=== PATIENT | male | born 1965 | race Asian ===

== ENCOUNTER 2017-04-03 23:50 | Inpatient (IN) | payer OTHER ==
[~2017-04-03] VITALS: Ht 180.3 cm; Wt 80.7 kg
[2017-04-03] MEDS ORDERED: SOD CHLORIDE 0.9% 1,000 ML IV STA (23:53)
[2017-04-03] MEDS ORDERED: LORAZEPAM 2 MG INJ IV STA (23:53)
[2017-04-03] MEDS ORDERED: SUCCINYLCHOLINE CHLORIDE 100 MG/5 ML SYG IV STA (23:57)
[2017-04-03] MEDS ORDERED: ETOMIDATE 20 MG INJ IV STA (23:57)
[2017-04-03] MEDS ORDERED: PROPOFOL 100 ML IV STA (23:57)
[2017-04-04] VITALS (72 sets, daily range): BP systolic 72–141; BP diastolic 56–91; PULSE 61–99; RESP 14–23; Ht 180.3 cm; Wt 80.7 kg
[2017-04-04] MEDS ORDERED: LEVETIRACETAM 1000 MG (PMX) 100 ML IVPB ONE
[2017-04-04 00:19] LABS: BASOPHILS % 0.1 % (0.0-2.0); EOSINOPHILS % 0.3 % (0.0-7.0); HEMATOCRIT 49.3 % (42.0-52.0); HEMOGLOBIN 15.6 g/dl (14.0-18.0); LYMPHOCYTES # 4.6 10^3/ul (0.8-2.9); LYMPHOCYTES % 33.8 % (15.0-51.0); MEAN CORPUSCULAR HEMOGLOBIN 30.1 pg (29.0-33.0); MEAN CORPUSCULAR HGB CONC 31.6 g/dl (32.0-37.0); MEAN CORPUSCULAR VOLUME 95.2 fl (82.0-101.0); MONOCYTE # 1.1 10^3/ul (0.3-0.9); MONOCYTES % 8.4 % (0.0-11.0); NEUTROPHIL # 7.7 10^3/ul (1.6-7.5); PLATELET COUNT 332 10^3/UL (140-415); RED BLOOD COUNT 5.18 10^6/ul (4.70-6.10); RED CELL DISTRIBUTION WIDTH 11.9 % (11.5-14.5); WHITE BLOOD COUNT 13.5 10^3/ul (4.8-10.8)
[2017-04-04 00:42] LABS: ALANINE AMINOTRANSFERASE 16 IU/L (13-69); ALBUMIN 4.6 g/dl (3.3-4.9); ALBUMIN/GLOBULIN RATIO 1.35; ALKALINE PHOSPHATASE 132 IU/L (42-121); ANION GAP 41 (8-16); ASPARTATE AMINO TRANSFERASE 23 IU/L (15-46); BILIRUBIN,INDIRECT 1.5 mg/dl (0-1.1); BILIRUBIN,TOTAL 1.5 mg/dl (0.2-1.3); BLOOD UREA NITROGEN 12 mg/dl (7-20); CHLORIDE 100 mmol/L (97-110); POTASSIUM 4.3 mmol/L (3.5-5.1); SODIUM 146 mmol/L (135-144)
[2017-04-04 00:49] LABS: CARBON DIOXIDE 9 mmol/L (21-31); GLUCOSE 540 mg/dl (70-220)
[2017-04-04 01:05] LABS: TROPONIN-I < 0.012 ng/ml (0.00-0.12)
[2017-04-04] MEDS ORDERED: INSULIN HUMAN REGULAR 100 UNIT in SOD CHLORIDE 0.9% 99 ML IV STA (01:13)
[2017-04-04] MEDS ORDERED: DEXMEDETOMIDINE HCL 200 MCG in SOD CHLORIDE 0.9% 48 ML IV STA (01:19)
[2017-04-04] MEDS ORDERED: LORAZEPAM 2 MG INJ IV ONE (01:30)
[2017-04-04] MEDS ORDERED: SOD CHLORIDE 0.9% 1,000 ML IV ONE (01:30)
--- NOTE | 2017-04-04 01:45 | RADRPT ---
PROCEDURE: CT BRAIN WITHOUT CONTRAST CLINICAL INDICATION: 52-year-old male with seizure. TECHNIQUE: The study was performed utilizing [email or web address] VCT 64-slice CT scanner. Direct axial sections were obtained from the foramen magnum to the vertex without the use of intravenous contrast material. The study was repeated secondary to motion artifact. Sagittal and coronal reformations we re obtained. One or more of the following dose reduction techniques were utilized: automated exposur e control, adjustment of the mA and/or kV according to patient's size or use of iterative reconstruc tion technique. The images were viewed on a PACS workstation. CTD/vol = 90.0 mGy; Total Exam DLP = 1620.5 mGy-cm. COMPARISON: None. FINDINGS: There is mild prominence of the sulci and cisternal spaces consistent with diffuse volume loss. Oth erwise, the ventricles have a normal shape and position. There is no evidence for mass effect or mid line shift. There is focal encephalomalacia within the right inferior parietal region on axial image 5-22 which may be due to prior watershed infarct. There is a focal area of decreased density within the left lateral mid cerebellum consistent with a prior infarct. There is additional focal areas of encephalomalacia within the left superior cerebellum consistent with a prior infarct. There is an o ld lacunar type infarct within the right centrum semiovale. There are scattered periventricular and deep white matter foci of decreased density suggestive of microangiopathic ischemic changes. There is no evidence for acute intra or extra-axial blood. The bony calvarium is intact. There is minimal mucosal thickening within the ethmoid air cells bilaterally. No air-fluid levels are noted. The mastoid air cells are without significant soft tissue. There is a partially visualized endotracheal tube within the oral cavity. IMPRESSION: 1. Mild diffuse volume loss. 2. Focal right inferior parietal, left lateral mid and left superior cerebellum encephalomalacia mo st consistent with prior infarcts. These may be embolic. Clinical correlation is necessary. 3. Old lacunar infarct right centrum semiovale. 4. Scattered periventricular deep white matter areas of decreased density suggestive of microangiop athic ischemic changes. 5. Minimal mucosal thickening ethmoid air cells. 6. Endotracheal tube partially visualized within the oral cavity. .Silas Abraham MD, MD Date Time Electronically viewed and signed by .Silas Abraham MD, MD on 04/04/2017 01:45 .M/
--- NOTE | 2017-04-04 01:46 | RADRPT ---
PROCEDURE: CHEST - 1 VIEW CLINICAL INDICATION: 52-year-old male with seizure and intubation. TECHNIQUE: A single frontal AP portable view of the chest was performed. The images were reviewed on a PACS workstation. COMPARISON: None. FINDINGS: There is an endotracheal tube identified with the tip approximately 4.7 cm above the kamini. The car diomediastinal silhouette is within normal limits. The inferior aspect of the left lower lateral emily st wall costophrenic angle are incompletely visualized. There is mild elevation right hemidiaphragm. There is no evidence for an infiltrate. There is no evidence for congestive heart failure. There is no evidence for pneumothorax. The osseous structures are intact. IMPRESSION: 1. Endotracheal tube with the tip in the mid trachea. 2. No evidence for active cardiopulmonary disease. .Silas Abraham MD, Date Time Electronically viewed and signed by .Silas Abraham MD, on 04/04/2017 01:46 .M/
[2017-04-04] MEDS ORDERED: ATOR10TA65 PO (01:48)
[2017-04-04] MEDS ORDERED: CARV6.2579 PO (01:48)
[2017-04-04] MEDS ORDERED: ASPI-535 PO (01:48)
[2017-04-04] MEDS ORDERED: GLIM2TAB47 PO (01:48)
[2017-04-04] MEDS ORDERED: [UNRECOGNIZED DRUG - CODE] PO (01:48)
[2017-04-04 01:51] LABS: AADO2 Arterial 131.9 mmHg (7.0-24.0); Allen Test ACCEPTAB; Arterial Base Excess -13.3 mmol/L (-3.0-3); Arterial HCO3 12.1 mmol/L (22.0-26.0); MODE VENT - AC
[2017-04-04] MEDS ORDERED: SOD CHLORIDE 0.9% 1,000 ML IV SCH (03:11)
--- NOTE | 2017-04-04 03:29 | ERA ---
ER Documentation Chief Complaint Date/Time DATE: 04/04/17 TIME: 03:11 Chief Complaint bib ra from home, witnessed seizure, no hx of seizures HPI This is a 52-year-old male comes in with complaints of alteration in mental status over the past 3 days per the family. Patient comes in actively seizing. Combative as well. Per family, patient is complained of headache and visual disturbances over the past 4 days. Patient is a diabetic and hypertensive is been noncompliant with his medications for the past 4 months. History is limited secondary to patient's current mental status. ROS All systems reviewed and are negative except as per history of present illness. Medications Home Meds Reported Medications Aspirin Ec (Aspir 81) 81 Mg Tablet.dr, 81 MG PO DAILY 04/04/17 Metformin HCl (Fortamet) 500 Mg Tab.er.24, 500 MG PO 04/04/17 Glimepiride* (Amaryl*) 2 Mg Tablet, 2 MG PO WITH BREAKFAST 04/04/17 Atorvastatin Calcium (Atorvastatin Calcium) 10 Mg Tablet, 10 MG PO QHS 04/04/17 Carvedilol* (Carvedilol*) 6.25 Mg Tablet, 6.25 MG PO BID 04/04/17 Allergies Allergies: Coded Allergies: No Known Allergy (Unverified , 04/04/17) PMhx/Soc Medical and Surgical Hx: Unable to obtain History of Surgery: Yes (stent placement) Anesthesia Reaction: No Hx 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 Disorder: No (family denies seizure history) Hx Cardiac Disorders: Yes (HTN, cardiac arrest, 2x stents) Hx Miscellaneous Medical Probl: Yes (DM 2) Hx Alcohol Use: Yes (weekly, socially) Hx Substance Use: No Smoking Status: Unknown if ever smoked Physical Exam Vitals Vital Signs Date Time Temp Pulse Resp B/P Pulse Ox O2 Delivery O2 Flow Rate FiO2 04/04/17 02:45 98.9 96 15 86/67 100 Mechanical Ventilator 2.0 04/04/17 02:30 98.9 100 17 96/70 100 Mechanical Ventilator 2.0 04/04/17 02:15 104 16 100 50 04/04/17 02:15 98.5 104 16 90/69 100 Mechanical Ventilator 04/04/17 02:00 98.9 109 17 96/71 100 Mechanical Ventilator 04/04/17 01:45 98.9 115 18 101/71 100 Mechanical Ventilator 04/04/17 01:30 98.9 120 21 94/69 100 Mechanical Ventilator 04/04/17 01:15 98.9 130 22 83/66 100 Mechanical Ventilator 04/04/17 01:00 98.9 132 21 86/63 100 Mechanical Ventilator 04/04/17 00:45 98.9 143 19 96/74 100 Mechanical Ventilator 04/04/17 00:30 98.9 87 19 100/79 100 Mechanical Ventilator 2.0 04/04/17 00:15 150 18 100 100 04/04/17 00:15 98.9 153 27 179/122 100 Mechanical Ventilator 04/04/17 00:00 98.9 143 21 140/90 100 Mechanical Ventilator 04/03/17 23:59 98.9 135 24 137/76 97 04/03/17 23:55 98.5 154 25 152/92 95 Room Air 2.0 Physical Exam Const: [] Head: Atraumatic Eyes: Normal Conjunctiva ENT: Normal External Ears, Nose and Mouth. Neck: Full range of motion..~ No meningismus. Resp: Clear to auscultation bilaterally Cardio: Regular rate and rhythm, no murmurs Abd: Soft, non tender, non distended. Normal bowel sounds Skin: No petechiae or rashes Back: No midline or flank tenderness Ext: No cyanosis, or edema Neur: Awake and alert Psych: Normal Mood and Affect Result Diagram: 04/04/17 0001 04/04/17 0001 Results 24 hrs Laboratory Tests Test 04/03/17 23:55 04/04/17 00:01 04/04/17 00:09 04/04/17 02:13 Bedside Glucose 486mg/dL 423mg/dL White Blood Count 13.510^3/ul Red Blood Count 5.1810^6/ul Hemoglobin 15.6g/dl Hematocrit 49.3% Mean Corpuscular Volume 95.2fl Mean Corpuscular Hemoglobin 30.1pg Mean Corpuscular Hemoglobin Concent 31.6g/dl Red Cell Distribution Width 11.9% Platelet Count 41890^3/UL Mean Platelet Volume 11.0fl Neutrophils % 57.0% Lymphocytes % 33.8% Monocytes % 8.4% Eosinophils % 0.3% Basophils % 0.1% Nucleated Red Blood Cells % 0.0/100WBC Neutrophils # 7.710^3/ul Lymphocytes # 4.610^3/ul Monocytes # 1.110^3/ul Eosinophils # 0.010^3/ul Basophils # 0.010^3/ul Nucleated Red Blood Cells # 0.010^3/ul Sodium Level 146mmol/L Potassium Level 4.3mmol/L Chloride Level 100mmol/L Carbon Dioxide Level 9mmol/L Anion Gap 41 Blood Urea Nitrogen 12mg/dl Creatinine 1.40mg/dl Glucose Level 540mg/dl Calcium Level 11.0mg/dl Total Bilirubin 1.5mg/dl Direct Bilirubin 0.00mg/dl Indirect Bilirubin 1.5mg/dl Aspartate Amino Transf (AST/SGOT) 23IU/L Alanine Aminotransferase (ALT/SGPT) 16IU/L Alkaline Phosphatase 132IU/L Troponin I < 0.012ng/ml Total Protein 8.0g/dl Albumin 4.6g/dl Globulin 3.40g/dl Albumin/Globulin Ratio 1.35 Blood Gas Specimen Source Blood arterial Arterial Blood Date Drawn 04/04/2017 1:30:15 AM Arterial Blood pH (Temp corrected) 7.259 Arterial Blood pCO2 (Temp correct) 27.6mmhg Arterial Blood pO2 (Temp corrected) 553.5mmHG Arterial Blood HCO3 12.1mmol/L Arterial Blood Base Excess -13.3mmol/L Matt Test ACCEPTAB Arterial Blood Gas Puncture Site Left Radial Blood Gas A-a O2 Differential 131.9mmHg Blood Gas Temperature 37.0C Blood Gas Respiration Rate 14.0 Blood Gas Actual Respiration Rate 20 Blood Gas Modality VENT - AC FiO2 100.0% Blood Gas Tidal Volume 500.0mL Blood Gas Low PEEP Setting 5.0cmH2O Blood Gas Critical Value Read Back LUIS Solorio MD Blood Gas Notified Whom SONIA Blood Gas Notified Time 04/04/2017 1:50:48 AM Current Medications Medications (Trade) Dose Ordered Sig/Mitra Route PRN Reason Start Time Stop Time Status Last Admin Dose Admin Sodium Chloride (NS) 1,000 ml @ 1,000 mls/hr Q1H STAT IV 04/03/17 23:53 04/04/17 00:52 DC 04/04/17 00:56 Lorazepam (Ativan) 2 mg ONCE STAT IV 04/03/17 23:53 04/03/17 23:54 DC 04/04/17 00:57 Succinylcholine Chloride (Anectine Syringe) 100 mg ONCE STAT IV 04/03/17 23:57 04/03/17 23:59 DC 04/04/17 00:56 Etomidate 20 mg 20 mg ONCE STAT IV 04/03/17 23:57 04/03/17 23:59 DC 04/04/17 00:56 Propofol 100 ml @ 0 mls/hr ONCE STAT IV 04/03/17 23:57 04/03/17 23:59 DC 04/04/17 00:56 Levetiracetam 100 ml @ 400 mls/hr ONCE ONCE IVPB 04/04/17 00:00 04/04/17 00:14 DC 04/04/17 00:53 Insulin Human Regular/Sodium Chloride (Novolin-R/NS) 100 ml @ 0 mls/hr TITRATE STAT IV 04/04/17 01:13 04/04/17 01:15 DC 04/04/17 01:43 Lorazepam 2 mg 2 mg ONCE ONCE IV 04/04/17 01:30 04/04/17 01:31 DC 04/04/17 01:38 Sodium Chloride 1,000 ml @ 1,000 mls/hr Q1H ONCE IV 04/04/17 01:30 04/04/17 02:29 DC 04/04/17 01:38 Dexmedetomidine HCl/Sodium Chloride (Precedex/NS) 50 ml @ 0 mls/hr TITRATE STAT IV 04/04/17 01:19 04/04/17 01:26 DC 04/04/17 01:42 Procedures/MDM EKG: Rate/Rhythm: [Normal Sinus Rhythm] QRS, ST, T-waves: [No changes consistent w/ acute ischemia] Impression: [No evidence of ischemia or arrhythmia] Chest X-ray 1V Interpreted by me: Soft Tissue: No acute abnormalities Bones: No acute abnormalities Mediastinum/Cardiac Silhouette/Lungs: ET tube in good position CT of the head was negative for any acute events, but that showed many old infarcts. Please see radiologist full dictation for full report Endotracheal Intubation by me: Pre assessment performed. See preceding note for details. Pre-oxygenation performed with 100% oxygen RSI: Performed w/o complication or hypoxic events. Medications as ordered. Blade: [Mac 4] ET Tube: 7.5 cm Depth: 23 cm at the lip Intubation confirmed by colorimetric CO2, equal breath sounds, quiet over the stomach. Chest X-ray 1V Interpreted by me: 4 cm above the kamini ET tube. Normal soft tissue, No pneumothorax. Medical decision-making: This unfortunate patient has multiple medical problems. He is in respiratory failure with intractable seizure disorder. Is been intubated and placed on sedation with Precedex and deeper bag. Patient also a diabetic ketoacidosis of his depressive mood swings have been fluid hydrated. Patient will be admitted to intensive care unit to Dr. Chow who is on-call Departure Diagnosis: Primary Impression: Seizure disorder Additional Impression: DKA (diabetic ketoacidoses) Qualified Code: E13.11 - Diabetic ketoacidosis with coma associated with type 2 diabetes mellitus Condition: Critical PAM SMITH Apr 04, 2017 03:29
[2017-04-04] MEDS ORDERED: LORAZEPAM 2 MG INJ IV PRN (03:30)
[2017-04-04] MEDS ORDERED: ONDANSETRON 4 MG INJ IV PRN (03:30)
[2017-04-04] MEDS ORDERED: NACL 0.9% 3 ML SYG IV SCH (03:30)
[2017-04-04] MEDS ORDERED: INSULIN HUMAN REGULAR 100 UNIT in SOD CHLORIDE 0.9% 99 ML IV SCH (04:44)
[2017-04-04] MEDS ORDERED: DEXTROSE 50% 50 ML SYRINGE IV PRN ×4 (05:00→09:30)
[2017-04-04] MEDS: ACCU-CHEK XX SCH ×5 (05:00→09:05)
[2017-04-04] MEDS: NORepinephrine 8MG/250 ML (PMX 250 ML IV SCH (05:30)
[2017-04-04] MEDS ORDERED: NORepinephrine 8MG/250 ML (PMX 250 ML ONE (05:39)
[2017-04-04] MEDS ORDERED: HEPARIN 5,000 UNIT/0.5 ML VIAL SC SCH (06:00)
[2017-04-04] MEDS ORDERED: PANTOPRAZOLE 40 MG INJ IV SCH (06:00)
[2017-04-04] MEDS: DEXTROSE 5%-0.9% NACL 1,000 ML IV SCH ×2 (06:07→16:27)
[2017-04-04 07:00] LABS: CALCIUM 8.7 mg/dl (8.4-10.2); CREATININE 1.01 mg/dl (0.61-1.24); POTASSIUM 3.4 mmol/L (3.5-5.1)
[2017-04-04] MEDS ORDERED: ETOMIDATE 20 MG INJ ONE (07:00)
[2017-04-04 08:03] LABS: AADO2 Arterial 25.5 mmHg (7.0-24.0); Allen Test ACCEPTAB; Arterial Base Excess -2.3 mmol/L (-3.0-3); Arterial COHb 0.3 % (0.0-3.0); Arterial Fraction of Oxyhgb 97.9 % (93.0-99.0); Arterial HCO3 22.5 mmol/L (22.0-26.0); Arterial MetHb 0.2 % (0.0-1.5); Arterial Total Hemglobin 14.4 g/dl (12.0-18.0); MODE VENT - AC
[2017-04-04] MEDS ORDERED: KCL 20 MEQ in NS 100 ML IV ONE (09:00)
[2017-04-04] MEDS ORDERED: ASPIRIN (EC) 81 MG TAB PO SCH (09:00)
[2017-04-04] MEDS: ASPIRIN 81 MG TAB NGT SCH (09:30)
[2017-04-04] MEDS: PROPOFOL 100 ML IV SCH ×3 (09:30→22:00)
[2017-04-04] MEDS ORDERED: ACCU-CHEK XX SCH (09:30)
[2017-04-04] MEDS: LEVETIRACETAM 500 MG (PMX) 100 ML IVPB SCH ×2 (09:30→20:06)
[2017-04-04 10:39] LABS: ABNORMAL IP MESSAGE 1; BASOPHILS % 0.1 % (0.0-2.0); EOSINOPHILS # 0.1 10^3/ul (0.0-0.5); EOSINOPHILS % 0.3 % (0.0-7.0); HEMATOCRIT 38.4 % (42.0-52.0); HEMOGLOBIN 13.4 g/dl (14.0-18.0); LYMPHOCYTES # 1.4 10^3/ul (0.8-2.9); LYMPHOCYTES % 9.3 % (15.0-51.0); MEAN CORPUSCULAR HEMOGLOBIN 30.2 pg (29.0-33.0); MEAN CORPUSCULAR HGB CONC 34.9 g/dl (32.0-37.0); MEAN CORPUSCULAR VOLUME 86.5 fl (82.0-101.0); MEAN PLATELET VOLUME 10.3 fl (7.4-10.4); MONOCYTES % 13.5 % (0.0-11.0); NEUTROPHIL # 11.2 10^3/ul (1.6-7.5); NEUTROPHILS % 76.3 % (39.0-77.0); PLATELET COUNT 266 10^3/UL (140-415); POSITIVE DIFF @See below; RED BLOOD COUNT 4.44 10^6/ul (4.70-6.10); RED CELL DISTRIBUTION WIDTH 12.1 % (11.5-14.5); WHITE BLOOD COUNT 14.7 10^3/ul (4.8-10.8)
--- NOTE | 2017-04-04 10:50 | HP ---
Date/Time of Note Date/Time of Note DATE: 04/04/17 TIME: 10:34 Assessment/Plan VTE Prophylaxis VTE Prophylaxis Intervention: heparin Lines/Catheters IV Catheter Type (from Nrs): Peripheral IV Urinary Cath still in place: Yes Reason Cath still needed: other (indicate) (Intubated) Assessment/Plan Assessment/Plan 52-year-old male with: 1. Diabetic ketoacidosis, known diabetes mellitus with noncompliance with diet or medications. Patient has been off medication for at least 1-2 month, status post DKA protocol, gap is closed, we are transitioning to subcu insulin. He is currently n.p.o., still on D5 normal saline. Hemoglobin A1c out of range. Diabetic education once extubated and awake. Likely to need insulin therapy. Apparently he was on metformin and glipizide based on his medication reconciliation prior. 2. Seizures, unclear etiology but could be secondary to DKA versus intracranial pathology. CAT scan is showing old ischemic CVA, MRI brain, MRA brain and MRA neck still pending. EEG to be done when more stable. Continue Keppra for now. 3. Acute respiratory failure in setting seizures and inability to protect airway. Chest x-ray is fairly clear, pulmonary following. Hopefully to extubate her soon. Currently sedated with propofol, also requiring low-dose Levophed. Lactic acid within normal, no signs of acute infection however again the patient has had seizures, in DKA and as of this morning with AMI 4. NSTEMI known coronary artery disease, status post stent. According to the sister the patient has been compliant with aspirin. His troponin upon arrival last night was within normal. However on recheck this morning is up to 38. NG tube has been placed, aspirin resumed, renal function within normal, CAT scan with no acute bleeding, therefore patient will be put on Lovenox for anticoagulation in setting of AMI. EKG pending. He has required Levophed overnight, carvedilol on hold. Cardiac enzymes being trended, echocardiogram ordered stat, cardiology consult ordered. 5. Diabetes mellitus, known noncompliance with medication, diet or follow-ups. Diabetic education after extubation, will require insulin therapy, see #1 6. Coronary artery disease, status post PCI and stent placed according to the sister, 3 years ago in [place]. Will increase Lipitor to 80 mg nightly, once more stable beta-blockers to be started, currently with NSTEMI therefore will be placed on anticoagulation, aspirin to be continued, cardiology to see. Echocardiogram pending. See #4 7. Hyperlipidemia: Increase Lipitor to 80 mg nightly. Prophylaxis: Treatment dose of Lovenox in setting of AMI, Pepcid for GI prophylaxis Disposition: Cardiology evaluation, pulmonary following regarding vent management, blood sugar control. Prognosis is fair so far. HPI/ROS Admit Date/Time Admit Date/Time Apr 04, 2017 at 03:21 Hx of Present Illness Chief complaint: Seizures History of presenting illness: This is a 52-year-old male with history of coronary artery disease, status post cardiac arrest 3 years ago, had PCI with stent placement 2, diabetes mellitus, hyperlipidemia, apparently stopped all his medication at least 3 months ago, noncompliant with diet, presented the emergency department seizures, could not protect his airway therefore had to be intubated. Patient was also found to be in DKA with bicarb of 9, pH of 7.2 and blood sugars in the 500s. He was started on an insulin drip/DKA protocol, intubated for airway protection, given a dose of Keppra and admitted to the intensive care unit. Patient is currently on propofol, Levophed had to be started for hypotension, he is also on IV fluids. His gap is closed, he will be transitioned to subcutaneous insulin. He is down to 30% FiO2 with weaning protocol started. He has been put on Keppra for seizure. CAT scan of the head showing old ischemic stroke, neurological workup has been started, MRIs are pending, EEG will also be ordered once patient of sedation and more awake. The patient himself has not been able to give any history, the sister at the bedside was able to provide most of the history, I also talked to his primary care physician who gave additional history. According to the sister patient has been complaining of severe headaches and losing his vision over the past 5 days or to admission, he went to his primary care physician to whom he apparently complains of vision loss, she is primary care physician was concerned about glaucoma, he sent him to the [facility], according to the sister they did a dilated eye exam, apparently the pressures were okay, they give him a prescription for eyeglasses. Since the dilated exam, the patient pupils level went back to normal according to the sister and the patient never regained the vision he has prior to the exam. The patient is notoriously noncompliant with medication and also diet, apparently he has been eating additional sugar due to labile blood sugars according to the sister, his blood sugars will run high but also running low at times, they do not have any measurements, the patient is measuring himself. His A1c is out of range here which supports baseline elevated blood sugar. He has been having polyuria and polydipsia according to the sister. He also lost significant weight over the past 6 months. ROS Subjective hx not possible: pt non-verbal, pt critical status, other (Intubated , on pressors, on insulin drip DKA protocol) PMH/Family/Social Past Medical History Coronary artery disease, status post cardiac arrest 3 years ago, status post PCI with the 2 stents placed in [place] 2 years ago. According to the sister he was critically ill and remaining, for 2 month. 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 However his memory has been unreliable at time along with his behavior. Diabetes mellitus Hypertension Hyperlipidemia Visual disturbances/loss Possible major depressive disorder according to sister Noncompliance with medications or diet or follow-ups Past Surgical History Status post PCI with stent placement 3 years ago in [place] in setting of cardiac arrest Family History Significant Family History: no pertinent family hx Social History Alcohol Use: none Smoking Status: Never smoker Drug Use: none Exam/Review of Systems Vital Signs Vitals Vital Signs Date Time Temp Pulse Resp B/P Pulse Ox O2 Delivery O2 Flow Rate FiO2 04/04/17 08:00 73 04/04/17 07:40 15 100 30 04/04/17 06:30 124/91 04/04/17 04:15 97.8 Room Air 04/04/17 02:45 2.0 Intake and Output 04/03/17 04/03/17 04/04/17 15:00 23:00 07:00 Intake Total 1359 ml Output Total 575 ml Balance 784 ml Exam Constitutional: non-verbal, other (Sedated and intubated) Respiratory: clear to auscultation, other (On mechanical ventilation) Cardiovascular: nl pulses, regular rate and rhythm Gastrointestinal: non-tender, soft Musculoskeletal: nl extremities to inspection, other (No edema, clubbing or cyanosis) Extremities: normal pulses 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: other (Sedated and intubated) Labs Result Diagram: 04/04/17 0001 04/04/17 0534 Medications Medications Home medications: Currently none as patient not taking any of his medication at least for the past 1-3 months except for aspirin he has been taking daily. Current Medications Atorvastatin Calcium (Lipitor) 10 mg QHS PO ; Start 04/04/17 at 21:00 Carvedilol (Coreg) 6.25 mg BID PO ; Start 04/04/17 at 09:00 Lorazepam (Ativan) 0.5 mg Q6H PRN IV ANXIETY; Start 04/04/17 at 03:30 Ondansetron HCl (Zofran Inj) 4 mg Q6H PRN IV NAUSEA AND/OR VOMITING; Start 04/04/17 at 03:30 Morphine Sulfate (morphine) 2 mg Q4H PRN IV PAIN LEVEL 7-10; Start 04/04/17 at 03:30 Pantoprazole (Protonix Iv) 40 mg DAILY@06 IV Last administered on 04/04/17 06: 04; Admin Dose 40 MG; Start 04/04/17 at 06:00 Heparin Sodium (Porcine) 5000 unit 5,000 unit Q8 SC Last administered on 06:27; Admin Dose 5,000 UNIT; Start 04/04/17 at 06:00 Norepinephrine 250 ml @ 1.875 mls/ hr TITRATE IV Last administered on 05:30; Admin Dose 9.375 MLS/HR; Start 04/04/17 at 06:00 Dextrose/Sodium Chloride 1,000 ml @ 100 mls/hr Q10H IV Last administered on 06:07; Admin Dose 100 MLS/HR; Start 04/04/17 at 06:30 Potassium Chloride/Sodium Chloride (KCl/NS) 110 ml @ 55 mls/hr ONCE ONCE IV Last administered on 04/04/17 08:49; Admin Dose 55 MLS/HR; Start 04/04/17 at 09 :00; Stop 04/04/17 at 10:59 Diagnostic Test (Pha) (Accu-Chek) 1 ea Q1H XX ; Start 04/04/17 at 09:30 Dextrose (D50w Syringe) 25 ml Q15M PRN IV Till BS 80 mg/dL or above x2; Start 04/04/17 at 09:30 Dextrose (D50w Syringe) 50 ml Q15M PRN IV Till BS 80 mg/dL or above x2; Start 04/04/17 at 09:30 Aspirin 81 mg 81 mg DAILY NGT ; Start 04/04/17 at 09:30 Propofol 100 ml @ 2.421 mls/ hr Q12H IV ; Start 04/04/17 at 09:30 Levetiracetam (Keppra 500 Mg/ 100ml (Pmx)) 100 ml @ 400 mls/hr Q12 IVPB ; Start 04/04/17 at 09:30 Diagnostic Test (Pha) (Accu-Chek) 1 ea 02 XX ; Start 04/05/17 at 02:00 Insulin Glargine (Lantus) 16 unit DAILY@08 SC ; Start 04/04/17 at 10:00 Procedures Procedures PROCEDURE: CHEST - 1 VIEW CLINICAL INDICATION: 52-year-old male with seizure and intubation. TECHNIQUE: A single frontal AP portable view of the chest was performed. The images were reviewed on a PACS workstation. COMPARISON: None. FINDINGS: There is an endotracheal tube identified with the tip approximately 4.7 cm above the kamini. The cardiomediastinal silhouette is within normal limits. The inferior aspect of the left lower lateral chest wall costophrenic angle are incompletely visualized. There is mild elevation right hemidiaphragm. There is no evidence for an infiltrate. There is no evidence for congestive heart failure. There is no evidence for pneumothorax. The osseous structures are intact. IMPRESSION: 1. Endotracheal tube with the tip in the mid trachea. 2. No evidence for active cardiopulmonary disease. .Silas Abraham MD, MD Date Time Electronically viewed and signed by .Silas Abraham MD, MD on 04/04/2017 01:46 PROCEDURE: CT BRAIN WITHOUT CONTRAST CLINICAL INDICATION: 52-year-old male with seizure. TECHNIQUE: The study was performed utilizing [employer] 64-slice CT scanner. Direct axial sections were obtained from the foramen magnum to the vertex without the use of intravenous contrast material. The study was repeated secondary to motion artifact. Sagittal and coronal reformations were obtained. One or more of the following dose reduction techniques were utilized: automated exposure control, adjustment of the mA and/or kV according to patient's size or use of iterative reconstruction technique. The images were viewed on a PACS workstation. CTD/vol = 90.0 mGy; Total Exam DLP = 1620.5 mGy-cm. COMPARISON: None. FINDINGS: There is mild prominence of the sulci and cisternal spaces consistent with diffuse volume loss. Otherwise, the ventricles have a normal shape and position. There is no evidence for mass effect or midline shift. There is focal encephalomalacia within the right inferior parietal region on axial image 5-22 which may be due to prior watershed infarct. There is a focal area of decreased density within the left lateral mid cerebellum consistent with a prior infarct. There is additional focal areas of encephalomalacia within the left superior cerebellum consistent with a prior infarct. There is an old lacunar type infarct within the right centrum semiovale. There are scattered periventricular and deep white matter foci of decreased density suggestive of microangiopathic ischemic changes. There is no evidence for acute intra or extra-axial blood. The bony calvarium is intact. There is minimal mucosal thickening within the ethmoid air cells bilaterally. No air-fluid levels are noted. The mastoid air cells are without significant soft tissue. There is a partially visualized endotracheal tube within the oral cavity. IMPRESSION: 1. Mild diffuse volume loss. 2. Focal right inferior parietal, left lateral mid and left superior cerebellum encephalomalacia most consistent with prior infarcts. These may be embolic. Clinical correlation is necessary. 3. Old lacunar infarct right centrum semiovale. 4. Scattered periventricular deep white matter areas of decreased density suggestive of microangiopathic ischemic changes. 5. Minimal mucosal thickening ethmoid air cells. 6. Endotracheal tube partially visualized within the oral cavity. .Silas Abraham MD, MD Date Time Electronically viewed and signed by .Silas Abraham MD, MD on 04/04/2017 01:45 DOUGLAS FERRER Apr 04, 2017 10:45
[2017-04-04 10:59] LABS: ALBUMIN 3.2 g/dl (3.3-4.9); ALBUMIN/GLOBULIN RATIO 1.03; BILIRUBIN,INDIRECT 0.9 mg/dl (0-1.1); BILIRUBIN,TOTAL 0.9 mg/dl (0.2-1.3); CALCIUM 8.9 mg/dl (8.4-10.2); CREATININE 1.16 mg/dl (0.61-1.24); POTASSIUM 3.9 mmol/L (3.5-5.1); TOTAL PROTEIN 6.3 g/dl (6.1-8.1)
[2017-04-04 11:20] LABS: CK-MB 65.6 ng/ml (0.0-2.4)
[2017-04-04 11:21] LABS: TROPONIN-I 38.9 ng/ml (0.00-0.12)
[2017-04-04 11:29] LABS: THYROID STIMULATING HORMONE 2.5 MIU/L (0.465-4.680)
[2017-04-04] MEDS: INSULIN ASPART [NOVOLOG] 3 ML PEN SC SCH ×5 (11:30→20:05)
[2017-04-04] MEDS: INSULIN GLARGINE [LANtus] 3 ML PEN SC SCH (11:37)
[2017-04-04] MEDS: ENOXAPARIN 80 MG/0.8 ML SYG SC SCH ×2 (11:45→20:29)
[2017-04-04] MEDS ORDERED: CLOPIDOGREL 75 MG TAB NGT ONE (14:00)
[2017-04-04 17:11] LABS: CK-MB 66.4 ng/ml (0.0-2.4); TROPONIN-I 33.5 ng/ml (0.00-0.12)
[2017-04-04] MEDS: FAMOTIDINE 20 MG INJ IV SCH (20:06)
[2017-04-04] MEDS: ATORVASTATIN 80 MG TAB NGT SCH (20:06)
[2017-04-04] MEDS ORDERED: ATORVASTATIN 10 MG TAB PO SCH (21:00)
[2017-04-04] MEDS: LORAZEPAM 2 MG INJ IV PRN ×2 (21:19→22:00)
--- NOTE | 2017-04-04 21:52 | CONS ---
Date/Time of Note Date/Time of Note DATE: 04/04/17 TIME: 21:48 Assessment/Plan Assessment/Plan Additional Assessment/Plan NSTEMI DKA SEIZURE DO VDRF -discussed with son -will proceed with [facility] possible PCI -acei once bp stable and off pressors -continue cv meds -on preossors -stop lovenox before cath risk of mi,, cva, infection, bledin dolly fiaoruestefany, limb loss, cabg discusse Consultation Date/Type/Reason Admit Date/Time Apr 04, 2017 at 03:21 Hx of Present Illness This is a 52-year-old male comes in with complaints of alteration in mental status over the past 3 days per the family. Patient comes in actively seizing. Combative as well. Per family, patient is complained of headache and visual disturbances over the past 4 days. Patient is a diabetic and hypertensive is been noncompliant with his medications for the past 4 months. History is limited secondary to patient's current mental status. His hx has been obtained from his son and apparently with no cehst pian and no overt chf in the recent past but had a NSTEMI and as [facility], will underrgo further owrk up Social History Alcohol Use: none Smoking Status: Never smoker Drug Use: none Exam/Review of Systems Vital Signs Vitals Vital Signs Date Time Temp Pulse Resp B/P Pulse Ox O2 Delivery O2 Flow Rate FiO2 04/04/17 21:00 89 14 100 04/04/17 20:00 100/76 04/04/17 18:00 Mechanical Ventilator 04/04/17 16:45 30 04/04/17 16:00 98.4 04/04/17 02:45 2.0 Intake and Output 04/03/17 04/03/17 04/04/17 14:59 22:59 06:59 Intake Total 1242 ml Output Total 575 ml Balance 667 ml Results Result Diagram: 04/04/17 1021 04/04/17 1021 Results 24 hrs Laboratory Tests Test 04/03/17 23:55 04/04/17 00:01 04/04/17 00:09 04/04/17 02:13 Bedside Glucose 486 *H 423 *H White Blood Count 13.5 H Red Blood Count 5.18 Hemoglobin 15.6 Hematocrit 49.3 Mean Corpuscular Volume 95.2 Mean Corpuscular Hemoglobin 30.1 Mean Corpuscular Hemoglobin Concent 31.6 L Red Cell Distribution Width 11.9 Platelet Count 332 Mean Platelet Volume 11.0 H Neutrophils % 57.0 Lymphocytes % 33.8 Monocytes % 8.4 Eosinophils % 0.3 Basophils % 0.1 Nucleated Red Blood Cells % 0.0 Neutrophils # 7.7 H Lymphocytes # 4.6 H Monocytes # 1.1 H Eosinophils # 0.0 Basophils # 0.0 Nucleated Red Blood Cells # 0.0 Sodium Level 146 H Potassium Level 4.3 Chloride Level 100 Carbon Dioxide Level 9 *L Anion Gap 41 H Blood Urea Nitrogen 12 Creatinine 1.40 H Glucose Level 540 *H Calcium Level 11.0 H Total Bilirubin 1.5 H Direct Bilirubin 0.00 Indirect Bilirubin 1.5 H Aspartate Amino Transf (AST/SGOT) 23 Alanine Aminotransferase (ALT/SGPT) 16 Alkaline Phosphatase 132 H Troponin I < 0.012 Total Protein 8.0 Albumin 4.6 Globulin 3.40 H Albumin/Globulin Ratio 1.35 Blood Gas Specimen Source Blood arterial Arterial Blood Date Drawn 04/04/2017 1:30:15 AM Arterial Blood pH (Temp corrected) 7.259 *L Arterial Blood pCO2 (Temp correct) 27.6 L Arterial Blood pO2 (Temp corrected) 553.5 H Arterial Blood HCO3 12.1 L Arterial Blood Base Excess -13.3 L Matt Test ACCEPTAB Arterial Blood Gas Puncture Site Left Radial Blood Gas A-a O2 Differential 131.9 H Blood Gas Temperature 37.0 Blood Gas Respiration Rate 14.0 Blood Gas Actual Respiration Rate 20 Blood Gas Modality VENT - AC FiO2 100.0 Blood Gas Tidal Volume 500.0 Blood Gas Low PEEP Setting 5.0 Blood Gas Critical Value Read Back LUIS Solorio MD Blood Gas Notified Whom AL Blood Gas Notified Time 04/04/2017 1:50:48 AM Test 04/04/17 03:16 04/04/17 04:18 04/04/17 05:08 04/04/17 05:34 Bedside Glucose 374 H 341 H 258 H Sodium Level 135 Potassium Level 3.4 L Chloride Level 107 Carbon Dioxide Level 23 # Anion Gap 8 # Blood Urea Nitrogen 15 Creatinine 1.01 Glucose Level 209 # Fasting Glucose 209 H Hemoglobin A1c Calcium Level 8.7 Phosphorus Level 3.0 Test 04/04/17 05:57 04/04/17 06:52 04/04/17 07:00 04/04/17 07:41 Bedside Glucose 201 141 128 Blood Gas Specimen Source Blood arterial Arterial Blood Date Drawn 04/04/2017 7:55:20 AM Arterial Blood pH (Temp corrected) 7.379 Arterial Blood pCO2 (Temp correct) 39.0 Arterial Blood pO2 (Temp corrected) 142.6 H Arterial Blood HCO3 22.5 Arterial Blood Base Excess -2.3 Arterial Blood Oxygen Saturation 98.4 H Matt Test ACCEPTAB Arterial Blood Gas Puncture Site Right Radial Arterial Blood Carboxyhemoglobin 0.3 Arterial Blood Methemoglobin 0.2 Blood Gas A-a O2 Differential 25.5 H Oxyhemoglobin Percent 97.9 Total Hemoglobin 14.4 Blood Gas Temperature 37.0 Blood Gas Respiration Rate 14.0 Blood Gas Actual Respiration Rate 15 Blood Gas Modality VENT - AC FiO2 30.0 Blood Gas Tidal Volume 500.0 Blood Gas Low PEEP Setting 5.0 Blood Gas Notified Whom ab Blood Gas Notified Time 04/04/2017 8:03:18 AM Test 04/04/17 09:02 04/04/17 09:47 04/04/17 10:21 04/04/17 10:47 Bedside Glucose 82 77 99 White Blood Count 14.7 H Red Blood Count 4.44 L Hemoglobin 13.4 L Hematocrit 38.4 #L Mean Corpuscular Volume 86.5 Mean Corpuscular Hemoglobin 30.2 Mean Corpuscular Hemoglobin Concent 34.9 Red Cell Distribution Width 12.1 Platelet Count 266 Mean Platelet Volume 10.3 Neutrophils % 76.3 Lymphocytes % 9.3 L Monocytes % 13.5 H Eosinophils % 0.3 Basophils % 0.1 Nucleated Red Blood Cells % 0.0 Neutrophils # 11.2 H Lymphocytes # 1.4 Monocytes # 2.0 H Eosinophils # 0.1 Basophils # 0.0 Nucleated Red Blood Cells # 0.0 Sodium Level 140 Potassium Level 3.9 Chloride Level 111 H Carbon Dioxide Level 23 Anion Gap 10 Blood Urea Nitrogen 15 Creatinine 1.16 Glucose Level 101 # Lactic Acid Level 1.5 Calcium Level 8.9 Magnesium Level 2.6 H Total Bilirubin 0.9 Direct Bilirubin 0.00 Indirect Bilirubin 0.9 Aspartate Amino Transf (AST/SGOT) 192 #H Alanine Aminotransferase (ALT/SGPT) 39 Alkaline Phosphatase 90 Creatine Kinase 967 H Creatine Kinase Index 6.8 Creatinine Kinase MB (Mass) 65.60 H Troponin I 38.900 *H Total Protein 6.3 # Albumin 3.2 #L Globulin 3.10 Albumin/Globulin Ratio 1.03 Triglycerides Level 180 H Cholesterol Level 211 H LDL Cholesterol, Calculated 145 HDL Cholesterol 30 Cholesterol/HDL Ratio 7.0 Thyroid Stimulating Hormone (TSH) 2.500 Free Thyroxine 1.06 Test 04/04/17 11:31 04/04/17 16:27 04/04/17 16:45 04/04/17 20:02 Bedside Glucose 103 189 198 Creatine Kinase 937 H Creatine Kinase Index 7.1 Creatinine Kinase MB (Mass) 66.40 H Troponin I 33.500 *H Medications Medications Current Medications Carvedilol (Coreg) 6.25 mg BID PO Last administered on 04/04/17 20:06; Admin Dose 6.25 MG; Start 04/04/17 at 09:00 Lorazepam (Ativan) 0.5 mg Q6H PRN IV ANXIETY; Start 04/04/17 at 03:30 Ondansetron HCl (Zofran Inj) 4 mg Q6H PRN IV NAUSEA AND/OR VOMITING; Start 04/04/17 at 03:30 Morphine Sulfate 2 mg 2 mg Q4H PRN IV PAIN LEVEL 7-10; Start 04/04/17 at 03:30 Norepinephrine 250 ml @ 1.875 mls/ hr TITRATE IV Last administered on 05:30; Admin Dose 9.375 MLS/HR; Start 04/04/17 at 06:00 Dextrose/Sodium Chloride (D5-NS) 1,000 ml @ 100 mls/hr Q10H IV Last administered on 04/04/17 16:27; Admin Dose 100 MLS/HR; Start 04/04/17 at 06:30 Dextrose (D50w Syringe) 25 ml Q15M PRN IV Till BS 80 mg/dL or above x2; Start 04/04/17 at 09:30 Dextrose (D50w Syringe) 50 ml Q15M PRN IV Till BS 80 mg/dL or above x2; Start 04/04/17 at 09:30 Aspirin 81 mg 81 mg DAILY NGT Last administered on 04/04/17 09:30; Admin Dose 81 MG; Start 04/04/17 at 09:30 Propofol 100 ml @ 2.421 mls/ hr Q12H IV Last administered on 04/04/17 14:24; Admin Dose 12.105 MLS/HR; Start 04/04/17 at 09:30 Levetiracetam (Keppra 500 Mg/ 100ml (Pmx)) 100 ml @ 400 mls/hr Q12 IVPB Last administered on 04/04/17 20:06; Admin Dose 400 MLS/HR; Start 04/04/17 at 09:30 Diagnostic Test (Pha) (Accu-Chek) 1 ea 02 XX ; Start 04/05/17 at 02:00 Insulin Glargine (Lantus) 16 unit DAILY@08 SC Last administered on 04/04/17 11 :37; Admin Dose 16 UNIT; Start 04/04/17 at 10:00 Enoxaparin Sodium (Lovenox) 80 mg Q12 SC Last administered on 04/04/17 20:29; Admin Dose 80 MG; Start 04/04/17 at 11:30 Famotidine (Pepcid Iv) 20 mg BID IV Last administered on 04/04/17 20:06; Admin Dose 20 MG; Start 04/04/17 at 21:00 Atorvastatin Calcium (Lipitor) 80 mg HS NGT Last administered on 04/04/17 20: 06; Admin Dose 80 MG; Start 04/04/17 at 21:00 Clopidogrel Bisulfate (plaVIX) 75 mg DAILY NGT ; Start 04/05/17 at 09:00 Lorazepam (Ativan) 1 mg OC PRN IV AGITATION Last administered on 04/04/17 21: 19; Admin Dose 1 MG; Start 04/04/17 at 17:30; Stop 04/04/17 at 23:45 GERARDO BROWNE MD Apr 04, 2017 21:52
--- NOTE | 2017-04-04 23:48 | RADRPT ---
PROCEDURE: MRA Neck noncontrast CLINICAL INDICATION: Seizure. Diabetic acidosis. TECHNIQUE: Multiplanar multisequence MRA of the neck was performed using 2-D time of flight techniq ue without contrast. The extracranial arterial circulation was evaluated using a time resolved 3-D t bibi of flight technique. Source images, MIP and subvolume MIP images were all reviewed. All stenosis measurements were made using NASCET methodology. COMPARISON: There are no similar studies submitted for comparison. FINDINGS: Evaluation is mildly limited due to motion degradation. Evaluation of the aorta and the great vessel origins is limited without contrast. Right common carotid artery: Patent without evidence of stenosis. Right internal carotid artery: Patent without evidence of stenosis. Right external carotid artery: Patent without evidence of stenosis. Left common carotid artery: Patent without evidence of stenosis. Left internal carotid artery: Patent without evidence of stenosis. Left external carotid artery: Patent without evidence of stenosis. Vertebral arteries: Patent bilaterally without evidence of stenosis. Vertebral artery dominance: Right. IMPRESSION: Evaluation is mildly limited due to motion degradation. No evidence of bilateral carotid artery stenosis by NASCET criteria. Further findings as detailed above. RPTAT: PP .Dwain Worthy MD, Date Time Electronically viewed and signed by .Dwain Worthy MD, MD on 04/04/2017 23:48 .F/
--- NOTE | 2017-04-04 23:49 | RADRPT ---
PROCEDURE: MRA Head noncontrast. CLINICAL INDICATION: Seizure. Diabetic acidosis. TECHNIQUE: MRA of the head was performed with 3-D [id number] technique without contrast. MIP r econstructions were provided. COMPARISON: There are no similar studies submitted for comparison. FINDINGS: Carotid arteries: There is mild right supraclinoid carotid artery stenosis. The left carotid artery is patent without significant. Anterior cerebral arteries: The right A1 segment is hypoplastic. Patent bilaterally without evidence of stenosis. Middle cerebral arteries: There is mild proximal left M1 middle cerebral artery stenosis. The right middle cerebral artery is patent without significant stenosis. Posterior cerebral arteries: Patent bilaterally without evidence of stenosis. Anterior communicating artery: Present. Posterior communicating arteries: Present on the right. The right P1 segment is hypoplastic. Basilar artery: Patent without evidence of stenosis. Vertebral arteries: Patent bilaterally without evidence of stenosis. Vertebral artery dominance: Right. Aneurysm: No definite aneurysm is identified. IMPRESSION: 1. Mild proximal left M1 middle cerebral artery stenosis. 2. Mild right supraclinoid carotid artery stenosis. 3. No definite aneurysm is identified. Further findings as detailed above. RPTAT: HVF .Dwain Worthy MD, Date Time Electronically viewed and signed by .Dwain Worthy MD, on 04/04/2017 23:49 .F/
--- NOTE | 2017-04-04 23:49 | RADRPT ---
PROCEDURE: MR Brain noncontrast. CLINICAL INDICATION: Seizure. Diabetic acidosis. TECHNIQUE: Multiplanar multisequence noncontrast MRI of the brain was performed. COMPARISON: There are no similar studies submitted for comparison. FINDINGS: The ventricles and sulci are within normal limits. There are mild to moderate scattered bilateral subcortical and periventricular T2 hyperintensities s uggesting chronic microvascular ischemic changes. There are small chronic right parietal occipital i nfarctions with subcortical gliosis. There is a chronic left basal ganglia lacunar infarction. There is a chronic left cerebellar infarctions within the left superior cerebellar left lateral cere bellum, and left inferior cerebellum. There is a chronic right frontal kolb radiata/basal ganglia lacunar infarction. There is a chronic right posterior kolb radiata lacunar infarction. There is a cavum septum pellucidum. There is limited evaluation the bilateral hippocampi without dedicated imaging. There is no acute infarction. There is no intracranial hemorrhage or extra-axial fluid collection. There is no mass effect. There is no midline shift. The brainstem is within normal limits. The normal intracranial, intravascular flow voids are preserved. There is minimal bilateral ethmoid sinus mucosal thickening. There is a small right maxillary sinus mucous retention cyst/polyp. There is mild fluid within the nasopharynx with a nasogastric tube. The orbits are grossly unremarkable. There is no destructive osseous lesion. IMPRESSION: 1. No acute infarction or intracranial hemorrhage. 2. Mild to moderate chronic microvascular ischemic changes. 3. Chronic right kolb radiata/basal ganglia and chronic right posterior kolb radiata lacunar inf arctions. 4. Small chronic right parietal occipital infarctions. 5. Chronic left cerebellar infarctions. 6. Chronic left basal ganglia lacunar infarction. Further findings as detailed above. RPTAT: HVF .Dwain Worthy MD, Date Time Electronically viewed and signed by .Dwain Worthy MD, on 04/04/2017 23:49 .F/
[2017-04-05] VITALS (57 sets, daily range): BP systolic 79–113; BP diastolic 55–88; PULSE 76–97; RESP 0–26
[2017-04-05] MEDS: NORepinephrine 8MG/250 ML (PMX 250 ML IV SCH (01:00)
[2017-04-05 01:11] LABS: CK-MB 35.9 ng/ml (0.0-2.4); TROPONIN-I 20.1 ng/ml (0.00-0.12)
[2017-04-05] MEDS: ACCU-CHEK XX SCH (01:49)
[2017-04-05] MEDS ORDERED: ACCU-CHEK XX SCH (02:00)
[2017-04-05] MEDS: DEXTROSE 5%-0.9% NACL 1,000 ML IV SCH ×2 (02:06→12:17)
[2017-04-05] MEDS: PROPOFOL 100 ML IV SCH ×4 (03:00→23:57)
[2017-04-05 05:21] LABS: BASOPHILS % 0.3 % (0.0-2.0); EOSINOPHILS # 0.1 10^3/ul (0.0-0.5); EOSINOPHILS % 0.7 % (0.0-7.0); HEMATOCRIT 37.7 % (42.0-52.0); HEMOGLOBIN 12.6 g/dl (14.0-18.0); LYMPHOCYTES # 1.3 10^3/ul (0.8-2.9); LYMPHOCYTES % 13.7 % (15.0-51.0); MEAN CORPUSCULAR HEMOGLOBIN 30.2 pg (29.0-33.0); MEAN CORPUSCULAR HGB CONC 33.4 g/dl (32.0-37.0); MEAN CORPUSCULAR VOLUME 90.4 fl (82.0-101.0); MEAN PLATELET VOLUME 10.6 fl (7.4-10.4); MONOCYTE # 0.9 10^3/ul (0.3-0.9); MONOCYTES % 9.5 % (0.0-11.0); NEUTROPHIL # 7.4 10^3/ul (1.6-7.5); NEUTROPHILS % 75.5 % (39.0-77.0); PLATELET COUNT 204 10^3/UL (140-415); RED BLOOD COUNT 4.17 10^6/ul (4.70-6.10); RED CELL DISTRIBUTION WIDTH 12.7 % (11.5-14.5); WHITE BLOOD COUNT 9.8 10^3/ul (4.8-10.8)
[2017-04-05 05:41] LABS: INR 1.16; PROTIME 14.9 Sec (12.2-14.2); PT RATIO 1.2
[2017-04-05 05:42] LABS: PARTIAL THROMBOPLASTIN TIME 56.4 Sec (25.0-35.0)
[2017-04-05 05:52] LABS: ALBUMIN 2.7 g/dl (3.3-4.9); BILIRUBIN,INDIRECT 0.6 mg/dl (0-1.1); BILIRUBIN,TOTAL 0.6 mg/dl (0.2-1.3); CALCIUM 8.2 mg/dl (8.4-10.2); CREATININE 1.52 mg/dl (0.61-1.24); POTASSIUM 3.4 mmol/L (3.5-5.1); TOTAL PROTEIN 5.4 g/dl (6.1-8.1)
[2017-04-05 06:03] LABS: TROPONIN-I 13.8 ng/ml (0.00-0.12)
[2017-04-05] MEDS: POTASSIUM CHLORIDE 50 ML IVPB PRN ×3 (06:20→09:02)
[2017-04-05 07:21] LABS: MAGNESIUM 2.1 mg/dl (1.7-2.5); PHOSPHORUS 3.4 mg/dl (2.5-4.9)
[2017-04-05] MEDS: INSULIN ASPART [NOVOLOG] 3 ML PEN SC SCH ×7 (07:35→21:00)
[2017-04-05] MEDS ORDERED: INSULIN GLARGINE [LANtus] 3 ML PEN SC SCH (08:00)
[2017-04-05] MEDS: INSULIN GLARGINE [LANtus] 3 ML PEN SC SCH (08:47)
[2017-04-05] MEDS: ASPIRIN 81 MG TAB NGT SCH (08:57)
[2017-04-05] MEDS: LEVETIRACETAM 500 MG (PMX) 100 ML IVPB SCH (08:59)
[2017-04-05] MEDS ORDERED: CLOPIDOGREL 75 MG TAB NGT SCH (09:00)
[2017-04-05] MEDS: FAMOTIDINE 20 MG INJ IV SCH ×2 (09:02→21:31)
--- NOTE | 2017-04-05 09:40 | PN ---
Date/Time of Note Date/Time of Note DATE: 04/05/17 TIME: 09:26 Assessment/Plan VTE Prophylaxis VTE Prophylaxis Intervention: LMWH (Treatment dose) Lines/Catheters IV Catheter Type (from [facility]): Peripheral IV Urinary Cath still in place: Yes Reason Cath still needed: other (indicate) (Intubated) Assessment/Plan Assessment/Plan 52-year-old male with: 1. NSTEMI known coronary artery disease, status post stents 3 years ago. According to the sister the patient has been compliant with aspirin. Patient's troponin started trending down this morning. On Lovenox subcutaneously which is held this morning in anticipation of angiogram planned later today. Continue current medications, cardiology following. 2D echocardiogram done yesterday. 2. Seizures, unclear etiology but could be secondary to DKA versus intracranial pathology. 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 Neurology has been consulted for further recommendations. EEG if requested by neurology. Continue Keppra for now. 3. Acute respiratory failure in setting seizures and inability to protect airway. Chest x-ray is fairly clear, pulmonary following. Hopefully to extubate her soon after angiogram done later this afternoon, Patient off pressors. Lactic acid within normal, no signs of acute infection. 4. S/p Diabetic ketoacidosis, known diabetes mellitus with noncompliance with diet or medications. Patient has been off medication for at least 1-2 month, status post DKA protocol, Patient on subcutaneous insulin, will titrate up for better blood sugar control. He is currently n.p.o., on D5 normal saline. Hemoglobin A1c out of range. Diabetic education once extubated and awake. Likely to need insulin therapy. Apparently he was on metformin and glipizide based on his medication reconciliation prior. 5. Diabetes mellitus, known noncompliance with medication, diet or follow-ups. Diabetic education after extubation, will require insulin therapy, see #1 6. Coronary artery disease, status post PCI and stent placed according to the sister, 3 years ago in [place]. Lipitor 80 mg nightly, once more stable beta-blockers to be started, currently with NSTEMI and on anticoagulation, aspirin and cardiology following. Echocardiogram done. See #4 7. Hyperlipidemia: Continue Lipitor 80 mg qhs. Prophylaxis: Treatment dose of Lovenox in setting of AMI, Pepcid for GI prophylaxis Disposition: Angiogram today, pulmonary following regarding vent management, blood sugar control. Neurology consult pending Prognosis is fair so far. Subjective 24 Hr Interval Summary Free Text/Dictation Patient still intubated, under sedation, as of this morning no weaning trial yet as patient will need to go to the [facility] later this afternoon at 4 PM for angiogram. MRI overnight showing chronic findings only, no acute CVA. Given admission with seizures, neurology has been consulted prior to angiogram to be done today. Echocardiogram done last night. Patient off pressors. Exam/Review of Systems Vital Signs Vitals Vital Signs Date Time Temp Pulse Resp B/P Pulse Ox O2 Delivery O2 Flow Rate FiO2 04/05/17 08:00 97.6 87 14 101/73 100 04/05/17 05:10 30 04/04/17 18:00 Mechanical Ventilator 04/04/17 02:45 2.0 Intake and Output 04/04/17 04/04/17 04/05/17 15:00 23:00 07:00 Intake Total 1135.5 ml 697 ml 1190.8 ml Output Total 850 ml 630 ml 195 ml Balance 285.5 ml 67 ml 995.8 ml Exam Constitutional: other (Sedated and intubated), well developed Respiratory: clear to auscultation, other (On mechanical ventilation) Cardiovascular: nl pulses, regular rate and rhythm Gastrointestinal: non-tender, soft Musculoskeletal: nl extremities to inspection Extremities: normal pulses, other (No edema, clubbing or cyanosis) 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: other (Currently under sedation with propofol, intubated) Results Result Diagram: 04/05/17 0430 04/05/17 0437 Results 24 hrs Laboratory Tests Test 04/04/17 09:47 04/04/17 10:21 04/04/17 10:47 04/04/17 11:31 Bedside Glucose 77 99 103 White Blood Count 14.7 H Red Blood Count 4.44 L Hemoglobin 13.4 L Hematocrit 38.4 #L Mean Corpuscular Volume 86.5 Mean Corpuscular Hemoglobin 30.2 Mean Corpuscular Hemoglobin Concent 34.9 Red Cell Distribution Width 12.1 Platelet Count 266 Mean Platelet Volume 10.3 Neutrophils % 76.3 Lymphocytes % 9.3 L Monocytes % 13.5 H Eosinophils % 0.3 Basophils % 0.1 Nucleated Red Blood Cells % 0.0 Neutrophils # 11.2 H Lymphocytes # 1.4 Monocytes # 2.0 H Eosinophils # 0.1 Basophils # 0.0 Nucleated Red Blood Cells # 0.0 Sodium Level 140 Potassium Level 3.9 Chloride Level 111 H Carbon Dioxide Level 23 Anion Gap 10 Blood Urea Nitrogen 15 Creatinine 1.16 Glucose Level 101 # Lactic Acid Level 1.5 Calcium Level 8.9 Magnesium Level 2.6 H Total Bilirubin 0.9 Direct Bilirubin 0.00 Indirect Bilirubin 0.9 Aspartate Amino Transf (AST/SGOT) 192 #H Alanine Aminotransferase (ALT/SGPT) 39 Alkaline Phosphatase 90 Creatine Kinase 967 H Creatine Kinase Index 6.8 Creatinine Kinase MB (Mass) 65.60 H Troponin I 38.900 *H Total Protein 6.3 # Albumin 3.2 #L Globulin 3.10 Albumin/Globulin Ratio 1.03 Triglycerides Level 180 H Cholesterol Level 211 H LDL Cholesterol, Calculated 145 HDL Cholesterol 30 Cholesterol/HDL Ratio 7.0 Thyroid Stimulating Hormone (TSH) 2.500 Free Thyroxine 1.06 Test 04/04/17 16:27 04/04/17 16:45 04/04/17 20:02 04/04/17 23:50 Creatine Kinase 937 H 724 H Creatine Kinase Index 7.1 5.0 Creatinine Kinase MB (Mass) 66.40 H 35.90 H Troponin I 33.500 *H 20.100 *H Bedside Glucose 189 198 Test 04/05/17 01:58 04/05/17 04:30 04/05/17 04:37 04/05/17 04:53 Bedside Glucose 185 White Blood Count 9.8 # Red Blood Count 4.17 L Hemoglobin 12.6 L Hematocrit 37.7 L Mean Corpuscular Volume 90.4 Mean Corpuscular Hemoglobin 30.2 Mean Corpuscular Hemoglobin Concent 33.4 Red Cell Distribution Width 12.7 Platelet Count 204 # Mean Platelet Volume 10.6 H Neutrophils % 75.5 Lymphocytes % 13.7 L Monocytes % 9.5 Eosinophils % 0.7 Basophils % 0.3 Nucleated Red Blood Cells % 0.0 Neutrophils # 7.4 Lymphocytes # 1.3 Monocytes # 0.9 Eosinophils # 0.1 Basophils # 0.0 Nucleated Red Blood Cells # 0.0 Phosphorus Level 3.4 Magnesium Level 2.1 Prothrombin Time 14.9 H Prothrombin Time Ratio 1.2 INR International Normalized Ratio 1.16 Activated Partial Thromboplast Time 56.4 H Sodium Level 143 Potassium Level 3.4 L Chloride Level 113 H Carbon Dioxide Level 24 Anion Gap 9 Blood Urea Nitrogen 14 Creatinine 1.52 H Glucose Level 215 # Calcium Level 8.2 L Total Bilirubin 0.6 Direct Bilirubin 0.00 Indirect Bilirubin 0.6 Aspartate Amino Transf (AST/SGOT) 87 #H Alanine Aminotransferase (ALT/SGPT) 41 Alkaline Phosphatase 84 Total Protein 5.4 L Albumin 2.7 L Globulin 2.70 Albumin/Globulin Ratio 1.00 Creatine Kinase 490 #H Creatine Kinase Index 4.3 Creatinine Kinase MB (Mass) 21.00 H Troponin I 13.800 *H Test 04/05/17 08:45 Bedside Glucose 215 Imaging Free Text/Dictation PROCEDURE: MRA Neck noncontrast CLINICAL INDICATION: Seizure. Diabetic acidosis. TECHNIQUE: Multiplanar multisequence MRA of the neck was performed using 2-D time of flight technique without contrast. The extracranial arterial circulation was evaluated using a time resolved 3-D time of flight technique. Source images, MIP and subvolume MIP images were all reviewed. All stenosis measurements were made using NASCET methodology. COMPARISON: There are no similar studies submitted for comparison. FINDINGS: Evaluation is mildly limited due to motion degradation. Evaluation of the aorta and the great vessel origins is limited without contrast. Right common carotid artery: Patent without evidence of stenosis. Right internal carotid artery: Patent without evidence of stenosis. Right external carotid artery: Patent without evidence of stenosis. Left common carotid artery: Patent without evidence of stenosis. Left internal carotid artery: Patent without evidence of stenosis. Left external carotid artery: Patent without evidence of stenosis. Vertebral arteries: Patent bilaterally without evidence of stenosis. Vertebral artery dominance: Right. IMPRESSION: Evaluation is mildly limited due to motion degradation. No evidence of bilateral carotid artery stenosis by NASCET criteria. Further findings as detailed above. RPTAT: PP .Dwain Worthy MD, Date Time Electronically viewed and signed by .Dwain Worthy MD, on 04/04/2017 23:48 PROCEDURE: MRA Head noncontrast. CLINICAL INDICATION: Seizure. Diabetic acidosis. TECHNIQUE: MRA of the head was performed with 3-D clud-as-vadrrf technique without contrast. MIP reconstructions were provided. COMPARISON: There are no similar studies submitted for comparison. FINDINGS: Carotid arteries: There is mild right supraclinoid carotid artery stenosis. The left carotid artery is patent without significant. Anterior cerebral arteries: The right A1 segment is hypoplastic. Patent bilaterally without evidence of stenosis. Middle cerebral arteries: There is mild proximal left M1 middle cerebral artery stenosis. The right middle cerebral artery is patent without significant stenosis. Posterior cerebral arteries: Patent bilaterally without evidence of stenosis. Anterior communicating artery: Present. Posterior communicating arteries: Present on the right. The right P1 segment is hypoplastic. Basilar artery: Patent without evidence of stenosis. Vertebral arteries: Patent bilaterally without evidence of stenosis. Vertebral artery dominance: Right. Aneurysm: No definite aneurysm is identified. IMPRESSION: 1. Mild proximal left M1 middle cerebral artery stenosis. 2. Mild right supraclinoid carotid artery stenosis. 3. No definite aneurysm is identified. Further findings as detailed above. RPTAT: HVF .Dwain Worthy MD, MD Date Time Electronically viewed and signed by .Dwain Worthy MD, MD on 04/04/2017 23:49 PROCEDURE: MR Brain noncontrast. CLINICAL INDICATION: Seizure. Diabetic acidosis. TECHNIQUE: Multiplanar multisequence noncontrast MRI of the brain was performed. COMPARISON: There are no similar studies submitted for comparison. FINDINGS: The ventricles and sulci are within normal limits. There are mild to moderate scattered bilateral subcortical and periventricular T2 hyperintensities suggesting chronic microvascular ischemic changes. There are small chronic right parietal occipital infarctions with subcortical gliosis. There is a chronic left basal ganglia lacunar infarction. There is a chronic left cerebellar infarctions within the left superior cerebellar left lateral cerebellum, and left inferior cerebellum. There is a chronic right frontal kobl radiata/basal ganglia lacunar infarction. There is a chronic right posterior kolb radiata lacunar infarction. There is a cavum septum pellucidum. There is limited evaluation the bilateral hippocampi without dedicated imaging. There is no acute infarction. There is no intracranial hemorrhage or extra-axial fluid collection. There is no mass effect. There is no midline shift. The brainstem is within normal limits. The normal intracranial, intravascular flow voids are preserved. There is minimal bilateral ethmoid sinus mucosal thickening. There is a small right maxillary sinus mucous retention cyst/polyp. There is mild fluid within the nasopharynx with a nasogastric tube. The orbits are grossly unremarkable. There is no destructive osseous lesion. IMPRESSION: 1. No acute infarction or intracranial hemorrhage. 2. Mild to moderate chronic microvascular ischemic changes. 3. Chronic right kolb radiata/basal ganglia and chronic right posterior kolb radiata lacunar infarctions. 4. Small chronic right parietal occipital infarctions. 5. Chronic left cerebellar infarctions. 6. Chronic left basal ganglia lacunar infarction. Further findings as detailed above. RPTAT: HVF .Dwain Worthy MD, MD Date Time Electronically viewed and signed by .Dwain Worthy MD, MD on 04/04/2017 23:49 .F/ Medications Medications Current Medications Carvedilol (Coreg) 6.25 mg BID PO Last administered on 04/04/17 20:06; Admin Dose 6.25 MG; Start 04/04/17 at 09:00 Lorazepam (Ativan) 0.5 mg Q6H PRN IV ANXIETY; Start 04/04/17 at 03:30 Ondansetron HCl (Zofran Inj) 4 mg Q6H PRN IV NAUSEA AND/OR VOMITING; Start 04/04/17 at 03:30 Morphine Sulfate 2 mg 2 mg Q4H PRN IV PAIN LEVEL 7-10; Start 04/04/17 at 03:30 Norepinephrine 250 ml @ 1.875 mls/ hr TITRATE IV Last administered on 01:00; Admin Dose 3.75 MLS/HR; Start 04/04/17 at 06:00 Dextrose/Sodium Chloride (D5-NS) 1,000 ml @ 100 mls/hr Q10H IV Last administered on 04/05/17 02:06; Admin Dose 100 MLS/HR; Start 04/04/17 at 06:30 Dextrose (D50w Syringe) 25 ml Q15M PRN IV Till BS 80 mg/dL or above x2; Start 04/04/17 at 09:30 Dextrose (D50w Syringe) 50 ml Q15M PRN IV Till BS 80 mg/dL or above x2; Start 04/04/17 at 09:30 Aspirin 81 mg 81 mg DAILY NGT Last administered on 04/05/17 08:57; Admin Dose 81 MG; Start 04/04/17 at 09:30 Propofol 100 ml @ 2.421 mls/ hr Q12H IV Last administered on 04/05/17 03:00 ; Admin Dose 14.526 MLS/HR; Start 04/04/17 at 09:30 Levetiracetam (Keppra 500 Mg/ 100ml (Pmx)) 100 ml @ 400 mls/hr Q12 IVPB Last administered on 04/05/17 08:59; Admin Dose 400 MLS/HR; Start 04/04/17 at 09:30 Diagnostic Test (Pha) (Accu-Chek) 1 ea 02 XX Last administered on 04/05/17 01 :49; Admin Dose 1 EA; Start 04/05/17 at 02:00 Insulin Glargine (Lantus) 16 unit DAILY@08 SC Last administered on 04/05/17 08:47; Admin Dose 16 UNIT; Start 04/04/17 at 10:00 Famotidine (Pepcid Iv) 20 mg BID IV Last administered on 04/05/17 09:02; Admin Dose 20 MG; Start 04/04/17 at 21:00 Atorvastatin Calcium (Lipitor) 80 mg HS NGT Last administered on 04/04/17 20: 06; Admin Dose 80 MG; Start 04/04/17 at 21:00 Clopidogrel Bisulfate (plaVIX) 75 mg DAILY NGT Last administered on 04/05/17 08:57; Admin Dose 75 MG; Start 04/05/17 at 09:00 DOUGLAS FERRER Apr 05, 2017 09:40
--- NOTE | 2017-04-05 10:58 | CONS ---
Date/Time of Note Date/Time of Note DATE: 04/05/17 TIME: 10:50 Assessment/Plan Assessment/Plan Chief Complaint/Hosp Course 52 year old male with hx of uncontrolled DM, HLD, CAD s/p PCI non-compliant w meds admitted with vision loss and severe headaches 4 days prior to admission with seizures, respiratory failure, and NSTEMI. MRI Brain w/o contrast no acute infarction or ICH, moderate chronic microvascular changes, chronic infarcts in right kolb radiata, basal ganglia, right posterior kolb radiata lacunar infarction, right parietal occipital infarction, chronic left cerebellar infarct, left basal ganglia MRA Head: suggestive of mild Left M1 stenosis Suspect etiology of current presentation is likely secondary to PRES Posterior Reversible Encephalopathy given triad of visual sx, headaches, and seizures. Recommend: Keppra 1 g BID, Routine EEG, seizure precautions ativan prn seizure activity proceed with angiogram for cardiac work up from neurologic standpoint dual antiplatelet therapy ASA + Plavix and high intensity statin Lipitor 80 mg qhs is appropriate for LDL >100, HBA1C is still pending goal would be less than 7.0% ECHO pending review DVT ppx continue ICU level care, maintain euglycemia, afebrile and normotensive at this time suspect likely metabolic etiology for neurologic issues will continue to follow Problems: Consultation Date/Type/Reason Admit Date/Time Apr 04, 2017 at 03:21 Date of Consultation: Apr 05, 2017 Type of Consultation: Neurology Reason for Consultation Seizures, CVA Referring Provider: DOUGLAS FERRER Hx of Present Illness 52 year old male with history of CAD, s/p cardiac arrest 3 years ago with PCI stent placement x2, uncontrolled IDDM, HLD had stopped taking all medications 3 mo. ago, non-compliant with dietary modifications, likely hx of depression. 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 CTH showed multiple old ischemic strokes. MRI Brain w/o contrast shows numerous lacunar chronic infarcts and FLAIR hyperintensity left occipital region. Subjective hx not possible: pt non-verbal, pt critical Social History Alcohol Use: none Smoking Status: Never smoker Drug Use: none Exam/Review of Systems Vital Signs Vitals Vital Signs Date Time Temp Pulse Resp B/P Pulse Ox O2 Delivery O2 Flow Rate FiO2 04/05/17 09:00 83 14 93/72 100 Mechanical Ventilator 04/05/17 09:00 30 04/05/17 08:00 97.6 04/04/17 02:45 2.0 Intake and Output 04/04/17 04/04/17 04/05/17 14:59 22:59 06:59 Intake Total 1133.5 ml 816 ml 1089.8 ml Output Total 850 ml 720 ml 230 ml Balance 283.5 ml 96 ml 859.8 ml Exam intubated off sedation briefly opens his eyes unable to follow commands CN: constricted 1mm, no blink to threat can Doll's corneals and gag intact Motor absent w/d to extremities Results Result Diagram: 04/05/1742904/05/17436 Results 24 hrs Laboratory Tests Test 04/04/17 11:31 04/04/17 16:27 04/04/17 16:45 04/04/17 20:02 Bedside Glucose 103 189 198 Creatine Kinase 937 H Creatine Kinase Index 7.1 Creatinine Kinase MB (Mass) 66.40 H Troponin I 33.500 *H Test 04/04/17 23:50 04/05/17 01:58 04/05/17 04:30 04/05/17 04:37 Creatine Kinase 724 H Creatine Kinase Index 5.0 Creatinine Kinase MB (Mass) 35.90 H Troponin I 20.100 *H Bedside Glucose 185 White Blood Count 9.8 # Red Blood Count 4.17 L Hemoglobin 12.6 L Hematocrit 37.7 L Mean Corpuscular Volume 90.4 Mean Corpuscular Hemoglobin 30.2 Mean Corpuscular Hemoglobin Concent 33.4 Red Cell Distribution Width 12.7 Platelet Count 204 # Mean Platelet Volume 10.6 H Neutrophils % 75.5 Lymphocytes % 13.7 L Monocytes % 9.5 Eosinophils % 0.7 Basophils % 0.3 Nucleated Red Blood Cells % 0.0 Neutrophils # 7.4 Lymphocytes # 1.3 Monocytes # 0.9 Eosinophils # 0.1 Basophils # 0.0 Nucleated Red Blood Cells # 0.0 Phosphorus Level 3.4 Magnesium Level 2.1 Prothrombin Time 14.9 H Prothrombin Time Ratio 1.2 INR International Normalized Ratio 1.16 Activated Partial Thromboplast Time 56.4 H Sodium Level 143 Potassium Level 3.4 L Chloride Level 113 H Carbon Dioxide Level 24 Anion Gap 9 Blood Urea Nitrogen 14 Creatinine 1.52 H Glucose Level 215 # Calcium Level 8.2 L Total Bilirubin 0.6 Direct Bilirubin 0.00 Indirect Bilirubin 0.6 Aspartate Amino Transf (AST/SGOT) 87 #H Alanine Aminotransferase (ALT/SGPT) 41 Alkaline Phosphatase 84 Total Protein 5.4 L Albumin 2.7 L Globulin 2.70 Albumin/Globulin Ratio 1.00 Test 04/05/17 04:53 04/05/17 08:45 Creatine Kinase 490 #H Creatine Kinase Index 4.3 Creatinine Kinase MB (Mass) 21.00 H Troponin I 13.800 *H Bedside Glucose 215 Medications Medications Current Medications Carvedilol (Coreg) 6.25 mg BID PO Last administered on 04/04/17 20:06; Admin Dose 6.25 MG; Start 04/04/17 at 09:00 Lorazepam (Ativan) 0.5 mg Q6H PRN IV ANXIETY; Start 04/04/17 at 03:30 Ondansetron HCl (Zofran Inj) 4 mg Q6H PRN IV NAUSEA AND/OR VOMITING; Start 04/04/17 at 03:30 Morphine Sulfate 2 mg 2 mg Q4H PRN IV PAIN LEVEL 7-10; Start 04/04/17 at 03:30 Norepinephrine 250 ml @ 1.875 mls/ hr TITRATE IV Last administered on 01:00; Admin Dose 3.75 MLS/HR; Start 04/04/17 at 06:00 Dextrose/Sodium Chloride (D5-NS) 1,000 ml @ 100 mls/hr Q10H IV Last administered on 04/05/17 02:06; Admin Dose 100 MLS/HR; Start 04/04/17 at 06:30 Dextrose (D50w Syringe) 25 ml Q15M PRN IV Till BS 80 mg/dL or above x2; Start 04/04/17 at 09:30 Dextrose (D50w Syringe) 50 ml Q15M PRN IV Till BS 80 mg/dL or above x2; Start 04/04/17 at 09:30 Aspirin 81 mg 81 mg DAILY NGT Last administered on 04/05/17 08:57; Admin Dose 81 MG; Start 04/04/17 at 09:30 Propofol (Diprivan) 100 ml @ 2.421 mls/ hr Q12H IV Last administered on 03:00; Admin Dose 14.526 MLS/HR; Start 04/04/17 at 09:30 Diagnostic Test (Pha) (Accu-Chek) 1 ea 02 XX Last administered on 04/05/17 01 :49; Admin Dose 1 EA; Start 04/05/17 at 02:00 Insulin Glargine (Lantus) 16 unit DAILY@08 SC Last administered on 04/05/17 08:47; Admin Dose 16 UNIT; Start 04/04/17 at 10:00 Famotidine (Pepcid Iv) 20 mg BID IV Last administered on 04/05/17 09:02; Admin Dose 20 MG; Start 04/04/17 at 21:00 Atorvastatin Calcium (Lipitor) 80 mg HS NGT Last administered on 04/04/17 20: 06; Admin Dose 80 MG; Start 04/04/17 at 21:00 Clopidogrel Bisulfate 75 mg 75 mg DAILY NGT Last administered on 04/05/17 08: 57; Admin Dose 75 MG; Start 04/05/17 at 09:00 Levetiracetam (Keppra 1,000mg/ 100ml (Pmx)) 100 ml @ 400 mls/hr Q12 IVPB ; Start 04/05/17 at 11:00 EDILIA ADAMS MD Apr 05, 2017 10:58
[2017-04-05] MEDS: LEVETIRACETAM 1000 MG (PMX) 100 ML IVPB SCH ×2 (11:00→21:31)
--- NOTE | 2017-04-05 11:00 | CONS ---
Date/Time of Note Date/Time of Note DATE: 04/05/17 TIME: 10:59 Consultation Date/Type/Reason Admit Date/Time Apr 04, 2017 at 03:21 Initial Consult Date 04/04/17 Type of Consultation: Pulmonary/critical care Referring Provider: DOUGLAS FERRER 24 HR Interval Summary Free Text/Dictation dictated # [id number] Exam/Review of Systems Vital Signs Vitals Vital Signs Date Time Temp Pulse Resp B/P Pulse Ox O2 Delivery O2 Flow Rate FiO2 04/05/17 09:00 83 14 93/72 100 Mechanical Ventilator 04/05/17 09:00 30 04/05/17 08:00 97.6 04/04/17 02:45 2.0 Intake and Output 04/04/17 04/04/17 04/05/17 15:00 23:00 07:00 Intake Total 1135.5 ml 697 ml 1190.8 ml Output Total 850 ml 630 ml 245 ml Balance 285.5 ml 67 ml 945.8 ml Results Result Diagram: 04/05/17 0430 04/05/17 0437 Results 24 hrs Laboratory Tests Test 04/04/17 11:31 04/04/17 16:27 04/04/17 16:45 04/04/17 20:02 Bedside Glucose 103 189 198 Creatine Kinase 937 H Creatine Kinase Index 7.1 Creatinine Kinase MB (Mass) 66.40 H Troponin I 33.500 *H Test 04/04/17 23:50 04/05/17 01:58 04/05/17 04:30 04/05/17 04:37 Creatine Kinase 724 H Creatine Kinase Index 5.0 Creatinine Kinase MB (Mass) 35.90 H Troponin I 20.100 *H Bedside Glucose 185 White Blood Count 9.8 # Red Blood Count 4.17 L Hemoglobin 12.6 L Hematocrit 37.7 L Mean Corpuscular Volume 90.4 Mean Corpuscular Hemoglobin 30.2 Mean Corpuscular Hemoglobin Concent 33.4 Red Cell Distribution Width 12.7 Platelet Count 204 # Mean Platelet Volume 10.6 H Neutrophils % 75.5 Lymphocytes % 13.7 L Monocytes % 9.5 Eosinophils % 0.7 Basophils % 0.3 Nucleated Red Blood Cells % 0.0 Neutrophils # 7.4 Lymphocytes # 1.3 Monocytes # 0.9 Eosinophils # 0.1 Basophils # 0.0 Nucleated Red Blood Cells # 0.0 Phosphorus Level 3.4 Magnesium Level 2.1 Prothrombin Time 14.9 H Prothrombin Time Ratio 1.2 INR International Normalized Ratio 1.16 Activated Partial Thromboplast Time 56.4 H Sodium Level 143 Potassium Level 3.4 L Chloride Level 113 H Carbon Dioxide Level 24 Anion Gap 9 Blood Urea Nitrogen 14 Creatinine 1.52 H Glucose Level 215 # Calcium Level 8.2 L Total Bilirubin 0.6 Direct Bilirubin 0.00 Indirect Bilirubin 0.6 Aspartate Amino Transf (AST/SGOT) 87 #H Alanine Aminotransferase (ALT/SGPT) 41 Alkaline Phosphatase 84 Total Protein 5.4 L Albumin 2.7 L Globulin 2.70 Albumin/Globulin Ratio 1.00 Test 04/05/17 04:53 04/05/17 08:45 Creatine Kinase 490 #H Creatine Kinase Index 4.3 Creatinine Kinase MB (Mass) 21.00 H Troponin I 13.800 *H Bedside Glucose 215 Medications Medications Current Medications Carvedilol (Coreg) 6.25 mg BID PO Last administered on 04/04/17 20:06; Admin Dose 6.25 MG; Start 04/04/17 at 09:00 Lorazepam (Ativan) 0.5 mg Q6H PRN IV ANXIETY; Start 04/04/17 at 03:30 Ondansetron HCl (Zofran Inj) 4 mg Q6H PRN IV NAUSEA AND/OR VOMITING; Start 04/04/17 at 03:30 Morphine Sulfate 2 mg 2 mg Q4H PRN IV PAIN LEVEL 7-10; Start 04/04/17 at 03:30 Norepinephrine 250 ml @ 1.875 mls/ hr TITRATE IV Last administered on 01:00; Admin Dose 3.75 MLS/HR; Start 04/04/17 at 06:00 Dextrose/Sodium Chloride (D5-NS) 1,000 ml @ 100 mls/hr Q10H IV Last administered on 04/05/17 02:06; Admin Dose 100 MLS/HR; Start 04/04/17 at 06:30 Dextrose (D50w Syringe) 25 ml Q15M PRN IV Till BS 80 mg/dL or above x2; Start 04/04/17 at 09:30 Dextrose (D50w Syringe) 50 ml Q15M PRN IV Till BS 80 mg/dL or above x2; Start 04/04/17 at 09:30 Aspirin 81 mg 81 mg DAILY NGT Last administered on 04/05/17 08:57; Admin Dose 81 MG; Start 04/04/17 at 09:30 Propofol (Diprivan) 100 ml @ 2.421 mls/ hr Q12H IV Last administered on 03:00; Admin Dose 14.526 MLS/HR; Start 04/04/17 at 09:30 Diagnostic Test (Pha) (Accu-Chek) 1 ea 02 XX Last administered on 04/05/17 01 :49; Admin Dose 1 EA; Start 04/05/17 at 02:00 Insulin Glargine (Lantus) 16 unit DAILY@08 SC Last administered on 04/05/17 08:47; Admin Dose 16 UNIT; Start 04/04/17 at 10:00 Famotidine (Pepcid Iv) 20 mg BID IV Last administered on 04/05/17 09:02; Admin Dose 20 MG; Start 04/04/17 at 21:00 Atorvastatin Calcium (Lipitor) 80 mg HS NGT Last administered on 04/04/17 20: 06; Admin Dose 80 MG; Start 04/04/17 at 21:00 Clopidogrel Bisulfate 75 mg 75 mg DAILY NGT Last administered on 04/05/17 08: 57; Admin Dose 75 MG; Start 04/05/17 at 09:00 Levetiracetam (Keppra 1,000mg/ 100ml (Pmx)) 100 ml @ 400 mls/hr Q12 IVPB ; Start 04/05/17 at 11:00 NUBIA NAVARRO Apr 05, 2017 11:00
--- NOTE | 2017-04-05 11:03 | CONS ---
Date/Time of Note Date/Time of Note DATE: 04/05/17 TIME: 11:00 Assessment/Plan Assessment/Plan Additional Assessment/Plan Ventilator setting; AC of 14, tidal volume 500, PEEP of 5, 30% FiO2. Patient is off insulin drip for more than 24 hours now. Patient currently on propofol at 30 mics per kilogram per minute. Assessment and recommendations; 1. Patient admitted with DKA with interval improvement, off insulin drip. 2. MRI of the brain showing multiple chronic patchy infarcts. 2. History of coronary artery disease with history of PTCA 3 years ago. 4. Stable seizure disorder. 5. History of diabetes and hypertension. 6. Positive troponins. Continue current treatment. Patient scheduled for coronary angiography today. Further recommendations to be made once angiography is performed. 35 minutes of critical care time was spent evaluating the patient. Consultation Date/Type/Reason Admit Date/Time Apr 04, 2017 at 03:21 Initial Consult Date 04/04/17 Type of Consultation: Pulmonary/critical care Referring Provider: DOUGLAS FERRER 24 HR Interval Summary Free Text/Dictation Patient condition remains critical. Patient failed a weaning trial yesterday because of severe agitation once he was taken off propofol drip. Patient however has remained hemodynamically stable. General exam; middle-aged male, orally intubated, sedated, currently in no distress. Exam/Review of Systems Vital Signs Vitals Vital Signs Date Time Temp Pulse Resp B/P Pulse Ox O2 Delivery O2 Flow Rate FiO2 04/05/17 09:00 83 14 93/72 100 Mechanical Ventilator 04/05/17 09:00 30 04/05/17 08:00 97.6 04/04/17 02:45 2.0 Intake and Output 04/04/17 04/04/17 04/05/17 15:00 23:00 07:00 Intake Total 1135.5 ml 697 ml 1190.8 ml Output Total 850 ml 630 ml 245 ml Balance 285.5 ml 67 ml 945.8 ml Exam HEENT exam; supple neck, no JVD. No lymphadenopathy. Midline trachea. No thyromegaly. Orally intubated. Patient has fair dentition. Pupils are midsize and reactive to light. Chest exam; clear to auscultation. S1-S2 audible, no murmurs. Regular rhythm. Abdomen exam; soft, nondistended. No organomegaly. Bowel sounds audible. Extremity exam; no peripheral edema. 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 Results Result Diagram: 04/05/17 0430 04/05/17 0437 Results 24 hrs Laboratory Tests Test 04/04/17 11:31 04/04/17 16:27 04/04/17 16:45 04/04/17 20:02 Bedside Glucose 103 189 198 Creatine Kinase 937 H Creatine Kinase Index 7.1 Creatinine Kinase MB (Mass) 66.40 H Troponin I 33.500 *H Test 04/04/17 23:50 04/05/17 01:58 04/05/17 04:30 04/05/17 04:37 Creatine Kinase 724 H Creatine Kinase Index 5.0 Creatinine Kinase MB (Mass) 35.90 H Troponin I 20.100 *H Bedside Glucose 185 White Blood Count 9.8 # Red Blood Count 4.17 L Hemoglobin 12.6 L Hematocrit 37.7 L Mean Corpuscular Volume 90.4 Mean Corpuscular Hemoglobin 30.2 Mean Corpuscular Hemoglobin Concent 33.4 Red Cell Distribution Width 12.7 Platelet Count 204 # Mean Platelet Volume 10.6 H Neutrophils % 75.5 Lymphocytes % 13.7 L Monocytes % 9.5 Eosinophils % 0.7 Basophils % 0.3 Nucleated Red Blood Cells % 0.0 Neutrophils # 7.4 Lymphocytes # 1.3 Monocytes # 0.9 Eosinophils # 0.1 Basophils # 0.0 Nucleated Red Blood Cells # 0.0 Phosphorus Level 3.4 Magnesium Level 2.1 Prothrombin Time 14.9 H Prothrombin Time Ratio 1.2 INR International Normalized Ratio 1.16 Activated Partial Thromboplast Time 56.4 H Sodium Level 143 Potassium Level 3.4 L Chloride Level 113 H Carbon Dioxide Level 24 Anion Gap 9 Blood Urea Nitrogen 14 Creatinine 1.52 H Glucose Level 215 # Calcium Level 8.2 L Total Bilirubin 0.6 Direct Bilirubin 0.00 Indirect Bilirubin 0.6 Aspartate Amino Transf (AST/SGOT) 87 #H Alanine Aminotransferase (ALT/SGPT) 41 Alkaline Phosphatase 84 Total Protein 5.4 L Albumin 2.7 L Globulin 2.70 Albumin/Globulin Ratio 1.00 Test 04/05/17 04:53 04/05/17 08:45 Creatine Kinase 490 #H Creatine Kinase Index 4.3 Creatinine Kinase MB (Mass) 21.00 H Troponin I 13.800 *H Bedside Glucose 215 Medications Medications Current Medications Carvedilol (Coreg) 6.25 mg BID PO Last administered on 04/04/17 20:06; Admin Dose 6.25 MG; Start 04/04/17 at 09:00 Lorazepam (Ativan) 0.5 mg Q6H PRN IV ANXIETY; Start 04/04/17 at 03:30 Ondansetron HCl (Zofran Inj) 4 mg Q6H PRN IV NAUSEA AND/OR VOMITING; Start 04/04/17 at 03:30 Morphine Sulfate 2 mg 2 mg Q4H PRN IV PAIN LEVEL 7-10; Start 04/04/17 at 03:30 Norepinephrine 250 ml @ 1.875 mls/ hr TITRATE IV Last administered on 01:00; Admin Dose 3.75 MLS/HR; Start 04/04/17 at 06:00 Dextrose/Sodium Chloride (D5-NS) 1,000 ml @ 100 mls/hr Q10H IV Last administered on 04/05/17 02:06; Admin Dose 100 MLS/HR; Start 04/04/17 at 06:30 Dextrose (D50w Syringe) 25 ml Q15M PRN IV Till BS 80 mg/dL or above x2; Start 04/04/17 at 09:30 Dextrose (D50w Syringe) 50 ml Q15M PRN IV Till BS 80 mg/dL or above x2; Start 04/04/17 at 09:30 Aspirin 81 mg 81 mg DAILY NGT Last administered on 04/05/17 08:57; Admin Dose 81 MG; Start 04/04/17 at 09:30 Propofol (Diprivan) 100 ml @ 2.421 mls/ hr Q12H IV Last administered on 03:00; Admin Dose 14.526 MLS/HR; Start 04/04/17 at 09:30 Diagnostic Test (Pha) (Accu-Chek) 1 ea 02 XX Last administered on 04/05/17 01 :49; Admin Dose 1 EA; Start 04/05/17 at 02:00 Insulin Glargine (Lantus) 16 unit DAILY@08 SC Last administered on 04/05/17 08:47; Admin Dose 16 UNIT; Start 04/04/17 at 10:00 Famotidine (Pepcid Iv) 20 mg BID IV Last administered on 04/05/17 09:02; Admin Dose 20 MG; Start 04/04/17 at 21:00 Atorvastatin Calcium (Lipitor) 80 mg HS NGT Last administered on 04/04/17 20: 06; Admin Dose 80 MG; Start 04/04/17 at 21:00 Clopidogrel Bisulfate 75 mg 75 mg DAILY NGT Last administered on 04/05/17 08: 57; Admin Dose 75 MG; Start 04/05/17 at 09:00 Levetiracetam (Keppra 1,000mg/ 100ml (Pmx)) 100 ml @ 400 mls/hr Q12 IVPB ; Start 04/05/17 at 11:00 NUBIA NAVARRO Apr 05, 2017 11:03
--- NOTE | 2017-04-05 11:56 | PN ---
DATE: 04/04/2017 TIME: 9:00 a.m. This is a repeat dictation. The patient's progress note entry yesterday was made in the wrong patie nt chart by error using [employer] system. This is a correction dictation. This patient's condition remains critical. The patient is still requiring intubation and mechanical ventilation, also requiring sedation with propofol. The patient, however, has remained hemodynamic ally stable. PHYSICAL EXAMINATION: GENERAL: Young male, orally intubated, sedated, currently in no distress. VITAL SIGNS: Temperature 98.8 degrees Fahrenheit, respiratory rate is 18 per minute, heart rate 80 per minute, blood pressure 130/70. HEENT EXAM: Supple neck, orally intubated. Midline trachea. No thyromegaly. No neck bruits. Lucila fu has fair dentition. Pupils are small bilaterally. No neck masses. CHEST: Clear to auscultation. HEART: S1, S2 audible. No murmurs. Regular rhythm. ABDOMEN: Soft, nontender, nondistended. Bowel sounds audible. EXTREMITIES: No peripheral edema. Pulses 1+ bilaterally. There is no clubbing. 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 VENTILATOR SETTINGS: Assist control of 14, tidal volume 500, PEEP of 5, 30% FIO2. Medications and labs were reviewed. The patient is currently on propofol drip at 30 mcg/kg per bjorn te. The patient is off insulin drip now. Chest x-ray was reviewed, which is essentially clear. ASSESSMENT: 1. The patient is admitted with diabetic ketoacidosis with altered mental status, had to be intubat ed yesterday for airway protection. 2. Hypoxemic and hypercapnic respiratory failure from combination of pneumonia. 3. Remote history of cardiac arrest requiring coronary stenting. 4. Acute renal injury. 5. Positive troponins. 6. The patient is a current smoker. RECOMMENDATIONS: Hold sedation to assess mental status. Obtain a cardiology consultation. Continu e mechanical ventilation for now. Obtain a 2D echocardiogram. I did have a very detailed discussio n with the patient's sister at bedside and answered all her questions. Thirty-five minutes of critical care time was spent evaluating the patient. Dictated By: NUBIA DE SANTIAGO/ELIO Conf#: [id number] DID#: [id number] CC: JO-ANN CIFUENTES MD;*EndCC*
--- NOTE | 2017-04-05 13:29 | PN ---
Date/Time of Note Date/Time of Note DATE: 04/05/17 TIME: 13:28 Assessment/Plan VTE Prophylaxis VTE Prophylaxis Intervention: SCD's Lines/Catheters [facility] Peripheral IV Urinary Cath still in place: Yes Reason Cath still needed: urinary retention Assessment/Plan Chief Complaint/Hosp Course This is a 52-year-old male comes in with complaints of alteration in mental status over the past 3 days per the family. Patient comes in actively seizing. Combative as well. Per family, patient is complained of headache and visual disturbances over the past 4 days. Patient is a diabetic and hypertensive is been noncompliant with his medications for the past 4 months. History is limited secondary to patient's current mental status. His hx has been obtained from his son and apparently with no cehst pian and no overt chf in the recent past but had a NSTEMI and as [facility], will underrgo further owrk up Problems: Assessment/Plan NSTEMI DKA SEIZURE DO VDRF -discussed with son -will proceed with [facility] possible PCI -acei once bp stable -continue cv meds -stopped lovenox before cath -risk of mi,, cva, infection, bleding, renal failure, limb loss, cabg discussed with son Subjective 24 Hr Interval Summary Free Text/Dictation the patinet with no cahnge overnight and stable Exam/Review of Systems Vital Signs Vitals Vital Signs Date Time Temp Pulse Resp B/P Pulse Ox O2 Delivery O2 Flow Rate FiO2 04/05/17 12:00 89 04/05/17 09:00 14 93/72 100 Mechanical Ventilator 04/05/17 09:00 30 04/05/17 08:00 97.6 04/04/17 02:45 2.0 Intake and Output 04/04/17 04/04/17 04/05/17 15:00 23:00 07:00 Intake Total 1135.5 ml 697 ml 1190.8 ml Output Total 850 ml 630 ml 245 ml Balance 285.5 ml 67 ml 945.8 ml Results Result Diagram: 04/05/17 0430 04/05/17 0437 Results 24 hrs Laboratory Tests Test 04/04/17 16:27 04/04/17 16:45 04/04/17 20:02 04/04/17 23:50 Creatine Kinase 937 H 724 H Creatine Kinase Index 7.1 5.0 Creatinine Kinase MB (Mass) 66.40 H 35.90 H Troponin I 33.500 *H 20.100 *H Bedside Glucose 189 198 Test 04/05/17 01:58 04/05/17 04:30 04/05/17 04:37 04/05/17 04:53 Bedside Glucose 185 White Blood Count 9.8 # Red Blood Count 4.17 L Hemoglobin 12.6 L Hematocrit 37.7 L Mean Corpuscular Volume 90.4 Mean Corpuscular Hemoglobin 30.2 Mean Corpuscular Hemoglobin Concent 33.4 Red Cell Distribution Width 12.7 Platelet Count 204 # Mean Platelet Volume 10.6 H Neutrophils % 75.5 Lymphocytes % 13.7 L Monocytes % 9.5 Eosinophils % 0.7 Basophils % 0.3 Nucleated Red Blood Cells % 0.0 Neutrophils # 7.4 Lymphocytes # 1.3 Monocytes # 0.9 Eosinophils # 0.1 Basophils # 0.0 Nucleated Red Blood Cells # 0.0 Phosphorus Level 3.4 Magnesium Level 2.1 Prothrombin Time 14.9 H Prothrombin Time Ratio 1.2 INR International Normalized Ratio 1.16 Activated Partial Thromboplast Time 56.4 H Sodium Level 143 Potassium Level 3.4 L Chloride Level 113 H Carbon Dioxide Level 24 Anion Gap 9 Blood Urea Nitrogen 14 Creatinine 1.52 H Glucose Level 215 # Calcium Level 8.2 L Total Bilirubin 0.6 Direct Bilirubin 0.00 Indirect Bilirubin 0.6 Aspartate Amino Transf (AST/SGOT) 87 #H Alanine Aminotransferase (ALT/SGPT) 41 Alkaline Phosphatase 84 Total Protein 5.4 L Albumin 2.7 L Globulin 2.70 Albumin/Globulin Ratio 1.00 Creatine Kinase 490 #H Creatine Kinase Index 4.3 Creatinine Kinase MB (Mass) 21.00 H Troponin I 13.800 *H Test 04/05/17 08:45 04/05/17 11:27 Bedside Glucose 215 195 Medications Medications Current Medications Carvedilol (Coreg) 6.25 mg BID PO Last administered on 04/04/17t 20:06; Admin Dose 6.25 MG; Start 04/04/17 at 09:00 Lorazepam (Ativan) 0.5 mg Q6H PRN IV ANXIETY; Start 04/04/17 at 03:30 Ondansetron HCl (Zofran Inj) 4 mg Q6H PRN IV NAUSEA AND/OR VOMITING; Start 04/04/17 at 03:30 Morphine Sulfate 2 mg 2 mg Q4H PRN IV PAIN LEVEL 7-10; Start 04/04/17 at 03:30 Norepinephrine 250 ml @ 1.875 mls/ hr TITRATE IV Last administered on 01:00; Admin Dose 3.75 MLS/HR; Start 04/04/17 at 06:00 Dextrose/Sodium Chloride (D5-NS) 1,000 ml @ 100 mls/hr Q10H IV Last administered on 04/05/17 12:17; Admin Dose 100 MLS/HR; Start 04/04/17 at 06:30 Dextrose (D50w Syringe) 25 ml Q15M PRN IV Till BS 80 mg/dL or above x2; Start 04/04/17 at 09:30 Dextrose (D50w Syringe) 50 ml Q15M PRN IV Till BS 80 mg/dL or above x2; Start 04/04/17 at 09:30 Aspirin 81 mg 81 mg DAILY NGT Last administered on 04/05/17 08:57; Admin Dose 81 MG; Start 04/04/17 at 09:30 Propofol (Diprivan) 100 ml @ 2.421 mls/ hr Q12H IV Last administered on 09:00; Admin Dose 14.526 MLS/HR; Start 04/04/17 at 09:30 Diagnostic Test (Pha) (Accu-Chek) 1 ea 02 XX Last administered on 04/05/17 01 :49; Admin Dose 1 EA; Start 04/05/17 at 02:00 Insulin Glargine (Lantus) 16 unit DAILY@08 SC Last administered on 04/05/17 08:47; Admin Dose 16 UNIT; Start 04/04/17 at 10:00 Famotidine (Pepcid Iv) 20 mg BID IV Last administered on 04/05/17 09:02; Admin Dose 20 MG; Start 04/04/17 at 21:00 Atorvastatin Calcium (Lipitor) 80 mg HS NGT Last administered on 04/04/17 20: 06; Admin Dose 80 MG; Start 04/04/17 at 21:00 Clopidogrel Bisulfate 75 mg 75 mg DAILY NGT Last administered on 04/05/17 08: 57; Admin Dose 75 MG; Start 04/05/17 at 09:00 Levetiracetam (Keppra 1,000mg/ 100ml (Pmx)) 100 ml @ 400 mls/hr Q12 IVPB ; Start 04/05/17 at 11:00 GERARDO BROWNE MD Apr 05, 2017 13:29
[2017-04-05 14:22] LABS: MICROALBUMIN 3.7 mg/dL
[2017-04-05] MEDS ORDERED: IODIXANOL LOCM 100 ML BTL ONE (17:07)
[2017-04-05] MEDS ORDERED: LIDOCAINE 1% (MDV) 20 ML INJ ONE (17:07)
[2017-04-05] MEDS ORDERED: HEPARIN 1000 UNITS/NS (A-LINE) 2,000 ML ONE (17:07)
--- NOTE | 2017-04-05 17:21 | OPR ---
Date/Time of Note Date/Time of Note DATE: 04/05/17 TIME: 17:13 Operative Report Preoperative Diagnosis NSTEMI, Postoperative Diagnosis SAME Surgeon see signature line [employer] NONE Anesthesia Type: general Estimated Blood Loss: minimal Transfusion none Specimen none Grafts/Implants none Complications none Procedure Description Procedure performed: 1. Left heart catheterization, selective right and left coronary angiogram 2. right femoral angiogram and closure of the right femoral artery using a perclose device 3. sedation for more than 60 minutes. Retention Representative: Reggie Pina MD Indication:: NSTEMI Findin. Left main coronary artery: Is short with 20% stenosis 2. Left anterior descending artery: Its a moderate size vessel and goes around the apex. It has 100% instent occlusion proximally. it has MARY I-II flow with good target. 3. Left circumflex artery: small and has 100% occlusion very proximally with MARY I flow. 4. RI: moderate size vessel with 90% steonsis 4. Right coronary artery: Is a large dominant vessel. It has 50% stenosis at mid level and 50% stenosis at PDA. there are R ----> L collaterals. 5. LV pressure: 96/33; Aortic pressure by pull back is 103/67 Written informed consent with obtained after risks benefits and alternatives discussed with the patient in detail. risks including but not limited to risk of infection vascular complications, bleeding complications, [place] stroke arrhythmia renal failure at even were discussed with the patient's family in detail. Patient was brought into the cardiac forestry laborer and placed in supine position. Right and left groin area was prepped and draped in regular sterile fashion and then he was in anesthetized using 1% lidocaine. Right femoral artery was cannulated and using modified seldinger technique a 6 [place] sheath was placed in the right femoral artery. Right femoral angiogram was performed. JL4 catheter was advanced and engaged into the left main coronary artery and angiographic view was obtained. The JR4 catheter was advanced and engaged right coronary artery angiographic view was obtained. Pigtail was advanced to engage the left ventricle hemodynamics as recorded by pullback aortic pressure was measured Patient tolerated procedure well with no complication. perclose was successfully placed. Patient is to be transferred to recovery room in stable condition. contrast used: 35 cc Conclusions: severe multivessel disease with good targets in this diabetic pt with severe LV dysfunction. Recommendations: CT surgery ( Dr Cali) was contacted for evaluation for CABG optimized cardiac care as per DR Phipps. REGGIE PINA MD Apr 05, 2017 17:21
[2017-04-05] MEDS: HOLD all METFORMIN and METFORMIN CONTAINING medications for 48 hours post procedure. Chec XX SCH (17:30)
[2017-04-05] MEDS: ATORVASTATIN 80 MG TAB NGT SCH (21:29)
[2017-04-06] VITALS (51 sets, daily range): BP systolic 86–141; BP diastolic 62–98; PULSE 74–155; RESP 6–54
[2017-04-06] MEDS: DEXTROSE 5%-0.9% NACL 1,000 ML IV SCH ×2 (01:27→09:40)
[2017-04-06] MEDS: ACCU-CHEK XX SCH (02:00)
--- NOTE | 2017-04-06 02:50 | SP ---
DATE OF PROCEDURE: 04/05/2017 ELECTROENCEPHALOGRAM ROOM NUMBER: [id number] HISTORY: This is a 52-year-old male who has a history of uncontrollable diabetes mellitus, hyperten sive liver disease, noncompliant to medication, was admitted with vision loss and severe headache an d progressed to respiratory failure. He had a cardiac arrest 3 years ago with stent placement. MEDICATIONS: 1. Keppra. 2. Plavix. 3. Propofol. PROCEDURE: Utilizing a 16-channel EEG machine, cap scalp electrodes were applied in accordance with International 10-20 system. [id number] and [id number] montages were displayed. Electrical i mpedances were measured and reported. DESCRIPTION: During the resting state, a posterior dominant rhythm of about 8 to 9 Hz were seen bih emispherically, interspersed with bihemispheric, mainly bifrontal slowing in the range of 4 to 5 Hz. There was no focal lateralizing or epileptiform discharge identified. Hyperventilation was not pe rformed. Photic stimulation had no response. INTERPRETATION: This is an abnormal EEG due to presence of bihemispheric, bifrontal slowing without any epileptiform activity consistent with encephalopathy. Please correlate these findings with shama fu's clinical picture. Dictated By: CHASE MUÑOZ/NTS Conf#: [id number] DID#: [id number] CC: JO-ANN CIFUENTES MD;*EndCC*
[2017-04-06] MEDS: PROPOFOL 100 ML IV SCH ×2 (05:33→12:15)
[2017-04-06 06:00] LABS: BASOPHILS % 0.2 % (0.0-2.0); EOSINOPHILS # 0.1 10^3/ul (0.0-0.5); EOSINOPHILS % 0.8 % (0.0-7.0); HEMATOCRIT 37.4 % (42.0-52.0); HEMOGLOBIN 12.4 g/dl (14.0-18.0); LYMPHOCYTES % 11.2 % (15.0-51.0); MEAN CORPUSCULAR HEMOGLOBIN 29.8 pg (29.0-33.0); MEAN CORPUSCULAR HGB CONC 33.2 g/dl (32.0-37.0); MEAN CORPUSCULAR VOLUME 89.9 fl (82.0-101.0); MEAN PLATELET VOLUME 10.9 fl (7.4-10.4); MONOCYTE # 0.9 10^3/ul (0.3-0.9); MONOCYTES % 10.3 % (0.0-11.0); NEUTROPHIL # 6.7 10^3/ul (1.6-7.5); PLATELET COUNT 191 10^3/UL (140-415); RED BLOOD COUNT 4.16 10^6/ul (4.70-6.10); RED CELL DISTRIBUTION WIDTH 13.2 % (11.5-14.5); WHITE BLOOD COUNT 8.6 10^3/ul (4.8-10.8)
[2017-04-06 06:25] LABS: PHOSPHORUS 3.7 mg/dl (2.5-4.9)
[2017-04-06 06:46] LABS: ALBUMIN 2.8 g/dl (3.3-4.9); ALBUMIN/GLOBULIN RATIO 1.03; CALCIUM 8.2 mg/dl (8.4-10.2); CREATININE 1.39 mg/dl (0.61-1.24); POTASSIUM 3.2 mmol/L (3.5-5.1); TOTAL PROTEIN 5.5 g/dl (6.1-8.1)
[2017-04-06] MEDS: ASPIRIN 81 MG TAB NGT SCH (09:40)
[2017-04-06] MEDS: LEVETIRACETAM 1000 MG (PMX) 100 ML IVPB SCH ×2 (09:41→20:37)
[2017-04-06] MEDS: INSULIN ASPART [NOVOLOG] 3 ML PEN SC SCH ×4 (09:47→20:40)
[2017-04-06] MEDS: INSULIN GLARGINE [LANtus] 3 ML PEN SC SCH (09:49)
[2017-04-06] MEDS: FAMOTIDINE 20 MG INJ IV SCH ×2 (09:49→20:36)
[2017-04-06] MEDS ORDERED: POTASSIUM CHLORIDE 20 MEQ POWDER FOR ORAL SOLN NGT ONE (10:00)
--- NOTE | 2017-04-06 10:12 | PN ---
Date/Time of Note Date/Time of Note DATE: 04/06/17 TIME: 09:37 Assessment/Plan VTE Prophylaxis VTE Prophylaxis Intervention: heparin Lines/Catheters IV C[facility]ter Type (from [facility]): Peripheral IV Urinary Cath still in place: Yes Reason Cath still needed: other (indicate) Assessment/Plan Assessment/Plan 52-year-old male with: 1. NSTEMI known coronary artery disease, status post stents 3 years ago. S/p angiogram and findings of diffuse disease, patient will require coronary artery bypass surgery, Dr. Herron has been consulted. Continue current cardiac medications. On heparin subcu for DVT prophylaxis, patient did get Plavix loaded on Tuesday and a dose yesterday, today is the first day without Plavix. Wednesday 04/11 would be the earliest date for CABG unless emergent findings over the next 5 days. Continue current medications, cardiology and CTS following. 2. Seizures, unclear etiology but could be secondary to DKA versus intracranial pathology. 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 Neurology has been consulted for further recommendations. EEG if requested by neurology. Continue Keppra for now. 3. Acute respiratory failure in setting seizures and inability to protect airway. Patient to be weaned and extubated within the next 24 hours. Chest x-ray is fairly clear, pulmonary following. Patient off pressors. Lactic acid within normal, no signs of acute infection. 4. S/p Diabetic ketoacidosis, known diabetes mellitus with noncompliance with diet or medications. Patient has been off medication for at least 1-2 month, status post DKA protocol, Patient on subcutaneous insulin, will titrate up for better blood sugar control. IV fluids to normal saline. Further insulin adjustment if blood sugar still not well controlled. Hemoglobin A1c out of range. Diabetic education once extubated and awake. Likely to need insulin therapy. Apparently he was on metformin and glipizide based on his medication reconciliation prior. 5. Diabetes mellitus, known noncompliance with medication, diet or follow-ups. Diabetic education after extubation, will require insulin therapy, see #1 6. Coronary artery disease, status post PCI and stent placed according to the sister, 3 years ago in [place]. Lipitor 80 mg nightly, once more stable beta-blockers to be started, continue aspirin, Plavix discontinued as of yesterday which was the last dose, patient will need CABG next week. CTS and cardiology following. See #4 7. Hyperlipidemia: Continue Lipitor 80 mg qhs. 8. Acute kidney injury, improving, creatinine down to 1.39 today. Continue IV fluids, will change to normal saline. Monitor renal function. Replete potassium. Prophylaxis: Heparin subcu for DVT prophylaxis, Pepcid for GI prophylaxis Disposition: Vent weaning protocol, hopefully to be extubated within 24 hours, will need CABG early next week, close monitoring in the meantime. Cardiology, cardiothoracic surgery, pulmonary and Neurology following. Prognosis is fair so far. Subjective 24 Hr Interval Summary Free Text/Dictation S/p angio yesterday with findings of diffuse disease, according to cardiology patient to be referred for CABG. Dr. Herron has been consulted by cardiology , he is to evaluate the patient. Patient currently intubated and sedated awaiting for cardiothoracic surgery evaluation prior to weaning of the vent if no immediate intervention. Otherwise patient remains stable, we will change IVF to NS and need to monitor renal function. Exam/Review of Systems Vital Signs Vitals Vital Signs Date Time Temp Pulse Resp B/P Pulse Ox O2 Delivery O2 Flow Rate FiO2 04/06/17 08:00 97.7 76 20 98/70 100 Mechanical Ventilator 04/06/17 07:23 30 04/04/17 02:45 2.0 Intake and Output 04/05/17 04/05/17 04/06/17 15:00 23:00 07:00 Intake Total 876 ml 800.630 ml 798.896 ml Output Total 400 ml 230 ml 330 ml Balance 476 ml 570.630 ml 468.896 ml Exam Constitutional: other (Sedated and intubated) Respiratory: clear to auscultation, other (On mechanical ventilation) Cardiovascular: regular rate and rhythm Gastrointestinal: non-tender, soft Musculoskeletal: nl extremities to inspection Extremities: normal pulses, other (No edema, clubbing or cyanosis) 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: ACCOUNT MANAGER EDUCATION II-XII intact, other (Debated and sedated) Results Result Diagram: 04/06/17 0448 04/06/17 0448 Results 24 hrs Laboratory Tests Test 04/05/17 11:27 04/05/17 17:39 04/05/17 21:36 04/06/17 04:48 Bedside Glucose 195 131 133 White Blood Count 8.6 Red Blood Count 4.16 L Hemoglobin 12.4 L Hematocrit 37.4 L Mean Corpuscular Volume 89.9 Mean Corpuscular Hemoglobin 29.8 Mean Corpuscular Hemoglobin Concent 33.2 Red Cell Distribution Width 13.2 Platelet Count 191 Mean Platelet Volume 10.9 H Neutrophils % 77.0 Lymphocytes % 11.2 L Monocytes % 10.3 Eosinophils % 0.8 Basophils % 0.2 Nucleated Red Blood Cells % 0.0 Neutrophils # 6.7 Lymphocytes # 1.0 Monocytes # 0.9 Eosinophils # 0.1 Basophils # 0.0 Nucleated Red Blood Cells # 0.0 Sodium Level 144 Potassium Level 3.2 L Chloride Level 118 H Carbon Dioxide Level 21 Anion Gap 8 Blood Urea Nitrogen 11 Creatinine 1.39 H Glucose Level 200 Calcium Level 8.2 L Phosphorus Level 3.7 Magnesium Level 2.0 Total Bilirubin 1.0 Direct Bilirubin 0.00 Indirect Bilirubin 1.0 Aspartate Amino Transf (AST/SGOT) 48 H Alanine Aminotransferase (ALT/SGPT) 34 Alkaline Phosphatase 86 Total Protein 5.5 L Albumin 2.8 L Globulin 2.70 Albumin/Globulin Ratio 1.03 Test 04/06/17 09:25 Bedside Glucose 209 Medications Medications Current Medications Carvedilol (Coreg) 6.25 mg BID PO Last administered on 04/04/17 20:06; Admin Dose 6.25 MG; Start 04/04/17 at 09:00 Lorazepam (Ativan) 0.5 mg Q6H PRN IV ANXIETY; Start 04/04/17 at 03:30 Ondansetron HCl (Zofran Inj) 4 mg Q6H PRN IV NAUSEA AND/OR VOMITING; Start 04/04/17 at 03:30 Morphine Sulfate 2 mg 2 mg Q4H PRN IV PAIN LEVEL 7-10; Start 04/04/17 at 03:30 Norepinephrine 250 ml @ 1.875 mls/ hr TITRATE IV Last administered on 01:00; Admin Dose 3.75 MLS/HR; Start 04/04/17 at 06:00 Dextrose/Sodium Chloride (D5-NS) 1,000 ml @ 100 mls/hr Q10H IV Last administered on 04/06/17 01:27; Admin Dose 100 MLS/HR; Start 04/04/17 at 06:30 Dextrose (D50w Syringe) 25 ml Q15M PRN IV Till BS 80 mg/dL or above x2; Start 04/04/17 at 09:30 Dextrose (D50w Syringe) 50 ml Q15M PRN IV Till BS 80 mg/dL or above x2; Start 04/04/17 at 09:30 Aspirin 81 mg 81 mg DAILY NGT Last administered on 04/05/17 08:57; Admin Dose 81 MG; Start 04/04/17 at 09:30 Propofol (Diprivan) 100 ml @ 2.421 mls/ hr Q12H IV Last administered on 05:33; Admin Dose 14.526 MLS/HR; Start 04/04/17 at 09:30 Diagnostic Test (Pha) (Accu-Chek) 1 ea 02 XX Last administered on 04/05/17 01 :49; Admin Dose 1 EA; Start 04/05/17 at 02:00 Insulin Glargine (Lantus) 16 unit DAILY@08 SC Last administered on 04/05/17 08:47; Admin Dose 16 UNIT; Start 04/04/17 at 10:00 Famotidine (Pepcid Iv) 20 mg BID IV Last administered on 04/05/17 21:31; Admin Dose 20 MG; Start 04/04/17 at 21:00 Atorvastatin Calcium 80 mg 80 mg HS NGT Last administered on 04/05/17 21:29; Admin Dose 80 MG; Start 04/04/17 at 21:00 Levetiracetam (Keppra 1,000mg/ 100ml (Pmx)) 100 ml @ 400 mls/hr Q12 IVPB Last administered on 04/05/17 21:31; Admin Dose 400 MLS/HR; Start 04/05/17 at 11: 00 Miscellaneous Information (* Miscellaneous Pharmacy Order) HOLD all METFORMIN ... ONCE XX ; Start 04/05/17 at 17:30; Stop 04/07/17 at 17:29 Procedures Procedures DATE OF PROCEDURE: 04/05/2017 ELECTROENCEPHALOGRAM ROOM NUMBER: [id number] HISTORY: This is a 52-year-old male who has a history of uncontrollable diabetes mellitus, hypertensive liver disease, noncompliant to medication, was admitted with vision loss and severe headache and progressed to respiratory failure. He had a cardiac arrest 3 years ago with stent placement. MEDICATIONS: 1. Keppra. 2. Plavix. 3. Propofol. PROCEDURE: Utilizing a 16-channel EEG machine, cap scalp electrodes were applied in accordance with International 10-20 system. [id number] and scalp -to-ear montages were displayed. Electrical impedances were measured and reported. DESCRIPTION: During the resting state, a posterior dominant rhythm of about 8 to 9 Hz were seen bihemispherically, interspersed with bihemispheric, mainly bifrontal slowing in the range of 4 to 5 Hz. There was no focal lateralizing or epileptiform discharge identified. Hyperventilation was not performed. Photic stimulation had no response. INTERPRETATION: This is an abnormal EEG due to presence of bihemispheric, bifrontal slowing without any epileptiform activity consistent with encephalopathy. Please correlate these findings with patient's clinical picture. Dictated By: DOUGLAS ARBOLEDA MD Apr 06, 2017 09:50
--- NOTE | 2017-04-06 10:21 | CONS ---
Date/Time of Note Date/Time of Note DATE: 04/06/17 TIME: 10:15 Consult Date/Type/Reason Admit Date/Time Apr 04, 2017 at 03:21 Initial Consult Date 04/05/17 Type of Consultation: Neurology Reason for Consultation encephalopathy seizure Ordering Provider: DOUGLAS FERRER Subjective improved mental status able to follow commands now in extremities remains intubated Objective Vital Signs Date Time Temp Pulse Resp B/P Pulse Ox O2 Delivery O2 Flow Rate FiO2 04/06/17 08:00 97.7 76 20 98/70 100 Mechanical Ventilator 04/06/17 07:23 30 04/04/17 02:45 2.0 Intake and Output 04/05/17 04/05/17 04/06/17 15:00 23:00 07:00 Intake Total 876 ml 800.630 ml 798.896 ml Output Total 400 ml 230 ml 330 ml Balance 476 ml 570.630 ml 468.896 ml Exam awake and alert orthophoric gaze can follow commands CN: decreased blink to threat b/l unclear visual acuity, left beating nystagmus unable to fully gaze right Motor: full strength in UE, LE able to lift antigravity Results/Medications Result Diagram: 04/06/17 0448 04/06/17 0448 Results 24 hrs Laboratory Tests Test 04/05/17 11:27 04/05/17 17:39 04/05/17 21:36 04/06/17 04:48 Bedside Glucose 195 131 133 White Blood Count 8.6 Red Blood Count 4.16 L Hemoglobin 12.4 L Hematocrit 37.4 L Mean Corpuscular Volume 89.9 Mean Corpuscular Hemoglobin 29.8 Mean Corpuscular Hemoglobin Concent 33.2 Red Cell Distribution Width 13.2 Platelet Count 191 Mean Platelet Volume 10.9 H Neutrophils % 77.0 Lymphocytes % 11.2 L Monocytes % 10.3 Eosinophils % 0.8 Basophils % 0.2 Nucleated Red Blood Cells % 0.0 Neutrophils # 6.7 Lymphocytes # 1.0 Monocytes # 0.9 Eosinophils # 0.1 Basophils # 0.0 Nucleated Red Blood Cells # 0.0 Sodium Level 144 Potassium Level 3.2 L Chloride Level 118 H Carbon Dioxide Level 21 Anion Gap 8 Blood Urea Nitrogen 11 Creatinine 1.39 H Glucose Level 200 Calcium Level 8.2 L Phosphorus Level 3.7 Magnesium Level 2.0 Total Bilirubin 1.0 Direct Bilirubin 0.00 Indirect Bilirubin 1.0 Aspartate Amino Transf (AST/SGOT) 48 H Alanine Aminotransferase (ALT/SGPT) 34 Alkaline Phosphatase 86 Total Protein 5.5 L Albumin 2.8 L Globulin 2.70 Albumin/Globulin Ratio 1.03 Test 04/06/17 09:25 Bedside Glucose 209 Medications Current Medications Carvedilol (Coreg) 6.25 mg BID PO Last administered on 04/06/17 09:41; Admin Dose 6.25 MG; Start 04/04/17 at 09:00 Lorazepam (Ativan) 0.5 mg Q6H PRN IV ANXIETY; Start 04/04/17 at 03:30 Ondansetron HCl (Zofran Inj) 4 mg Q6H PRN IV NAUSEA AND/OR VOMITING; Start 04/04/17 at 03:30 Morphine Sulfate 2 mg 2 mg Q4H PRN IV PAIN LEVEL 7-10; Start 04/04/17 at 03:30 Norepinephrine (Levophed) 250 ml @ 1.875 mls/ hr TITRATE IV Last administered on 04/05/17 01:00; Admin Dose 3.75 MLS/HR; Start 04/04/17 at 06:00 Dextrose (D50w Syringe) 25 ml Q15M PRN IV Till BS 80 mg/dL or above x2; Start 04/04/17 at 09:30 Dextrose (D50w Syringe) 50 ml Q15M PRN IV Till BS 80 mg/dL or above x2; Start 04/04/17 at 09:30 Aspirin 81 mg 81 mg DAILY NGT Last administered on 04/06/17 09:40; Admin Dose 81 MG; Start 04/04/17 at 09:30 Propofol (Diprivan) 100 ml @ 2.421 mls/ hr Q12H IV Last administered on 05:33; Admin Dose 14.526 MLS/HR; Start 04/04/17 at 09:30 Insulin Glargine (Lantus) 16 unit DAILY@08 SC Last administered on 04/06/17 09:49; Admin Dose 16 UNIT; Start 04/04/17 at 10:00 Famotidine (Pepcid Iv) 20 mg BID IV Last administered on 04/06/17 09:49; Admin Dose 20 MG; Start 04/04/17 at 21:00 Atorvastatin Calcium 80 mg 80 mg HS NGT Last administered on 04/05/17 21:29; Admin Dose 80 MG; Start 04/04/17 at 21:00 Levetiracetam (Keppra 1,000mg/ 100ml (Pmx)) 100 ml @ 400 mls/hr Q12 IVPB Last administered on 04/06/17 09:41; Admin Dose 400 MLS/HR; Start 04/05/17 at 11: 00 Miscellaneous Information (* Miscellaneous Pharmacy Order) HOLD all METFORMIN ... ONCE XX ; Start 04/05/17 at 17:30; Stop 04/07/17 at 17:29 Insulin Aspart NOVOLOG *MODERATE* ALGORI... Q4 SC Last administered on 09:47; Admin Dose 4 UNIT; Start 04/06/17 at 09:00 Sodium Chloride (NS) 1,000 ml @ 100 mls/hr Q10H IV ; Start 04/06/17 at 10:00 Heparin Sodium (Porcine) (Heparin (5000 Units/0.5 ml)) 5,000 unit Q8 SC ; Start 04/06/17 at 14:00 Assessment/Plan Chief Complaint/Hosp Course 52 year old male with hx of uncontrolled DM, HLD, CAD s/p PCI non-compliant w meds admitted with vision loss and severe headaches 4 days prior to admission with seizures, respiratory failure, and NSTEMI. MRI Brain w/o contrast no acute infarction or ICH, moderate chronic microvascular changes, chronic infarcts in right kolb radiata, basal ganglia, right posterior kolb radiata lacunar infarction, right parietal occipital infarction, chronic left cerebellar infarct, left basal ganglia MRA Head: suggestive of mild Left M1 stenosis Suspect etiology of current presentation is likely secondary to PRES Posterior Reversible Encephalopathy given triad of visual sx, headaches, and seizures. EEG slowing, no epileptiform activity Recommend: Keppra 1 g BID ativan prn seizure activity dual antiplatelet therapy ASA + Plavix and high intensity statin Lipitor 80 mg qhs is appropriate from neurologic standpoint will require CABG, recommend proceed no contraindications monitor for seizures goal HBA1C would be less than 7.0% DVT ppx continue ICU level care, maintain euglycemia, afebrile and normotensive at this time suspect likely metabolic etiology for neurologic issues likely diagnosis PRES Problems: EDILIA ADAMS MD Apr 06, 2017 10:20
[2017-04-06] MEDS: SOD CHLORIDE 0.9% 1,000 ML IV SCH ×2 (10:44→21:34)
[2017-04-06] MEDS: POTASSIUM CHLORIDE 50 ML IVPB PRN ×4 (10:45→13:33)
--- NOTE | 2017-04-06 11:16 | CONS ---
DATE OF ADMISSION: 04/04/2017 DATE OF CONSULTATION: REASON FOR CONSULTATION: Evaluation for coronary artery bypass grafting. HISTORY OF PRESENT ILLNESS: This is a 52-year-old male with a history of diabetes, admitted because of DKA. The patient also does have a history of seizures, had to be intubated. His troponins were found to be elevated up to 38. He underwent a coronary artery angiogram which showed severe diseas e in the LAD, circumflex, ramus and mild disease in the right coronary artery. The patient is curre ntly intubated with no chest pain. PAST MEDICAL HISTORY: Hypertension, hyperlipidemia, seizure disorder, diabetes, respiratory failure , visual disturbances, noncompliance, coronary artery disease, status post PCI and stents. PAST SURGICAL HISTORY: As above. SOCIAL HISTORY: No smoking, drinking or drug use. MEDICATIONS: List reviewed, which includes Plavix days ago as a loading dose and Plavix again yesterday. PHYSICAL EXAMINATION: GENERAL: The patient is intubated. VITAL SIGNS: Blood pressure is 100/74, pulse is 80, respiration is 20, saturation is 100%, FIO2 of 30%. CARDIOVASCULAR: Regular rate and rhythm. LUNGS: Clear. ABDOMEN: Soft. LABORATORY VALUES: Hemoglobin 12.4, white count 8.6, platelet count 196. Normal coagulation factor s and a creatinine of 1.39. IMPRESSION: 1. Coronary artery disease. 2. Non-ST elevation myocardial infarction. 3. Seizure disorder. 4. Diabetes with diabetic ketoacidosis. 5. Seizure disorder. 6. Respiratory failure. RECOMMENDATIONS: We will proceed with coronary artery bypass grafting after the patient has been of f of Plavix for a period of time. Discussed with and Dr. Pina. Dictated By: NORIS CASTRO/NTS Conf#: [id number] DID#: [id number]
--- NOTE | 2017-04-06 11:43 | CONS ---
Date/Time of Note Date/Time of Note DATE: 04/06/17 TIME: 11:37 Assessment/Plan Assessment/Plan Additional Assessment/Plan Ventilator setting; AC of 14, tidal volume 500, PEEP of 5, 30% FiO2. Patient currently on propofol at 30 mics per kilogram per minute. Assessment and recommendations; 1. Patient admitted with severe DKA leading to respiratory failure. 2. Underlying severe coronary artery disease not amenable to known surgical intervention. 3. Poor mental status until now, requiring continuous sedation. 4. Acute renal insufficiency with improving serum creatinine. 5. Prior history of coronary artery disease and cardiac arrest. 6. Stable seizure disorder. 7. Stable hypertension and diabetes. Hold sedation. Once the patient is off sedation he will be evaluated for possible weaning from ventilator. CABG surgery is currently being contemplated. Consultation Date/Type/Reason Admit Date/Time Apr 04, 2017 at 03:21 Initial Consult Date 04/04/17 Type of Consultation: Pulmonary/critical care Referring Provider: DOUGLAS FERRER 24 HR Interval Summary Free Text/Dictation Patient's condition remains critical. Patient was given a sedation vacation yesterday morning however he could not tolerate that and had to be re-sedated. She will also underwent coronary angiography yesterday which revealed multivessel disease which is amenable only to coronary artery bypass surgery. General exam; middle-aged male, orally intubated, sedated, currently in no distress. Exam/Review of Systems Vital Signs Vitals Vital Signs Date Time Temp Pulse Resp B/P Pulse Ox O2 Delivery O2 Flow Rate FiO2 04/06/17 10:25 89 19 100 30 04/06/17 08:00 97.7 98/70 Mechanical Ventilator 04/04/17 02:45 2.0 Intake and Output 04/05/17 04/05/17 04/06/17 15:00 23:00 07:00 Intake Total 876 ml 800.630 ml 798.896 ml Output Total 400 ml 230 ml 330 ml Balance 476 ml 570.630 ml 468.896 ml Exam HEENT exam; supple neck, no JVD. No lymphadenopathy. Midline trachea. No thyromegaly. Orally intubated. Patient has fair dentition. Pupils are midsize and reactive to light. Chest exam; clear to auscultation. S1-S2 audible, no murmurs. Regular rhythm. Abdomen exam; soft, no organomegaly. Bowel sounds audible. Extremity exam; no peripheral edema. Pulses 1+ bilaterally. TECHNOLOGY SERVICES MANAGER exam; and is sedated. Results Result Diagram: 04/06/178 04/06/178 Results 24 hrs Laboratory Tests Test 04/05/17 17:39 04/05/17 21:36 04/06/17 04:48 04/06/17 09:25 Bedside Glucose 131 133 209 White Blood Count 8.6 Red Blood Count 4.16 L Hemoglobin 12.4 L Hematocrit 37.4 L Mean Corpuscular Volume 89.9 Mean Corpuscular Hemoglobin 29.8 Mean Corpuscular Hemoglobin Concent 33.2 Red Cell Distribution Width 13.2 Platelet Count 191 Mean Platelet Volume 10.9 H Neutrophils % 77.0 Lymphocytes % 11.2 L Monocytes % 10.3 Eosinophils % 0.8 Basophils % 0.2 Nucleated Red Blood Cells % 0.0 Neutrophils # 6.7 Lymphocytes # 1.0 Monocytes # 0.9 Eosinophils # 0.1 Basophils # 0.0 Nucleated Red Blood Cells # 0.0 Sodium Level 144 Potassium Level 3.2 L Chloride Level 118 H Carbon Dioxide Level 21 Anion Gap 8 Blood Urea Nitrogen 11 Creatinine 1.39 H Glucose Level 200 Calcium Level 8.2 L Phosphorus Level 3.7 Magnesium Level 2.0 Total Bilirubin 1.0 Direct Bilirubin 0.00 Indirect Bilirubin 1.0 Aspartate Amino Transf (AST/SGOT) 48 H Alanine Aminotransferase (ALT/SGPT) 34 Alkaline Phosphatase 86 Total Protein 5.5 L Albumin 2.8 L Globulin 2.70 Albumin/Globulin Ratio 1.03 Medications Medications Current Medications Carvedilol (Coreg) 6.25 mg BID PO Last administered on 04/06/17 09:41; Admin Dose 6.25 MG; Start 04/04/17 at 09:00 Lorazepam (Ativan) 0.5 mg Q6H PRN IV ANXIETY; Start 04/04/17 at 03:30 Ondansetron HCl (Zofran Inj) 4 mg Q6H PRN IV NAUSEA AND/OR VOMITING; Start 04/04/17 at 03:30 Morphine Sulfate 2 mg 2 mg Q4H PRN IV PAIN LEVEL 7-10; Start 04/04/17 at 03:30 Norepinephrine (Levophed) 250 ml @ 1.875 mls/ hr TITRATE IV Last administered on 04/05/17 01:00; Admin Dose 3.75 MLS/HR; Start 04/04/17 at 06:00 Dextrose (D50w Syringe) 25 ml Q15M PRN IV Till BS 80 mg/dL or above x2; Start 04/04/17 at 09:30 Dextrose (D50w Syringe) 50 ml Q15M PRN IV Till BS 80 mg/dL or above x2; Start 04/04/17 at 09:30 Aspirin 81 mg 81 mg DAILY NGT Last administered on 04/06/17 09:40; Admin Dose 81 MG; Start 04/04/17 at 09:30 Propofol (Diprivan) 100 ml @ 2.421 mls/ hr Q12H IV Last administered on 05:33; Admin Dose 14.526 MLS/HR; Start 04/04/17 at 09:30 Insulin Glargine (Lantus) 16 unit DAILY@08 SC Last administered on 04/06/17 09:49; Admin Dose 16 UNIT; Start 04/04/17 at 10:00 Famotidine (Pepcid Iv) 20 mg BID IV Last administered on 04/06/17 09:49; Admin Dose 20 MG; Start 04/04/17 at 21:00 Atorvastatin Calcium 80 mg 80 mg HS NGT Last administered on 04/05/17 21:29; Admin Dose 80 MG; Start 04/04/17 at 21:00 Levetiracetam (Keppra 1,000mg/ 100ml (Pmx)) 100 ml @ 400 mls/hr Q12 IVPB Last administered on 04/06/17 09:41; Admin Dose 400 MLS/HR; Start 04/05/17 at 11: 00 Miscellaneous Information (* Miscellaneous Pharmacy Order) HOLD all METFORMIN ... ONCE XX ; Start 04/05/17 at 17:30; Stop 04/07/17 at 17:29 Insulin Aspart NOVOLOG *MODERATE* ALGORI... Q4 SC Last administered on 09:47; Admin Dose 4 UNIT; Start 04/06/17 at 09:00 Sodium Chloride (NS) 1,000 ml @ 100 mls/hr Q10H IV Last administered on 10:44; Admin Dose 100 MLS/HR; Start 04/06/17 at 10:00 Heparin Sodium (Porcine) (Heparin (5000 Units/0.5 ml)) 5,000 unit Q8 SC ; Start 04/06/17 at 14:00 NUBIA NAVARRO Apr 06, 2017 11:43
--- NOTE | 2017-04-06 13:09 | RADRPT ---
PROCEDURE: US carotid arteries. CLINICAL INDICATION: Preoperative for cardiac surgery. TECHNIQUE: Multiple sonographic images of the carotid arteries and vertebral arteries were obtaine d utilizing galloway scale, duplex, and color-flow imaging. The images were reviewed on a PACS workstati on. COMPARISON: No prior studies are available for comparison. FINDINGS: Evaluation of the right carotid bifurcation region reveals mild atherosclerotic disease. Evaluation of the left carotid bifurcation region reveals mild atherosclerotic disease. There is antegrade flow within the vertebral arteries bilaterally. RIGHT CAROTID MEASUREMENTS: Common Carotid [id number] (cm/sec) Internal Carotid Artery 41 (cm/sec) External Carotid Artery 62 (cm/sec) Vertebral Artery 36 (cm/sec) Internal Carotid/Common Carotid0.8 LEFT CAROTID MEASUREMENTS: Common Carotid [id number] (cm/sec) Internal Carotid Artery 44 (cm/sec) External Carotid Artery 44 (cm/sec) Vertebral Artery 27 (cm/sec) Internal Carotid/Common Carotid0.7 Validated velocity measurements with angiographic measurements. Velocity criteria are extrapolated f rom diameter data as defined by the Society of Radiologists in Ultrasound Consensus Conference. Radi ology 2003; 229;340-346. This study does indirectly reference the measurement of the distal ICA ehsan meter as the denominator for stenosis measurement. IMPRESSION: 1. Less than 50% stenosis bilaterally in the internal carotid arteries. 2. Normal antegrade flow in the vertebral arteries bilaterally. RPTAT: QQ SRU Consensus Conference Criteria for the Diagnosis of Carotid Artery Stenosis* Degree of Stenosis, % ICA PSV, cm/sec Plaque Estimate, % ICA/CCA PSV Ratio Normal <125 None <2.0 <50 <125 <50 <2.0 50 69 125-230 >50 2.0-4.0 >70 but less than near occlusion >230 >50 <4.0 Near occlusion High, low, or undetectable Visible Variable Total occlusion Undetectable Visible, no detectable lumen Not applicable *Cartoid artery stenosis: galloway-scale and Doppler US diagnosis. Society of Radiologists in Ultrasound Consensus Conference. Radiology 2003; 229: 340-346 .Kenneth Hernandez MD, Date Time Electronically viewed and signed by .Kenneth Hernandez MD, on 04/06/2017 13:09 .R/
--- NOTE | 2017-04-06 13:19 | PN ---
Date/Time of Note Date/Time of Note DATE: 04/06/17 TIME: 13:18 Assessment/Plan VTE Prophylaxis VTE Prophylaxis Intervention: SCD's Lines/Catheters IV Catheter Type (from Nrsg): Peripheral IV Urinary Cath still in place: Yes Reason Cath still needed: urinary retention Assessment/Plan Chief Complaint/Hosp Course NSTEMI s/p cath - 3vcad DKA SEIZURE DO VDRF -discussed with son -awaiting CABG -acei once bp stable -continue cv meds -check carotid Problems: Subjective 24 Hr Interval Summary Free Text/Dictation the patient with no cahnge Exam/Review of Systems Vital Signs Vitals Vital Signs Date Time Temp Pulse Resp B/P Pulse Ox O2 Delivery O2 Flow Rate FiO2 04/06/17 10:25 89 19 100 30 04/06/17 08:00 97.7 98/70 Mechanical Ventilator 04/04/17 02:45 2.0 Intake and Output 04/05/17 04/05/17 04/06/17 15:00 23:00 07:00 Intake Total 876 ml 800.630 ml 798.896 ml Output Total 400 ml 230 ml 330 ml Balance 476 ml 570.630 ml 468.896 ml Results Result Diagram: 04/06/17 0448 04/06/17 0448 Results 24 hrs Laboratory Tests Test 04/05/17 17:39 04/05/17 21:36 04/06/17 04:48 04/06/17 09:25 Bedside Glucose 131 133 209 White Blood Count 8.6 Red Blood Count 4.16 L Hemoglobin 12.4 L Hematocrit 37.4 L Mean Corpuscular Volume 89.9 Mean Corpuscular Hemoglobin 29.8 Mean Corpuscular Hemoglobin Concent 33.2 Red Cell Distribution Width 13.2 Platelet Count 191 Mean Platelet Volume 10.9 H Neutrophils % 77.0 Lymphocytes % 11.2 L Monocytes % 10.3 Eosinophils % 0.8 Basophils % 0.2 Nucleated Red Blood Cells % 0.0 Neutrophils # 6.7 Lymphocytes # 1.0 Monocytes # 0.9 Eosinophils # 0.1 Basophils # 0.0 Nucleated Red Blood Cells # 0.0 Sodium Level 144 Potassium Level 3.2 L Chloride Level 118 H Carbon Dioxide Level 21 Anion Gap 8 Blood Urea Nitrogen 11 Creatinine 1.39 H Glucose Level 200 Calcium Level 8.2 L Phosphorus Level 3.7 Magnesium Level 2.0 Total Bilirubin 1.0 Direct Bilirubin 0.00 Indirect Bilirubin 1.0 Aspartate Amino Transf (AST/SGOT) 48 H Alanine Aminotransferase (ALT/SGPT) 34 Alkaline Phosphatase 86 Total Protein 5.5 L Albumin 2.8 L Globulin 2.70 Albumin/Globulin Ratio 1.03 Medications Medications Current Medications Carvedilol (Coreg) 6.25 mg BID PO Last administered on 04/06/17 09:41; Admin Dose 6.25 MG; Start 04/04/17 at 09:00 Lorazepam (Ativan) 0.5 mg Q6H PRN IV ANXIETY; Start 04/04/17 at 03:30 Ondansetron HCl (Zofran Inj) 4 mg Q6H PRN IV NAUSEA AND/OR VOMITING; Start 04/04/17 at 03:30 Morphine Sulfate 2 mg 2 mg Q4H PRN IV PAIN LEVEL 7-10; Start 04/04/17 at 03:30 Norepinephrine (Levophed) 250 ml @ 1.875 mls/ hr TITRATE IV Last administered on 04/05/17 01:00; Admin Dose 3.75 MLS/HR; Start 04/04/17 at 06:00 Dextrose (D50w Syringe) 25 ml Q15M PRN IV Till BS 80 mg/dL or above x2; Start 04/04/17 at 09:30 Dextrose (D50w Syringe) 50 ml Q15M PRN IV Till BS 80 mg/dL or above x2; Start 04/04/17 at 09:30 Aspirin 81 mg 81 mg DAILY NGT Last administered on 04/06/17 09:40; Admin Dose 81 MG; Start 04/04/17 at 09:30 Propofol (Diprivan) 100 ml @ 2.421 mls/ hr Q12H IV Last administered on 05:33; Admin Dose 14.526 MLS/HR; Start 04/04/17 at 09:30 Insulin Glargine (Lantus) 16 unit DAILY@08 SC Last administered on 04/06/17 09:49; Admin Dose 16 UNIT; Start 04/04/17 at 10:00 Famotidine (Pepcid Iv) 20 mg BID IV Last administered on 04/06/17 09:49; Admin Dose 20 MG; Start 04/04/17 at 21:00 Atorvastatin Calcium 80 mg 80 mg HS NGT Last administered on 04/05/17 21:29; Admin Dose 80 MG; Start 04/04/17 at 21:00 Levetiracetam (Keppra 1,000mg/ 100ml (Pmx)) 100 ml @ 400 mls/hr Q12 IVPB Last administered on 04/06/17 09:41; Admin Dose 400 MLS/HR; Start 04/05/17 at 11: 00 Miscellaneous Information (* Miscellaneous Pharmacy Order) HOLD all METFORMIN ... ONCE XX ; Start 04/05/17 at 17:30; Stop 04/07/17 at 17:29 Insulin Aspart NOVOLOG *MODERATE* ALGORI... Q4 SC Last administered on 09:47; Admin Dose 4 UNIT; Start 04/06/17 at 09:00 Sodium Chloride (NS) 1,000 ml @ 100 mls/hr Q10H IV Last administered on 10:44; Admin Dose 100 MLS/HR; Start 04/06/17 at 10:00 Heparin Sodium (Porcine) (Heparin (5000 Units/0.5 ml)) 5,000 unit Q8 SC ; Start 04/06/17 at 14:00 GERARDO BROWNE MD Apr 06, 2017 13:19
[2017-04-06] MEDS: HEPARIN 5,000 UNIT/0.5 ML VIAL SC SCH ×2 (14:56→21:39)
[2017-04-06 15:59] LABS: AADO2 Arterial 71.2 mmHg (7.0-24.0); Allen Test ACCEPTAB; Arterial Base Excess -5.2 mmol/L (-3.0-3); Arterial COHb 0.4 % (0.0-3.0); Arterial Fraction of Oxyhgb 97.4 % (93.0-99.0); Arterial HCO3 18.9 mmol/L (22.0-26.0); Arterial MetHb 0.3 % (0.0-1.5); Arterial Total Hemglobin 15.5 g/dl (12.0-18.0); MODE VENT - CPAP
[2017-04-06] MEDS: HOLD all METFORMIN and METFORMIN CONTAINING medications for 48 hours post procedure. Chec XX SCH (17:30)
[2017-04-06] MEDS: ATORVASTATIN 80 MG TAB NGT SCH (21:00)
[2017-04-06 22:46] LABS: AADO2 Arterial 375.4 mmHg (7.0-24.0); Allen Test ACCEPTAB; Arterial Base Excess -3.7 mmol/L (-3.0-3); Arterial COHb 0.3 % (0.0-3.0); Arterial Fraction of Oxyhgb 98.7 % (93.0-99.0); Arterial HCO3 20.8 mmol/L (22.0-26.0); Arterial MetHb 0.3 % (0.0-1.5); Arterial Total Hemglobin 13.5 g/dl (12.0-18.0); MODE MASK - NRB
[2017-04-06] MEDS: morphine 2 MG INJ IV PRN (23:26)
[2017-04-07] VITALS (54 sets, daily range): BP systolic 70–137; BP diastolic 58–101; PULSE 90–151; RESP 14–58
[2017-04-07] MEDS ORDERED: FUROSEMIDE 40 MG INJ IV ONE
--- NOTE | 2017-04-07 00:46 | RADRPT ---
PROCEDURE: XR Chest. CLINICAL INDICATION: Respiratory failure. TECHNIQUE: Portable AP semi erect view of the chest was obtained. COMPARISON: 04/04/2017 FINDINGS: The cardiomediastinal silhouette is within normal limits. Previously seen endotracheal tube is been removed. Interval development of extensive bilateral infiltrate/edema asymmetrically effect in the left lower lobe, findings unable to exclude adult respiratory distress syndrome. Small pleural effu sions are difficult to exclude. There is no obvious pneumothorax. The osseous structures are intact with no evidence for acute abnormality. Multiple monitoring wires overlie the chest limiting fine e valuation. RPTAT:HJJR IMPRESSION: Interval development of diffuse bilateral infiltrates/edema asymmetrically effect in the left lower lobe as compared to the study of 04/04/2017, findings unable to exclude adult respiratory distress s yndrome. Physician Torres Date Time Electronically viewed and signed by Physician Torres on 04/07/2017 00:45 JR/
[2017-04-07] MEDS: INSULIN ASPART [NOVOLOG] 3 ML PEN SC SCH ×6 (01:00→21:00)
--- NOTE | 2017-04-07 03:23 | QN ---
Documentation Comment I was called to room ICU 117 for evaluation of the patient in respiratory distress. This patient was admitted for DKA, subsequently developed ARDS and was extubated yesterday. When I entered the room this patient was tachypnea, tachycardic, and altered. Patient was not a candidate for BiPAP. The patient was intubated. Please see intubation note. Endotracheal Intubation by me: Pre assessment performed. See preceding note for details. Pre-oxygenation performed with 100% oxygen RSI: Performed w/o complication or hypoxic events. Medications as ordered. Blade: [Mac 4] ET Tube: 7.5 cm Depth: 25 cm at the lip Intubation confirmed by colorimetric CO2, equal breath sounds, quiet over the stomach. Chest X-ray 1V Interpreted by me: 3 cm above the kamini ET tube. Normal soft tissue, No pneumothorax. KANIKA PERDOMO DO Apr 07, 2017 03:23
[2017-04-07] MEDS: PROPOFOL 100 ML IV SCH ×5 (03:30→16:25)
--- NOTE | 2017-04-07 04:20 | RADRPT ---
PROCEDURE: XR Chest. CLINICAL INDICATION: Post intubation TECHNIQUE: Single frontal view of the chest was obtained COMPARISON: CHEST 04/06/2017 FINDINGS: The tip of the endotracheal tube is approximately 4 cm above the kamini. ECG leads projected over th e chest. The heart is not enlarged. Bilateral lung densities which could represent pulmonary edema o r other infiltrates left greater than right appear to be improved compared to previous study. No def inite pneumothorax is seen. IMPRESSION: Tip of endotracheal tube approximate 4 cm above the kamini. Bilateral lung densities which could re present pulmonary edema or other infiltrates left greater than right appear to be improved compared to previous study. RPTAT: HJES .Jairo Orellana MD, MD Date Time Electronically viewed and signed by .Jairo Orellana MD, on 04/07/2017 04:20 .S/
[2017-04-07 05:20] LABS: AADO2 Arterial 302.9 mmHg (7.0-24.0); Allen Test ACCEPTAB; Arterial COHb 0.3 % (0.0-3.0); Arterial Fraction of Oxyhgb 98.8 % (93.0-99.0); Arterial HCO3 19.6 mmol/L (22.0-26.0); Arterial MetHb 0.6 % (0.0-1.5); Arterial Total Hemglobin 16.6 g/dl (12.0-18.0); MODE VENT - AC
[2017-04-07] MEDS: SOD CHLORIDE 0.9% 1,000 ML IV SCH ×2 (06:00→16:00)
[2017-04-07] MEDS: HEPARIN 5,000 UNIT/0.5 ML VIAL SC SCH ×3 (06:15→21:41)
[2017-04-07 06:51] LABS: ABNORMAL IP MESSAGE 1; BASOPHILS % 0.2 % (0.0-2.0); HEMATOCRIT 41.1 % (42.0-52.0); HEMOGLOBIN 13.4 g/dl (14.0-18.0); LYMPHOCYTES # 0.4 10^3/ul (0.8-2.9); LYMPHOCYTES % 3.7 % (15.0-51.0); MEAN CORPUSCULAR HEMOGLOBIN 29.5 pg (29.0-33.0); MEAN CORPUSCULAR HGB CONC 32.6 g/dl (32.0-37.0); MEAN CORPUSCULAR VOLUME 90.5 fl (82.0-101.0); MEAN PLATELET VOLUME 11.5 fl (7.4-10.4); MONOCYTE # 0.8 10^3/ul (0.3-0.9); NEUTROPHIL # 10.6 10^3/ul (1.6-7.5); NEUTROPHILS % 88.7 % (39.0-77.0); PLATELET COUNT 210 10^3/UL (140-415); POSITIVE DIFF @See below; RED BLOOD COUNT 4.54 10^6/ul (4.70-6.10); RED CELL DISTRIBUTION WIDTH 13.3 % (11.5-14.5); WHITE BLOOD COUNT 11.9 10^3/ul (4.8-10.8)
[2017-04-07] MEDS ORDERED: SUCCINYLCHOLINE CHLORIDE 100 MG/5 ML SYG IV ONE (07:00)
[2017-04-07] MEDS ORDERED: ETOMIDATE 20 MG INJ ONE (07:00)
[2017-04-07 07:14] LABS: ALBUMIN 3.2 g/dl (3.3-4.9); ALBUMIN/GLOBULIN RATIO 1.03; BILIRUBIN,INDIRECT 1.3 mg/dl (0-1.1); BILIRUBIN,TOTAL 1.3 mg/dl (0.2-1.3); CALCIUM 8.3 mg/dl (8.4-10.2); CREATININE 1.53 mg/dl (0.61-1.24); POTASSIUM 3.3 mmol/L (3.5-5.1); TOTAL PROTEIN 6.3 g/dl (6.1-8.1)
[2017-04-07 07:16] LABS: MAGNESIUM 1.4 mg/dl (1.7-2.5); PHOSPHORUS 4.1 mg/dl (2.5-4.9)
[2017-04-07] MEDS ORDERED: MAGNESIUM SULFATE 2 GM/50 ML 50 ML IVPB ONE (09:00)
--- NOTE | 2017-04-07 09:01 | RADRPT ---
Echocardiogram Report Patient Name: JONATHON FRY Gender: Male Date: 1965 Study Date: 05-Apr-2017 [place]iver: [facility] Location: 117-A Ref. Physician: ADRIÁN FERRER Quality: Good Procedures: Transthoracic echocardiogram with complete 2D, M-Mode, and doppler examination. Indications: Coronary Artery Disease. 2D/M Mode Doppler Measurement Value Normal Ranges Measurement Value Normal Ranges AoR Diam MM 3.0 cm TBOY Vmax 2.6 cm2 ACS MM 2.0 cm TOBY VTI 2.6 cm2 LA/Ao MM 1.4 AV Peak Shaheed 0.9 m/sec LA Dimen MM 4.1 cm AV Peak PG 3.1 mmHg LVIDd 2D 5.7 3.5 - 5.6 cm LVOT Peak Shaheed 0.7 m/sec LVIDs 2D 5.3 2.1 - 4.1 cm LVOT Peak PG 2.1 mmHg LVPWd 2D 1.1 0.6 - 1.1 cm MV E Peak Shaheed 0.9 m/sec IVSd 2D 1.0 0.6 - 1.1 cm MV A Peak Shaheed 0.3 m/sec EDV 2D 162.7 cm3 MV E/A 3.1 ESV 2D 145.9 cm3 MV Decel Time 89 msec LVOT Diam 2.0 cm MV Decel Norman 11 MV E/A 3.1 TR Peak Shaheed 3.0 m/sec TR Peak PG 36.0 mmHg Findings Left Ventricle: Normal left ventricular cavity size. Severe global left ventricular systolic dysfunction. Severe left ventricular systolic dysfunction. Ejection fraction is visually estimated at 18 %. Tissue Doppler/Mitral Doppler indices are consistent with impaired relaxation (Stage I diastolic dysfunction). Right Ventricle: Normal right ventricular size. Mild right ventricular systolic dysfunction. Left Atrium: There is mild enlargement of left atrium. Right Atrium: The right atrium is normal in size. Mitral Valve: Mild mitral valve regurgitation. Aortic Valve: Normal appearance of the aortic valve. No significant aortic stenosis or insufficiency. Tricuspid Valve: Estimated peak PA systolic pressure 55 mmHg. There is moderate tricuspid regurgitation. Pulmonic Valve: There is trace to mild pulmonic regurgitation. Pericardium: Normal pericardium with no significant pericardial effusion. Aorta: Normal aortic root. IVC: Normal size with poor respiratory collapse consistent with elevated right atrial pressure. Conclusions 1.Normal left ventricular cavity size. Severe global left ventricular systolic dysfunction. Severe left ventricular systolic dysfunction. Ejection fraction is visually estimated at 18 %. Tissue Doppler/Mitral Doppler indices are consistent with impaired relaxation (Stage I diastolic dysfunction). 2.Mild mitral valve regurgitation. 3.Normal appearance of the aortic valve. No significant aortic stenosis or insufficiency. 4.Estimated peak PA systolic pressure 55 mmHg. There is moderate tricuspid regurgitation. 5.There is trace to mild pulmonic regurgitation. 6.Normal pericardium with no significant pericardial effusion. Electronically Signed By: Deloris Phipps 07-Apr-2017 09:00:46 -0700 Patient Name: JONATHON FRY Study Date: 05-Apr-2017 [id number]
--- NOTE | 2017-04-07 09:07 | PN ---
Date/Time of Note Date/Time of Note DATE: 04/07/17 TIME: 09:06 Assessment/Plan Lines/Catheters IV Catheter Type (from Nrsg): Saline Lock [place] in Place (from Nrsg): Yes Assessment/Plan Chief Complaint/Hosp Course IMPRESSION: 1. Coronary artery disease. 2. Non-ST elevation myocardial infarction. 3. Seizure disorder. 4. Diabetes with diabetic ketoacidosis. 5. HX CVA 6. Respiratory failure. pt reintubated RECOMMENDATIONS: We will proceed with coronary artery bypass grafting after the patient has been off of Plavix for a period of time. Problems: Subjective 24 Hr Interval Summary Constitutional: improved Pain Control: mild Exam/Review of Systems Vital Signs Vitals Vital Signs Date Time Temp Pulse Resp B/P Pulse Ox O2 Delivery O2 Flow Rate FiO2 04/07/17 06:00 107 21 95/67 100 Mechanical Ventilator 04/07/17 05:26 40 04/07/17 04:30 98.8 04/07/17 03:00 4.0 Intake and Output 04/06/17 04/06/17 04/07/17 15:00 23:00 07:00 Intake Total 650 ml 900 ml 578 ml Output Total 310 ml 600 ml 3325 ml Balance 340 ml 300 ml -2747 ml Exam ENMT: mucosa pink and moist, nl external ears & nose, nl lips & teeth, nl nasal mucosa & septum Neck: non-tender, supple Respiratory: clear to auscultation, normal air movement Results Result Diagram: 04/07/17 0529 04/07/17 0529 NORIS HARRIS MD Apr 07, 2017 09:07
--- NOTE | 2017-04-07 09:20 | PN ---
Date/Time of Note Date/Time of Note DATE: 04/07/17 TIME: 09:02 Assessment/Plan VTE Prophylaxis VTE Prophylaxis Intervention: heparin Lines/Catheters IV Catheter Type (from [facility]): Saline Lock Urinary Cath still in place: Yes Reason Cath still needed: other (indicate) (Intubated and sedated) Assessment/Plan Assessment/Plan 52-year-old male with: 1. NSTEMI known coronary artery disease, status post stents 3 years ago. S/p angiogram and findings of diffuse disease, patient will require CABG, Dr. Herron following. Continue current cardiac medications. On heparin subcu for DVT prophylaxis, patient did get Plavix Tuesday and Tuesday , he has been off since then. Wednesday 04/11 would be the earliest date for CABG unless emergent findings before then. Continue current medications, cardiology and CTS following. 2. Seizures, unclear etiology but could be secondary to DKA versus intracranial pathology. 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 Neurology has been consulted for further recommendations. EEG if requested by neurology. Continue Keppra for now. 3. Acute respiratory failure, had to be re intubated last night, findings of pulmo edema, on Lasix and stable on Vent. Follow up CXR in AM, diuresis and vent management per pulmonary. Febrile to 101, cx pending and monitor, ? aspiration episode 4. S/p Diabetic ketoacidosis, known diabetes mellitus with noncompliance with diet or medications. Patient has been off medication for at least 1-2 month, status post DKA protocol, Patient on subcutaneous insulin, will titrate up for better blood sugar control. IV fluids to normal saline. Further insulin adjustment if blood sugar still not well controlled. Hemoglobin A1c out of range. Diabetic education once extubated and awake. Likely to need insulin therapy. Apparently he was on metformin and glipizide based on his medication reconciliation prior. 5. Diabetes mellitus, known noncompliance with medication, diet or follow-ups. Diabetic education after extubation, will require insulin therapy, see #1 6. Coronary artery disease, status post PCI and stent placed according to the sister, 3 years ago in [place]. Lipitor 80 mg nightly, once more stable beta-blockers to be started, continue aspirin, Plavix discontinued as of 04/05, patient will need CABG next week. CTS and cardiology following. See #4 7. Hyperlipidemia: Continue Lipitor 80 mg qhs. 8. Acute kidney injury, now needing diuresis, monitor renal function. IV fluids on hold. Monitor renal function. Replete potassium per protocol, replete magnesium Prophylaxis: Heparin subcu for DVT prophylaxis, Pepcid for GI prophylaxis Disposition: Patient re-intubated overnight, will need CABG early next week, close monitoring in the meantime. Cardiology, cardiothoracic surgery, pulmonary and Neurology following. Prognosis is fair so far. Subjective 24 Hr Interval Summary Free Text/Dictation Patient with respiratory distress yesterday evening, received Lasix, trial of BiPAP, worsening respiratory distress progressed respiratory failure requiring intubation. He was also noted to be more encephalopathic yesterday evening, unclear if it was related to hypoxemia versus already known PRES syndrome Exam/Review of Systems Vital Signs Vitals Vital Signs Date Time Temp Pulse Resp B/P Pulse Ox O2 Delivery O2 Flow Rate FiO2 04/07/17 06:00 107 21 95/67 100 Mechanical Ventilator 04/07/17 05:26 40 04/07/17 04:30 98.8 04/07/17 03:00 4.0 Intake and Output 04/06/17 04/06/17 04/07/17 15:00 23:00 07:00 Intake Total 650 ml 900 ml 578 ml Output Total 310 ml 600 ml 3325 ml Balance 340 ml 300 ml -2747 ml Exam Constitutional: other (Intubated, sedated) Respiratory: clear to auscultation, diminished breath sounds (Bases bilaterally ), other (Back on the ventilator) Cardiovascular: nl pulses, regular rate and rhythm Gastrointestinal: non-tender, soft Musculoskeletal: nl extremities to inspection, other (No edema, clubbing or cyanosis) 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: other (Currently sedated) Results Result Diagram: 04/07/1729 04/07/1729 Results 24 hrs Laboratory Tests Test 04/06/17 09:25 04/06/17 13:38 04/06/17 15:45 04/06/17 17:36 Bedside Glucose 209 133 152 Blood Gas Specimen Source Blood arterial Arterial Blood Date Drawn 04/06/2017 3:54:36 PM Arterial Blood pH (Temp corrected) 7.375 Arterial Blood pCO2 (Temp correct) 33.1 L Arterial Blood pO2 (Temp corrected) 103.8 H Arterial Blood HCO3 18.9 L Arterial Blood Base Excess -5.2 L Arterial Blood Oxygen Saturation 98.1 H Matt Test ACCEPTAB Arterial Blood Gas Puncture Site Right Radial Arterial Blood Carboxyhemoglobin 0.4 Arterial Blood Methemoglobin 0.3 Blood Gas A-a O2 Differential 71.2 H Oxyhemoglobin Percent 97.4 Total Hemoglobin 15.5 Blood Gas Temperature 37.0 Blood Gas Modality VENT - CPAP FiO2 30.0 Blood Gas Notified Whom SUSAN SALEEM Blood Gas Notified Time 04/06/2017 3:59:14 PM Test 04/06/17 20:40 04/06/17 22:30 04/07/17 01:11 04/07/17 05:00 Bedside Glucose 104 139 Blood Gas Specimen Source Blood arterial Blood arterial Arterial Blood Date Drawn 04/06/2017 10:30:08 PM 04/07/2017 5:10:52 AM Arterial Blood pH (Temp corrected) 7.381 7.402 Arterial Blood pCO2 (Temp correct) 35.8 32.2 L Arterial Blood pO2 (Temp corrected) 301.8 H 377.9 H Arterial Blood HCO3 20.8 L 19.6 L Arterial Blood Base Excess -3.7 L -4.0 L Arterial Blood Oxygen Saturation 99.3 H 99.7 H Matt Test ACCEPTAB ACCEPTAB Arterial Blood Gas Puncture Site Left Radial Right Radial Arterial Blood Carboxyhemoglobin 0.3 0.3 Arterial Blood Methemoglobin 0.3 0.6 Blood Gas A-a O2 Differential 375.4 H 302.9 H Oxyhemoglobin Percent 98.7 98.8 Total Hemoglobin 13.5 16.6 Blood Gas Temperature 37.0 37.0 Blood Gas Modality MASK - NRB VENT - AC FiO2 100.0 100.0 Blood Gas Notified Whom SONIA SCOTT Blood Gas Notified Time 04/06/2017 10:46:40 PM 04/07/2017 5:20:31 AM Blood Gas Respiration Rate 14.0 Blood Gas Actual Respiration Rate 14 Blood Gas Tidal Volume 500.0 Blood Gas Low PEEP Setting 5.0 Test 04/07/17 05:08 04/07/17 05:29 Bedside Glucose 185 White Blood Count 11.9 #H Red Blood Count 4.54 L Hemoglobin 13.4 L Hematocrit 41.1 L Mean Corpuscular Volume 90.5 Mean Corpuscular Hemoglobin 29.5 Mean Corpuscular Hemoglobin Concent 32.6 Red Cell Distribution Width 13.3 Platelet Count 210 Mean Platelet Volume 11.5 H Neutrophils % 88.7 H Lymphocytes % 3.7 L Monocytes % 7.0 Eosinophils % 0.0 Basophils % 0.2 Nucleated Red Blood Cells % 0.0 Neutrophils # 10.6 H Lymphocytes # 0.4 L Monocytes # 0.8 Eosinophils # 0.0 Basophils # 0.0 Nucleated Red Blood Cells # 0.0 Sodium Level 143 Potassium Level 3.3 L Chloride Level 110 Carbon Dioxide Level 21 Anion Gap 15 # Blood Urea Nitrogen 12 Creatinine 1.53 H Glucose Level 193 Calcium Level 8.3 L Phosphorus Level 4.1 Magnesium Level 1.4 L Total Bilirubin 1.3 Direct Bilirubin 0.00 Indirect Bilirubin 1.3 H Aspartate Amino Transf (AST/SGOT) 39 Alanine Aminotransferase (ALT/SGPT) 33 Alkaline Phosphatase 100 Troponin I 5.430 *H Total Protein 6.3 Albumin 3.2 L Globulin 3.10 Albumin/Globulin Ratio 1.03 Medications Medications Current Medications Carvedilol (Coreg) 6.25 mg BID PO Last administered on 04/06/17 09:41; Admin Dose 6.25 MG; Start 04/04/17 at 09:00 Lorazepam (Ativan) 0.5 mg Q6H PRN IV ANXIETY Last administered on 04/06/17 23 :08; Admin Dose 0.5 MG; Start 04/04/17 at 03:30 Ondansetron HCl (Zofran Inj) 4 mg Q6H PRN IV NAUSEA AND/OR VOMITING; Start 04/04/17 at 03:30 Morphine Sulfate 2 mg 2 mg Q4H PRN IV PAIN LEVEL 7-10 Last administered on 23:26; Admin Dose 2 MG; Start 04/04/17 at 03:30 Norepinephrine (Levophed) 250 ml @ 1.875 mls/ hr TITRATE IV Last administered on 04/05/17 01:00; Admin Dose 3.75 MLS/HR; Start 04/04/17 at 06:00 Dextrose (D50w Syringe) 25 ml Q15M PRN IV Till BS 80 mg/dL or above x2; Start 04/04/17 at 09:30 Dextrose (D50w Syringe) 50 ml Q15M PRN IV Till BS 80 mg/dL or above x2; Start 04/04/17 at 09:30 Aspirin 81 mg 81 mg DAILY NGT Last administered on 04/06/17 09:40; Admin Dose 81 MG; Start 04/04/17 at 09:30 Propofol (Diprivan) 100 ml @ 2.421 mls/ hr Q12H IV Last administered on 06:15; Admin Dose 21.789 MLS/HR; Start 04/04/17 at 09:30 Insulin Glargine (Lantus) 16 unit DAILY@08 SC Last administered on 04/06/17 09:49; Admin Dose 16 UNIT; Start 04/04/17 at 10:00 Famotidine (Pepcid Iv) 20 mg BID IV Last administered on 04/06/17 20:36; Admin Dose 20 MG; Start 04/04/17 at 21:00 Atorvastatin Calcium 80 mg 80 mg HS NGT Last administered on 04/05/17 21:29; Admin Dose 80 MG; Start 04/04/17 at 21:00 Levetiracetam (Keppra 1,000mg/ 100ml (Pmx)) 100 ml @ 400 mls/hr Q12 IVPB Last administered on 04/06/17 20:37; Admin Dose 400 MLS/HR; Start 04/05/17 at 11: 00 Miscellaneous Information (* Miscellaneous Pharmacy Order) HOLD all METFORMIN ... ONCE XX Last administered on 04/06/17 17:30; Admin Dose 1 EA; Start 04/12 at 17:30; Stop 04/07/17 at 17:29 Insulin Aspart NOVOLOG *MODERATE* ALGORI... Q4 SC Last administered on 05:12; Admin Dose 4 UNIT; Start 04/06/17 at 09:00 Sodium Chloride (NS) 1,000 ml @ 100 mls/hr Q10H IV Last administered on 21:34; Admin Dose 100 MLS/HR; Start 04/06/17 at 10:00 Heparin Sodium (Porcine) (Heparin (5000 Units/0.5 ml)) 5,000 unit Q8 SC Last administered on 04/07/17 06:15; Admin Dose 5,000 UNIT; Start 04/06/17 at 14: 00 DOUGLAS FERRER Apr 07, 2017 09:12 DOUGLAS FERRER Apr 07, 2017 09:12
[2017-04-07] MEDS: ASPIRIN 81 MG TAB NGT SCH (09:45)
[2017-04-07] MEDS: LEVETIRACETAM 1000 MG (PMX) 100 ML IVPB SCH ×2 (09:45→21:17)
[2017-04-07] MEDS: INSULIN GLARGINE [LANtus] 3 ML PEN SC SCH (09:55)
[2017-04-07] MEDS: POTASSIUM CHLORIDE 50 ML IVPB PRN ×3 (09:59→14:20)
[2017-04-07] MEDS: FAMOTIDINE 20 MG INJ IV SCH ×2 (10:07→21:17)
--- NOTE | 2017-04-07 11:00 | RADRPT ---
PROCEDURE: XR Abdomen 1 View. CLINICAL INDICATION: Status post nasogastric tube placement. TECHNIQUE: AP abdomen x-ray. COMPARISON: None. FINDINGS: Nasogastric tube has its distal end curled in the expected location of the stomach. Scattered air an d stool are noted in the colon. A few gas filled, nondilated loops of small bowel are seen scattered in the abdomen. No dilated loops of small bowel are observed. No organomegaly is identified. No ab normal calculi are observed. The osseous structures are intact. IMPRESSION: Nasogastric tube with its distal end in the expected location of the stomach. Nonspecific bowel gas pattern. If further characterization of the abdomen is needed CT should be considered. RPTAT: AA .Marin Wright MD, Date Time Electronically viewed and signed by .Marin Wright MD, on 04/07/2017 11:00 .P/
[2017-04-07 11:52] LABS: Blood Gas PS 7
--- NOTE | 2017-04-07 12:51 | CONS ---
Date/Time of Note Date/Time of Note DATE: 04/07/17 TIME: 12:51 Consultation Date/Type/Reason Admit Date/Time Apr 04, 2017 at 03:21 Initial Consult Date 04/04/17 Type of Consultation: Pulmonary/critical care Referring Provider: DOUGLAS FERRER 24 HR Interval Summary Free Text/Dictation dictated [id number] Exam/Review of Systems Vital Signs Vitals Vital Signs Date Time Temp Pulse Resp B/P Pulse Ox O2 Delivery O2 Flow Rate FiO2 04/07/17 08:00 102 04/07/17 06:00 21 95/67 100 Mechanical Ventilator 04/07/17 05:26 40 04/07/17 04:30 98.8 04/07/17 03:00 4.0 Intake and Output 04/06/17 04/06/17 04/07/17 15:00 23:00 07:00 Intake Total 650 ml 900 ml 578 ml Output Total 310 ml 600 ml 3325 ml Balance 340 ml 300 ml -2747 ml Results Result Diagram: 04/07/17 0529 04/07/17 0529 Results 24 hrs Laboratory Tests Test 04/06/17 13:38 04/06/17 15:45 04/06/17 17:36 04/06/17 20:40 Bedside Glucose 133 152 104 Blood Gas Specimen Source Blood arterial Arterial Blood Date Drawn 04/06/2017 3:54:00 PM Arterial Blood pH (Temp corrected) 7.375 Arterial Blood pCO2 (Temp correct) 33.1 L Arterial Blood pO2 (Temp corrected) 103.8 H Arterial Blood HCO3 18.9 L Arterial Blood Base Excess -5.2 L Arterial Blood Oxygen Saturation 98.1 H Matt Test ACCEPTAB Arterial Blood Gas Puncture Site Right Radial Arterial Blood Carboxyhemoglobin 0.4 Arterial Blood Methemoglobin 0.3 Blood Gas A-a O2 Differential 71.2 H Oxyhemoglobin Percent 97.4 Total Hemoglobin 15.5 Blood Gas Temperature 37.0 Blood Gas Actual Respiration Rate 25 Blood Gas Modality VENT - CPAP FiO2 30.0 Blood Gas Pressure Support 7 Blood Gas Critical Value Read Back Y MARCELINO RN Blood Gas Notified Whom SUSAN SALEEM Blood Gas Notified Time 04/06/2017 3:59:00 PM Test 04/06/17 22:30 04/07/17 01:11 04/07/17 05:00 04/07/17 05:08 Blood Gas Specimen Source Blood arterial Blood arterial Arterial Blood Date Drawn 04/06/2017 10:30:08 PM 04/07/2017 5:10:52 AM Arterial Blood pH (Temp corrected) 7.381 7.402 Arterial Blood pCO2 (Temp correct) 35.8 32.2 L Arterial Blood pO2 (Temp corrected) 301.8 H 377.9 H Arterial Blood HCO3 20.8 L 19.6 L Arterial Blood Base Excess -3.7 L -4.0 L Arterial Blood Oxygen Saturation 99.3 H 99.7 H Matt Test ACCEPTAB ACCEPTAB Arterial Blood Gas Puncture Site Left Radial Right Radial Arterial Blood Carboxyhemoglobin 0.3 0.3 Arterial Blood Methemoglobin 0.3 0.6 Blood Gas A-a O2 Differential 375.4 H 302.9 H Oxyhemoglobin Percent 98.7 98.8 Total Hemoglobin 13.5 16.6 Blood Gas Temperature 37.0 37.0 Blood Gas Modality MASK - NRB VENT - AC FiO2 100.0 100.0 Blood Gas Notified Whom SONIA SCOTT Blood Gas Notified Time 04/06/2017 10:46:40 PM 04/07/2017 5:20:31 AM Bedside Glucose 139 185 Blood Gas Respiration Rate 14.0 Blood Gas Actual Respiration Rate 14 Blood Gas Tidal Volume 500.0 Blood Gas Low PEEP Setting 5.0 Test 04/07/17 05:29 04/07/17 09:53 White Blood Count 11.9 #H Red Blood Count 4.54 L Hemoglobin 13.4 L Hematocrit 41.1 L Mean Corpuscular Volume 90.5 Mean Corpuscular Hemoglobin 29.5 Mean Corpuscular Hemoglobin Concent 32.6 Red Cell Distribution Width 13.3 Platelet Count 210 Mean Platelet Volume 11.5 H Neutrophils % 88.7 H Lymphocytes % 3.7 L Monocytes % 7.0 Eosinophils % 0.0 Basophils % 0.2 Nucleated Red Blood Cells % 0.0 Neutrophils # 10.6 H Lymphocytes # 0.4 L Monocytes # 0.8 Eosinophils # 0.0 Basophils # 0.0 Nucleated Red Blood Cells # 0.0 Sodium Level 143 Potassium Level 3.3 L Chloride Level 110 Carbon Dioxide Level 21 Anion Gap 15 # Blood Urea Nitrogen 12 Creatinine 1.53 H Glucose Level 193 Calcium Level 8.3 L Phosphorus Level 4.1 Magnesium Level 1.4 L Total Bilirubin 1.3 Direct Bilirubin 0.00 Indirect Bilirubin 1.3 H Aspartate Amino Transf (AST/SGOT) 39 Alanine Aminotransferase (ALT/SGPT) 33 Alkaline Phosphatase 100 Troponin I 5.430 *H Total Protein 6.3 Albumin 3.2 L Globulin 3.10 Albumin/Globulin Ratio 1.03 Bedside Glucose 175 Medications Medications Current Medications Carvedilol (Coreg) 6.25 mg BID PO Last administered on 04/06/17 09:41; Admin Dose 6.25 MG; Start 04/04/17 at 09:00 Lorazepam (Ativan) 0.5 mg Q6H PRN IV ANXIETY Last administered on 04/06/17 23 :08; Admin Dose 0.5 MG; Start 04/04/17 at 03:30 Ondansetron HCl (Zofran Inj) 4 mg Q6H PRN IV NAUSEA AND/OR VOMITING; Start 04/04/17 at 03:30 Morphine Sulfate 2 mg 2 mg Q4H PRN IV PAIN LEVEL 7-10 Last administered on 23:26; Admin Dose 2 MG; Start 04/04/17 at 03:30 Norepinephrine (Levophed) 250 ml @ 1.875 mls/ hr TITRATE IV Last administered on 04/05/17 01:00; Admin Dose 3.75 MLS/HR; Start 04/04/17 at 06:00 Dextrose (D50w Syringe) 25 ml Q15M PRN IV Till BS 80 mg/dL or above x2; Start 04/04/17 at 09:30 Dextrose (D50w Syringe) 50 ml Q15M PRN IV Till BS 80 mg/dL or above x2; Start 04/04/17 at 09:30 Aspirin 81 mg 81 mg DAILY NGT Last administered on 04/07/17 09:45; Admin Dose 81 MG; Start 04/04/17 at 09:30 Propofol (Diprivan) 100 ml @ 2.421 mls/ hr Q12H IV Last administered on 11:46; Admin Dose 19.368 MLS/HR; Start 04/04/17 at 09:30 Insulin Glargine (Lantus) 16 unit DAILY@08 SC Last administered on 04/07/17 09:55; Admin Dose 16 UNIT; Start 04/04/17 at 10:00 Famotidine (Pepcid Iv) 20 mg BID IV Last administered on 04/07/17 10:07; Admin Dose 20 MG; Start 04/04/17 at 21:00 Atorvastatin Calcium 80 mg 80 mg HS NGT Last administered on 04/05/17 21:29; Admin Dose 80 MG; Start 04/04/17 at 21:00 Levetiracetam (Keppra 1,000mg/ 100ml (Pmx)) 100 ml @ 400 mls/hr Q12 IVPB Last administered on 04/07/17 09:45; Admin Dose 400 MLS/HR; Start 04/05/17 at 11: 00 Miscellaneous Information (* Miscellaneous Pharmacy Order) HOLD all METFORMIN ... ONCE XX Last administered on 04/06/17 17:30; Admin Dose 1 EA; Start 04/12 at 17:30; Stop 04/07/17 at 17:29 Insulin Aspart NOVOLOG *MODERATE* ALGORI... Q4 SC Last administered on 09:54; Admin Dose 2 UNIT; Start 04/06/17 at 09:00 Sodium Chloride (NS) 1,000 ml @ 100 mls/hr Q10H IV Last administered on 21:34; Admin Dose 100 MLS/HR; Start 04/06/17 at 10:00 Heparin Sodium (Porcine) (Heparin (5000 Units/0.5 ml)) 5,000 unit Q8 SC Last administered on 04/07/17 06:15; Admin Dose 5,000 UNIT; Start 04/06/17 at 14: 00 Acetaminophen (Tylenol Liquid) 650 mg Q4H PRN NGT PAIN AND OR ELEVATED TEMP; Start 04/07/17 at 09:30 NUBIA NAVARRO Apr 07, 2017 12:51
--- NOTE | 2017-04-07 12:55 | PN ---
Date/Time of Note Date/Time of Note DATE: 04/07/17 TIME: 12:51 Assessment/Plan VTE Prophylaxis VTE Prophylaxis Intervention: SCD's Lines/Catheters IV Catheter Type (from Nrs): Saline Lock Urinary Cath still in place: Yes Reason Cath still needed: urinary retention Assessment/Plan Chief Complaint/Hosp Course NSTEMI s/p cath - 3vcad DKA SEIZURE DO VDRF -discussed with son -awaiting CABG -acei once bp stable -continue cv meds -check carotid Problems: Assessment/Plan NSTEMI s/p cath - 3vcad DKA SEIZURE DO VDRF -discussed with son -awaiting CABG -acei once bp stable -continue cv meds -check carotid Subjective 24 Hr Interval Summary Free Text/Dictation pateint stable overnight Exam/Review of Systems Vital Signs Vitals Vital Signs Date Time Temp Pulse Resp B/P Pulse Ox O2 Delivery O2 Flow Rate FiO2 04/07/17 08:00 102 04/07/17 06:00 21 95/67 100 Mechanical Ventilator 04/07/17 05:26 40 04/07/17 04:30 98.8 04/07/17 03:00 4.0 Intake and Output 04/06/17 04/06/17 04/07/17 15:00 23:00 07:00 Intake Total 650 ml 900 ml 578 ml Output Total 310 ml 600 ml 3325 ml Balance 340 ml 300 ml -2747 ml Results Result Diagram: 04/07/17 0529 04/07/17 0529 Results 24 hrs Laboratory Tests Test 04/06/17 13:38 04/06/17 15:45 04/06/17 17:36 04/06/17 20:40 Bedside Glucose 133 152 104 Blood Gas Specimen Source Blood arterial Arterial Blood Date Drawn 04/06/2017 3:54:00 PM Arterial Blood pH (Temp corrected) 7.375 Arterial Blood pCO2 (Temp correct) 33.1 L Arterial Blood pO2 (Temp corrected) 103.8 H Arterial Blood HCO3 18.9 L Arterial Blood Base Excess -5.2 L Arterial Blood Oxygen Saturation 98.1 H Matt Test ACCEPTAB Arterial Blood Gas Puncture Site Right Radial Arterial Blood Carboxyhemoglobin 0.4 Arterial Blood Methemoglobin 0.3 Blood Gas A-a O2 Differential 71.2 H Oxyhemoglobin Percent 97.4 Total Hemoglobin 15.5 Blood Gas Temperature 37.0 Blood Gas Actual Respiration Rate 25 Blood Gas Modality VENT - CPAP FiO2 30.0 Blood Gas Pressure Support 7 Blood Gas Critical Value Read Back Y MARCELINO DAVIS Blood Gas Notified Whom SUSAN SALEEM Blood Gas Notified Time 04/06/2017 3:59:00 PM Test 04/06/17 22:30 04/07/17 01:11 04/07/17 05:00 04/07/17 05:08 Blood Gas Specimen Source Blood arterial Blood arterial Arterial Blood Date Drawn 04/06/2017 10:30:08 PM 04/07/2017 5:10:52 AM Arterial Blood pH (Temp corrected) 7.381 7.402 Arterial Blood pCO2 (Temp correct) 35.8 32.2 L Arterial Blood pO2 (Temp corrected) 301.8 H 377.9 H Arterial Blood HCO3 20.8 L 19.6 L Arterial Blood Base Excess -3.7 L -4.0 L Arterial Blood Oxygen Saturation 99.3 H 99.7 H Matt Test ACCEPTAB ACCEPTAB Arterial Blood Gas Puncture Site Left Radial Right Radial Arterial Blood Carboxyhemoglobin 0.3 0.3 Arterial Blood Methemoglobin 0.3 0.6 Blood Gas A-a O2 Differential 375.4 H 302.9 H Oxyhemoglobin Percent 98.7 98.8 Total Hemoglobin 13.5 16.6 Blood Gas Temperature 37.0 37.0 Blood Gas Modality MASK - NRB VENT - AC FiO2 100.0 100.0 Blood Gas Notified Whom SONIA SCOTT Blood Gas Notified Time 04/06/2017 10:46:40 PM 04/07/2017 5:20:31 AM Bedside Glucose 139 185 Blood Gas Respiration Rate 14.0 Blood Gas Actual Respiration Rate 14 Blood Gas Tidal Volume 500.0 Blood Gas Low PEEP Setting 5.0 Test 04/07/17 05:29 04/07/17 09:53 White Blood Count 11.9 #H Red Blood Count 4.54 L Hemoglobin 13.4 L Hematocrit 41.1 L Mean Corpuscular Volume 90.5 Mean Corpuscular Hemoglobin 29.5 Mean Corpuscular Hemoglobin Concent 32.6 Red Cell Distribution Width 13.3 Platelet Count 210 Mean Platelet Volume 11.5 H Neutrophils % 88.7 H Lymphocytes % 3.7 L Monocytes % 7.0 Eosinophils % 0.0 Basophils % 0.2 Nucleated Red Blood Cells % 0.0 Neutrophils # 10.6 H Lymphocytes # 0.4 L Monocytes # 0.8 Eosinophils # 0.0 Basophils # 0.0 Nucleated Red Blood Cells # 0.0 Sodium Level 143 Potassium Level 3.3 L Chloride Level 110 Carbon Dioxide Level 21 Anion Gap 15 # Blood Urea Nitrogen 12 Creatinine 1.53 H Glucose Level 193 Calcium Level 8.3 L Phosphorus Level 4.1 Magnesium Level 1.4 L Total Bilirubin 1.3 Direct Bilirubin 0.00 Indirect Bilirubin 1.3 H Aspartate Amino Transf (AST/SGOT) 39 Alanine Aminotransferase (ALT/SGPT) 33 Alkaline Phosphatase 100 Troponin I 5.430 *H Total Protein 6.3 Albumin 3.2 L Globulin 3.10 Albumin/Globulin Ratio 1.03 Bedside Glucose 175 Medications Medications Current Medications Carvedilol (Coreg) 6.25 mg BID PO Last administered on 04/06/17 09:41; Admin Dose 6.25 MG; Start 04/04/17 at 09:00 Lorazepam (Ativan) 0.5 mg Q6H PRN IV ANXIETY Last administered on 04/06/17 23 :08; Admin Dose 0.5 MG; Start 04/04/17 at 03:30 Ondansetron HCl (Zofran Inj) 4 mg Q6H PRN IV NAUSEA AND/OR VOMITING; Start 04/04/17 at 03:30 Morphine Sulfate 2 mg 2 mg Q4H PRN IV PAIN LEVEL 7-10 Last administered on 23:26; Admin Dose 2 MG; Start 04/04/17 at 03:30 Norepinephrine (Levophed) 250 ml @ 1.875 mls/ hr TITRATE IV Last administered on 04/05/17 01:00; Admin Dose 3.75 MLS/HR; Start 04/04/17 at 06:00 Dextrose (D50w Syringe) 25 ml Q15M PRN IV Till BS 80 mg/dL or above x2; Start 04/04/17 at 09:30 Dextrose (D50w Syringe) 50 ml Q15M PRN IV Till BS 80 mg/dL or above x2; Start 04/04/17 at 09:30 Aspirin 81 mg 81 mg DAILY NGT Last administered on 04/07/17 09:45; Admin Dose 81 MG; Start 04/04/17 at 09:30 Propofol (Diprivan) 100 ml @ 2.421 mls/ hr Q12H IV Last administered on 11:46; Admin Dose 19.368 MLS/HR; Start 04/04/17 at 09:30 Insulin Glargine (Lantus) 16 unit DAILY@08 SC Last administered on 04/07/17 09:55; Admin Dose 16 UNIT; Start 04/04/17 at 10:00 Famotidine (Pepcid Iv) 20 mg BID IV Last administered on 04/07/17 10:07; Admin Dose 20 MG; Start 04/04/17 at 21:00 Atorvastatin Calcium 80 mg 80 mg HS NGT Last administered on 04/05/17 21:29; Admin Dose 80 MG; Start 04/04/17 at 21:00 Levetiracetam (Keppra 1,000mg/ 100ml (Pmx)) 100 ml @ 400 mls/hr Q12 IVPB Last administered on 04/07/17 09:45; Admin Dose 400 MLS/HR; Start 04/05/17 at 11: 00 Miscellaneous Information (* Miscellaneous Pharmacy Order) HOLD all METFORMIN ... ONCE XX Last administered on 04/06/17 17:30; Admin Dose 1 EA; Start 04/12 at 17:30; Stop 04/07/17 at 17:29 Insulin Aspart NOVOLOG *MODERATE* ALGORI... Q4 SC Last administered on 09:54; Admin Dose 2 UNIT; Start 04/06/17 at 09:00 Sodium Chloride (NS) 1,000 ml @ 100 mls/hr Q10H IV Last administered on 21:34; Admin Dose 100 MLS/HR; Start 04/06/17 at 10:00 Heparin Sodium (Porcine) (Heparin (5000 Units/0.5 ml)) 5,000 unit Q8 SC Last administered on 04/07/17 06:15; Admin Dose 5,000 UNIT; Start 04/06/17 at 14: 00 Acetaminophen (Tylenol Liquid) 650 mg Q4H PRN NGT PAIN AND OR ELEVATED TEMP; Start 04/07/17 at 09:30 GERARDO BROWNE MD Apr 07, 2017 12:55
[2017-04-07] MEDS ORDERED: VANCOMYCIN IV PER PHARMACY XX SCH (13:00)
[2017-04-07] MEDS: CEFEPIME 1GM/50 ML (PMX) 50 ML IVPB SCH ×2 (14:00→21:19)
[2017-04-07] MEDS ORDERED: VANCOMYCIN 1.5 GM in SOD CHLORIDE 0.9% 250 ML IVPB SCH (14:30)
--- NOTE | 2017-04-07 15:18 | CONS ---
DATE OF ADMISSION: 04/04/2017 DATE OF CONSULTATION: 04/07/2017 PULMONARY CRITICAL CARE PROGRESS NOTE HISTORY OF PRESENT ILLNESS: The patient's condition remains critical. The patient was extubated ye afternoon. The patient was doing fairly well; however, late in the evening, the patient bec subhash more confused and agitated and had to be reintubated by the ER physician. Currently, the eva bronson is sedated, orally intubated. The patient did not require any CPR. PHYSICAL EXAMINATION: GENERAL: Middle-aged male, orally intubated, sedated, currently in no distress. VITAL SIGNS: Temperature is 98 degree Fahrenheit, heart rate of 100 per minute, blood pressure 95/6 8, respiratory rate is 18 to 20 per minute, O2 sat 100%. Patient is currently on AC of 14, tidal vo lume 100, PEEP of 5 and 40% FIO2. HEENT: Supple neck, positive JVD, no lymphadenopathy, midline trachea, no thyromegaly. Orally intu bated. Patient has fair dentition. CHEST: Clear to auscultation. HEART: S1, S2 audible. No murmurs, regular rhythm. ABDOMEN: Soft, nondistended. No organomegaly. Bowel sounds audible. EXTREMITIES: No edema. Pulses 1+ bilaterally. CENTRAL NERVOUS SYSTEM: Patient is sedated. IMAGING: Chest x-ray was reviewed from today which is showing worsening pulmonary edema, endotrache al tube is at an adequate level. LABORATORY DATA: White count 11.9, hemoglobin 13.4, platelet count of 210. Sodium 140, potassium 3 .3, chloride 110, bicarbonate 21, BUN 12, creatinine 1.5. MEDICATIONS: 1. Propofol at 40 mcg/kg per minute. 2. IV insulin via protocol. 3. Keppra 1 gram q.12h. 4. Aspirin 81 mg daily. 5. Lipitor 80 mg a day. 6. Coreg 6.25 mg b.i.d. 7. Pepcid 20 mg IV b.i.d. 8. Lasix was given 40 mg IV once today. 9. Subcutaneous Heparin 5000 units q.8h. 10. Sliding scale insulin. 11. Morphine on a p.r.n. basis. ASSESSMENT: 1. The patient admitted for severe diabetic ketoacidosis, leading to respiratory failure. 2. Underlying severe coronary artery disease, not amenable to nonsurgical intervention. The eva bronson is being evaluated for possible coronary artery bypass graft surgery. 3. Chronic encephalomalacia with multiple bilateral infarcts. 4. Ventilatory education yesterday requiring reintubation. 5. Renal insufficiency. 6. Hypertension, diabetes. 7. Possibly bilateral pneumonia. RECOMMENDATIONS: Continue current treatment. Add cefepime and vancomycin intravenously to be adjus donna by the pharmacy. We will obtain follow up chest x-ray in 24 hours. Coronary artery bypass amaya ting to be done once the patient's mental status and clinical condition improved. About 35 minutes of critical care time was spent evaluating the patient. Dictated By: NUBIA NAVARRO MD AQ/NTS Conf#: [id number] DID#: [id number]
[2017-04-07 17:02] LABS: ADD UMIC YES; UR ASCORBIC ACID 20 mg/dL (NEGATIVE); UR BACTERIA FEW /HPF (NONE SEEN); UR BILIRUBIN (Dip) NEGATIVE (NEGATIVE); UR BLOOD (Dip) 2+ mg/dL (NEGATIVE); UR CLARITY CLOUDY (CLEAR); UR COLOR YELLOW (YELLOW); UR GLUCOSE (Dip) NEGATIVE (NEGATIVE); UR KETONES (Dip) TRACE mg/dL (NEGATIVE); UR LEUKOCYTE ESTERASE (Dip) NEGATIVE Leu/ul (NEGATIVE); UR MUCUS MODERATE /HPF (NONE SEEN); UR NITRITE (Dip) NEGATIVE (NEGATIVE); UR RBC 81 /HPF (0-5); UR SPECIFIC GRAVITY (Dip) 1.024 (1.003-1.030); UR TOTAL PROTEIN (Dip) 2+ mg/dl (NEGATIVE); UR UROBILINOGEN (Dip) 1+ mg/dL (NEGATIVE)
[2017-04-07] MEDS ORDERED: NORepinephrine 8MG/250 ML (PMX 250 ML IV SCH (18:00)
[2017-04-07] MEDS ORDERED: LIDOCAINE 1% (MPF) 5 ML VIAL SC ONE (18:00)
[2017-04-07] MEDS: FUROSEMIDE 20 MG INJ IV SCH ×2 (18:00→18:58)
--- NOTE | 2017-04-07 20:13 | RADRPT ---
PROCEDURE: Ultrasound guidance for placement of needle in right upper extremity vein. CLINICAL INDICATION: Venous access. TECHNIQUE: Limited sonography of the right upper extremity was performed. Ultrasound images were recorded and stored in the patient's medical record. COMPARISON: None. FINDINGS: The ultrasound images demonstrate a patent right upper extremity vein. The PICC line was inserted b y the PICC line nurse. IMPRESSION: 1. Ultrasound guidance for a needle placement in a right upper extremity vein. 2. The visualized right upper extremity vein is patent. RPTAT: QQ .Kenneth Hernandez MD, MD Date Time Electronically viewed and signed by .Kenneth Hernandez MD, MD on 04/07/2017 20:13 .R/
--- NOTE | 2017-04-07 20:25 | RADRPT ---
PROCEDURE: XR Chest. CLINICAL INDICATION: PICC line placement TECHNIQUE: Single frontal view of the chest was obtained COMPARISON: 04/07/2017 at 03:31 a.m. FINDINGS: The right PICC line tip is 5.4 cm below the atriocaval junction. Endotracheal tube tip is approximat armaan 3 cm above the kamini. Nasogastric tube is in the stomach with the tip not visualized on the rad iograph. Increased densities again seen in the left mid and lower lung could represent pneumonia or perhaps asymmetric pulmonary edema. Heart does not appear to be grossly enlarged. ECG leads project ed over the chest. IMPRESSION: The right PICC line tip is 5.4 cm below the atriocaval junction. Endotracheal tube tip is approximat armaan 3 cm above the kamini. Nasogastric tube is in the stomach with the tip not visualized on the rad iograph. Increased densities again seen in the left mid and lower lung could represent pneumonia or perhaps asymmetric pulmonary edema. RPTAT: HJES .Jairo Orellana MD, MD Date Time Electronically viewed and signed by .Jairo Orellana MD, on 04/07/2017 20:25 .S/
--- NOTE | 2017-04-07 20:56 | RADRPT ---
PROCEDURE: XR Chest. CLINICAL INDICATION: Check PICC line position. TECHNIQUE: Single frontal view. COMPARISON: Prior study done earlier the same day. FINDINGS: There is a right arm PICC line with the tip in the lower superior vena cava. The endotracheal tube and nasogastric tube remain in satisfactory position. Air space disease in the left mid and lower phillip ng zones is slightly improved. The right lung is clear. The heart size is normal. There is no pleural effusion. There is no pneumothorax. IMPRESSION: 1. Right arm PICC line tip in satisfactory position. 2. Slightly improved appearance of the left lung. 3. No other change from the prior study done earlier the same day. RPTAT: QQ .Kenneth Hernandez MD, MD Date Time Electronically viewed and signed by .Kenneth Hernandez MD, on 04/07/2017 20:56 .R/
[2017-04-07] MEDS: ATORVASTATIN 80 MG TAB NGT SCH (21:19)
[2017-04-08] VITALS (94 sets, daily range): BP systolic 72–127; BP diastolic 48–84; PULSE 73–101; RESP 14–24
[2017-04-08] MEDS: INSULIN ASPART [NOVOLOG] 3 ML PEN SC SCH ×6 (01:23→20:59)
[2017-04-08] MEDS: SOD CHLORIDE 0.9% 1,000 ML IV SCH (02:00)
[2017-04-08] MEDS: PROPOFOL 100 ML IV SCH ×4 (02:27→23:41)
[2017-04-08 04:48] LABS: BASOPHILS % 0.4 % (0.0-2.0); EOSINOPHILS # 0.1 10^3/ul (0.0-0.5); EOSINOPHILS % 1.2 % (0.0-7.0); HEMATOCRIT 34.6 % (42.0-52.0); HEMOGLOBIN 11.2 g/dl (14.0-18.0); LYMPHOCYTES # 0.9 10^3/ul (0.8-2.9); LYMPHOCYTES % 10.1 % (15.0-51.0); MEAN CORPUSCULAR HEMOGLOBIN 29.5 pg (29.0-33.0); MEAN CORPUSCULAR HGB CONC 32.4 g/dl (32.0-37.0); MEAN CORPUSCULAR VOLUME 91.1 fl (82.0-101.0); MEAN PLATELET VOLUME 10.8 fl (7.4-10.4); MONOCYTES % 11.8 % (0.0-11.0); NEUTROPHIL # 6.5 10^3/ul (1.6-7.5); NEUTROPHILS % 76.1 % (39.0-77.0); PLATELET COUNT 198 10^3/UL (140-415); RED CELL DISTRIBUTION WIDTH 13.3 % (11.5-14.5); WHITE BLOOD COUNT 8.6 10^3/ul (4.8-10.8)
[2017-04-08] MEDS: VANCOMYCIN 1 GM in NS 250 ML IVPB SCH ×2 (04:52→17:30)
[2017-04-08 05:13] LABS: MAGNESIUM 1.8 mg/dl (1.7-2.5); PHOSPHORUS 3.6 mg/dl (2.5-4.9)
[2017-04-08 05:15] LABS: CALCIUM 8.2 mg/dl (8.4-10.2); CREATININE 1.33 mg/dl (0.61-1.24); POTASSIUM 3.1 mmol/L (3.5-5.1)
[2017-04-08] MEDS: POTASSIUM CHLORIDE 50 ML IVPB PRN ×3 (05:39→09:13)
[2017-04-08] MEDS: HEPARIN 5,000 UNIT/0.5 ML VIAL SC SCH ×3 (05:44→22:01)
[2017-04-08] MEDS: FUROSEMIDE 20 MG INJ IV SCH ×2 (06:04→17:29)
[2017-04-08] MEDS: morphine 2 MG INJ IV PRN (08:06)
[2017-04-08] MEDS: CEFEPIME 1GM/50 ML (PMX) 50 ML IVPB SCH ×2 (08:21→20:56)
[2017-04-08] MEDS: ASPIRIN 81 MG TAB NGT SCH (08:21)
[2017-04-08] MEDS: FAMOTIDINE 20 MG INJ IV SCH (08:21)
[2017-04-08] MEDS: LEVETIRACETAM 1000 MG (PMX) 100 ML IVPB SCH ×2 (08:37→20:56)
[2017-04-08] MEDS: INSULIN GLARGINE [LANtus] 3 ML PEN SC SCH (08:41)
--- NOTE | 2017-04-08 09:14 | RADRPT ---
PROCEDURE: XR Chest. CLINICAL INDICATION: Pulmonary edema TECHNIQUE: AP view of the chest were obtained. COMPARISON: Prior day FINDINGS: Films obscured by overlying lines and tubes. There is cardiomegaly and still pulmonary vascular bert estion. There is no pleural effusion or pneumothorax or focal airspace disease. Stable endotracheal tube and 3 cm above the kamini. Feeding tube projecting over the stomach. Right-sided PICC line with tip in mid SVC. IMPRESSION: Stable lines and tubes. Stable cardiomegaly and pulmonary vascular congestion. RPTAT: QQ .Mikey Regan MD, Date Time Electronically viewed and signed by .Mikey Regan MD, on 04/08/2017 09:14 .G/
[2017-04-08] MEDS ORDERED: MAGNESIUM SULFATE 2 GM/50 ML 50 ML IVPB ONE (09:30)
[2017-04-08] MEDS ORDERED: POTASSIUM CHLORIDE 20 MEQ POWDER FOR ORAL SOLN NGT ONE (09:30)
--- NOTE | 2017-04-08 09:51 | PN ---
Date/Time of Note Date/Time of Note DATE: 04/08/17 TIME: 09:33 Assessment/Plan VTE Prophylaxis VTE Prophylaxis Intervention: heparin Lines/Catheters Urinary Cath still in place: Yes Reason Cath still needed: other (indicate) (Intubated and sedated ) Assessment/Plan Assessment/Plan 52-year-old male with: 1. NSTEMI known coronary artery disease, status post stents 3 years ago. S/p angiogram and findings of diffuse disease, patient will require CABG, Dr. Herron following. Continue current cardiac medications. On heparin subcu for DVT prophylaxis, patient did get Plavix Tuesday and Tuesday , he has been off since then. Wednesday 04/11 would be the earliest date for CABG unless emergent findings before then. Continue current medications, cardiology and CTS following. 2. Seizures, unclear etiology but could be secondary to DKA versus intracranial pathology. 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 Neurology has been consulted for further recommendations. EEG with encephalopathy Continue Ford, ramiro Neurology recs 3. Acute respiratory failure, had to be re intubated last night, findings of pulmo edema, on Lasix and stable on Vent. All cx sent, Blood cx positive with GPC x 2, repeat blood cx pending. On Vanco and cefepime as of 04/07 Follow up CXR in AM, continue diuresis and vent management per pulmonary. ? aspiration episode, afebrile this AM. 4. S/p Diabetic ketoacidosis, known diabetes mellitus with noncompliance with diet or medications. Patient has been off medication for at least 1-2 month, status post DKA protocol, Patient on subcutaneous insulin, will titrate Lantus up to 19 and continue SSI Hemoglobin A1c out of range. Diabetic education once extubated and awake. Likely to need insulin therapy. Apparently he was on metformin and glipizide based on his medication reconciliation prior. 5. Diabetes mellitus, known noncompliance with medication, diet or follow-ups. Diabetic education after extubation, will require insulin therapy, see #1 6. Coronary artery disease, status post PCI and stent placed according to the sister, 3 years ago in [place]. Lipitor 80 mg nightly, once more stable beta-blockers to be started, continue aspirin, Plavix discontinued as of 04/05, patient will need CABG next week. CTS and cardiology following. See #4 7. Hyperlipidemia: Continue Lipitor 80 mg qhs. 8. Acute kidney injury, now needing diuresis, monitor renal function. IV fluids on hold. Monitor renal function. Replete potassium per protocol, replete magnesium Prophylaxis: Heparin subcu for DVT prophylaxis, Pepcid for GI prophylaxis Disposition: In ICU on Vent, will need CABG Tuesday hopefully, close monitoring in the meantime. Cardiology, cardiothoracic surgery, pulmonary and Neurology following. Prognosis is fair so far. Subjective 24 Hr Interval Summary Free Text/Dictation Positive blood cx x 2 with GPC overnight, on Vanco and cefepime Repeat blood cx pending On diuresis Plan for CABG Tuesday Exam/Review of Systems Vital Signs Vitals Vital Signs Date Time Temp Pulse Resp B/P Pulse Ox O2 Delivery O2 Flow Rate FiO2 04/08/17 07:40 91 15 100 30 04/08/17 07:15 109/65 04/08/17 07:00 Mechanical Ventilator 04/08/17 04:00 98.7 04/07/17 03:00 4.0 Intake and Output 04/07/17 04/07/17 04/08/17 15:00 23:00 07:00 Intake Total 723.333 ml 647.333 ml 1203.750 ml Output Total 225 ml 1540 ml 800 ml Balance 498.333 ml -892.667 ml 403.750 ml Exam Constitutional: other (intubated and sedated ) Respiratory: diminished breath sounds (at bases ), other (on Vent ) Cardiovascular: nl pulses, regular rate and rhythm Gastrointestinal: non-tender, soft Musculoskeletal: nl extremities to inspection, other (no clubbing or cyanosis ) Extremities: normal pulses 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: other (sedated and intubated ) Results Result Diagram: 04/08/17 04304/08/17 0430 Results 24 hrs Laboratory Tests Test 04/07/17 09:53 04/07/17 13:40 04/07/17 16:00 04/07/17 17:49 Bedside Glucose 175 157 130 Urine Color YELLOW Urine Clarity CLOUDY A Urine pH 5.0 Urine Specific [place] 1.024 Urine Ketones TRACE A Urine Nitrite NEGATIVE Urine Bilirubin NEGATIVE Urine Urobilinogen 1+ H Urine Leukocyte Esterase NEGATIVE Urine Microscopic RBC 81 H Urine Microscopic WBC 8 H Urine Bacteria FEW A Urine Mucus MODERATE Urine Hemoglobin 2+ H Urine Glucose NEGATIVE Urine Total Protein 2+ H Test 04/07/17 21:23 04/08/17 01:20 04/08/17 04:30 04/08/17 04:55 Bedside Glucose 128 175 197 White Blood Count 8.6 # Red Blood Count 3.80 L Hemoglobin 11.2 L Hematocrit 34.6 L Mean Corpuscular Volume 91.1 Mean Corpuscular Hemoglobin 29.5 Mean Corpuscular Hemoglobin Concent 32.4 Red Cell Distribution Width 13.3 Platelet Count 198 Mean Platelet Volume 10.8 H Neutrophils % 76.1 Lymphocytes % 10.1 L Monocytes % 11.8 H Eosinophils % 1.2 Basophils % 0.4 Nucleated Red Blood Cells % 0.0 Neutrophils # 6.5 Lymphocytes # 0.9 Monocytes # 1.0 H Eosinophils # 0.1 Basophils # 0.0 Nucleated Red Blood Cells # 0.0 Sodium Level 144 Potassium Level 3.1 L Chloride Level 109 Carbon Dioxide Level 25 Anion Gap 13 Blood Urea Nitrogen 18 Creatinine 1.33 H Glucose Level 200 Calcium Level 8.2 L Phosphorus Level 3.6 Magnesium Level 1.8 Test 04/08/17 08:36 Bedside Glucose 206 Medications Medications Current Medications Carvedilol (Coreg) 6.25 mg BID PO Last administered on 04/08/17 08:21; Admin Dose 6.25 MG; Start 04/04/17 at 09:00 Lorazepam (Ativan) 0.5 mg Q6H PRN IV ANXIETY Last administered on 04/06/17 23 :08; Admin Dose 0.5 MG; Start 04/04/17 at 03:30 Ondansetron HCl (Zofran Inj) 4 mg Q6H PRN IV NAUSEA AND/OR VOMITING; Start 04/04/17 at 03:30 Morphine Sulfate (morphine) 2 mg Q4H PRN IV PAIN LEVEL 7-10 Last administered on 04/08/17 08:06; Admin Dose 2 MG; Start 04/04/17 at 03:30 Dextrose (D50w Syringe) 25 ml Q15M PRN IV Till BS 80 mg/dL or above x2; Start 04/04/17 at 09:30 Dextrose (D50w Syringe) 50 ml Q15M PRN IV Till BS 80 mg/dL or above x2; Start 04/04/17 at 09:30 Aspirin 81 mg 81 mg DAILY NGT Last administered on 04/08/17 08:21; Admin Dose 81 MG; Start 04/04/17 at 09:30 Propofol (Diprivan) 100 ml @ 2.421 mls/ hr Q12H IV Last administered on 08:21; Admin Dose 14.526 MLS/HR; Start 04/04/17 at 09:30 Insulin Glargine (Lantus) 16 unit DAILY@08 SC Last administered on 04/08/17 08:41; Admin Dose 16 UNIT; Start 04/04/17 at 10:00 Famotidine (Pepcid Iv) 20 mg BID IV Last administered on 04/08/17 08:21; Admin Dose 20 MG; Start 04/04/17 at 21:00 Atorvastatin Calcium 80 mg 80 mg HS NGT Last administered on 04/07/17 21:19; Admin Dose 80 MG; Start 04/04/17 at 21:00 Levetiracetam (Keppra 1,000mg/ 100ml (Pmx)) 100 ml @ 400 mls/hr Q12 IVPB Last administered on 04/08/17 08:37; Admin Dose 400 MLS/HR; Start 04/05/17 at 11: 00 Insulin Aspart (Novolog Insulin Pen) NOVOLOG *MODERATE* ALGORI... Q4 SC Last administered on 04/08/17 08:42; Admin Dose 4 UNIT; Start 04/06/17 at 09:00 Heparin Sodium (Porcine) (Heparin (5000 Units/0.5 ml)) 5,000 unit Q8 SC Last administered on 04/08/17 05:44; Admin Dose 5,000 UNIT; Start 04/06/17 at 14: 00 Acetaminophen 650 mg 650 mg Q4H PRN NGT PAIN AND OR ELEVATED TEMP; Start 04/07 at 09:30 Cefepime HCl 50 ml @ 100 mls/hr Q12 IVPB Last administered on 04/08/17 08:21 ; Admin Dose 100 MLS/HR; Start 04/07/17 at 13:00 Vancomycin HCl 250 ml @ 125 mls/hr Q12H IVPB Last administered on 04/08/17 04:52; Admin Dose 125 MLS/HR; Start 04/08/17 at 05:00 Norepinephrine (Levophed) 250 ml @ 1.875 mls/ hr TITRATE IV Last administered on 04/08/17t 01:24; Admin Dose 7.5 MLS/HR; Start 04/07/17 at 18:00 DOUGLAS FERRER Apr 08, 2017 09:44
--- NOTE | 2017-04-08 11:38 | CONS ---
Date/Time of Note Date/Time of Note DATE: 04/08/17 TIME: 11:35 Assessment/Plan Assessment/Plan Additional Assessment/Plan Ventilator setting; AC of 14, tidal volume 500, PEEP of 5, 30% FiO2. Patient is currently on Levophed at 3 mics per minute, propofol 30 mics per kilogram per minute. Assessment and recommendations; 1. Patient admitted with diabetic ketoacidosis leading to respiratory failure. 2. Underlying severe multivessel coronary artery disease, patient awaiting CABG surgery early next week. 3. Chronic multiple infarcts as seen on MRI of the brain. 4. Mild renal insufficiency. 5. Possibly mild pneumonia. Improvement in leukocytosis after being started on cefepime yesterday. 6. Patient failed an extubation trial requiring reintubation. 7. History of seizure disorder. Continue current supportive care. Patient scheduled for CABG surgery early next week. Consultation Date/Type/Reason Admit Date/Time Apr 04, 2017 at 03:21 Initial Consult Date 04/04/17 Type of Consultation: Pulmonary/critical care Referring Provider: DOUGLAS FERRER 24 HR Interval Summary Free Text/Dictation Patient's condition remains critical. Still requiring full ventilator support. Patient also remains mildly hypotensive and is currently on a small dose of Levophed. General exam; middle-aged male, orally intubated, sedated, currently in no distress. Exam/Review of Systems Vital Signs Vitals Vital Signs Date Time Temp Pulse Resp B/P Pulse Ox O2 Delivery O2 Flow Rate FiO2 04/08/17 09:30 86 15 97 04/08/17 09:15 95/61 Mechanical Ventilator 04/08/17 08:00 30 04/08/17 08:00 98.9 04/07/17 03:00 4.0 Intake and Output 04/07/17 04/07/17 04/08/17 15:00 23:00 07:00 Intake Total 723.333 ml 647.333 ml 1203.750 ml Output Total 225 ml 1540 ml 800 ml Balance 498.333 ml -892.667 ml 403.750 ml Exam HEENT exam; supple neck, positive JVD. No lymphadenopathy. Midline trachea. No thyromegaly. Orally intubated. Patient has fair dentition. Pupils are midsize and reactive to light. Chest exam; diminished but clear breath sounds S1-S2 audible, no murmurs. Regular rhythm. Abdomen exam; soft, no organomegaly. Bowel sounds audible Extremity exam; no peripheral edema. Pulses 1+ bilaterally. [employer] exam; patient is sedated. Results Result Diagram: 04/08/17 0430 04/08/17 0430 Results 24 hrs Laboratory Tests Test 04/07/17 13:40 04/07/17 16:00 04/07/17 17:49 04/07/17 21:23 Bedside Glucose 157 130 128 Urine Color YELLOW Urine Clarity CLOUDY A Urine pH 5.0 Urine Specific [place] 1.024 Urine Ketones TRACE A Urine Nitrite NEGATIVE Urine Bilirubin NEGATIVE Urine Urobilinogen 1+ H Urine Leukocyte Esterase NEGATIVE Urine Microscopic RBC 81 H Urine Microscopic WBC 8 H Urine Bacteria FEW A Urine Mucus MODERATE Urine Hemoglobin 2+ H Urine Glucose NEGATIVE Urine Total Protein 2+ H Test 04/08/17 01:20 04/08/17 04:30 04/08/17 04:55 04/08/17 08:36 Bedside Glucose 175 197 206 White Blood Count 8.6 # Red Blood Count 3.80 L Hemoglobin 11.2 L Hematocrit 34.6 L Mean Corpuscular Volume 91.1 Mean Corpuscular Hemoglobin 29.5 Mean Corpuscular Hemoglobin Concent 32.4 Red Cell Distribution Width 13.3 Platelet Count 198 Mean Platelet Volume 10.8 H Neutrophils % 76.1 Lymphocytes % 10.1 L Monocytes % 11.8 H Eosinophils % 1.2 Basophils % 0.4 Nucleated Red Blood Cells % 0.0 Neutrophils # 6.5 Lymphocytes # 0.9 Monocytes # 1.0 H Eosinophils # 0.1 Basophils # 0.0 Nucleated Red Blood Cells # 0.0 Sodium Level 144 Potassium Level 3.1 L Chloride Level 109 Carbon Dioxide Level 25 Anion Gap 13 Blood Urea Nitrogen 18 Creatinine 1.33 H Glucose Level 200 Calcium Level 8.2 L Phosphorus Level 3.6 Magnesium Level 1.8 Medications Medications Current Medications Carvedilol (Coreg) 6.25 mg BID PO Last administered on 04/08/17 08:21; Admin Dose 6.25 MG; Start 04/04/17 at 09:00 Lorazepam (Ativan) 0.5 mg Q6H PRN IV ANXIETY Last administered on 04/06/17 23 :08; Admin Dose 0.5 MG; Start 04/04/17 at 03:30 Ondansetron HCl (Zofran Inj) 4 mg Q6H PRN IV NAUSEA AND/OR VOMITING; Start 04/04/17 at 03:30 Morphine Sulfate (morphine) 2 mg Q4H PRN IV PAIN LEVEL 7-10 Last administered on 04/08/17 08:06; Admin Dose 2 MG; Start 04/04/17 at 03:30 Dextrose (D50w Syringe) 25 ml Q15M PRN IV Till BS 80 mg/dL or above x2; Start 04/04/17 at 09:30 Dextrose (D50w Syringe) 50 ml Q15M PRN IV Till BS 80 mg/dL or above x2; Start 04/04/17 at 09:30 Aspirin 81 mg 81 mg DAILY NGT Last administered on 04/08/17 08:21; Admin Dose 81 MG; Start 04/04/17 at 09:30 Propofol (Diprivan) 100 ml @ 2.421 mls/ hr Q12H IV Last administered on 08:21; Admin Dose 14.526 MLS/HR; Start 04/04/17 at 09:30 Famotidine (Pepcid Iv) 20 mg BID IV Last administered on 04/08/17 08:21; Admin Dose 20 MG; Start 04/04/17 at 21:00 Atorvastatin Calcium 80 mg 80 mg HS NGT Last administered on 04/07/17 21:19; Admin Dose 80 MG; Start 04/04/17 at 21:00 Levetiracetam (Keppra 1,000mg/ 100ml (Pmx)) 100 ml @ 400 mls/hr Q12 IVPB Last administered on 04/08/17 08:37; Admin Dose 400 MLS/HR; Start 04/05/17 at 11: 00 Insulin Aspart (Novolog Insulin Pen) NOVOLOG *MODERATE* ALGORI... Q4 SC Last administered on 04/08/17 08:42; Admin Dose 4 UNIT; Start 04/06/17 at 09:00 Heparin Sodium (Porcine) (Heparin (5000 Units/0.5 ml)) 5,000 unit Q8 SC Last administered on 04/08/17 05:44; Admin Dose 5,000 UNIT; Start 04/06/17 at 14: 00 Acetaminophen 650 mg 650 mg Q4H PRN NGT PAIN AND OR ELEVATED TEMP; Start 04/07 at 09:30 Cefepime HCl 50 ml @ 100 mls/hr Q12 IVPB Last administered on 04/08/17 08:21 ; Admin Dose 100 MLS/HR; Start 04/07/17 at 13:00 Vancomycin HCl 250 ml @ 125 mls/hr Q12H IVPB Last administered on 04/08/17 04:52; Admin Dose 125 MLS/HR; Start 04/08/17 at 05:00 Norepinephrine (Levophed) 250 ml @ 1.875 mls/ hr TITRATE IV Last administered on 04/08/17 01:24; Admin Dose 7.5 MLS/HR; Start 04/07/17 at 18:00 Insulin Glargine (Lantus) 19 unit DAILY@08 SC ; Start 04/09/17 at 08:00 NUBIA NAVARRO Apr 08, 2017 11:38
--- NOTE | 2017-04-08 15:23 | PN ---
Date/Time of Note Date/Time of Note DATE: 04/08/17 TIME: 15:22 Assessment/Plan Lines/Catheters IV Catheter Type (from Nrsg): PICC Line [place] in Place (from Nrsg): Yes Assessment/Plan Chief Complaint/Hosp Course IMPRESSION: 1. Coronary artery disease. 2. Non-ST elevation myocardial infarction. 3. Seizure disorder. 4. Diabetes with diabetic ketoacidosis. 5. HX CVA 6. Respiratory failure. pt reintubated RECOMMENDATIONS: We will proceed with coronary artery bypass grafting after the patient has been off of Plavix for a period of time. She is at very high risk for surgery secondary to above morbidities and prior CVAs and respiratory failure Plan for surgery on Tuesday Problems: Subjective 24 Hr Interval Summary Constitutional: improved Pain Control: mild Exam/Review of Systems Vital Signs Vitals Vital Signs Date Time Temp Pulse Resp B/P Pulse Ox O2 Delivery O2 Flow Rate FiO2 04/08/17 12:00 83 04/08/17 11:20 14 100 30 04/08/17 09:15 95/61 Mechanical Ventilator 04/08/17 08:00 98.9 04/07/17 03:00 4.0 Intake and Output 04/07/17 04/07/17 04/08/17 15:00 23:00 07:00 Intake Total 723.333 ml 647.333 ml 1203.750 ml Output Total 225 ml 1540 ml 800 ml Balance 498.333 ml -892.667 ml 403.750 ml Exam ENMT: mucosa pink and moist, nl external ears & nose, nl lips & teeth, nl nasal mucosa & septum Neck: non-tender, supple Respiratory: clear to auscultation, normal air movement Cardiovascular: nl pulses, regular rate and rhythm Results Result Diagram: 04/08/1742904/08/17429 NORIS HARRIS MD Apr 08, 2017 15:23
--- NOTE | 2017-04-08 15:54 | RADRPT ---
Vent Rate: 78 bpm RR Interval: 0 msec DC Interval: 146 msec QRS Duration: 90 msec QT Interval: 370 msec QTC Interval: 421 msec P-R-T [place]: 64 - 63 - 112 degrees Normal sinus rhythm Possible Anterior infarct , age undetermined Abnormal ECG Electronically Signed By: Henri Pina [id number]
--- NOTE | 2017-04-08 16:04 | RADRPT ---
Vent Rate: 99 bpm RR Interval: 0 msec AR Interval: 136 msec QRS Duration: 84 msec QT Interval: 344 msec QTC Interval: 441 msec P-R-T [place]: 70 - 72 - 117 degrees Normal sinus rhythm Anterior infarct , age undetermined Abnormal ECG Electronically Signed By: Henri Pina [id number]
--- NOTE | 2017-04-08 17:59 | PN ---
Date/Time of Note Date/Time of Note DATE: 04/08/17 TIME: 17:56 Assessment/Plan VTE Prophylaxis VTE Prophylaxis Intervention: SCD's Lines/Catheters IV Catheter Type (from Nrs): PICC Line Central line still needed: No Urinary Cath still in place: Yes Reason Cath still needed: urinary retention Assessment/Plan Chief Complaint/Hosp Course Problems: Assessment/Plan NSTEMI s/p cath - 3vcad DKA SEIZURE DO VDRF -discussed with son -awaiting CABG -acei once bp stable -on pressors -continue cv meds Subjective 24 Hr Interval Summary Free Text/Dictation the patientremains intubated on pressors Exam/Review of Systems Vital Signs Vitals Vital Signs Date Time Temp Pulse Resp B/P Pulse Ox O2 Delivery O2 Flow Rate FiO2 04/08/17 17:19 78 14 100 30 04/08/17 17:00 110/73 Mechanical Ventilator 04/08/17 15:30 98.9 04/07/17 03:00 4.0 Intake and Output 04/07/17 04/07/17 04/08/17 15:00 23:00 07:00 Intake Total 723.333 ml 647.333 ml 1203.750 ml Output Total 225 ml 1540 ml 800 ml Balance 498.333 ml -892.667 ml 403.750 ml Results Result Diagram: 04/08/17 0430 04/08/17 0430 Results 24 hrs Laboratory Tests Test 04/07/17 21:23 04/08/17 01:20 04/08/17 04:30 04/08/17 04:55 Bedside Glucose 128 175 197 White Blood Count 8.6 # Red Blood Count 3.80 L Hemoglobin 11.2 L Hematocrit 34.6 L Mean Corpuscular Volume 91.1 Mean Corpuscular Hemoglobin 29.5 Mean Corpuscular Hemoglobin Concent 32.4 Red Cell Distribution Width 13.3 Platelet Count 198 Mean Platelet Volume 10.8 H Neutrophils % 76.1 Lymphocytes % 10.1 L Monocytes % 11.8 H Eosinophils % 1.2 Basophils % 0.4 Nucleated Red Blood Cells % 0.0 Neutrophils # 6.5 Lymphocytes # 0.9 Monocytes # 1.0 H Eosinophils # 0.1 Basophils # 0.0 Nucleated Red Blood Cells # 0.0 Sodium Level 144 Potassium Level 3.1 L Chloride Level 109 Carbon Dioxide Level 25 Anion Gap 13 Blood Urea Nitrogen 18 Creatinine 1.33 H Glucose Level 200 Calcium Level 8.2 L Phosphorus Level 3.6 Magnesium Level 1.8 Test 04/08/17 08:36 04/08/17 13:41 04/08/17 17:27 Bedside Glucose 206 251 H 208 Medications Medications Current Medications Carvedilol (Coreg) 6.25 mg BID PO Last administered on 04/08/17 08:21; Admin Dose 6.25 MG; Start 04/04/17 at 09:00 Lorazepam (Ativan) 0.5 mg Q6H PRN IV ANXIETY Last administered on 04/06/17 23 :08; Admin Dose 0.5 MG; Start 04/04/17 at 03:30 Ondansetron HCl (Zofran Inj) 4 mg Q6H PRN IV NAUSEA AND/OR VOMITING; Start 04/04/17 at 03:30 Morphine Sulfate (morphine) 2 mg Q4H PRN IV PAIN LEVEL 7-10 Last administered on 04/08/17 08:06; Admin Dose 2 MG; Start 04/04/17 at 03:30 Dextrose (D50w Syringe) 25 ml Q15M PRN IV Till BS 80 mg/dL or above x2; Start 04/04/17 at 09:30 Dextrose (D50w Syringe) 50 ml Q15M PRN IV Till BS 80 mg/dL or above x2; Start 04/04/17 at 09:30 Aspirin 81 mg 81 mg DAILY NGT Last administered on 04/08/17 08:21; Admin Dose 81 MG; Start 04/04/17 at 09:30 Propofol (Diprivan) 100 ml @ 2.421 mls/ hr Q12H IV Last administered on 16:26; Admin Dose 9.684 MLS/HR; Start 04/04/17 at 09:30 Atorvastatin Calcium 80 mg 80 mg HS NGT Last administered on 04/07/17 21:19; Admin Dose 80 MG; Start 04/04/17 at 21:00 Levetiracetam (Keppra 1,000mg/ 100ml (Pmx)) 100 ml @ 400 mls/hr Q12 IVPB Last administered on 04/08/17 08:37; Admin Dose 400 MLS/HR; Start 04/05/17 at 11: 00 Insulin Aspart (Novolog Insulin Pen) NOVOLOG *MODERATE* ALGORI... Q4 SC Last administered on 04/08/17 17:29; Admin Dose 4 UNIT; Start 04/06/17 at 09:00 Heparin Sodium (Porcine) (Heparin (5000 Units/0.5 ml)) 5,000 unit Q8 SC Last administered on 04/08/17 13:44; Admin Dose 5,000 UNIT; Start 04/06/17 at 14: 00 Acetaminophen 650 mg 650 mg Q4H PRN NGT PAIN AND OR ELEVATED TEMP; Start 04/07 at 09:30 Cefepime HCl 50 ml @ 100 mls/hr Q12 IVPB Last administered on 04/08/17 08:21 ; Admin Dose 100 MLS/HR; Start 04/07/17 at 13:00 Vancomycin HCl 250 ml @ 125 mls/hr Q12H IVPB Last administered on 04/08/17 17:30; Admin Dose 125 MLS/HR; Start 04/08/17 at 05:00 Norepinephrine (Levophed) 250 ml @ 1.875 mls/ hr TITRATE IV Last administered on 04/08/17 01:24; Admin Dose 7.5 MLS/HR; Start 04/07/17 at 18:00 Insulin Glargine (Lantus) 19 unit DAILY@08 SC ; Start 04/09/17 at 08:00 Miscellaneous Information (*Rx Drug Level Order Reminder*) VANCO TROUGH @ 0, 400 ON ... ONCE ONCE XX ; Start 04/09/17 at 04:00; Stop 04/09/17 at 04:01 Famotidine (Pepcid) 20 mg BID NGT ; Start 04/08/17 at 21:00 GERARDO BROWNE MD Apr 08, 2017 17:59
[2017-04-08] MEDS: FAMOTIDINE 20 MG TAB NGT SCH (20:56)
[2017-04-08] MEDS: ATORVASTATIN 80 MG TAB NGT SCH (20:57)
[2017-04-09] VITALS (105 sets, daily range): BP systolic 71–128; BP diastolic 49–84; PULSE 67–91; RESP 13–23
[2017-04-09] MEDS: INSULIN ASPART [NOVOLOG] 3 ML PEN SC SCH ×6 (01:14→20:41)
[2017-04-09 04:30] LABS: BASOPHILS % 0.2 % (0.0-2.0); EOSINOPHILS # 0.4 10^3/ul (0.0-0.5); HEMATOCRIT 34.8 % (42.0-52.0); HEMOGLOBIN 11.7 g/dl (14.0-18.0); LYMPHOCYTES % 10.9 % (15.0-51.0); MEAN CORPUSCULAR HEMOGLOBIN 30.2 pg (29.0-33.0); MEAN CORPUSCULAR HGB CONC 33.6 g/dl (32.0-37.0); MEAN CORPUSCULAR VOLUME 89.7 fl (82.0-101.0); MEAN PLATELET VOLUME 11.4 fl (7.4-10.4); MONOCYTE # 0.8 10^3/ul (0.3-0.9); MONOCYTES % 9.4 % (0.0-11.0); NEUTROPHIL # 6.7 10^3/ul (1.6-7.5); NEUTROPHILS % 75.2 % (39.0-77.0); PLATELET COUNT 219 10^3/UL (140-415); RED BLOOD COUNT 3.88 10^6/ul (4.70-6.10); RED CELL DISTRIBUTION WIDTH 12.8 % (11.5-14.5)
[2017-04-09 04:42] LABS: ALBUMIN/GLOBULIN RATIO 0.96; BILIRUBIN,INDIRECT 0.6 mg/dl (0-1.1); BILIRUBIN,TOTAL 0.6 mg/dl (0.2-1.3); CREATININE 1.13 mg/dl (0.61-1.24); TOTAL PROTEIN 6.1 g/dl (6.1-8.1)
[2017-04-09 05:19] LABS: POTASSIUM 2.9 mmol/L (3.5-5.1)
[2017-04-09] MEDS: POTASSIUM CHLORIDE 50 ML IVPB PRN ×3 (05:23→07:16)
[2017-04-09] MEDS: VANCOMYCIN 1 GM in NS 250 ML IVPB SCH (05:41)
[2017-04-09] MEDS: FUROSEMIDE 20 MG INJ IV SCH ×2 (05:41→17:10)
[2017-04-09] MEDS: HEPARIN 5,000 UNIT/0.5 ML VIAL SC SCH ×3 (05:42→20:42)
[2017-04-09 06:35] LABS: MAGNESIUM 1.9 mg/dl (1.7-2.5); PHOSPHORUS 2.7 mg/dl (2.5-4.9)
[2017-04-09] MEDS ORDERED: POTASSIUM CHLORIDE 50 ML IVPB ONE (06:45)
[2017-04-09] MEDS ORDERED: POTASSIUM CHLORIDE 20 MEQ POWDER FOR ORAL SOLN NGT ONE (06:45)
[2017-04-09] MEDS: INSULIN GLARGINE [LANtus] 3 ML PEN SC SCH (08:52)
[2017-04-09] MEDS: FAMOTIDINE 20 MG TAB NGT SCH ×2 (08:53→20:30)
[2017-04-09] MEDS: ASPIRIN 81 MG TAB NGT SCH (08:54)
[2017-04-09] MEDS: CEFEPIME 1GM/50 ML (PMX) 50 ML IVPB SCH ×2 (08:54→20:29)
[2017-04-09] MEDS: LEVETIRACETAM 1000 MG (PMX) 100 ML IVPB SCH ×2 (09:00→20:29)
--- NOTE | 2017-04-09 09:04 | CONS ---
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 3) hypotension 4) HLP Problems: Additional Assessment/Plan 1) will dc carvedilol given concommitant hypotension on pressors 2) will start metoprolol 12.5 with holding parameters given h/o narrow complex tachy 3) wean pressors 4) CABG Consultation Date/Type/Reason Admit Date/Time Apr 04, 2017 at 03:21 Initial Consult Date 04/05/17 Type of Consultation: cv Referring Provider: DOUGLAS FERRER 24 HR Interval Summary Subjective hx not possible: pt non-verbal, pt critical status Exam/Review of Systems Vital Signs Vitals Vital Signs Date Time Temp Pulse Resp B/P Pulse Ox O2 Delivery O2 Flow Rate FiO2 04/09/17 07:00 82 16 97/69 100 Mechanical Ventilator 04/09/17 06:00 98.7 04/09/17 05:46 30 04/07/17 03:00 4.0 Intake and Output 04/08/17 04/08/17 04/09/17 15:00 23:00 07:00 Intake Total 845.590 ml 993.694 ml 714.726 ml Output Total 1930 ml 1950 ml 810 ml Balance -1084.410 ml -956.306 ml -95.274 ml Exam Head: atraumatic, normocephalic ENMT: intubated Neck: jvd Respiratory: diminished breath sounds Cardiovascular: regular rate and rhythm Gastrointestinal: soft Musculoskeletal: nl extremities to inspection Extremities: normal pulses Results Result Diagram: 04/09/17 0400 04/09/17 0400 Results 24 hrs Laboratory Tests Test 04/08/17 13:41 04/08/17 17:27 04/08/17 20:58 04/09/17 01:11 Bedside Glucose 251 H 208 186 190 Test 04/09/17 04:00 04/09/17 05:05 04/09/17 08:31 White Blood Count 9.0 Red Blood Count 3.88 L Hemoglobin 11.7 L Hematocrit 34.8 L Mean Corpuscular Volume 89.7 Mean Corpuscular Hemoglobin 30.2 Mean Corpuscular Hemoglobin Concent 33.6 Red Cell Distribution Width 12.8 Platelet Count 219 Mean Platelet Volume 11.4 H Neutrophils % 75.2 Lymphocytes % 10.9 L Monocytes % 9.4 Eosinophils % 4.0 Basophils % 0.2 Nucleated Red Blood Cells % 0.0 Neutrophils # 6.7 Lymphocytes # 1.0 Monocytes # 0.8 Eosinophils # 0.4 Basophils # 0.0 Nucleated Red Blood Cells # 0.0 Sodium Level 141 Potassium Level 2.9 *L Chloride Level 104 Carbon Dioxide Level 31 Anion Gap 9 Blood Urea Nitrogen 21 H Creatinine 1.13 Glucose Level 257 H Calcium Level 8.0 L Phosphorus Level 2.7 Magnesium Level 1.9 Total Bilirubin 0.6 Direct Bilirubin 0.00 Indirect Bilirubin 0.6 Aspartate Amino Transf (AST/SGOT) 23 Alanine Aminotransferase (ALT/SGPT) 29 Alkaline Phosphatase 100 Total Protein 6.1 Albumin 3.0 L Globulin 3.10 Albumin/Globulin Ratio 0.96 Vancomycin Level Trough 10.9 Bedside Glucose 224 H 243 H Medications Medications Current Medications Carvedilol (Coreg) 6.25 mg BID PO Last administered on 04/09/17 08:54; Admin Dose 6.25 MG; Start 04/04/17 at 09:00 Lorazepam (Ativan) 0.5 mg Q6H PRN IV ANXIETY Last administered on 04/06/17 23 :08; Admin Dose 0.5 MG; Start 04/04/17 at 03:30 Ondansetron HCl (Zofran Inj) 4 mg Q6H PRN IV NAUSEA AND/OR VOMITING; Start 04/04/17 at 03:30 Morphine Sulfate (morphine) 2 mg Q4H PRN IV PAIN LEVEL 7-10 Last administered on 04/08/17 08:06; Admin Dose 2 MG; Start 04/04/17 at 03:30 Dextrose (D50w Syringe) 25 ml Q15M PRN IV Till BS 80 mg/dL or above x2; Start 04/04/17 at 09:30 Dextrose (D50w Syringe) 50 ml Q15M PRN IV Till BS 80 mg/dL or above x2; Start 04/04/17 at 09:30 Aspirin 81 mg 81 mg DAILY NGT Last administered on 04/09/17 08:54; Admin Dose 81 MG; Start 04/04/17 at 09:30 Propofol (Diprivan) 100 ml @ 2.421 mls/ hr Q12H IV Last administered on 23:41; Admin Dose 10.652 MLS/HR; Start 04/04/17 at 09:30 Atorvastatin Calcium 80 mg 80 mg HS NGT Last administered on 04/08/17 20:57; Admin Dose 80 MG; Start 04/04/17 at 21:00 Levetiracetam (Keppra 1,000mg/ 100ml (Pmx)) 100 ml @ 400 mls/hr Q12 IVPB Last administered on 04/08/17 20:56; Admin Dose 400 MLS/HR; Start 04/05/17 at 11: 00 Insulin Aspart (Novolog Insulin Pen) NOVOLOG *MODERATE* ALGORI... Q4 SC Last administered on 04/09/17 08:53; Admin Dose 6 UNIT; Start 04/06/17 at 09:00 Heparin Sodium (Porcine) (Heparin (5000 Units/0.5 ml)) 5,000 unit Q8 SC Last administered on 04/09/17 05:42; Admin Dose 5,000 UNIT; Start 04/06/17 at 14: 00 Acetaminophen 650 mg 650 mg Q4H PRN NGT PAIN AND OR ELEVATED TEMP; Start 04/07 at 09:30 Cefepime HCl 50 ml @ 100 mls/hr Q12 IVPB Last administered on 04/09/17 08:54 ; Admin Dose 100 MLS/HR; Start 04/07/17 at 13:00 Vancomycin HCl (Vancocin) 250 ml @ 125 mls/hr Q12H IVPB Last administered on 04/09/17 05:41; Admin Dose 125 MLS/HR; Start 04/08/17 at 05:00 Insulin Glargine (Lantus) 19 unit DAILY@08 SC Last administered on 04/09/17 08:52; Admin Dose 19 UNIT; Start 04/09/17 at 08:00 Famotidine 20 mg 20 mg BID NGT Last administered on 04/09/17 08:53; Admin Dose 20 MG; Start 04/08/17 at 21:00 Norepinephrine/ Dextrose (Levophed/D5W) 500 ml @ 1.87 mls/hr TITRATE IV Last administered on 04/08/17 23:50; Admin Dose 11.25 MLS/HR; Start 04/08/17 at 22 :30 MIRNA HUDDLESTON MD Apr 09, 2017 09:04
--- NOTE | 2017-04-09 10:23 | CONS ---
Date/Time of Note Date/Time of Note DATE: 04/09/17 TIME: 10:23 Consultation Date/Type/Reason Admit Date/Time Apr 04, 2017 at 03:21 Initial Consult Date 04/04/17 Type of Consultation: pulm/cc Referring Provider: DOUGLAS FERRER 24 HR Interval Summary Free Text/Dictation dictated [id number] Exam/Review of Systems Vital Signs Vitals Vital Signs Date Time Temp Pulse Resp B/P Pulse Ox O2 Delivery O2 Flow Rate FiO2 04/09/17 09:00 85 14 96/70 100 Mechanical Ventilator 04/09/17 08:00 97.8 04/09/17 05:46 30 04/07/17 03:00 4.0 Intake and Output 04/08/17 04/08/17 04/09/17 15:00 23:00 07:00 Intake Total 845.590 ml 993.694 ml 714.726 ml Output Total 1930 ml 1950 ml 810 ml Balance -1084.410 ml -956.306 ml -95.274 ml Results Result Diagram: 04/09/17 0400 04/09/17 0400 Results 24 hrs Laboratory Tests Test 04/08/17 13:41 04/08/17 17:27 04/08/17 20:58 04/09/17 01:11 Bedside Glucose 251 H 208 186 190 Test 04/09/17 04:00 04/09/17 05:05 04/09/17 08:31 White Blood Count 9.0 Red Blood Count 3.88 L Hemoglobin 11.7 L Hematocrit 34.8 L Mean Corpuscular Volume 89.7 Mean Corpuscular Hemoglobin 30.2 Mean Corpuscular Hemoglobin Concent 33.6 Red Cell Distribution Width 12.8 Platelet Count 219 Mean Platelet Volume 11.4 H Neutrophils % 75.2 Lymphocytes % 10.9 L Monocytes % 9.4 Eosinophils % 4.0 Basophils % 0.2 Nucleated Red Blood Cells % 0.0 Neutrophils # 6.7 Lymphocytes # 1.0 Monocytes # 0.8 Eosinophils # 0.4 Basophils # 0.0 Nucleated Red Blood Cells # 0.0 Sodium Level 141 Potassium Level 2.9 *L Chloride Level 104 Carbon Dioxide Level 31 Anion Gap 9 Blood Urea Nitrogen 21 H Creatinine 1.13 Glucose Level 257 H Calcium Level 8.0 L Phosphorus Level 2.7 Magnesium Level 1.9 Total Bilirubin 0.6 Direct Bilirubin 0.00 Indirect Bilirubin 0.6 Aspartate Amino Transf (AST/SGOT) 23 Alanine Aminotransferase (ALT/SGPT) 29 Alkaline Phosphatase 100 Total Protein 6.1 Albumin 3.0 L Globulin 3.10 Albumin/Globulin Ratio 0.96 Vancomycin Level Trough 10.9 Bedside Glucose 224 H 243 H Medications Medications Current Medications Lorazepam (Ativan) 0.5 mg Q6H PRN IV ANXIETY Last administered on 04/06/17 23 :08; Admin Dose 0.5 MG; Start 04/04/17 at 03:30 Ondansetron HCl (Zofran Inj) 4 mg Q6H PRN IV NAUSEA AND/OR VOMITING; Start 04/04/17 at 03:30 Morphine Sulfate (morphine) 2 mg Q4H PRN IV PAIN LEVEL 7-10 Last administered on 04/08/17 08:06; Admin Dose 2 MG; Start 04/04/17 at 03:30 Dextrose (D50w Syringe) 25 ml Q15M PRN IV Till BS 80 mg/dL or above x2; Start 04/04/17 at 09:30 Dextrose (D50w Syringe) 50 ml Q15M PRN IV Till BS 80 mg/dL or above x2; Start 04/04/17 at 09:30 Aspirin 81 mg 81 mg DAILY NGT Last administered on 04/09/17 08:54; Admin Dose 81 MG; Start 04/04/17 at 09:30 Propofol (Diprivan) 100 ml @ 2.421 mls/ hr Q12H IV Last administered on 23:41; Admin Dose 10.652 MLS/HR; Start 04/04/17 at 09:30 Atorvastatin Calcium 80 mg 80 mg HS NGT Last administered on 04/08/17 20:57; Admin Dose 80 MG; Start 04/04/17 at 21:00 Levetiracetam (Keppra 1,000mg/ 100ml (Pmx)) 100 ml @ 400 mls/hr Q12 IVPB Last administered on 04/09/17 09:00; Admin Dose 400 MLS/HR; Start 04/05/17 at 11: 00 Insulin Aspart (Novolog Insulin Pen) NOVOLOG *MODERATE* ALGORI... Q4 SC Last administered on 04/09/17 08:53; Admin Dose 6 UNIT; Start 04/06/17 at 09:00 Heparin Sodium (Porcine) (Heparin (5000 Units/0.5 ml)) 5,000 unit Q8 SC Last administered on 04/09/17 05:42; Admin Dose 5,000 UNIT; Start 04/06/17 at 14: 00 Acetaminophen 650 mg 650 mg Q4H PRN NGT PAIN AND OR ELEVATED TEMP; Start 04/07 at 09:30 Cefepime HCl (Maxipime 1gm/50 ml (Pmx)) 50 ml @ 100 mls/hr Q12 IVPB Last administered on 04/09/17 08:54; Admin Dose 100 MLS/HR; Start 04/07/17 at 13: 00 Insulin Glargine (Lantus) 19 unit DAILY@08 SC Last administered on 04/09/17 08:52; Admin Dose 19 UNIT; Start 04/09/17 at 08:00 Famotidine 20 mg 20 mg BID NGT Last administered on 04/09/17 08:53; Admin Dose 20 MG; Start 04/08/17 at 21:00 Norepinephrine/ Dextrose (Levophed/D5W) 500 ml @ 1.87 mls/hr TITRATE IV Last administered on 04/08/17 23:50; Admin Dose 11.25 MLS/HR; Start 04/08/17 at 22 :30 Metoprolol Tartrate 12.5 mg 12.5 mg BID GTB ; Start 04/09/17 at 21:00 Vancomycin HCl/ Sodium Chloride (Vancocin/NS) 250 ml @ 83.333 mls/ hr Q12H IVPB ; Start 04/09/17 at 17:00 NUBIA NAVARRO Apr 09, 2017 10:23
--- NOTE | 2017-04-09 12:11 | PN ---
Date/Time of Note Date/Time of Note DATE: 04/09/17 TIME: 12:01 Assessment/Plan VTE Prophylaxis VTE Prophylaxis Intervention: SCD's Lines/Catheters IV Catheter Type (from Nrs): PICC Line Central line still needed: Yes (for IV access ) Urinary Cath still in place: Yes Reason Cath still needed: other (indicate) (intubated and sedated ) Assessment/Plan Assessment/Plan 52-year-old male with: 1. NSTEMI known coronary artery disease, status post stents 3 years ago. S/p angiogram and findings of diffuse disease, patient will require CABG, Dr. Herron following. Continue current cardiac medications. On heparin subcu for DVT prophylaxis, patient did get Plavix Tuesday and Tuesday , he has been off since then. Wednesday 04/11 would be the earliest date for CABG unless emergent findings before then. Continue current medications, cardiology and CTS following. 2. Seizures, unclear etiology but could be secondary to DKA versus intracranial pathology. 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 Neurology has been consulted for further recommendations. EEG with encephalopathy Continue Ford, appreciate Neurology recs 3. Acute respiratory failure, had to be re intubated last night, findings of pulmo edema, on Lasix and stable on Vent. All cx sent, Blood cx positive with GPC x 2, repeat blood cx pending. On Vanco and cefepime as of 04/07 Follow up CXR QAM while intubated. Continue diuresis and vent management per pulmonary. ? aspiration episode, afebrile this AM. 4. S/p Diabetic ketoacidosis, known diabetes mellitus with noncompliance with diet or medications. Patient has been off medication for at least 1-2 month, status post DKA protocol, Patient on subcutaneous insulin, will titrate Lantus up to 19 and continue SSI Hemoglobin A1c out of range. Diabetic education once extubated and awake. Likely to need insulin therapy. Apparently he was on metformin and glipizide based on his medication reconciliation prior. 5. Diabetes mellitus, known noncompliance with medication, diet or follow-ups. Diabetic education after extubation, will require insulin therapy, see #1 6. Coronary artery disease, status post PCI and stent placed according to the sister, 3 years ago in [place]. Lipitor 80 mg nightly, once more stable beta-blockers to be started, continue aspirin, Plavix discontinued as of 04/05, patient will need CABG next week. CTS and cardiology following. See #4 7. Hyperlipidemia: Continue Lipitor 80 mg qhs. 8. Acute kidney injury, now needing diuresis, renal function much improved even with ongoing diuresis Replete potassium and magnesium this AM and repeating BMP now Prophylaxis: Heparin subcu for DVT prophylaxis, Pepcid for GI prophylaxis Disposition: In ICU on Vent, will need CABG Tuesday hopefully, close monitoring in the meantime. Cardiology, cardiothoracic surgery, pulmonary and Neurology following. Prognosis is fair so far. Subjective 24 Hr Interval Summary Free Text/Dictation Patient doing OK, remains on Levo @3 and also intubated and on Propofol Afebrile and Labs better CABG Tuesday? Exam/Review of Systems Vital Signs Vitals Vital Signs Date Time Temp Pulse Resp B/P Pulse Ox O2 Delivery O2 Flow Rate FiO2 04/09/17 11:20 80 14 99 30 04/09/17 11:15 82/62 Mechanical Ventilator 04/09/17 08:00 97.8 04/07/17 03:00 4.0 Intake and Output 04/08/17 04/08/17 04/09/17 15:00 23:00 07:00 Intake Total 845.590 ml 993.694 ml 714.726 ml Output Total 1930 ml 1950 ml 810 ml Balance -1084.410 ml -956.306 ml -95.274 ml Exam Constitutional: alert (with sedation decreased down ), other (intubated ) Respiratory: diminished breath sounds (bases bilaterally ), other (on Vent ) Cardiovascular: nl pulses, regular rate and rhythm Gastrointestinal: non-tender, soft Musculoskeletal: nl extremities to inspection Extremities: normal pulses, other (no edema, clubbing or cyanosis ) 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: RN BURN II-XII intact, nl mental status, nl speech, nl strength Results Result Diagram: 04/09/1739904/09/17 0400 Results 24 hrs Laboratory Tests Test 04/08/17 13:41 04/08/17 17:27 04/08/17 20:58 04/09/17 01:11 Bedside Glucose 251 H 208 186 190 Test 04/09/17 04:00 04/09/17 05:05 04/09/17 08:31 White Blood Count 9.0 Red Blood Count 3.88 L Hemoglobin 11.7 L Hematocrit 34.8 L Mean Corpuscular Volume 89.7 Mean Corpuscular Hemoglobin 30.2 Mean Corpuscular Hemoglobin Concent 33.6 Red Cell Distribution Width 12.8 Platelet Count 219 Mean Platelet Volume 11.4 H Neutrophils % 75.2 Lymphocytes % 10.9 L Monocytes % 9.4 Eosinophils % 4.0 Basophils % 0.2 Nucleated Red Blood Cells % 0.0 Neutrophils # 6.7 Lymphocytes # 1.0 Monocytes # 0.8 Eosinophils # 0.4 Basophils # 0.0 Nucleated Red Blood Cells # 0.0 Sodium Level 141 Potassium Level 2.9 *L Chloride Level 104 Carbon Dioxide Level 31 Anion Gap 9 Blood Urea Nitrogen 21 H Creatinine 1.13 Glucose Level 257 H Calcium Level 8.0 L Phosphorus Level 2.7 Magnesium Level 1.9 Total Bilirubin 0.6 Direct Bilirubin 0.00 Indirect Bilirubin 0.6 Aspartate Amino Transf (AST/SGOT) 23 Alanine Aminotransferase (ALT/SGPT) 29 Alkaline Phosphatase 100 Total Protein 6.1 Albumin 3.0 L Globulin 3.10 Albumin/Globulin Ratio 0.96 Vancomycin Level Trough 10.9 Bedside Glucose 224 H 243 H Medications Medications Current Medications Lorazepam (Ativan) 0.5 mg Q6H PRN IV ANXIETY Last administered on 04/06/17 23 :08; Admin Dose 0.5 MG; Start 04/04/17 at 03:30 Ondansetron HCl (Zofran Inj) 4 mg Q6H PRN IV NAUSEA AND/OR VOMITING; Start 04/04/17 at 03:30 Morphine Sulfate (morphine) 2 mg Q4H PRN IV PAIN LEVEL 7-10 Last administered on 04/08/17 08:06; Admin Dose 2 MG; Start 04/04/17 at 03:30 Dextrose (D50w Syringe) 25 ml Q15M PRN IV Till BS 80 mg/dL or above x2; Start 04/04/17 at 09:30 Dextrose (D50w Syringe) 50 ml Q15M PRN IV Till BS 80 mg/dL or above x2; Start 04/04/17 at 09:30 Aspirin 81 mg 81 mg DAILY NGT Last administered on 04/09/17 08:54; Admin Dose 81 MG; Start 04/04/17 at 09:30 Propofol (Diprivan) 100 ml @ 2.421 mls/ hr Q12H IV Last administered on 23:41; Admin Dose 10.652 MLS/HR; Start 04/04/17 at 09:30 Atorvastatin Calcium 80 mg 80 mg HS NGT Last administered on 04/08/17 20:57; Admin Dose 80 MG; Start 04/04/17 at 21:00 Levetiracetam (Keppra 1,000mg/ 100ml (Pmx)) 100 ml @ 400 mls/hr Q12 IVPB Last administered on 04/09/17 09:00; Admin Dose 400 MLS/HR; Start 04/05/17 at 11: 00 Insulin Aspart (Novolog Insulin Pen) NOVOLOG *MODERATE* ALGORI... Q4 SC Last administered on 04/09/17 08:53; Admin Dose 6 UNIT; Start 04/06/17 at 09:00 Heparin Sodium (Porcine) (Heparin (5000 Units/0.5 ml)) 5,000 unit Q8 SC Last administered on 04/09/17 05:42; Admin Dose 5,000 UNIT; Start 04/06/17 at 14: 00 Acetaminophen 650 mg 650 mg Q4H PRN NGT PAIN AND OR ELEVATED TEMP; Start 04/07 at 09:30 Cefepime HCl (Maxipime 1gm/50 ml (Pmx)) 50 ml @ 100 mls/hr Q12 IVPB Last administered on 04/09/17 08:54; Admin Dose 100 MLS/HR; Start 04/07/17 at 13: 00 Insulin Glargine (Lantus) 19 unit DAILY@08 SC Last administered on 04/09/17 08:52; Admin Dose 19 UNIT; Start 04/09/17 at 08:00 Famotidine 20 mg 20 mg BID NGT Last administered on 04/09/17 08:53; Admin Dose 20 MG; Start 04/08/17 at 21:00 Norepinephrine/ Dextrose (Levophed/D5W) 500 ml @ 1.87 mls/hr TITRATE IV Last administered on 04/08/17 23:50; Admin Dose 11.25 MLS/HR; Start 04/08/17 at 22 :30 Metoprolol Tartrate 12.5 mg 12.5 mg BID GTB ; Start 04/09/17 at 21:00 Vancomycin HCl/ Sodium Chloride (Vancocin/NS) 250 ml @ 83.333 mls/ hr Q12H IVPB ; Start 04/09/17 at 17:00 DOUGLAS FERRER Apr 09, 2017 12:11
[2017-04-09 12:47] LABS: CALCIUM 8.4 mg/dl (8.4-10.2); CREATININE 1.2 mg/dl (0.61-1.24); PHOSPHORUS 2.6 mg/dl (2.5-4.9); POTASSIUM 3.8 mmol/L (3.5-5.1)
--- NOTE | 2017-04-09 14:22 | CONS ---
DATE OF ADMISSION: 04/04/2017 DATE OF CONSULTATION: 04/09/2017 PULMONARY CRITICAL CARE PROGRESS NOTE Mr. Woodson's condition remains critical. The patient is still requiring invasive mechanical ventilati on as well as continuous sedation. The patient, however, the patient is hemodynamically improving r equiring very small amount of Levophed now. PHYSICAL EXAMINATION: GENERAL: Middle-aged male, orally intubated, sedated, currently in no distress. VITAL SIGNS: Temperature is 98.8 degrees Fahrenheit, respiratory rate is 18 to 20 per minute, heart rate 80 per minute, blood pressure is 95/60, O2 sat 98%. Urine output is fair. The patient is cur rently on AC of 14, tidal volume 500, PEEP of 5 and 30% FIO2. HEENT: Supple neck, positive JVD, no lymphadenopathy, midline trachea, no thyromegaly, orally intub ated. Patient has fair dentition. Pupils are small bilaterally. CHEST: Clear to auscultation. HEART: S1, S2 audible. No murmurs, regular rhythm. ABDOMEN: Soft, nondistended. No organomegaly. Bowel sounds audible. EXTREMITIES: No edema. NEUROLOGIC: Patient is sedated yesterday. LABORATORY DATA: White count is 9, hemoglobin 11.7, platelet count of 219. Sodium 141, potassium 2 .9, chloride 104, bicarbonate 31, BUN 21, creatinine 1.1. MEDICATIONS: 1. Levophed 0.9 mcg per minute. 2. Propofol 25 mcg per minute. 3. Cefepime 1 gram IV q.12h. 4. Sliding scale insulin. 5. Keppra 1 gram IV q.12h. 6. Potassium on a p.r.n. basis. 7. Vancomycin 1.25 grams IV q. 12h. 8. Aspirin 81 mg a day. 9. Lipitor 40 mg a day. 10. Coreg 6.25 mg b.i.d. 11. Pepcid 20 mg b.i.d. 12. Subcutaneous Heparin 5000 units q.8h. 13. Lasix 20 mg IV q.12. 12. Metoprolol 12.5 mg b.i.d. Urine culture is growing E. coli. Blood cultures are positive for hemolytic strep species 2 out of 2. ASSESSMENT: 1. Patient admitted with diabetic ketoacidosis and then developed acute myocardial infarction with coronary angiography revealing multivessel disease, not amenable to nonsurgical intervention. Patie nt scheduled for coronary artery bypass graft surgery. 2. Positive gram-positive blood cultures that may delay bypass surgery. 3. History of multiple infarcts. 5. History of possibly underlying mild dementia. 6. Multiple scattered patchy infarct seen on MRI of the brain, likely chronic. 7. Mild renal insufficiency. 8. Stable seizure disorder. 9. Pulmonary edema with interval improvement. RECOMMENDATIONS: Continue current treatment. Coronary artery bypass graft surgery to be done once blood cultures are negative. I did have been detailed discussion with patient's sister and answered all her questions. Thirty-five minutes of critical care time was spent evaluating the patient. Dictated By: NUBIA NAVARRO MD AQ/ELIO Conf#: [id number] DID#: [id number]
--- NOTE | 2017-04-09 15:53 | PN ---
Date/Time of Note Date/Time of Note DATE: 04/09/17 TIME: 15:53 Assessment/Plan Lines/Catheters IV Catheter Type (from Nrsg): PICC Line Macias in Place (from Nrsg): Yes Assessment/Plan Chief Complaint/Hosp Course IMPRESSION: 1. Coronary artery disease. 2. Non-ST elevation myocardial infarction. 3. Seizure disorder. 4. Diabetes with diabetic ketoacidosis. 5. HX CVA 6. Respiratory failure. pt reintubated RECOMMENDATIONS: We will proceed with coronary artery bypass grafting after the patient has been off of Plavix for a period of time. She is at very high risk for surgery secondary to above morbidities and prior CVAs and respiratory failure Plan for surgery on Tuesday Problems: Subjective 24 Hr Interval Summary Constitutional: improved Pain Control: mild Exam/Review of Systems Vital Signs Vitals Vital Signs Date Time Temp Pulse Resp B/P Pulse Ox O2 Delivery O2 Flow Rate FiO2 04/09/17 14:45 67 16 112/83 100 Mechanical Ventilator 04/09/17 12:00 98.9 04/09/17 11:20 30 04/07/17 03:00 4.0 Intake and Output 04/08/17 04/08/17 04/09/17 15:00 23:00 07:00 Intake Total 845.590 ml 993.694 ml 714.726 ml Output Total 1930 ml 1950 ml 810 ml Balance -1084.410 ml -956.306 ml -95.274 ml Exam Neck: non-tender, supple Respiratory: clear to auscultation, normal air movement Cardiovascular: nl pulses, regular rate and rhythm Gastrointestinal: nl liver, spleen, non-tender, soft Results Result Diagram: 04/09/17 0400 04/09/17 1203 NORIS HARRIS MD Apr 09, 2017 15:53
[2017-04-09] MEDS: VANCOMYCIN 1.25 GM in SOD CHLORIDE 0.9% 250 ML IVPB SCH (17:11)
[2017-04-09] MEDS: PROPOFOL 100 ML IV SCH (18:10)
[2017-04-09] MEDS: METOPROLOL 25 MG TAB GTB SCH (20:28)
[2017-04-09] MEDS: ATORVASTATIN 80 MG TAB NGT SCH (20:29)
[2017-04-10] VITALS (100 sets, daily range): BP systolic 71–152; BP diastolic 49–116; PULSE 76–100; RESP 14–25
[2017-04-10] MEDS: INSULIN ASPART [NOVOLOG] 3 ML PEN SC SCH ×6 (00:57→21:01)
[2017-04-10] MEDS: PROPOFOL 100 ML IV SCH ×4 (02:36→21:15)
[2017-04-10] MEDS: VANCOMYCIN 1.25 GM in SOD CHLORIDE 0.9% 250 ML IVPB SCH ×2 (04:28→16:58)
[2017-04-10 04:44] LABS: BASOPHILS % 0.2 % (0.0-2.0); EOSINOPHILS # 0.4 10^3/ul (0.0-0.5); EOSINOPHILS % 4.1 % (0.0-7.0); HEMATOCRIT 34.7 % (42.0-52.0); HEMOGLOBIN 11.4 g/dl (14.0-18.0); LYMPHOCYTES # 0.8 10^3/ul (0.8-2.9); LYMPHOCYTES % 8.6 % (15.0-51.0); MEAN CORPUSCULAR HEMOGLOBIN 29.9 pg (29.0-33.0); MEAN CORPUSCULAR HGB CONC 32.9 g/dl (32.0-37.0); MEAN CORPUSCULAR VOLUME 91.1 fl (82.0-101.0); MEAN PLATELET VOLUME 10.5 fl (7.4-10.4); MONOCYTE # 0.9 10^3/ul (0.3-0.9); MONOCYTES % 9.7 % (0.0-11.0); NEUTROPHILS % 77.1 % (39.0-77.0); PLATELET COUNT 246 10^3/UL (140-415); RED BLOOD COUNT 3.81 10^6/ul (4.70-6.10); RED CELL DISTRIBUTION WIDTH 12.6 % (11.5-14.5); WHITE BLOOD COUNT 9.1 10^3/ul (4.8-10.8)
[2017-04-10 05:13] LABS: CALCIUM 8.3 mg/dl (8.4-10.2); CREATININE 1.07 mg/dl (0.61-1.24); POTASSIUM 3.2 mmol/L (3.5-5.1)
[2017-04-10 05:15] LABS: MAGNESIUM 1.7 mg/dl (1.7-2.5); PHOSPHORUS 2.9 mg/dl (2.5-4.9)
[2017-04-10] MEDS: HEPARIN 5,000 UNIT/0.5 ML VIAL SC SCH ×2 (05:37→13:32)
[2017-04-10] MEDS: FUROSEMIDE 20 MG INJ IV SCH ×2 (05:38→17:30)
[2017-04-10] MEDS: CEFEPIME 1GM/50 ML (PMX) 50 ML IVPB SCH ×2 (08:10→20:57)
[2017-04-10] MEDS: METOPROLOL 25 MG TAB GTB SCH ×2 (08:10→20:59)
[2017-04-10] MEDS: FAMOTIDINE 20 MG TAB NGT SCH ×2 (08:10→20:57)
[2017-04-10] MEDS: ASPIRIN 81 MG TAB NGT SCH (08:10)
[2017-04-10] MEDS: LEVETIRACETAM 1000 MG (PMX) 100 ML IVPB SCH ×2 (08:12→20:58)
[2017-04-10] MEDS: INSULIN GLARGINE [LANtus] 3 ML PEN SC SCH (08:23)
[2017-04-10] MEDS: POTASSIUM CHLORIDE 50 ML IVPB PRN ×5 (09:11→18:32)
--- NOTE | 2017-04-10 09:38 | PN ---
Date/Time of Note Date/Time of Note DATE: 04/10/17 TIME: 09:37 Assessment/Plan Lines/Catheters IV Catheter Type (from Nrsg): PICC Line Macias in Place (from Nrsg): Yes Assessment/Plan Chief Complaint/Hosp Course IMPRESSION: 1. Coronary artery disease. 2. Non-ST elevation myocardial infarction. 3. Seizure disorder. 4. Diabetes with diabetic ketoacidosis. 5. HX CVA 6. Respiratory failure. pt reintubated RECOMMENDATIONS: We will proceed with coronary artery bypass grafting after the patient has been off of Plavix for a period of time. She is at very high risk for surgery secondary to above morbidities and prior CVAs and respiratory failure Plan for surgery on Tomorrow Pt very high risk for surgery Discussed with Dr Roa Problems: Subjective 24 Hr Interval Summary Constitutional: improved Pain Control: mild Exam/Review of Systems Vital Signs Vitals Vital Signs Date Time Temp Pulse Resp B/P Pulse Ox O2 Delivery O2 Flow Rate FiO2 04/10/17 09:15 78 20 99/67 100 04/10/17 07:30 98.2 04/10/17 06:00 Mechanical Ventilator 04/10/17 05:42 30 04/07/17 03:00 4.0 Intake and Output 04/09/17 04/09/17 04/10/17 15:00 23:00 07:00 Intake Total 776.04 ml 985.030 ml 806.028 ml Output Total 2055 ml 1145 ml 1150 ml Balance -1278.96 ml -159.970 ml -343.972 ml Exam Neck: non-tender, supple Respiratory: clear to auscultation, normal air movement Cardiovascular: nl pulses, regular rate and rhythm Gastrointestinal: nl liver, spleen, non-tender, soft Results Result Diagram: 04/10/17 0430 04/10/17 043 NORIS HARRIS MD Apr 10, 2017 09:38
--- NOTE | 2017-04-10 10:19 | PN ---
Date/Time of Note Date/Time of Note DATE: 04/10/17 TIME: 10:05 Assessment/Plan VTE Prophylaxis VTE Prophylaxis Intervention: heparin Lines/Catheters IV Catheter Type (from Nrs): PICC Line Central line still needed: Yes (For IV access) Urinary Cath still in place: Yes Reason Cath still needed: other (indicate) (Intubated) Assessment/Plan Assessment/Plan 52-year-old male with: 1. NSTEMI known coronary artery disease, status post stents 3 years ago. S/p angiogram and findings of diffuse disease, patient will require CABG, Dr. Herron following. Continue current cardiac medications. On heparin subcu for DVT prophylaxis, patient did get Plavix Tuesday and Tuesday , he has been off since then. Wednesday 04/11 at 12 PM for CABG. Continue current medications, cardiology and CTS following. 2. Seizures, unclear etiology but could be secondary to DKA versus intracranial pathology. 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 Neurology has been consulted for further recommendations. EEG with encephalopathy Continue Ford, appreciate Neurology recs, okay to proceed with CABG tomorrow per neurology. 3. Acute respiratory failure, had to be re intubated last week, findings of pulmo edema, on Lasix and stable on Vent. All cx sent, Blood cx positive with GPC x 2, repeat blood cx pending. On Vanco and cefepime as of 04/07 Follow up CXR QAM while intubated. Continue diuresis and vent management per pulmonary. 4. S/p Diabetic ketoacidosis, known diabetes mellitus with noncompliance with diet or medications. Patient has been off medication for at least 1-2 month, status post DKA protocol, Patient on subcutaneous insulin, will titrate Lantus up to 19 and continue SSI Hemoglobin A1c out of range. Diabetic education once extubated and awake. Likely to need insulin therapy. Apparently he was on metformin and glipizide based on his medication reconciliation prior. 5. Diabetes mellitus, known noncompliance with medication, diet or follow-ups. Diabetic education after extubation, will require insulin therapy, see #1 6. Coronary artery disease, status post PCI and stent placed according to the sister, 3 years ago in [place]. Lipitor 80 mg nightly, once more stable beta-blockers to be started, continue aspirin, Plavix discontinued as of 04/05, patient will need CABG next week. CTS and cardiology following. See #4 7. Hyperlipidemia: Continue Lipitor 80 mg qhs. 8. Acute kidney injury, now needing diuresis, renal function much improved even with ongoing diuresis Replete potassium and magnesium this AM and repeating BMP now Prophylaxis: Heparin subcu for DVT prophylaxis, Pepcid for GI prophylaxis Disposition: In ICU on Vent, will need CABG Tuesday hopefully, close monitoring in the meantime. Cardiology, cardiothoracic surgery, pulmonary and Neurology following. Prognosis is fair so far. Subjective 24 Hr Interval Summary Free Text/Dictation Patient remained stable, on small amount of Levophed, repeat blood cultures are negative, white blood cell count within normal. Discussed with cardiothoracic surgery, as long as patient does not have pneumonia they will proceed with surgery. Chest x-ray showing pulmonary congestion, patient on Lasix with good urine output. Plan for CABG tomorrow 12 PM Exam/Review of Systems Vital Signs Vitals Vital Signs Date Time Temp Pulse Resp B/P Pulse Ox O2 Delivery O2 Flow Rate FiO2 04/10/17 09:15 78 20 99/67 100 04/10/17 07:30 98.2 04/10/17 06:00 Mechanical Ventilator 04/10/17 05:42 30 04/07/17 03:00 4.0 Intake and Output 04/09/17 04/09/17 04/10/17 15:00 23:00 07:00 Intake Total 776.04 ml 985.030 ml 806.028 ml Output Total 2055 ml 1145 ml 1150 ml Balance -1278.96 ml -159.970 ml -343.972 ml Exam Constitutional: frail, other (Sedated and intubated) Respiratory: diminished breath sounds (Bilaterally), other (On mechanical ventilation) Cardiovascular: nl pulses, regular rate and rhythm Gastrointestinal: non-tender, soft Musculoskeletal: nl extremities to inspection Extremities: normal pulses, other (No edema, clubbing or cyanosis) 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: other (Sedated and intubated) Results Result Diagram: 04/10/17 0430 04/10/17 0430 Results 24 hrs Laboratory Tests Test 04/09/17 12:03 04/09/17 13:26 04/09/17 17:06 04/09/17 20:39 Sodium Level 144 Potassium Level 3.8 Chloride Level 104 Carbon Dioxide Level 34 H Anion Gap 10 Blood Urea Nitrogen 20 Creatinine 1.20 Glucose Level 207 Calcium Level 8.4 Phosphorus Level 2.6 Magnesium Level 1.9 Bedside Glucose 229 H 150 161 Test 04/10/17 00:54 04/10/17 04:30 04/10/17 05:34 04/10/17 08:27 Bedside Glucose 266 H 234 H 252 H White Blood Count 9.1 Red Blood Count 3.81 L Hemoglobin 11.4 L Hematocrit 34.7 L Mean Corpuscular Volume 91.1 Mean Corpuscular Hemoglobin 29.9 Mean Corpuscular Hemoglobin Concent 32.9 Red Cell Distribution Width 12.6 Platelet Count 246 Mean Platelet Volume 10.5 H Neutrophils % 77.1 H Lymphocytes % 8.6 L Monocytes % 9.7 Eosinophils % 4.1 Basophils % 0.2 Nucleated Red Blood Cells % 0.0 Neutrophils # 7.0 Lymphocytes # 0.8 Monocytes # 0.9 Eosinophils # 0.4 Basophils # 0.0 Nucleated Red Blood Cells # 0.0 Sodium Level 143 Potassium Level 3.2 L Chloride Level 102 Carbon Dioxide Level 33 H Anion Gap 11 Blood Urea Nitrogen 22 H Creatinine 1.07 Glucose Level 216 Calcium Level 8.3 L Phosphorus Level 2.9 Magnesium Level 1.7 Medications Medications Current Medications Lorazepam (Ativan) 0.5 mg Q6H PRN IV ANXIETY Last administered on 04/06/17 23 :08; Admin Dose 0.5 MG; Start 04/04/17 at 03:30 Ondansetron HCl (Zofran Inj) 4 mg Q6H PRN IV NAUSEA AND/OR VOMITING; Start 04/04/17 at 03:30 Morphine Sulfate (morphine) 2 mg Q4H PRN IV PAIN LEVEL 7-10 Last administered on 04/08/17 08:06; Admin Dose 2 MG; Start 04/04/17 at 03:30 Dextrose (D50w Syringe) 25 ml Q15M PRN IV Till BS 80 mg/dL or above x2; Start 04/04/17 at 09:30 Dextrose (D50w Syringe) 50 ml Q15M PRN IV Till BS 80 mg/dL or above x2; Start 04/04/17 at 09:30 Aspirin 81 mg 81 mg DAILY NGT Last administered on 04/10/17 08:10; Admin Dose 81 MG; Start 04/04/17 at 09:30 Propofol (Diprivan) 100 ml @ 2.421 mls/ hr Q12H IV Last administered on 08:08; Admin Dose 12.105 MLS/HR; Start 04/04/17 at 09:30 Atorvastatin Calcium 80 mg 80 mg HS NGT Last administered on 04/09/17 20:29; Admin Dose 80 MG; Start 04/04/17 at 21:00 Levetiracetam (Keppra 1,000mg/ 100ml (Pmx)) 100 ml @ 400 mls/hr Q12 IVPB Last administered on 04/10/17 08:12; Admin Dose 400 MLS/HR; Start 04/05/17 at 11: 00 Insulin Aspart (Novolog Insulin Pen) NOVOLOG *MODERATE* ALGORI... Q4 SC Last administered on 04/10/17 08:30; Admin Dose 8 UNIT; Start 04/06/17 at 09:00 Heparin Sodium (Porcine) (Heparin (5000 Units/0.5 ml)) 5,000 unit Q8 SC Last administered on 04/10/17 05:37; Admin Dose 5,000 UNIT; Start 04/06/17 at 14: 00 Acetaminophen 650 mg 650 mg Q4H PRN NGT PAIN AND OR ELEVATED TEMP; Start 04/07 at 09:30 Cefepime HCl (Maxipime 1gm/50 ml (Pmx)) 50 ml @ 100 mls/hr Q12 IVPB Last administered on 04/10/17 08:10; Admin Dose 100 MLS/HR; Start 04/07/17 at 13: 00 Insulin Glargine (Lantus) 19 unit DAILY@08 SC Last administered on 04/10/17 08:23; Admin Dose 19 UNIT; Start 04/09/17 at 08:00 Famotidine 20 mg 20 mg BID NGT Last administered on 04/10/17 08:10; Admin Dose 20 MG; Start 04/08/17 at 21:00 Norepinephrine/ Dextrose (Levophed/D5W) 500 ml @ 1.87 mls/hr TITRATE IV Last administered on 04/10/17 04:41; Admin Dose 3.75 MLS/HR; Start 04/08/17 at 22: 30 Metoprolol Tartrate 12.5 mg 12.5 mg BID GTB Last administered on 04/10/17 08: 10; Admin Dose 12.5 MG; Start 04/09/17 at 21:00 Vancomycin HCl/ Sodium Chloride (Vancocin/NS) 250 ml @ 83.333 mls/ hr Q12H IVPB Last administered on 04/10/17 04:28; Admin Dose 83.333 MLS/HR; Start at 17:00 Procedures Procedures PROCEDURE: XR Chest. CLINICAL INDICATION: Pulmonary edema TECHNIQUE: AP view of the chest were obtained. COMPARISON: Prior day FINDINGS: Films obscured by overlying lines and tubes. There is cardiomegaly and still pulmonary vascular congestion. There is no pleural effusion or pneumothorax or focal airspace disease. Stable endotracheal tube and 3 cm above the kamini. Feeding tube projecting over the stomach. Right-sided PICC line with tip in mid SVC. IMPRESSION: Stable lines and tubes. Stable cardiomegaly and pulmonary vascular congestion. RPTAT: QQ .Mikey Regan MD, Date Time Electronically viewed and signed by .Mikey Regan MD, MD on 04/08/2017 09:14 .G/ CC: DOUGLAS FERRER N'DEYE F Apr 10, 2017 10:16
[2017-04-10] MEDS ORDERED: POTASSIUM CHLORIDE 20 MEQ POWDER FOR ORAL SOLN NGT ONE (10:30)
--- NOTE | 2017-04-10 10:54 | CONS ---
Date/Time of Note Date/Time of Note DATE: 04/10/17 TIME: 10:51 Assessment/Plan Assessment/Plan Additional Assessment/Plan Ventilator setting; AC of 14, tidal volume 500, PEEP of 5, 30% FiO2. Patient is currently on propofol at 30 mics per kilogram per minute, Levophed 2 mics per minute. Assessment and recommendations; 1. Patient admitted with DKA then developed acute MT status post coronary angiography revealing multivessel disease not amenable to nonsurgical intervention. Patient scheduled for CABG surgery however the clinical course is complicated by gram-positive bacteremia. 2. Most recent blood cultures are negative 2. 3. History of diabetes and seizure disorder. 4. Hypertension. 5. Possibly some element of aspiration pneumonia. 6. Improving renal function. 7. Chronic encephalopathy. MRI of the brain showing multiple patchy bilateral infarcts which appear chronic. Continue current supportive care. Continue current antibiotics. Obtain follow- up chest x-ray. Patient to undergo CABG surgery once cleared from infectious disease perspective. 35 minutes of critical care time was spent evaluating the patient. Consultation Date/Type/Reason Admit Date/Time Apr 04, 2017 at 03:21 Initial Consult Date 04/04/17 Type of Consultation: pulm/cc Referring Provider: DOUGLAS FERRER 24 HR Interval Summary Free Text/Dictation Patient's condition remains critical. Still requiring full ventilator support and continuous sedation. Patient however has remained hemodynamically mildly unstable requiring low-dose Levophed. General exam; middle-aged male, orally intubated, sedated, currently in no distress. Exam/Review of Systems Vital Signs Vitals Vital Signs Date Time Temp Pulse Resp B/P Pulse Ox O2 Delivery O2 Flow Rate FiO2 04/10/17 09:15 78 20 99/67 100 04/10/17 08:00 30 04/10/17 07:30 98.2 04/10/17 06:00 Mechanical Ventilator 04/07/17 03:00 4.0 Intake and Output 04/09/17 04/09/17 04/10/17 15:00 23:00 07:00 Intake Total 776.04 ml 985.030 ml 806.028 ml Output Total 2055 ml 1145 ml 1150 ml Balance -1278.96 ml -159.970 ml -343.972 ml Exam HEENT exam; supple neck, no JVD. No lymphadenopathy. Midline trachea. No thyromegaly. Orally intubated. Patient has fair dentition. Pupils are small bilaterally. Chest exam; clear to auscultation. S1-S2 audible, no murmurs. Regular rhythm. Abdomen exam; soft, no organomegaly. Bowel sounds audible. Nondistended. Extremity exam; no peripheral edema. Pulses 1+ bilaterally. DIGITAL COURT REPORTER exam; patient is sedated. Results Result Diagram: 04/10/17 0430 04/10/17 0430 Results 24 hrs Laboratory Tests Test 04/09/17 12:03 04/09/17 13:26 04/09/17 17:06 04/09/17 20:39 Sodium Level 144 Potassium Level 3.8 Chloride Level 104 Carbon Dioxide Level 34 H Anion Gap 10 Blood Urea Nitrogen 20 Creatinine 1.20 Glucose Level 207 Calcium Level 8.4 Phosphorus Level 2.6 Magnesium Level 1.9 Bedside Glucose 229 H 150 161 Test 04/10/17 00:54 04/10/17 04:30 04/10/17 05:34 04/10/17 08:27 Bedside Glucose 266 H 234 H 252 H White Blood Count 9.1 Red Blood Count 3.81 L Hemoglobin 11.4 L Hematocrit 34.7 L Mean Corpuscular Volume 91.1 Mean Corpuscular Hemoglobin 29.9 Mean Corpuscular Hemoglobin Concent 32.9 Red Cell Distribution Width 12.6 Platelet Count 246 Mean Platelet Volume 10.5 H Neutrophils % 77.1 H Lymphocytes % 8.6 L Monocytes % 9.7 Eosinophils % 4.1 Basophils % 0.2 Nucleated Red Blood Cells % 0.0 Neutrophils # 7.0 Lymphocytes # 0.8 Monocytes # 0.9 Eosinophils # 0.4 Basophils # 0.0 Nucleated Red Blood Cells # 0.0 Sodium Level 143 Potassium Level 3.2 L Chloride Level 102 Carbon Dioxide Level 33 H Anion Gap 11 Blood Urea Nitrogen 22 H Creatinine 1.07 Glucose Level 216 Calcium Level 8.3 L Phosphorus Level 2.9 Magnesium Level 1.7 Medications Medications Current Medications Lorazepam (Ativan) 0.5 mg Q6H PRN IV ANXIETY Last administered on 04/06/17t 23 :08; Admin Dose 0.5 MG; Start 04/04/17 at 03:30 Ondansetron HCl (Zofran Inj) 4 mg Q6H PRN IV NAUSEA AND/OR VOMITING; Start 04/04/17 at 03:30 Morphine Sulfate (morphine) 2 mg Q4H PRN IV PAIN LEVEL 7-10 Last administered on 04/08/17 08:06; Admin Dose 2 MG; Start 04/04/17 at 03:30 Dextrose (D50w Syringe) 25 ml Q15M PRN IV Till BS 80 mg/dL or above x2; Start 04/04/17 at 09:30 Dextrose (D50w Syringe) 50 ml Q15M PRN IV Till BS 80 mg/dL or above x2; Start 04/04/17 at 09:30 Aspirin 81 mg 81 mg DAILY NGT Last administered on 04/10/17 08:10; Admin Dose 81 MG; Start 04/04/17 at 09:30 Propofol (Diprivan) 100 ml @ 2.421 mls/ hr Q12H IV Last administered on 08:08; Admin Dose 12.105 MLS/HR; Start 04/04/17 at 09:30 Atorvastatin Calcium 80 mg 80 mg HS NGT Last administered on 04/09/17 20:29; Admin Dose 80 MG; Start 04/04/17 at 21:00 Levetiracetam (Keppra 1,000mg/ 100ml (Pmx)) 100 ml @ 400 mls/hr Q12 IVPB Last administered on 04/10/17 08:12; Admin Dose 400 MLS/HR; Start 04/05/17 at 11: 00 Insulin Aspart (Novolog Insulin Pen) NOVOLOG *MODERATE* ALGORI... Q4 SC Last administered on 04/10/17 08:30; Admin Dose 8 UNIT; Start 04/06/17 at 09:00 Heparin Sodium (Porcine) (Heparin (5000 Units/0.5 ml)) 5,000 unit Q8 SC Last administered on 04/10/17 05:37; Admin Dose 5,000 UNIT; Start 04/06/17 at 14: 00 Acetaminophen 650 mg 650 mg Q4H PRN NGT PAIN AND OR ELEVATED TEMP; Start 04/07 at 09:30 Cefepime HCl (Maxipime 1gm/50 ml (Pmx)) 50 ml @ 100 mls/hr Q12 IVPB Last administered on 04/10/17 08:10; Admin Dose 100 MLS/HR; Start 04/07/17 at 13: 00 Insulin Glargine (Lantus) 19 unit DAILY@08 SC Last administered on 04/10/17 08:23; Admin Dose 19 UNIT; Start 04/09/17 at 08:00 Famotidine 20 mg 20 mg BID NGT Last administered on 04/10/17 08:10; Admin Dose 20 MG; Start 04/08/17 at 21:00 Norepinephrine/ Dextrose (Levophed/D5W) 500 ml @ 1.87 mls/hr TITRATE IV Last administered on 04/10/17 04:41; Admin Dose 3.75 MLS/HR; Start 04/08/17 at 22: 30 Metoprolol Tartrate 12.5 mg 12.5 mg BID GTB Last administered on 04/10/17 08: 10; Admin Dose 12.5 MG; Start 04/09/17 at 21:00 Vancomycin HCl 1.25 gm/Sodium Chloride 250 ml @ 83.333 mls/ hr Q12H IVPB Last administered on 04/10/17 04:28; Admin Dose 83.333 MLS/HR; Start 04/09/17 at 17:00 Magnesium Sulfate/ Sodium Chloride (Magnesium Sulfate/NS) 106 ml @ 35.333 mls/ hr ONCE IVPB ; Start 04/10/17 at 12:00; Stop 04/10/17 at 14:59 NUBIA NAVARRO Apr 10, 2017 10:54
[2017-04-10] MEDS ORDERED: MAGNESIUM SULFATE 3 GM in SOD CHLORIDE 0.9% 100 ML IVPB SCH (12:00)
--- NOTE | 2017-04-10 12:13 | RADRPT ---
PROCEDURE: XR Chest. CLINICAL INDICATION: Respiratory failure TECHNIQUE: Single frontal view of the chest was obtained COMPARISON: 04/08/2017 FINDINGS: Stable endotracheal tube and right PICC. Nasogastric tube has been retracted with side port now proj ecting over the distal esophagus and tip projecting over the gastric fundus. No pleural effusion or pneumothorax. Improved perihilar opacities compatible with improving pulmonary edema. Stable cardiomediastinal silhouette. No acute osseous abnormality. IMPRESSION: Improving/resolving interstitial pulmonary edema. Nasogastric tube has been retracted with side port now projecting over the distal esophagus and tip projecting over the gastric fundus. Otherwise, no convincing interval change compared to chest radiograph from 2 days prior. RPTAT: EE Physician Shannan Date Time Electronically viewed and signed by Maximo Valerio Physician on 04/10/2017 12:13 /
--- NOTE | 2017-04-10 13:35 | CONS ---
Date/Time of Note Date/Time of Note DATE: 04/10/17 TIME: 13:25 Assessment/Plan Assessment/Plan Additional Assessment/Plan Non-ST elevation ID Severe coronary artery disease Ischemic cardio myopathy Vent dependent respiratory failure -Patient with NSVT noted this morning, supplement potassium to maintain above 4.0 and magnesium above 2.0. Patient on minimal IV pressor, titrate to maintain SBP greater than 90 and/or map above 60. Continue aspirin therapy, statin therapy. No beta-kayy at the current time given hypotension, no ERICH inhibitor secondary to hypotension. Awaiting surgical revascularization. Greater than 31 minutes of critical care time in the care of this patient. Consultation Date/Type/Reason Admit Date/Time Apr 04, 2017 at 03:21 Initial Consult Date 04/05/17 Type of Consultation: cv Referring Provider: DOUGLAS FERRER 24 HR Interval Summary Free Text/Dictation Patient seen and examined, IV pressor requirements decreasing, nsvt this morning Exam/Review of Systems Vital Signs Vitals Vital Signs Date Time Temp Pulse Resp B/P Pulse Ox O2 Delivery O2 Flow Rate FiO2 04/10/17 09:15 78 20 99/67 100 04/10/17 08:00 30 04/10/17 07:30 98.2 04/10/17 06:00 Mechanical Ventilator 04/07/17 03:00 4.0 Intake and Output 04/09/17 04/09/17 04/10/17 15:00 23:00 07:00 Intake Total 776.04 ml 985.030 ml 806.028 ml Output Total 2055 ml 1145 ml 1150 ml Balance -1278.96 ml -159.970 ml -343.972 ml Exam Sedated and intubated, no apparent distress Head: normocephalic ENMT: intubated Respiratory: other (Coarse breath sounds bilaterally, no wheezing) Cardiovascular: other (S1-S2 heard), regular rate and rhythm Gastrointestinal: bowel sounds, other (No grimacing with palpation), soft Extremities: edema (Trace) Results Result Diagram: 04/10/17 0430 04/10/17 0430 Results 24 hrs Laboratory Tests Test 04/09/17 13:26 04/09/17 17:06 04/09/17 20:39 04/10/17 00:54 Bedside Glucose 229 H 150 161 266 H Test 04/10/17 04:30 04/10/17 05:34 04/10/17 08:27 White Blood Count 9.1 Red Blood Count 3.81 L Hemoglobin 11.4 L Hematocrit 34.7 L Mean Corpuscular Volume 91.1 Mean Corpuscular Hemoglobin 29.9 Mean Corpuscular Hemoglobin Concent 32.9 Red Cell Distribution Width 12.6 Platelet Count 246 Mean Platelet Volume 10.5 H Neutrophils % 77.1 H Lymphocytes % 8.6 L Monocytes % 9.7 Eosinophils % 4.1 Basophils % 0.2 Nucleated Red Blood Cells % 0.0 Neutrophils # 7.0 Lymphocytes # 0.8 Monocytes # 0.9 Eosinophils # 0.4 Basophils # 0.0 Nucleated Red Blood Cells # 0.0 Sodium Level 143 Potassium Level 3.2 L Chloride Level 102 Carbon Dioxide Level 33 H Anion Gap 11 Blood Urea Nitrogen 22 H Creatinine 1.07 Glucose Level 216 Calcium Level 8.3 L Phosphorus Level 2.9 Magnesium Level 1.7 Bedside Glucose 234 H 252 H Medications Medications Current Medications Lorazepam (Ativan) 0.5 mg Q6H PRN IV ANXIETY Last administered on 04/06/17 23 :08; Admin Dose 0.5 MG; Start 04/04/17 at 03:30 Ondansetron HCl (Zofran Inj) 4 mg Q6H PRN IV NAUSEA AND/OR VOMITING; Start 04/04/17 at 03:30 Morphine Sulfate (morphine) 2 mg Q4H PRN IV PAIN LEVEL 7-10 Last administered on 04/08/17 08:06; Admin Dose 2 MG; Start 04/04/17 at 03:30 Dextrose (D50w Syringe) 25 ml Q15M PRN IV Till BS 80 mg/dL or above x2; Start 04/04/17 at 09:30 Dextrose (D50w Syringe) 50 ml Q15M PRN IV Till BS 80 mg/dL or above x2; Start 04/04/17 at 09:30 Aspirin 81 mg 81 mg DAILY NGT Last administered on 04/10/17 08:10; Admin Dose 81 MG; Start 04/04/17 at 09:30 Propofol (Diprivan) 100 ml @ 2.421 mls/ hr Q12H IV Last administered on 08:08; Admin Dose 12.105 MLS/HR; Start 04/04/17 at 09:30 Atorvastatin Calcium 80 mg 80 mg HS NGT Last administered on 04/09/17 20:29; Admin Dose 80 MG; Start 04/04/17 at 21:00 Levetiracetam (Keppra 1,000mg/ 100ml (Pmx)) 100 ml @ 400 mls/hr Q12 IVPB Last administered on 04/10/17 08:12; Admin Dose 400 MLS/HR; Start 04/05/17 at 11: 00 Insulin Aspart (Novolog Insulin Pen) NOVOLOG *MODERATE* ALGORI... Q4 SC Last administered on 04/10/17 13:19; Admin Dose 4 UNIT; Start 04/06/17 at 09:00 Heparin Sodium (Porcine) (Heparin (5000 Units/0.5 ml)) 5,000 unit Q8 SC Last administered on 04/10/17 05:37; Admin Dose 5,000 UNIT; Start 04/06/17 at 14: 00 Acetaminophen 650 mg 650 mg Q4H PRN NGT PAIN AND OR ELEVATED TEMP; Start 04/07 at 09:30 Cefepime HCl (Maxipime 1gm/50 ml (Pmx)) 50 ml @ 100 mls/hr Q12 IVPB Last administered on 04/10/17 08:10; Admin Dose 100 MLS/HR; Start 04/07/17 at 13: 00 Insulin Glargine (Lantus) 19 unit DAILY@08 SC Last administered on 04/10/17 08:23; Admin Dose 19 UNIT; Start 04/09/17 at 08:00 Famotidine 20 mg 20 mg BID NGT Last administered on 04/10/17 08:10; Admin Dose 20 MG; Start 04/08/17 at 21:00 Norepinephrine/ Dextrose (Levophed/D5W) 500 ml @ 1.87 mls/hr TITRATE IV Last administered on 04/10/17 04:41; Admin Dose 3.75 MLS/HR; Start 04/08/17 at 22: 30 Metoprolol Tartrate 12.5 mg 12.5 mg BID GTB Last administered on 04/10/17 08: 10; Admin Dose 12.5 MG; Start 04/09/17 at 21:00 Vancomycin HCl 1.25 gm/Sodium Chloride 250 ml @ 83.333 mls/ hr Q12H IVPB Last administered on 04/10/17 04:28; Admin Dose 83.333 MLS/HR; Start 04/09/17 at 17:00 Magnesium Sulfate/ Sodium Chloride (Magnesium Sulfate/NS) 106 ml @ 35.333 mls/ hr ONCE IVPB Last administered on 04/10/17t 13:13; Admin Dose 35.333 MLS/HR; Start 04/10/17 at 12:00; Stop 04/10/17 at 14:59 Miscellaneous Information (*Rx Drug Level Order Reminder*) VANCOMYCIN TROUGH AT 0400 ONCE ONCE XX ; Start 04/11/17 at 04:00; Stop 04/11/17 at 04:01 Ghanshyam Lin DO Apr 10, 2017 13:35
[2017-04-10] MEDS: ATORVASTATIN 80 MG TAB NGT SCH (20:57)
[2017-04-11] VITALS (78 sets, daily range): BP systolic 87–153; BP diastolic 36–89; PULSE 65–118; RESP 9–31; TEMP 98.7–100.6
[2017-04-11] MEDS: POTASSIUM CHLORIDE 50 ML IVPB PRN ×7 (00:29→21:01)
[2017-04-11] MEDS: INSULIN ASPART [NOVOLOG] 3 ML PEN SC SCH ×6 (00:48→21:00)
[2017-04-11] MEDS: PROPOFOL 100 ML IV SCH ×2 (02:32→06:59)
[2017-04-11] MEDS: VANCOMYCIN 1.25 GM in SOD CHLORIDE 0.9% 250 ML IVPB SCH ×2 (05:08→20:52)
[2017-04-11 05:42] LABS: BASOPHILS % 0.3 % (0.0-2.0); EOSINOPHILS # 0.4 10^3/ul (0.0-0.5); EOSINOPHILS % 3.7 % (0.0-7.0); HEMATOCRIT 36.3 % (42.0-52.0); HEMOGLOBIN 11.6 g/dl (14.0-18.0); LYMPHOCYTES # 1.4 10^3/ul (0.8-2.9); LYMPHOCYTES % 13.8 % (15.0-51.0); MEAN CORPUSCULAR HEMOGLOBIN 29.5 pg (29.0-33.0); MEAN CORPUSCULAR VOLUME 92.4 fl (82.0-101.0); MONOCYTE # 1.4 10^3/ul (0.3-0.9); MONOCYTES % 13.7 % (0.0-11.0); NEUTROPHIL # 6.9 10^3/ul (1.6-7.5); NEUTROPHILS % 68.1 % (39.0-77.0); PLATELET COUNT 288 10^3/UL (140-415); RED BLOOD COUNT 3.93 10^6/ul (4.70-6.10); RED CELL DISTRIBUTION WIDTH 12.4 % (11.5-14.5); WHITE BLOOD COUNT 10.1 10^3/ul (4.8-10.8)
[2017-04-11] MEDS: FUROSEMIDE 20 MG INJ IV SCH ×2 (06:00→18:00)
[2017-04-11 06:09] LABS: CALCIUM 8.8 mg/dl (8.4-10.2); CREATININE 1.15 mg/dl (0.61-1.24); POTASSIUM 3.4 mmol/L (3.5-5.1)
[2017-04-11 06:10] LABS: MAGNESIUM 2.2 mg/dl (1.7-2.5); PHOSPHORUS 3.9 mg/dl (2.5-4.9)
[2017-04-11] MEDS: LEVETIRACETAM 1000 MG (PMX) 100 ML IVPB SCH ×2 (07:52→21:05)
[2017-04-11] MEDS: FAMOTIDINE 20 MG TAB NGT SCH ×2 (07:58→21:00)
[2017-04-11] MEDS: ASPIRIN 81 MG TAB NGT SCH (07:58)
[2017-04-11] MEDS: INSULIN GLARGINE [LANtus] 3 ML PEN SC SCH (08:05)
[2017-04-11] MEDS: CEFEPIME 1GM/50 ML (PMX) 50 ML IVPB SCH ×2 (08:13→21:39)
[2017-04-11] MEDS: METOPROLOL 25 MG TAB GTB SCH ×2 (08:51→21:00)
--- NOTE | 2017-04-11 09:33 | PN ---
Date/Time of Note Date/Time of Note DATE: 04/11/17 TIME: 09:27 Assessment/Plan VTE Prophylaxis VTE Prophylaxis Intervention: heparin Lines/Catheters IV Catheter Type (from Nrs): PICC Line Central line still needed: Yes (IV access) Urinary Cath still in place: Yes Reason Cath still needed: other (indicate) (Intubated and sedated) Assessment/Plan Assessment/Plan 52-year-old male with: 1. NSTEMI known coronary artery disease, status post stents 3 years ago. S/p angiogram and findings of diffuse disease, patient to CABG today with Dr. Herron. Continue current cardiac medications. On heparin subcu for DVT prophylaxis on hold, Continue current medications, cardiology and CTS following. 2. Seizures, unclear etiology but could be secondary to DKA versus intracranial pathology. 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 Neurology has been consulted for further recommendations. EEG with encephalopathy Continue Ford, appreciate Neurology recs, okay to proceed with CABG today per neurology. 3. Acute respiratory failure, had to be re intubated, findings of pulmo edema, on Lasix and stable on Vent. Chest x-ray much improved today with less pulmonary edema, resolving All cx sent, Blood cx positive with coag negative staph+alpha hemolytic strep, repeat blood cx negative. On Vanco and cefepime as of 04/07 Continue diuresis and vent management per pulmonary. 4. S/p Diabetic ketoacidosis, known diabetes mellitus with noncompliance with diet or medications. Patient has been off medication for at least 1-2 month, status post DKA protocol, Patient on subcutaneous insulin, Lantus up to 19 and continue SS. Postoperatively he will be on insulin drip. Hemoglobin A1c out of range. Diabetic education once extubated and awake. Likely to need insulin therapy. Apparently he was on metformin and glipizide based on his medication reconciliation prior. 5. Diabetes mellitus, known noncompliance with medication, diet or follow-ups. Diabetic education after extubation, will require insulin therapy, see #1 6. Coronary artery disease, status post PCI and stent placed according to the sister, 3 years ago in [place]. Lipitor 80 mg nightly, once more stable beta-blockers to be started, continue aspirin, Plavix discontinued as of 04/05, patient will need CABG next week. CTS and cardiology following. See #4 7. Hyperlipidemia: Continue Lipitor 80 mg qhs. 8. Acute kidney injury, now needing diuresis, renal function much improved even with ongoing diuresis Replete potassium this a.m. Prophylaxis: Heparin subcu for DVT prophylaxis, Pepcid for GI prophylaxis Disposition: In ICU on Vent, CABG today. Cardiology, cardiothoracic surgery, pulmonary and Neurology following. Prognosis is fair so far. Subjective 24 Hr Interval Summary Free Text/Dictation Patient remained stable on ventilator, chest x-ray much improved, less pulmonary edema, on minimal amount of Levophed on and off. Afebrile, repeat blood cultures negative. On antibiotics. Going to CABG today. Exam/Review of Systems Vital Signs Vitals Vital Signs Date Time Temp Pulse Resp B/P Pulse Ox O2 Delivery O2 Flow Rate FiO2 04/11/17 09:15 86 14 103/70 100 04/11/17 07:15 98.7 04/11/17 06:45 Mechanical Ventilator 04/11/17 05:25 30 Intake and Output 04/10/17 04/10/17 04/11/17 15:00 23:00 07:00 Intake Total 1321.050 ml 882.619 ml 623.738 ml Output Total 590 ml 770 ml 325 ml Balance 731.050 ml 112.619 ml 298.738 ml Exam Constitutional: other (Intubated and sedated) Respiratory: diminished breath sounds (Bilaterally much improved), other (On mechanical ventilation) Cardiovascular: nl pulses, regular rate and rhythm Gastrointestinal: non-tender, soft Musculoskeletal: nl extremities to inspection, other (No edema, clubbing or cyanosis) Extremities: normal pulses 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: GRAIN TRIMMER II-XII intact, nl mental status, nl speech, nl strength Results Result Diagram: 04/11/17 0400 04/11/17 0400 Results 24 hrs Laboratory Tests Test 04/10/17 13:17 04/10/17 16:09 04/10/17 16:55 04/10/17 20:53 Bedside Glucose 196 168 165 Potassium Level 3.4 L Test 04/10/17 22:59 04/11/17 00:44 04/11/17 04:00 04/11/17 05:12 Potassium Level 3.3 L 3.4 L Bedside Glucose 238 H 213 White Blood Count 10.1 Red Blood Count 3.93 L Hemoglobin 11.6 L Hematocrit 36.3 L Mean Corpuscular Volume 92.4 Mean Corpuscular Hemoglobin 29.5 Mean Corpuscular Hemoglobin Concent 32.0 Red Cell Distribution Width 12.4 Platelet Count 288 Mean Platelet Volume 11.0 H Neutrophils % 68.1 Lymphocytes % 13.8 L Monocytes % 13.7 H Eosinophils % 3.7 Basophils % 0.3 Nucleated Red Blood Cells % 0.0 Neutrophils # 6.9 Lymphocytes # 1.4 Monocytes # 1.4 H Eosinophils # 0.4 Basophils # 0.0 Nucleated Red Blood Cells # 0.0 Sodium Level 143 Chloride Level 101 Carbon Dioxide Level 34 H Anion Gap 11 Blood Urea Nitrogen 24 H Creatinine 1.15 Glucose Level 207 Calcium Level 8.8 Phosphorus Level 3.9 Magnesium Level 2.2 Vancomycin Level Trough 14.0 Test 04/11/17 07:24 04/11/17 08:09 Lab Scanned Report REFERENCE LAB Bedside Glucose 153 Medications Medications Current Medications Lorazepam (Ativan) 0.5 mg Q6H PRN IV ANXIETY Last administered on 04/06/17 23 :08; Admin Dose 0.5 MG; Start 04/04/17 at 03:30 Ondansetron HCl (Zofran Inj) 4 mg Q6H PRN IV NAUSEA AND/OR VOMITING; Start 04/04/17 at 03:30 Morphine Sulfate (morphine) 2 mg Q4H PRN IV PAIN LEVEL 7-10 Last administered on 04/08/17 08:06; Admin Dose 2 MG; Start 04/04/17 at 03:30 Dextrose (D50w Syringe) 25 ml Q15M PRN IV Till BS 80 mg/dL or above x2; Start 04/04/17 at 09:30 Dextrose (D50w Syringe) 50 ml Q15M PRN IV Till BS 80 mg/dL or above x2; Start 04/04/17 at 09:30 Aspirin 81 mg 81 mg DAILY NGT Last administered on 04/11/17 07:58; Admin Dose 81 MG; Start 04/04/17 at 09:30 Propofol (Diprivan) 100 ml @ 2.421 mls/ hr Q12H IV Last administered on 06:59; Admin Dose 19.368 MLS/HR; Start 04/04/17 at 09:30 Atorvastatin Calcium 80 mg 80 mg HS NGT Last administered on 04/10/17 20:57; Admin Dose 80 MG; Start 04/04/17 at 21:00 Levetiracetam (Keppra 1,000mg/ 100ml (Pmx)) 100 ml @ 400 mls/hr Q12 IVPB Last administered on 04/11/17 07:52; Admin Dose 400 MLS/HR; Start 04/05/17 at 11: 00 Insulin Aspart (Novolog Insulin Pen) NOVOLOG *MODERATE* ALGORI... Q4 SC Last administered on 04/11/17 08:51; Admin Dose 2 UNIT; Start 04/06/17 at 09:00 Heparin Sodium (Porcine) (Heparin (5000 Units/0.5 ml)) 5,000 unit Q8 SC Last administered on 04/10/17 13:32; Admin Dose 5,000 UNIT; Start 04/06/17 at 14: 00; Status Future Hold Acetaminophen 650 mg 650 mg Q4H PRN NGT PAIN AND OR ELEVATED TEMP; Start 04/07 at 09:30 Cefepime HCl (Maxipime 1gm/50 ml (Pmx)) 50 ml @ 100 mls/hr Q12 IVPB Last administered on 04/11/17 08:13; Admin Dose 100 MLS/HR; Start 04/07/17 at 13: 00 Famotidine 20 mg 20 mg BID NGT Last administered on 04/11/17 07:58; Admin Dose 20 MG; Start 04/08/17 at 21:00 Norepinephrine/ Dextrose (Levophed/D5W) 500 ml @ 1.87 mls/hr TITRATE IV Last administered on 04/10/17 04:41; Admin Dose 3.75 MLS/HR; Start 04/08/17 at 22: 30 Metoprolol Tartrate 12.5 mg 12.5 mg BID GTB Last administered on 04/10/17 08: 10; Admin Dose 12.5 MG; Start 04/09/17 at 21:00 Vancomycin HCl/ Sodium Chloride (Vancocin/NS) 250 ml @ 83.333 mls/ hr Q12H IVPB Last administered on 04/11/17 05:08; Admin Dose 83.333 MLS/HR; Start at 17:00 Insulin Glargine 10 unit 10 unit DAILY@08 SC Last administered on 04/11/17t 08 :05; Admin Dose 10 UNIT; Start 04/11/17 at 08:00 Epinephrine 4 mg/ Dextrose 250 ml @ 0 mls/hr INTRA-OP IV ; Start 04/11/17 at 13 :30; Stop 04/11/17 at 19:00 Phenylephrine HCl 250 ml @ 0 mls/hr INTRA-OP IV ; Start 04/11/17 at 13:30; Stop 04/11/17 at 19:00 Insulin Human Regular 100 unit/ Sodium Chloride 100 ml @ 0 mls/hr INTRA-OP IV ; Start 04/11/17 at 13:30; Stop 04/11/17 at 19:00 Potassium Chloride/Sodium Chloride (KCl/NS) 110 ml @ 55 mls/hr ONCE IVPB ; Start 04/11/17 at 10:30; Stop 04/11/17 at 12:29 DOUGLAS FERRER Apr 11, 2017 09:33
--- NOTE | 2017-04-11 09:53 | CONS ---
Date/Time of Note Date/Time of Note DATE: 04/11/17 TIME: 09:47 Consult Date/Type/Reason Admit Date/Time Apr 04, 2017 at 03:21 Initial Consult Date 04/05/17 Type of Consultation: Pulm Ordering Provider: DOUGLAS FERRER Subjective Patient remains intubated sedated on mechanical ventilation. Low-dose vasopressors. Objective Vital Signs Date Time Temp Pulse Resp B/P Pulse Ox O2 Delivery O2 Flow Rate FiO2 04/11/17 09:15 86 14 103/70 100 04/11/17 07:15 98.7 04/11/17 06:45 Mechanical Ventilator 04/11/17 05:25 30 Intake and Output 04/10/17 04/10/17 04/11/17 15:00 23:00 07:00 Intake Total 1321.050 ml 882.619 ml 623.738 ml Output Total 590 ml 770 ml 325 ml Balance 731.050 ml 112.619 ml 298.738 ml Exam PHYSICAL EXAMINATION GENERAL: Elderly gentleman, intubated on mechanical ventilation, opens eyes and appears somewhat agitated. Orally intubated. VITAL SIGNS: see below. HEENT: Pupils equal, round, and reactive to light. CARDIAC: S1, S2, 1/6 systolic ejection murmur CHEST: Diminished air entry bilaterally. ABDOMEN: Mildly distended. Bowel sounds present no guarding or rebound EXTREMITIES: No cyanosis, clubbing edema +1 NEUROLOGIC: Generalized weakness Results/Medications Result Diagram: 04/11/17 0400 04/11/17 0400 Results 24 hrs Laboratory Tests Test 04/10/17 13:17 04/10/17 16:09 04/10/17 16:55 04/10/17 20:53 Bedside Glucose 196 168 165 Potassium Level 3.4 L Test 04/10/17 22:59 04/11/17 00:44 04/11/17 04:00 04/11/17 05:12 Potassium Level 3.3 L 3.4 L Bedside Glucose 238 H 213 White Blood Count 10.1 Red Blood Count 3.93 L Hemoglobin 11.6 L Hematocrit 36.3 L Mean Corpuscular Volume 92.4 Mean Corpuscular Hemoglobin 29.5 Mean Corpuscular Hemoglobin Concent 32.0 Red Cell Distribution Width 12.4 Platelet Count 288 Mean Platelet Volume 11.0 H Neutrophils % 68.1 Lymphocytes % 13.8 L Monocytes % 13.7 H Eosinophils % 3.7 Basophils % 0.3 Nucleated Red Blood Cells % 0.0 Neutrophils # 6.9 Lymphocytes # 1.4 Monocytes # 1.4 H Eosinophils # 0.4 Basophils # 0.0 Nucleated Red Blood Cells # 0.0 Sodium Level 143 Chloride Level 101 Carbon Dioxide Level 34 H Anion Gap 11 Blood Urea Nitrogen 24 H Creatinine 1.15 Glucose Level 207 Calcium Level 8.8 Phosphorus Level 3.9 Magnesium Level 2.2 Vancomycin Level Trough 14.0 Test 04/11/17 07:24 04/11/17 08:09 Lab Scanned Report REFERENCE LAB Bedside Glucose 153 Medications Current Medications Lorazepam (Ativan) 0.5 mg Q6H PRN IV ANXIETY Last administered on 04/06/17 23 :08; Admin Dose 0.5 MG; Start 04/04/17 at 03:30 Ondansetron HCl (Zofran Inj) 4 mg Q6H PRN IV NAUSEA AND/OR VOMITING; Start 04/04/17 at 03:30 Morphine Sulfate (morphine) 2 mg Q4H PRN IV PAIN LEVEL 7-10 Last administered on 04/08/17 08:06; Admin Dose 2 MG; Start 04/04/17 at 03:30 Dextrose (D50w Syringe) 25 ml Q15M PRN IV Till BS 80 mg/dL or above x2; Start 04/04/17 at 09:30 Dextrose (D50w Syringe) 50 ml Q15M PRN IV Till BS 80 mg/dL or above x2; Start 04/04/17 at 09:30 Aspirin 81 mg 81 mg DAILY NGT Last administered on 04/11/17 07:58; Admin Dose 81 MG; Start 04/04/17 at 09:30 Propofol (Diprivan) 100 ml @ 2.421 mls/ hr Q12H IV Last administered on 06:59; Admin Dose 19.368 MLS/HR; Start 04/04/17 at 09:30 Atorvastatin Calcium 80 mg 80 mg HS NGT Last administered on 04/10/17 20:57; Admin Dose 80 MG; Start 04/04/17 at 21:00 Levetiracetam (Keppra 1,000mg/ 100ml (Pmx)) 100 ml @ 400 mls/hr Q12 IVPB Last administered on 04/11/17 07:52; Admin Dose 400 MLS/HR; Start 04/05/17 at 11: 00 Insulin Aspart (Novolog Insulin Pen) NOVOLOG *MODERATE* ALGORI... Q4 SC Last administered on 04/11/17 08:51; Admin Dose 2 UNIT; Start 04/06/17 at 09:00 Heparin Sodium (Porcine) (Heparin (5000 Units/0.5 ml)) 5,000 unit Q8 SC Last administered on 04/10/17 13:32; Admin Dose 5,000 UNIT; Start 04/06/17 at 14: 00; Status Future Hold Acetaminophen 650 mg 650 mg Q4H PRN NGT PAIN AND OR ELEVATED TEMP; Start 04/07 at 09:30 Cefepime HCl (Maxipime 1gm/50 ml (Pmx)) 50 ml @ 100 mls/hr Q12 IVPB Last administered on 04/11/17 08:13; Admin Dose 100 MLS/HR; Start 04/07/17 at 13: 00 Famotidine 20 mg 20 mg BID NGT Last administered on 04/11/17 07:58; Admin Dose 20 MG; Start 04/08/17 at 21:00 Norepinephrine/ Dextrose (Levophed/D5W) 500 ml @ 1.87 mls/hr TITRATE IV Last administered on 04/10/17 04:41; Admin Dose 3.75 MLS/HR; Start 04/08/17 at 22: 30 Metoprolol Tartrate 12.5 mg 12.5 mg BID GTB Last administered on 04/10/17 08: 10; Admin Dose 12.5 MG; Start 04/09/17 at 21:00 Vancomycin HCl/ Sodium Chloride (Vancocin/NS) 250 ml @ 83.333 mls/ hr Q12H IVPB Last administered on 04/11/17 05:08; Admin Dose 83.333 MLS/HR; Start at 17:00 Insulin Glargine 10 unit 10 unit DAILY@08 SC Last administered on 04/11/17 08 :05; Admin Dose 10 UNIT; Start 04/11/17 at 08:00 Epinephrine 4 mg/ Dextrose 250 ml @ 0 mls/hr INTRA-OP IV ; Start 04/11/17 at 13 :30; Stop 04/11/17 at 19:00 Phenylephrine HCl 250 ml @ 0 mls/hr INTRA-OP IV ; Start 04/11/17 at 13:30; Stop 04/11/17 at 19:00 Insulin Human Regular 100 unit/ Sodium Chloride 100 ml @ 0 mls/hr INTRA-OP IV ; Start 04/11/17 at 13:30; Stop 04/11/17 at 19:00 Potassium Chloride/Sodium Chloride (KCl/NS) 110 ml @ 55 mls/hr ONCE IVPB ; Start 04/11/17 at 10:30; Stop 04/11/17 at 12:29 Assessment/Plan Chief Complaint/Hosp Course Assessment 1. Hypoxemic respiratory failure, recurrent CHF 2. Coronary artery disease with severe ischemia pending coronary artery bypass graft surgery 3. Sepsis currently requiring vasopressor support Plan 1. Continue mechanical ventilation 2. Cardiothoracic recommendations with bypass scheduled for today 3. DVT GI prophylaxis Critical care time 40 minutes. Problems: LYRIC ALEX MD, [facility] Apr 11, 2017 09:53
[2017-04-11] MEDS ORDERED: POTASSIUM CHLORIDE 20 MEQ in SOD CHLORIDE 0.9% 100 ML IVPB SCH (10:30)
[2017-04-11] MEDS ORDERED: MIDAZOLAM 5 ML ONE ×2 (12:23)
[2017-04-11] MEDS ORDERED: PAPAVERINE 60 MG INJ ONE (12:47)
[2017-04-11] MEDS ORDERED: THROMBIN 5000 UNIT VIAL ONE (12:47)
[2017-04-11] MEDS ORDERED: GELATIN SIZE 100 SPONGE ONE (12:47)
[2017-04-11] MEDS ORDERED: VANCOMYCIN 1 GM INJ ONE (12:47)
[2017-04-11] MEDS ORDERED: HEPARIN 1000 UNITS/ML 10 ML INJ ONE ×6 (12:47→16:12)
[2017-04-11 13:07] LABS: INR 1.04; PROTIME 13.6 Sec (12.2-14.2); PT RATIO 1.1
[2017-04-11 13:08] LABS: PARTIAL THROMBOPLASTIN TIME 33.7 Sec (25.0-35.0)
[2017-04-11] MEDS ORDERED: PHENYLephrine (100 MCG/ML) 5ML SYG ONE ×2 (13:17→15:00)
[2017-04-11] MEDS ORDERED: PHENYLephrine 20MG IN 250 ML 250 ML IV SCH (13:30)
[2017-04-11] MEDS ORDERED: INSULIN HUMAN REGULAR 100 UNIT in SOD CHLORIDE 0.9% 99 ML IV SCH (13:30)
[2017-04-11] MEDS ORDERED: EPINEPHrine 4 MG in DEXTROSE 5% 246 ML IV SCH ×2 (13:30→19:00)
[2017-04-11] MEDS ORDERED: ALBUMIN HUMAN 25% 200 ML ONE (13:33)
[2017-04-11] MEDS ORDERED: AMINOCAPROIC ACID 5 GM INJ ONE ×4 (13:33→16:47)
[2017-04-11] MEDS ORDERED: MANNITOL 25% 150 ML ONE (13:33)
[2017-04-11] MEDS ORDERED: LIDOCAINE 100 MG SYRINGE ONE (13:33)
[2017-04-11] MEDS ORDERED: NA BICARBONATE 8.4% 50 ML SYG ONE (13:33)
[2017-04-11] MEDS ORDERED: MAGNESIUM SULFATE (MG) 50% 10 ML INJ ONE (13:33)
[2017-04-11] MEDS ORDERED: POTASSIUM CHLORIDE 40 MEQ INJ ONE (13:33)
[2017-04-11] MEDS ORDERED: CA CHLORIDE 10% 10 ML SYRINGE ONE (13:33)
[2017-04-11] MEDS ORDERED: PHENYLephrine 10 MG INJ ONE (13:33)
[2017-04-11] MEDS ORDERED: CEFAZOLIN 1 GM INJ ONE ×2 (13:55→16:56)
[2017-04-11] MEDS ORDERED: PROTAMINE 250 MG INJ ONE (17:04)
[2017-04-11] MEDS ORDERED: ROCURONIUM 50 MG INJ ONE (17:49)
[2017-04-11] MEDS ORDERED: ETOMIDATE 20 MG INJ ONE (17:49)
[2017-04-11] MEDS ORDERED: LIDOCAINE 2% (SDV) 5 ML INJ ONE (17:49)
[2017-04-11] MEDS ORDERED: NITROGLYCERIN 50 MG/D5W (PMX) 250 ML IV SCH (19:00)
[2017-04-11] MEDS ORDERED: DOPamine-D5W 1.6 MG/ML 250 ML IV SCH (19:00)
--- NOTE | 2017-04-11 19:03 | OPR ---
Date/Time of Note Date/Time of Note DATE: 04/11/17 TIME: 18:56 Operative Report Procedure Date: Apr 11, 2017 Preoperative Diagnosis CAD Postoperative Diagnosis Same Operation/Procedure Performed Coronary artery bypass grafting 1 VILLA to LAD proximal 2 VILLA to LAD distal 3 saphenous vein graft to the ramus 4 saphenous vein graft to the obtuse marginal branch of the circumflex 5 saphenous vein graft to the PDA 6 LAD endarterectomy 7 ramus endarterectomy 8 thymectomy 9 endoscopic saphenous vein harvest from the left lower extremity 10 lyses of adhesions Surgeon see signature line Credit Intern Dr. Mazin Burk Anesthesia Type: general Estimated Blood Loss: other Transfusion Packed RBC Specimen None Grafts/Implants As described Tubes/Drains Chest tubes 2 Complications none Indications Coronary artery disease Procedure Description Patient was taken to the operating room after induction of general anesthesia prepped and draped in usual sterile fashion Timeout was called antibiotics was given Simultaneously sterile incision was made from the sternal notch down to the xiphoid process Saphenous vein was harvested from the left lower extremity using endoscopic technique Sternum was opened in the mid aspect Left internal mammary artery was harvested using electrocautery and titanium clips Thymectomy was done to get access to the aorta Pericardium open patient fully heparinized Cannulation sutures of 3-0 Prolene with pledgets were applied to the distal ascending aorta with a sending aorta body of the right atrium right atrial appendage After adequate documentation of a CT aorta was cannulated followed by two-stage venous cannula anterior and retrograde cardioplegia cannula Heart test was placed on cardiopulmonary bypass After stabilization of on bypass cross, apply to soft part of the aorta Heart was arrested using antegrade and retrograde cardioplegia given in the blood space potassium based cardioplegia also given through the saphenous vein graft as a ring reconstructed Ice was also applied to the surface of the heart We proceeded with the above distal bypasses which included VILLA to LAD in a complex fashion providing proximal and distal flow after endarterectomy Saphenous vein graft to the ramus intermedius after endarterectomy Saphenous vein graft to the PDA Saphenous vein graft to the obtuse marginal branch of the circumflex All distal anastomoses were done to a 10 mm longitudinal arteriotomy in an end- to-side fashion 7-0 Prolene continuous suture technique The proximal venous anastomosis were done on the same cross-clamp 4.5 mm punches to the site of the aorta 6-0 Prolene continuous suture to Cross-clamp removed the heart and the graft de-aired Patient was weaned off cardiopulmonary bypass protamine given cannulas removed sutures to 2 ventricular pacing wires 2 mediastinal chest tubes one left Son tube placed product lower to a lower stab wound secured to skin No evidence of any bleeding was noted All the grafts were pulsatile My cardial function has improved The sternum was closed using cable system [id number] Linea alba and the deep tissues were irrigated and closed in 2 layers of #1 Vicryl suture for the deep and the linea alba 2-0 Vicryl suture for running subcuticular skin closure and 4-0 Monocryl for skin this the leg was closed in a similar fashion patient was transported to intensive care unit in stable condition end of dictation NORIS HARRIS MD Apr 11, 2017 19:03
[2017-04-11 19:06] LABS: BASOPHILS % 0.2 % (0.0-2.0); EOSINOPHILS # 0.2 10^3/ul (0.0-0.5); EOSINOPHILS % 1.6 % (0.0-7.0); HEMATOCRIT 26.1 % (42.0-52.0); HEMOGLOBIN 8.5 g/dl (14.0-18.0); LYMPHOCYTES # 0.8 10^3/ul (0.8-2.9); MEAN CORPUSCULAR HEMOGLOBIN 30.2 pg (29.0-33.0); MEAN CORPUSCULAR HGB CONC 32.6 g/dl (32.0-37.0); MEAN CORPUSCULAR VOLUME 92.9 fl (82.0-101.0); MEAN PLATELET VOLUME 9.7 fl (7.4-10.4); MONOCYTE # 1.1 10^3/ul (0.3-0.9); NEUTROPHIL # 8.9 10^3/ul (1.6-7.5); NEUTROPHILS % 80.7 % (39.0-77.0); PLATELET COUNT 148 10^3/UL (140-415); RED BLOOD COUNT 2.81 10^6/ul (4.70-6.10); RED CELL DISTRIBUTION WIDTH 12.3 % (11.5-14.5); WHITE BLOOD COUNT 11.1 10^3/ul (4.8-10.8)
[2017-04-11 19:29] LABS: CREATININE 0.98 mg/dl (0.61-1.24); MAGNESIUM 2.7 mg/dl (1.7-2.5); POTASSIUM 3.6 mmol/L (3.5-5.1)
[2017-04-11] MEDS: ALBUMIN HUMAN 5% 250 ML IV SCH ×5 (19:30→23:47)
[2017-04-11 19:48] LABS: AADO2 Arterial 320.5 mmHg (7.0-24.0); Arterial Base Excess 2.2 mmol/L (-3.0-3); Arterial COHb 0.3 % (0.0-3.0); Arterial HCO3 27.7 mmol/L (22.0-26.0); Arterial MetHb 0.5 % (0.0-1.5); Arterial Total Hemglobin 8.9 g/dl (12.0-18.0); MODE VENT - AC
[2017-04-11] MEDS ORDERED: MAGNESIUM SULFATE 2 GM/50 ML 50 ML IVPB PRN (20:00)
[2017-04-11] MEDS ORDERED: HYDROmorphONE 0.5 MG/0.5 ML SYG IM PRN (20:00)
[2017-04-11] MEDS ORDERED: ONDANSETRON 4 MG INJ IV PRN (20:00)
[2017-04-11] MEDS ORDERED: POTASSIUM CHLORIDE 40 MEQ, CALCIUM CHLORIDE 10% 1 GM in DEXTROSE 5%-0.225% NACL 1,000 ML IV SCH (20:01)
[2017-04-11] MEDS: morphine 2 MG INJ IV PRN (20:27)
[2017-04-11] MEDS ORDERED: OXYCODONE/ACETAMINOPHEN (5/325) TAB PO PRN ×2 (20:30)
[2017-04-11] MEDS: ATORVASTATIN 80 MG TAB NGT SCH (21:00)
[2017-04-11 21:44] LABS: Allen Test ACCEPTAB; MODE VENT - AC; MetHgb Mixed Venous 0.4 %; Mixed Venous COHb 0.3 %; Mixed Venous Fraction OxyHgb 64.3 %; Mixed Venous Oxygen Sat 64.8 mmHG (65.0-75.0); Mixed Venous Total Hemglobin 9.8 g/dl; Sample Type BLMV
[2017-04-11] MEDS: ACETAMINOPHEN 650MG/20.3ML CUP NGT PRN (22:06)
--- NOTE | 2017-04-11 23:32 | RADRPT ---
PROCEDURE: XR Chest. CLINICAL INDICATION: Status post CABG TECHNIQUE: Single AP portable chest. COMPARISON: 04/10/2017 Chest x-ray FINDINGS: The cardiac silhouette is mildly enlarged. Endotracheal tube tip at the thoracic inlet. Right PICC l ine catheter tip at the level of the proximal superior vena cava. Right [place] catheter in satisf actory position. Redundant NG tube in place. The distal tip is not visualized there is a left thorac ic drain in place. The lungs are clear without pleural effusion or focal consolidation. No pneumot horax. The osseous structures and soft tissues are unremarkable. IMPRESSION: 1. Mild cardiomegaly. No pleural effusion or focal consolidation. 2. No pneumothorax. 3. Support devices as described above . RPTAT:AAJJ Physician Verena Date Time Electronically viewed and signed by Physician Verena on 04/11/2017 23:32 LOUISE/
[2017-04-12] VITALS (73 sets, daily range): BP systolic 91–127; BP diastolic 52–80; PULSE 94–115; RESP 10–36; TEMP 99.3–100.5
[2017-04-12 00:04] LABS: BASOPHILS % 0.1 % (0.0-2.0); EOSINOPHILS # 0.1 10^3/ul (0.0-0.5); EOSINOPHILS % 0.6 % (0.0-7.0); HEMATOCRIT 26.4 % (42.0-52.0); HEMOGLOBIN 8.4 g/dl (14.0-18.0); LYMPHOCYTES # 0.6 10^3/ul (0.8-2.9); LYMPHOCYTES % 5.8 % (15.0-51.0); MEAN CORPUSCULAR HEMOGLOBIN 29.7 pg (29.0-33.0); MEAN CORPUSCULAR HGB CONC 31.8 g/dl (32.0-37.0); MEAN CORPUSCULAR VOLUME 93.3 fl (82.0-101.0); MEAN PLATELET VOLUME 10.3 fl (7.4-10.4); MONOCYTE # 1.1 10^3/ul (0.3-0.9); MONOCYTES % 9.8 % (0.0-11.0); NEUTROPHILS % 83.1 % (39.0-77.0); PLATELET COUNT 219 10^3/UL (140-415); RED BLOOD COUNT 2.83 10^6/ul (4.70-6.10); RED CELL DISTRIBUTION WIDTH 12.6 % (11.5-14.5); WHITE BLOOD COUNT 10.8 10^3/ul (4.8-10.8)
[2017-04-12 00:24] LABS: INR 1.18; PROTIME 15.1 Sec (12.2-14.2); PT RATIO 1.2
[2017-04-12 00:25] LABS: PARTIAL THROMBOPLASTIN TIME 33.1 Sec (25.0-35.0)
[2017-04-12 00:28] LABS: CALCIUM 8.8 mg/dl (8.4-10.2); CREATININE 1.06 mg/dl (0.61-1.24); POTASSIUM 4.4 mmol/L (3.5-5.1)
[2017-04-12] MEDS: INSULIN ASPART [NOVOLOG] 3 ML PEN SC SCH ×3 (01:00→09:00)
[2017-04-12] MEDS: morphine 2 MG INJ IV PRN ×5 (02:28→20:22)
[2017-04-12] MEDS: ALBUMIN HUMAN 5% 250 ML IV SCH ×2 (02:33→04:51)
[2017-04-12] MEDS: VANCOMYCIN 1.25 GM in SOD CHLORIDE 0.9% 250 ML IVPB SCH ×2 (04:14→17:05)
[2017-04-12] MEDS ORDERED: ALBUMIN HUMAN 5% 250 ML ONE (04:25)
[2017-04-12 05:07] LABS: ABNORMAL IP MESSAGE 1; BASOPHILS % 0.1 % (0.0-2.0); EOSINOPHILS % 0.2 % (0.0-7.0); HEMATOCRIT 24.9 % (42.0-52.0); LYMPHOCYTES # 0.4 10^3/ul (0.8-2.9); LYMPHOCYTES % 4.9 % (15.0-51.0); MEAN CORPUSCULAR HGB CONC 32.1 g/dl (32.0-37.0); MEAN CORPUSCULAR VOLUME 93.3 fl (82.0-101.0); MEAN PLATELET VOLUME 10.7 fl (7.4-10.4); MONOCYTE # 0.7 10^3/ul (0.3-0.9); MONOCYTES % 8.4 % (0.0-11.0); NEUTROPHIL # 7.5 10^3/ul (1.6-7.5); NEUTROPHILS % 85.9 % (39.0-77.0); PLATELET COUNT 217 10^3/UL (140-415); POSITIVE DIFF @See below; RED BLOOD COUNT 2.67 10^6/ul (4.70-6.10); RED CELL DISTRIBUTION WIDTH 12.6 % (11.5-14.5); WHITE BLOOD COUNT 8.7 10^3/ul (4.8-10.8)
[2017-04-12] MEDS: INSULIN HUMAN REGULAR 100 UNIT in SOD CHLORIDE 0.9% 99 ML IV SCH ×2 (05:09→18:50)
[2017-04-12 05:27] LABS: CREATININE 1.03 mg/dl (0.61-1.24); POTASSIUM 4.7 mmol/L (3.5-5.1)
[2017-04-12 05:31] LABS: MAGNESIUM 2.3 mg/dl (1.7-2.5); PHOSPHORUS 3.9 mg/dl (2.5-4.9)
[2017-04-12] MEDS: HYDROmorphONE 0.5 MG/0.5 ML SYG IV PRN ×2 (05:54→08:52)
[2017-04-12] MEDS: FUROSEMIDE 20 MG INJ IV SCH ×2 (06:00→18:40)
[2017-04-12] MEDS ORDERED: PANTOPRAZOLE 40 MG INJ IV SCH (06:00)
[2017-04-12] MEDS ORDERED: MILRINONE LACTATE 100 ML IV SCH (06:00)
[2017-04-12] MEDS: INSULIN GLARGINE [LANtus] 3 ML PEN SC SCH (08:00)
[2017-04-12 08:02] LABS: AADO2 Arterial 173.1 mmHg (7.0-24.0); Allen Test ACCEPTAB; Arterial Base Excess 1.4 mmol/L (-3.0-3); Arterial COHb 0.3 % (0.0-3.0); Arterial Fraction of Oxyhgb 97.6 % (93.0-99.0); Arterial HCO3 26.1 mmol/L (22.0-26.0); Arterial MetHb 0.4 % (0.0-1.5); Arterial Total Hemglobin 8.1 g/dl (12.0-18.0); MODE VENT - AC
[2017-04-12 08:17] LABS: Allen Test ACCEPTAB; MODE VENT - AC; MetHgb Mixed Venous 0.4 %; Mixed Venous COHb 0.3 %; Mixed Venous Fraction OxyHgb 64.3 %; Mixed Venous Oxygen Sat 64.8 mmHG (65.0-75.0); Mixed Venous Total Hemglobin 9.8 g/dl; Sample Type BLMV
--- NOTE | 2017-04-12 08:53 | RADRPT ---
PROCEDURE: XR Chest. CLINICAL INDICATION: Status post open heart surgery. TECHNIQUE: A single AP view of the chest was obtained. COMPARISON: Chest x-ray dated 04/11/2017 FINDINGS: There are postoperative changes with sternotomy wires and mediastinal clips. The endotracheal tube tip is approximately 5.1 cm above the kamini. There is a [place] catheter from a right internal ju gular approach with tip in the region of the right ventricular outflow tract. The enteric tube is co iled with tip in the hypopharynx. A left chest tube and mediastinal drain are in place. There is rig ht upper extremity PICC line with tip near the cavoatrial junction. Lung volumes are low. There is diffuse prominence of the interstitial markings. No pneumothorax is seen. The cardiomediastinal silhouette is mildly enlarged. Calcifications are seen within the aorti c arch. The osseous structures are unremarkable. IMPRESSION: 1. Low lung volumes with mild interstitial edema. Overall, no significant interval change. 2. Expected post cardiac surgery changes. 3. Mild cardiomegaly and aortic atherosclerosis. 4. Tubes and lines, as described above. The enteric tube is coiled with tip in the hypopharynx. Rem oval is recommended. Findings were discussed with the patient's nurse Stewart on 04/12/2017 8:52:41 AM. RPTAT: HH .Nena Mcghee MD, Date Time Electronically viewed and signed by .Nena Mcghee MD, on 04/12/2017 08:53 .G/
[2017-04-12] MEDS: METOPROLOL 25 MG TAB GTB SCH ×2 (09:00→20:21)
[2017-04-12] MEDS: FAMOTIDINE 20 MG TAB NGT SCH (09:00)
[2017-04-12] MEDS: LEVETIRACETAM 1000 MG (PMX) 100 ML IVPB SCH ×2 (09:28→20:21)
[2017-04-12] MEDS: PROPOFOL 100 ML IV SCH ×2 (09:30→20:21)
[2017-04-12] MEDS: CEFEPIME 1GM/50 ML (PMX) 50 ML IVPB SCH ×2 (09:54→20:21)
--- NOTE | 2017-04-12 09:59 | PN ---
Date/Time of Note Date/Time of Note DATE: 04/12/17 TIME: 09:50 Assessment/Plan VTE Prophylaxis VTE Prophylaxis Intervention: SCD's Lines/Catheters IV C[facility]ter Type (from [facility]): [place] Urinary Cath still in place: Yes Reason Cath still needed: other (indicate) (While intubated) Assessment/Plan Assessment/Plan 52-year-old male with: 1. Status post CABG by Dr. Herron postoperative day #1. NSTEMI on admission with known coronary artery disease, status post stents 3 years ago Continue current cardiac medications. Continue current medications, cardiology and CTS following. Patient on minimal amount of dopamine, off sedation, respiratory status stable, likely to be extubated today. 2. Seizures, unclear etiology but could be secondary to DKA versus intracranial pathology. 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 Neurology has been consulted for further recommendations. EEG with encephalopathy Continue Ford, appreciate Neurology recs. 3. Acute respiratory failure, Chest x-ray with less pulmonary edema, and expected post CABG changes Patient doing well today on postoperative day #1, status post CABG, likely to be extubated. All cx sent, Blood cx positive with coag negative staph+alpha hemolytic strep, repeat blood cx negative. On Vanco and cefepime as of 04/07 Continue diuresis and vent management per pulmonary hopefully to be extubated today. 4. S/p Diabetic ketoacidosis, known diabetes mellitus with noncompliance with diet or medications. Patient has been off medication for at least 1-2 month, status post DKA protocol on admission Patient on insulin drip currently post CABG Hemoglobin A1c out of range. Diabetic education once extubated and awake. Likely to need insulin therapy. Apparently he was on metformin and glipizide based on his medication reconciliation prior. 5. Diabetes mellitus, known noncompliance with medication, diet or follow-ups. Diabetic education after extubation, will require insulin therapy, see #4 6. Coronary artery disease, status post PCI and stent placed according to the sister, 3 years ago in [place]. Now status post CABG CTS and cardiology following. See #1 7. Hyperlipidemia: Continue Lipitor 80 mg qhs. 8. Acute kidney injury, renal function much improved Replete electrolytes as needed. Prophylaxis: Heparin subcu for DVT prophylaxis, Pepcid for GI prophylaxis Disposition: In ICU on Vent, s/p CABG , POD#1. Cardiology, cardiothoracic surgery, pulmonary and Neurology following. Prognosis is fair. Hopefully to be extubated today Subjective 24 Hr Interval Summary Free Text/Dictation Patient doing fairly well post CABG, he is awake, alert, following commands, good muscle strength. Likely to be extubated today. Signs are stable, on low- dose dopamine and insulin drip. Chest tubes in place. Exam/Review of Systems Vital Signs Vitals Vital Signs Date Time Temp Pulse Resp B/P Pulse Ox O2 Delivery O2 Flow Rate FiO2 04/12/17 09:40 97 19 100 50 04/12/17 09:30 101/57 04/12/17 09:00 99.3 04/11/17 06:45 Mechanical Ventilator Intake and Output 04/11/17 04/11/17 04/12/17 15:00 23:00 07:00 Intake Total 544.636 ml 3097.021 ml 1252.747 ml Output Total 170 ml 1594 ml 677 ml Balance 374.636 ml 1503.021 ml 575.747 ml Exam Constitutional: alert, oriented (x3), other (Intubated, off sedation.) Respiratory: diminished breath sounds (Bases bilaterally, otherwise clear), other (On ventilator, likely to be extubated today.) Cardiovascular: nl pulses, regular rate and rhythm Gastrointestinal: non-tender, soft Musculoskeletal: other (Left lower extremity with dressing on site, site of harvest vein for CABG.) Extremities: normal pulses, other (No edema, clubbing or cyanosis) 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, nl mental status, nl speech Results Result Diagram: 04/12/1742904/12/17429 Results 24 hrs Laboratory Tests Test 04/11/17 12:36 04/11/17 12:40 04/11/17 18:33 04/11/17 18:59 Bedside Glucose 147 174 Prothrombin Time 13.6 Prothrombin Time Ratio 1.1 INR International Normalized Ratio 1.04 Activated Partial Thromboplast Time 33.7 32.0 White Blood Count 11.1 H Red Blood Count 2.81 #L Hemoglobin 8.5 #L Hematocrit 26.1 #L Mean Corpuscular Volume 92.9 Mean Corpuscular Hemoglobin 30.2 Mean Corpuscular Hemoglobin Concent 32.6 Red Cell Distribution Width 12.3 Platelet Count 148 # Mean Platelet Volume 9.7 Neutrophils % 80.7 H Lymphocytes % 7.0 L Monocytes % 10.0 Eosinophils % 1.6 Basophils % 0.2 Nucleated Red Blood Cells % 0.0 Neutrophils # 8.9 H Lymphocytes # 0.8 Monocytes # 1.1 H Eosinophils # 0.2 Basophils # 0.0 Nucleated Red Blood Cells # 0.0 Sodium Level 145 H Potassium Level 3.6 Chloride Level 107 Carbon Dioxide Level 30 Anion Gap 12 Blood Urea Nitrogen 20 Creatinine 0.98 Glucose Level 173 Calcium Level 9.0 Magnesium Level 2.7 H Test 04/11/17 19:37 04/11/17 19:42 04/11/17 20:00 04/11/17 21:00 Blood Gas Specimen Source Blood arterial BLMV Arterial Blood Date Drawn 04/11/2017 7:20:22 PM 04/11/2017 9:28:00 PM Arterial Blood pH (Temp corrected) 7.381 Arterial Blood pCO2 (Temp correct) 47.8 H Arterial Blood pO2 (Temp corrected) 127.2 H Arterial Blood HCO3 27.7 H Arterial Blood Base Excess 2.2 Arterial Blood Oxygen Saturation 97.8 Matt Test N/A ACCEPTAB Arterial Blood Gas Puncture Site A-Line A-Line Arterial Blood Carboxyhemoglobin 0.3 Arterial Blood Methemoglobin 0.5 Blood Gas A-a O2 Differential 320.5 H Oxyhemoglobin Percent 97.0 Total Hemoglobin 8.9 L Blood Gas Temperature 37.0 37.0 Blood Gas Respiration Rate 14.0 14.0 Blood Gas Actual Respiration Rate 14 19 Blood Gas Modality VENT - AC VENT - AC FiO2 70.0 60.0 Blood Gas Tidal Volume 500.0 500.0 Blood Gas Low PEEP Setting 5.0 5.0 Blood Gas Inspiratory Pressure 24.0 20.0 Blood Gas Notified Whom MG KM Blood Gas Notified Time 04/11/2017 7:48:39 PM 04/11/2017 9:43:00 PM Mixed Venous Blood PO2 36.1 Mixed Venous Blood O2 Saturation 64.8 L Mixed Venous Blood Total Hemoglobin 9.8 Mixed Venous Blood Oxyhemoglobin 64.3 Mixed Venous Bld Carboxyhemoglobin 0.3 Mixed Venous Blood Methemoglobin 0.4 Bedside Glucose 177 174 Test 04/11/17 21:26 04/11/17 21:58 04/11/17 22:57 04/11/17 23:57 Blood Gas Specimen Source BLMV Arterial Blood Date Drawn 04/11/2017 9:28:20 PM Arterial Blood Gas Puncture Site A-Line Matt Test ACCEPTAB Mixed Venous Blood PO2 36.1 Mixed Venous Blood O2 Saturation 64.8 L Mixed Venous Blood Total Hemoglobin 9.8 Mixed Venous Blood Oxyhemoglobin 64.3 Mixed Venous Bld Carboxyhemoglobin 0.3 Mixed Venous Blood Methemoglobin 0.4 Blood Gas Temperature 37.0 Blood Gas Respiration Rate 14.0 Blood Gas Actual Respiration Rate 19 Blood Gas Modality VENT - AC FiO2 60.0 Blood Gas Tidal Volume 500.0 Blood Gas Low PEEP Setting 5.0 Blood Gas Inspiratory Pressure 20.0 Blood Gas Notified Whom KM Blood Gas Notified Time 04/11/2017 9:43:45 PM Bedside Glucose 170 179 215 White Blood Count 10.8 Red Blood Count 2.83 L Hemoglobin 8.4 L Hematocrit 26.4 L Mean Corpuscular Volume 93.3 Mean Corpuscular Hemoglobin 29.7 Mean Corpuscular Hemoglobin Concent 31.8 L Red Cell Distribution Width 12.6 Platelet Count 219 # Mean Platelet Volume 10.3 Neutrophils % 83.1 H Lymphocytes % 5.8 L Monocytes % 9.8 Eosinophils % 0.6 Basophils % 0.1 Nucleated Red Blood Cells % 0.0 Neutrophils # 9.0 H Lymphocytes # 0.6 L Monocytes # 1.1 H Eosinophils # 0.1 Basophils # 0.0 Nucleated Red Blood Cells # 0.0 Prothrombin Time 15.1 H Prothrombin Time Ratio 1.2 INR International Normalized Ratio 1.18 Activated Partial Thromboplast Time 33.1 Sodium Level 144 Potassium Level 4.4 Chloride Level 108 Carbon Dioxide Level 31 Anion Gap 9 Blood Urea Nitrogen 21 H Creatinine 1.06 Glucose Level 208 Calcium Level 8.8 Magnesium Level 2.3 Test 04/12/17 00:58 04/12/17 01:58 04/12/17 03:02 04/12/17 04:00 Bedside Glucose 212 186 197 176 Test 04/12/17 04:30 04/12/17 05:01 04/12/17 06:02 04/12/17 07:00 White Blood Count 8.7 Red Blood Count 2.67 L Hemoglobin 8.0 L Hematocrit 24.9 L Mean Corpuscular Volume 93.3 Mean Corpuscular Hemoglobin 30.0 Mean Corpuscular Hemoglobin Concent 32.1 Red Cell Distribution Width 12.6 Platelet Count 217 Mean Platelet Volume 10.7 H Neutrophils % 85.9 H Lymphocytes % 4.9 L Monocytes % 8.4 Eosinophils % 0.2 Basophils % 0.1 Nucleated Red Blood Cells % 0.0 Neutrophils # 7.5 Lymphocytes # 0.4 L Monocytes # 0.7 Eosinophils # 0.0 Basophils # 0.0 Nucleated Red Blood Cells # 0.0 Sodium Level 146 H Potassium Level 4.7 Chloride Level 110 Carbon Dioxide Level 28 Anion Gap 13 Blood Urea Nitrogen 21 H Creatinine 1.03 Glucose Level 187 Calcium Level 9.0 Phosphorus Level 3.9 Magnesium Level 2.3 Bedside Glucose 173 153 Blood Gas Specimen Source Blood arterial Arterial Blood Date Drawn 04/12/2017 7:30:14 AM Arterial Blood pH (Temp corrected) 7.413 Arterial Blood pCO2 (Temp correct) 41.8 Arterial Blood pO2 (Temp corrected) 136.4 H Arterial Blood HCO3 26.1 H Arterial Blood Base Excess 1.4 Arterial Blood Oxygen Saturation 98.3 H Matt Test ACCEPTAB Arterial Blood Gas Puncture Site Right Radial Arterial Blood Carboxyhemoglobin 0.3 Arterial Blood Methemoglobin 0.4 Blood Gas A-a O2 Differential 173.1 H Oxyhemoglobin Percent 97.6 Total Hemoglobin 8.1 L Blood Gas Temperature 37.0 Blood Gas Respiration Rate 14.0 Blood Gas Actual Respiration Rate 18 Blood Gas Modality VENT - AC FiO2 50.0 Blood Gas Tidal Volume 500.0 Blood Gas Low PEEP Setting 5.0 Blood Gas Notified Whom JLD Blood Gas Notified Time 04/12/2017 8:01:54 AM Test 04/12/17 07:07 04/12/17 08:17 04/12/17 09:44 Bedside Glucose 144 137 123 Medications Medications Current Medications Lorazepam (Ativan) 0.5 mg Q6H PRN IV ANXIETY Last administered on 04/06/17t 23 :08; Admin Dose 0.5 MG; Start 04/04/17 at 03:30 Dextrose (D50w Syringe) 25 ml Q15M PRN IV Till BS 80 mg/dL or above x2; Start 04/04/17 at 09:30 Dextrose (D50w Syringe) 50 ml Q15M PRN IV Till BS 80 mg/dL or above x2; Start 04/04/17 at 09:30 Aspirin 81 mg 81 mg DAILY NGT Last administered on 04/11/17 07:58; Admin Dose 81 MG; Start 04/04/17 at 09:30 Propofol (Diprivan) 100 ml @ 2.421 mls/ hr Q12H IV Last administered on 06:59; Admin Dose 19.368 MLS/HR; Start 04/04/17 at 09:30 Atorvastatin Calcium 80 mg 80 mg HS NGT Last administered on 04/10/17 20:57; Admin Dose 80 MG; Start 04/04/17 at 21:00 Levetiracetam (Keppra 1,000mg/ 100ml (Pmx)) 100 ml @ 400 mls/hr Q12 IVPB Last administered on 04/12/17 09:28; Admin Dose 400 MLS/HR; Start 04/05/17 at 11: 00 Insulin Aspart (Novolog Insulin Pen) NOVOLOG *MODERATE* ALGORI... Q4 SC Last administered on 04/11/17 12:38; Admin Dose 2 UNIT; Start 04/06/17 at 09:00 Heparin Sodium (Porcine) (Heparin (5000 Units/0.5 ml)) 5,000 unit Q8 SC Last administered on 04/10/17 13:32; Admin Dose 5,000 UNIT; Start 04/06/17 at 14: 00; Status Future Hold Acetaminophen 650 mg 650 mg Q4H PRN NGT PAIN AND OR ELEVATED TEMP Last administered on 04/11/17 22:06; Admin Dose 650 MG; Start 04/07/17 at 09:30 Cefepime HCl (Maxipime 1gm/50 ml (Pmx)) 50 ml @ 100 mls/hr Q12 IVPB Last administered on 04/11/17 21:39; Admin Dose 100 MLS/HR; Start 04/07/17 at 13: 00 Famotidine 20 mg 20 mg BID NGT Last administered on 04/11/17 07:58; Admin Dose 20 MG; Start 04/08/17 at 21:00 Norepinephrine/ Dextrose (Levophed/D5W) 500 ml @ 1.87 mls/hr TITRATE IV Last administered on 04/10/17 04:41; Admin Dose 3.75 MLS/HR; Start 04/08/17 at 22: 30 Metoprolol Tartrate 12.5 mg 12.5 mg BID GTB Last administered on 04/10/17 08: 10; Admin Dose 12.5 MG; Start 04/09/17 at 21:00 Vancomycin HCl/ Sodium Chloride (Vancocin/NS) 250 ml @ 83.333 mls/ hr Q12H IVPB Last administered on 04/12/17 04:14; Admin Dose 83.333 MLS/HR; Start at 17:00 Insulin Glargine (Lantus) 10 unit DAILY@08 SC Last administered on 04/11/17 08:05; Admin Dose 10 UNIT; Start 04/11/17 at 08:00 Morphine Sulfate (morphine) 2 mg Q2H PRN IV PAIN LEVEL 4-7 Last administered on 04/12/17 05:40; Admin Dose 2 MG; Start 04/11/17 at 20:00 Hydromorphone HCl (Dilaudid) 0.2 mg Q10MIN PRN IM PAIN LEVEL 4-6; Start at 20:00 Hydromorphone HCl 0.4 mg 0.4 mg Q10MIN PRN IV PAIN LEVEL 7-10 Last administered on 04/12/17 08:52; Admin Dose 0.4 MG; Start 04/11/17 at 20:00 Magnesium Sulfate (Magnesium Sulfate 2 Gm/50 ml) 50 ml @ 25 mls/hr IV PRN IVPB NOTE; Start 04/11/17 at 20:00 Pantoprazole (Protonix Iv) 40 mg DAILY@06 IV Last administered on 04/12/17 05 :49; Admin Dose 40 MG; Start 04/12/17 at 06:00 Ondansetron HCl 4 mg 4 mg Q6H PRN IV NAUSEA AND/OR VOMITING; Start 04/11/17 at 20:00 Potassium Chloride/Calcium Chloride/Dextrose/ Sodium Chloride (KCl/Ca Chloride/ D5-1/4ns) 1,030 ml @ 60 mls/hr [id number] IV Last administered on 04/11/17 21: 36; Admin Dose 60 MLS/HR; Start 04/11/17 at 20:01 Oxycodone/ Acetaminophen (Percocet (5/ 325)) 1 tab Q3H PRN PO PAIN LEVEL 1-5; Start 04/11/17 at 20:30 Oxycodone/ Acetaminophen 2 tab 2 tab Q3H PRN PO PAIN LEVEL 6-10; Start at 20:30 Milrinone Lactate (Primacor) 100 ml @ 9.079 mls/ hr TITRATE IV Last administered on 04/11/17t 20:00; Admin Dose 4.842 MLS/HR; Start 04/12/17 at 06 :00 Procedures Procedures PROCEDURE: XR Chest. CLINICAL INDICATION: Status post open heart surgery. TECHNIQUE: A single AP view of the chest was obtained. COMPARISON: Chest x-ray dated 04/11/2017 FINDINGS: There are postoperative changes with sternotomy wires and mediastinal clips. The endotracheal tube tip is approximately 5.1 cm above the kamini. There is a [place] catheter from a right internal jugular approach with tip in the region of the right ventricular outflow tract. The enteric tube is coiled with tip in the hypopharynx. A left chest tube and mediastinal drain are in place. There is right upper extremity PICC line with tip near the cavoatrial junction. Lung volumes are low. There is diffuse prominence of the interstitial markings. No pneumothorax is seen. The cardiomediastinal silhouette is mildly enlarged. Calcifications are seen within the aortic arch. The osseous structures are unremarkable. IMPRESSION: 1. Low lung volumes with mild interstitial edema. Overall, no significant interval change. 2. Expected post cardiac surgery changes. 3. Mild cardiomegaly and aortic atherosclerosis. 4. Tubes and lines, as described above. The enteric tube is coiled with tip in the hypopharynx. Removal is recommended. Findings were discussed with the patient's nurse Stewart on 04/12/2017 8:52:41 AM. RPTAT: HH .Nena Mcghee MD, MD Date Time Electronically viewed and signed by .Nena Mcghee MD, on 04/12/2017 08 :53 DOUGLAS FERRER Apr 12, 2017 09:59
--- NOTE | 2017-04-12 11:42 | CONS ---
Date/Time of Note Date/Time of Note DATE: 04/12/17 TIME: 11:38 Assessment/Plan Assessment/Plan Additional Assessment/Plan Ventilator setting; AC of 14, tidal volume 500, PEEP of 5, 40% FiO2. Patient is currently on dopamine at 1.6 mics per kilogram per minute. Assessment and recommendations; 1. Patient admitted with severe DKA was in respiratory failure then developed acute DE requiring CABG yesterday. 2. History of severe diabetes. 3. Some element of aspiration pneumonia with significant radiological improvement. Patient currently on appropriate antibiotic regimen. 4. Enterococcus UTI and alpha hemolyticus gram-positive bacteremia. Most recent blood cultures have been negative. 5. Acute renal insufficiency with normalization of renal function. 6. Chronic ischemic changes on MRI of the brain. Patient however not exhibiting excellent mental status. Start weaning the patient from ventilator. Patient has been switched over to CPAP mode but is currently exhibiting low spontaneous tidal volume. If the patient does not do well on CPAP mode I would recommend switching him to SIMV with a rate of 10 and pressure support of 10. Meanwhile continue current supportive care. 35 minutes of critical care time was spent evaluating the patient. Consultation Date/Type/Reason Admit Date/Time Apr 04, 2017 at 03:21 Initial Consult Date 04/04/17 Type of Consultation: Pulmonary/critical care Referring Provider: DOUGLAS FERRER 24 HR Interval Summary Free Text/Dictation Patient's condition remains critical but stable. Patient has been off sedation and is completely awake and alert and following simple commands. He denies any chest pain, shortness of breath. General exam; middle-aged male, orally intubated, awake and alert. Currently in no distress. Exam/Review of Systems Vital Signs Vitals Vital Signs Date Time Temp Pulse Resp B/P Pulse Ox O2 Delivery O2 Flow Rate FiO2 04/12/17 10:45 102 10 110/58 100 04/12/17 10:41 40 04/12/17 09:00 99.3 04/11/17 06:45 Mechanical Ventilator Intake and Output 04/11/17 04/11/17 04/12/17 15:00 23:00 07:00 Intake Total 544.636 ml 3097.021 ml 1312.747 ml Output Total 170 ml 1594 ml 677 ml Balance 374.636 ml 1503.021 ml 635.747 ml Exam HEENT exam; supple neck, no JVD. No lymphadenopathy. Midline trachea. No thyromegaly. Orally intubated. Patient has fair dentition. Pupils are midsize and reactive to light. Chest exam; clear to auscultation. S1-S2 audible, no murmurs. Regular rhythm. Dressing applied over sternum. Chest tubes are in place. Abdomen exam; soft, nontender. No organomegaly. Bowel sounds audible. Extremity exam; no peripheral edema. Pulses 1+ bilaterally. MIXER SLAGMAN exam; no focal deficit. Results Result Diagram: 04/12/17 0430 04/12/17 0430 Results 24 hrs Laboratory Tests Test 04/11/17 12:36 04/11/17 12:40 04/11/17 18:33 04/11/17 18:59 Bedside Glucose 147 174 Prothrombin Time 13.6 Prothrombin Time Ratio 1.1 INR International Normalized Ratio 1.04 Activated Partial Thromboplast Time 33.7 32.0 White Blood Count 11.1 H Red Blood Count 2.81 #L Hemoglobin 8.5 #L Hematocrit 26.1 #L Mean Corpuscular Volume 92.9 Mean Corpuscular Hemoglobin 30.2 Mean Corpuscular Hemoglobin Concent 32.6 Red Cell Distribution Width 12.3 Platelet Count 148 # Mean Platelet Volume 9.7 Neutrophils % 80.7 H Lymphocytes % 7.0 L Monocytes % 10.0 Eosinophils % 1.6 Basophils % 0.2 Nucleated Red Blood Cells % 0.0 Neutrophils # 8.9 H Lymphocytes # 0.8 Monocytes # 1.1 H Eosinophils # 0.2 Basophils # 0.0 Nucleated Red Blood Cells # 0.0 Sodium Level 145 H Potassium Level 3.6 Chloride Level 107 Carbon Dioxide Level 30 Anion Gap 12 Blood Urea Nitrogen 20 Creatinine 0.98 Glucose Level 173 Calcium Level 9.0 Magnesium Level 2.7 H Test 04/11/17 19:37 04/11/17 19:42 04/11/17 20:00 04/11/17 21:00 Blood Gas Specimen Source Blood arterial BLMV Arterial Blood Date Drawn 04/11/2017 7:20:22 PM 04/11/2017 9:28:00 PM Arterial Blood pH (Temp corrected) 7.381 Arterial Blood pCO2 (Temp correct) 47.8 H Arterial Blood pO2 (Temp corrected) 127.2 H Arterial Blood HCO3 27.7 H Arterial Blood Base Excess 2.2 Arterial Blood Oxygen Saturation 97.8 Matt Test N/A ACCEPTAB Arterial Blood Gas Puncture Site A-Line A-Line Arterial Blood Carboxyhemoglobin 0.3 Arterial Blood Methemoglobin 0.5 Blood Gas A-a O2 Differential 320.5 H Oxyhemoglobin Percent 97.0 Total Hemoglobin 8.9 L Blood Gas Temperature 37.0 37.0 Blood Gas Respiration Rate 14.0 14.0 Blood Gas Actual Respiration Rate 14 19 Blood Gas Modality VENT - AC VENT - AC FiO2 70.0 60.0 Blood Gas Tidal Volume 500.0 500.0 Blood Gas Low PEEP Setting 5.0 5.0 Blood Gas Inspiratory Pressure 24.0 20.0 Blood Gas Notified Whom MG KM Blood Gas Notified Time 04/11/2017 7:48:39 PM 04/11/2017 9:43:00 PM Mixed Venous Blood PO2 36.1 Mixed Venous Blood O2 Saturation 64.8 L Mixed Venous Blood Total Hemoglobin 9.8 Mixed Venous Blood Oxyhemoglobin 64.3 Mixed Venous Bld Carboxyhemoglobin 0.3 Mixed Venous Blood Methemoglobin 0.4 Bedside Glucose 177 174 Test 04/11/17 21:26 04/11/17 21:58 04/11/17 22:57 04/11/17 23:57 Blood Gas Specimen Source BLMV Arterial Blood Date Drawn 04/11/2017 9:28:20 PM Arterial Blood Gas Puncture Site A-Line Matt Test ACCEPTAB Mixed Venous Blood PO2 36.1 Mixed Venous Blood O2 Saturation 64.8 L Mixed Venous Blood Total Hemoglobin 9.8 Mixed Venous Blood Oxyhemoglobin 64.3 Mixed Venous Bld Carboxyhemoglobin 0.3 Mixed Venous Blood Methemoglobin 0.4 Blood Gas Temperature 37.0 Blood Gas Respiration Rate 14.0 Blood Gas Actual Respiration Rate 19 Blood Gas Modality VENT - AC FiO2 60.0 Blood Gas Tidal Volume 500.0 Blood Gas Low PEEP Setting 5.0 Blood Gas Inspiratory Pressure 20.0 Blood Gas Notified Whom KM Blood Gas Notified Time 04/11/2017 9:43:45 PM Bedside Glucose 170 179 215 White Blood Count 10.8 Red Blood Count 2.83 L Hemoglobin 8.4 L Hematocrit 26.4 L Mean Corpuscular Volume 93.3 Mean Corpuscular Hemoglobin 29.7 Mean Corpuscular Hemoglobin Concent 31.8 L Red Cell Distribution Width 12.6 Platelet Count 219 # Mean Platelet Volume 10.3 Neutrophils % 83.1 H Lymphocytes % 5.8 L Monocytes % 9.8 Eosinophils % 0.6 Basophils % 0.1 Nucleated Red Blood Cells % 0.0 Neutrophils # 9.0 H Lymphocytes # 0.6 L Monocytes # 1.1 H Eosinophils # 0.1 Basophils # 0.0 Nucleated Red Blood Cells # 0.0 Prothrombin Time 15.1 H Prothrombin Time Ratio 1.2 INR International Normalized Ratio 1.18 Activated Partial Thromboplast Time 33.1 Sodium Level 144 Potassium Level 4.4 Chloride Level 108 Carbon Dioxide Level 31 Anion Gap 9 Blood Urea Nitrogen 21 H Creatinine 1.06 Glucose Level 208 Calcium Level 8.8 Magnesium Level 2.3 Test 04/12/17 00:58 04/12/17 01:58 04/12/17 03:02 04/12/17 04:00 Bedside Glucose 212 186 197 176 Test 04/12/17 04:30 04/12/17 05:01 04/12/17 06:02 04/12/17 07:00 White Blood Count 8.7 Red Blood Count 2.67 L Hemoglobin 8.0 L Hematocrit 24.9 L Mean Corpuscular Volume 93.3 Mean Corpuscular Hemoglobin 30.0 Mean Corpuscular Hemoglobin Concent 32.1 Red Cell Distribution Width 12.6 Platelet Count 217 Mean Platelet Volume 10.7 H Neutrophils % 85.9 H Lymphocytes % 4.9 L Monocytes % 8.4 Eosinophils % 0.2 Basophils % 0.1 Nucleated Red Blood Cells % 0.0 Neutrophils # 7.5 Lymphocytes # 0.4 L Monocytes # 0.7 Eosinophils # 0.0 Basophils # 0.0 Nucleated Red Blood Cells # 0.0 Sodium Level 146 H Potassium Level 4.7 Chloride Level 110 Carbon Dioxide Level 28 Anion Gap 13 Blood Urea Nitrogen 21 H Creatinine 1.03 Glucose Level 187 Calcium Level 9.0 Phosphorus Level 3.9 Magnesium Level 2.3 Bedside Glucose 173 153 Blood Gas Specimen Source Blood arterial Arterial Blood Date Drawn 04/12/2017 7:30:14 AM Arterial Blood pH (Temp corrected) 7.413 Arterial Blood pCO2 (Temp correct) 41.8 Arterial Blood pO2 (Temp corrected) 136.4 H Arterial Blood HCO3 26.1 H Arterial Blood Base Excess 1.4 Arterial Blood Oxygen Saturation 98.3 H Matt Test ACCEPTAB Arterial Blood Gas Puncture Site Right Radial Arterial Blood Carboxyhemoglobin 0.3 Arterial Blood Methemoglobin 0.4 Blood Gas A-a O2 Differential 173.1 H Oxyhemoglobin Percent 97.6 Total Hemoglobin 8.1 L Blood Gas Temperature 37.0 Blood Gas Respiration Rate 14.0 Blood Gas Actual Respiration Rate 18 Blood Gas Modality VENT - AC FiO2 50.0 Blood Gas Tidal Volume 500.0 Blood Gas Low PEEP Setting 5.0 Blood Gas Notified Whom JLD Blood Gas Notified Time 04/12/2017 8:01:54 AM Test 04/12/17 07:07 04/12/17 08:17 04/12/17 09:44 Bedside Glucose 144 137 123 Medications Medications Current Medications Lorazepam (Ativan) 0.5 mg Q6H PRN IV ANXIETY Last administered on 04/06/17 23 :08; Admin Dose 0.5 MG; Start 04/04/17 at 03:30 Dextrose (D50w Syringe) 25 ml Q15M PRN IV Till BS 80 mg/dL or above x2; Start 04/04/17 at 09:30 Dextrose (D50w Syringe) 50 ml Q15M PRN IV Till BS 80 mg/dL or above x2; Start 04/04/17 at 09:30 Aspirin 81 mg 81 mg DAILY NGT Last administered on 04/11/17 07:58; Admin Dose 81 MG; Start 04/04/17 at 09:30 Propofol (Diprivan) 100 ml @ 2.421 mls/ hr Q12H IV Last administered on 06:59; Admin Dose 19.368 MLS/HR; Start 04/04/17 at 09:30 Atorvastatin Calcium 80 mg 80 mg HS NGT Last administered on 04/10/17 20:57; Admin Dose 80 MG; Start 04/04/17 at 21:00 Levetiracetam (Keppra 1,000mg/ 100ml (Pmx)) 100 ml @ 400 mls/hr Q12 IVPB Last administered on 04/12/17 09:28; Admin Dose 400 MLS/HR; Start 04/05/17 at 11: 00 Heparin Sodium (Porcine) (Heparin (5000 Units/0.5 ml)) 5,000 unit Q8 SC Last administered on 04/10/17 13:32; Admin Dose 5,000 UNIT; Start 04/06/17 at 14: 00; Status Future Hold Acetaminophen 650 mg 650 mg Q4H PRN NGT PAIN AND OR ELEVATED TEMP Last administered on 04/11/17 22:06; Admin Dose 650 MG; Start 04/07/17 at 09:30 Cefepime HCl (Maxipime 1gm/50 ml (Pmx)) 50 ml @ 100 mls/hr Q12 IVPB Last administered on 04/12/17 09:54; Admin Dose 100 MLS/HR; Start 04/07/17 at 13: 00 Famotidine 20 mg 20 mg BID NGT Last administered on 04/11/17 07:58; Admin Dose 20 MG; Start 04/08/17 at 21:00 Norepinephrine/ Dextrose (Levophed/D5W) 500 ml @ 1.87 mls/hr TITRATE IV Last administered on 04/10/17 04:41; Admin Dose 3.75 MLS/HR; Start 04/08/17 at 22: 30 Metoprolol Tartrate 12.5 mg 12.5 mg BID GTB Last administered on 04/10/17 08: 10; Admin Dose 12.5 MG; Start 04/09/17 at 21:00 Vancomycin HCl/ Sodium Chloride (Vancocin/NS) 250 ml @ 83.333 mls/ hr Q12H IVPB Last administered on 04/12/17 04:14; Admin Dose 83.333 MLS/HR; Start at 17:00 Morphine Sulfate (morphine) 2 mg Q2H PRN IV PAIN LEVEL 4-7 Last administered on 04/12/17 05:40; Admin Dose 2 MG; Start 04/11/17 at 20:00 Hydromorphone HCl (Dilaudid) 0.2 mg Q10MIN PRN IM PAIN LEVEL 4-6; Start at 20:00 Hydromorphone HCl 0.4 mg 0.4 mg Q10MIN PRN IV PAIN LEVEL 7-10 Last administered on 04/12/17 08:52; Admin Dose 0.4 MG; Start 04/11/17 at 20:00 Magnesium Sulfate (Magnesium Sulfate 2 Gm/50 ml) 50 ml @ 25 mls/hr IV PRN IVPB NOTE; Start 04/11/17 at 20:00 Pantoprazole (Protonix Iv) 40 mg DAILY@06 IV Last administered on 04/12/17 05 :49; Admin Dose 40 MG; Start 04/12/17 at 06:00 Ondansetron HCl 4 mg 4 mg Q6H PRN IV NAUSEA AND/OR VOMITING; Start 04/11/17 at 20:00 Potassium Chloride/Calcium Chloride/Dextrose/ Sodium Chloride (KCl/Ca Chloride/ D5-1/4ns) 1,030 ml @ 60 mls/hr [id number] IV Last administered on 04/11/17 21: 36; Admin Dose 60 MLS/HR; Start 04/11/17 at 20:01 Oxycodone/ Acetaminophen (Percocet (5/ 325)) 1 tab Q3H PRN PO PAIN LEVEL 1-5; Start 04/11/17 at 20:30 Oxycodone/ Acetaminophen 2 tab 2 tab Q3H PRN PO PAIN LEVEL 6-10; Start at 20:30 Milrinone Lactate (Primacor) 100 ml @ 9.079 mls/ hr TITRATE IV Last administered on 04/11/17 20:00; Admin Dose 4.842 MLS/HR; Start 04/12/17 at 06 :00 NUBIA NAVARRO Apr 12, 2017 11:42
[2017-04-12] MEDS: ASPIRIN 81 MG TAB NGT SCH (14:52)
[2017-04-12] MEDS: ACETAMINOPHEN 650MG/20.3ML CUP NGT PRN (16:06)
--- NOTE | 2017-04-12 16:29 | CONS ---
Date/Time of Note Date/Time of Note DATE: 04/12/17 TIME: 16:27 Assessment/Plan Assessment/Plan Additional Assessment/Plan Non-ST elevation [place] Coronary artery disease status post CABG 04/11/2017 Acute decompensated systolic congestive heart failure Ischemic cardiomyopathy Respiratory failure, status post extubation 04/12/2017 -Patient doing well post CABG and is off IV pressors. Continue aspirin and statin therapy, beta-blockers heart rate and blood pressure permits, IV diuretics as renal function and blood pressure permits. Encourage incentive spirometry. Consultation Date/Type/Reason Admit Date/Time Apr 04, 2017 at 03:21 Initial Consult Date 04/05/17 Type of Consultation: cv Referring Provider: DOUGLAS FERRER 24 HR Interval Summary Free Text/Dictation Patient status post CABG yesterday. Extubated today. Denies shortness of breath, does have chest wall pain but improving Exam/Review of Systems Vital Signs Vitals Vital Signs Date Time Temp Pulse Resp B/P Pulse Ox O2 Delivery O2 Flow Rate FiO2 04/12/17 16:00 111 23 121/80 100 3.0 04/12/17 15:00 100.5 04/12/17 15:00 Nasal Cannula 04/12/17 10:41 40 Intake and Output 04/11/17 04/11/17 04/12/17 15:00 23:00 07:00 Intake Total 544.636 ml 3097.021 ml 1315.747 ml Output Total 170 ml 1594 ml 677 ml Balance 374.636 ml 1503.021 ml 638.747 ml Exam Following commands, no apparent distress Constitutional: alert Head: normocephalic Respiratory: other (Coarse breath sounds bilaterally, no wheezing) Cardiovascular: other (S1-S2 heard), regular rate and rhythm Gastrointestinal: bowel sounds, non-tender, soft Extremities: edema Results Result Diagram: 04/12/17 0430 04/12/17 0430 Results 24 hrs Laboratory Tests Test 04/11/17 18:33 04/11/17 18:59 04/11/17 19:37 04/11/17 19:42 Bedside Glucose 174 White Blood Count 11.1 H Red Blood Count 2.81 #L Hemoglobin 8.5 #L Hematocrit 26.1 #L Mean Corpuscular Volume 92.9 Mean Corpuscular Hemoglobin 30.2 Mean Corpuscular Hemoglobin Concent 32.6 Red Cell Distribution Width 12.3 Platelet Count 148 # Mean Platelet Volume 9.7 Neutrophils % 80.7 H Lymphocytes % 7.0 L Monocytes % 10.0 Eosinophils % 1.6 Basophils % 0.2 Nucleated Red Blood Cells % 0.0 Neutrophils # 8.9 H Lymphocytes # 0.8 Monocytes # 1.1 H Eosinophils # 0.2 Basophils # 0.0 Nucleated Red Blood Cells # 0.0 Activated Partial Thromboplast Time 32.0 Sodium Level 145 H Potassium Level 3.6 Chloride Level 107 Carbon Dioxide Level 30 Anion Gap 12 Blood Urea Nitrogen 20 Creatinine 0.98 Glucose Level 173 Calcium Level 9.0 Magnesium Level 2.7 H Blood Gas Specimen Source Blood arterial [facility] Arterial Blood Date Drawn 04/11/2017 7:20:22 PM 04/11/2017 9:28:00 PM Arterial Blood pH (Temp corrected) 7.381 Arterial Blood pCO2 (Temp correct) 47.8 H Arterial Blood pO2 (Temp corrected) 127.2 H Arterial Blood HCO3 27.7 H Arterial Blood Base Excess 2.2 Arterial Blood Oxygen Saturation 97.8 Matt Test N/A ACCEPTAB Arterial Blood Gas Puncture Site A-Line A-Line Arterial Blood Carboxyhemoglobin 0.3 Arterial Blood Methemoglobin 0.5 Blood Gas A-a O2 Differential 320.5 H Oxyhemoglobin Percent 97.0 Total Hemoglobin 8.9 L Blood Gas Temperature 37.0 37.0 Blood Gas Respiration Rate 14.0 14.0 Blood Gas Actual Respiration Rate 14 19 Blood Gas Modality VENT - AC VENT - AC FiO2 70.0 60.0 Blood Gas Tidal Volume 500.0 500.0 Blood Gas Low PEEP Setting 5.0 5.0 Blood Gas Inspiratory Pressure 24.0 20.0 Blood Gas Notified Whom MG KM Blood Gas Notified Time 04/11/2017 7:48:39 PM 04/11/2017 9:43:00 PM Mixed Venous Blood PO2 36.1 Mixed Venous Blood O2 Saturation 64.8 L Mixed Venous Blood Total Hemoglobin 9.8 Mixed Venous Blood Oxyhemoglobin 64.3 Mixed Venous Bld Carboxyhemoglobin 0.3 Mixed Venous Blood Methemoglobin 0.4 Test 04/11/17 20:00 04/11/17 21:00 04/11/17 21:26 04/11/17 21:58 Bedside Glucose 177 174 170 Blood Gas Specimen Source [facility] Arterial Blood Date Drawn 04/11/2017 9:28:20 PM Arterial Blood Gas Puncture Site A-Line Matt Test ACCEPTAB Mixed Venous Blood PO2 36.1 Mixed Venous Blood O2 Saturation 64.8 L Mixed Venous Blood Total Hemoglobin 9.8 Mixed Venous Blood Oxyhemoglobin 64.3 Mixed Venous Bld Carboxyhemoglobin 0.3 Mixed Venous Blood Methemoglobin 0.4 Blood Gas Temperature 37.0 Blood Gas Respiration Rate 14.0 Blood Gas Actual Respiration Rate 19 Blood Gas Modality VENT - AC FiO2 60.0 Blood Gas Tidal Volume 500.0 Blood Gas Low PEEP Setting 5.0 Blood Gas Inspiratory Pressure 20.0 Blood Gas Notified Whom KM Blood Gas Notified Time 04/11/2017 9:43:45 PM Test 04/11/17 22:57 04/11/17 23:57 04/12/17 00:58 04/12/17 01:58 Bedside Glucose 179 215 212 186 White Blood Count 10.8 Red Blood Count 2.83 L Hemoglobin 8.4 L Hematocrit 26.4 L Mean Corpuscular Volume 93.3 Mean Corpuscular Hemoglobin 29.7 Mean Corpuscular Hemoglobin Concent 31.8 L Red Cell Distribution Width 12.6 Platelet Count 219 # Mean Platelet Volume 10.3 Neutrophils % 83.1 H Lymphocytes % 5.8 L Monocytes % 9.8 Eosinophils % 0.6 Basophils % 0.1 Nucleated Red Blood Cells % 0.0 Neutrophils # 9.0 H Lymphocytes # 0.6 L Monocytes # 1.1 H Eosinophils # 0.1 Basophils # 0.0 Nucleated Red Blood Cells # 0.0 Prothrombin Time 15.1 H Prothrombin Time Ratio 1.2 INR International Normalized Ratio 1.18 Activated Partial Thromboplast Time 33.1 Sodium Level 144 Potassium Level 4.4 Chloride Level 108 Carbon Dioxide Level 31 Anion Gap 9 Blood Urea Nitrogen 21 H Creatinine 1.06 Glucose Level 208 Calcium Level 8.8 Magnesium Level 2.3 Test 04/12/17 03:02 04/12/17 04:00 04/12/17 04:30 04/12/17 05:01 Bedside Glucose 197 176 173 White Blood Count 8.7 Red Blood Count 2.67 L Hemoglobin 8.0 L Hematocrit 24.9 L Mean Corpuscular Volume 93.3 Mean Corpuscular Hemoglobin 30.0 Mean Corpuscular Hemoglobin Concent 32.1 Red Cell Distribution Width 12.6 Platelet Count 217 Mean Platelet Volume 10.7 H Neutrophils % 85.9 H Lymphocytes % 4.9 L Monocytes % 8.4 Eosinophils % 0.2 Basophils % 0.1 Nucleated Red Blood Cells % 0.0 Neutrophils # 7.5 Lymphocytes # 0.4 L Monocytes # 0.7 Eosinophils # 0.0 Basophils # 0.0 Nucleated Red Blood Cells # 0.0 Sodium Level 146 H Potassium Level 4.7 Chloride Level 110 Carbon Dioxide Level 28 Anion Gap 13 Blood Urea Nitrogen 21 H Creatinine 1.03 Glucose Level 187 Calcium Level 9.0 Phosphorus Level 3.9 Magnesium Level 2.3 Test 04/12/17 06:02 04/12/17 07:00 04/12/17 07:07 04/12/17 08:17 Bedside Glucose 153 144 137 Blood Gas Specimen Source Blood arterial Arterial Blood Date Drawn 04/12/2017 7:30:14 AM Arterial Blood pH (Temp corrected) 7.413 Arterial Blood pCO2 (Temp correct) 41.8 Arterial Blood pO2 (Temp corrected) 136.4 H Arterial Blood HCO3 26.1 H Arterial Blood Base Excess 1.4 Arterial Blood Oxygen Saturation 98.3 H Matt Test ACCEPTAB Arterial Blood Gas Puncture Site Right Radial Arterial Blood Carboxyhemoglobin 0.3 Arterial Blood Methemoglobin 0.4 Blood Gas A-a O2 Differential 173.1 H Oxyhemoglobin Percent 97.6 Total Hemoglobin 8.1 L Blood Gas Temperature 37.0 Blood Gas Respiration Rate 14.0 Blood Gas Actual Respiration Rate 18 Blood Gas Modality VENT - AC FiO2 50.0 Blood Gas Tidal Volume 500.0 Blood Gas Low PEEP Setting 5.0 Blood Gas Notified Whom JLD Blood Gas Notified Time 04/12/2017 8:01:54 AM Test 04/12/17 09:44 04/12/17 11:47 04/12/17 13:18 04/12/17 14:47 Bedside Glucose 123 100 116 126 Test 04/12/17 15:47 Bedside Glucose 102 Medications Medications Current Medications Lorazepam (Ativan) 0.5 mg Q6H PRN IV ANXIETY Last administered on 04/06/17t 23 :08; Admin Dose 0.5 MG; Start 04/04/17 at 03:30 Dextrose (D50w Syringe) 25 ml Q15M PRN IV Till BS 80 mg/dL or above x2; Start 04/04/17 at 09:30 Dextrose (D50w Syringe) 50 ml Q15M PRN IV Till BS 80 mg/dL or above x2; Start 04/04/17 at 09:30 Aspirin 81 mg 81 mg DAILY NGT Last administered on 04/12/17 14:52; Admin Dose 81 MG; Start 04/04/17 at 09:30 Propofol (Diprivan) 100 ml @ 2.421 mls/ hr Q12H IV Last administered on 06:59; Admin Dose 19.368 MLS/HR; Start 04/04/17 at 09:30 Atorvastatin Calcium 80 mg 80 mg HS NGT Last administered on 04/10/17 20:57; Admin Dose 80 MG; Start 04/04/17 at 21:00 Levetiracetam (Keppra 1,000mg/ 100ml (Pmx)) 100 ml @ 400 mls/hr Q12 IVPB Last administered on 04/12/17 09:28; Admin Dose 400 MLS/HR; Start 04/05/17 at 11: 00 Heparin Sodium (Porcine) (Heparin (5000 Units/0.5 ml)) 5,000 unit Q8 SC Last administered on 04/10/17 13:32; Admin Dose 5,000 UNIT; Start 04/06/17 at 14: 00; Status Future Hold Acetaminophen 650 mg 650 mg Q4H PRN NGT PAIN AND OR ELEVATED TEMP Last administered on 04/12/17 16:06; Admin Dose 650 MG; Start 04/07/17 at 09:30 Cefepime HCl 50 ml @ 100 mls/hr Q12 IVPB Last administered on 04/12/17 09:54 ; Admin Dose 100 MLS/HR; Start 04/07/17 at 13:00 Norepinephrine/ Dextrose (Levophed/D5W) 500 ml @ 1.87 mls/hr TITRATE IV Last administered on 04/10/17 04:41; Admin Dose 3.75 MLS/HR; Start 04/08/17 at 22: 30 Metoprolol Tartrate 12.5 mg 12.5 mg BID GTB Last administered on 04/10/17 08: 10; Admin Dose 12.5 MG; Start 04/09/17 at 21:00 Vancomycin HCl/ Sodium Chloride (Vancocin/NS) 250 ml @ 83.333 mls/ hr Q12H IVPB Last administered on 04/12/17 04:14; Admin Dose 83.333 MLS/HR; Start at 17:00 Morphine Sulfate (morphine) 2 mg Q2H PRN IV PAIN LEVEL 4-7 Last administered on 04/12/17 16:17; Admin Dose 2 MG; Start 04/11/17 at 20:00 Hydromorphone HCl (Dilaudid) 0.2 mg Q10MIN PRN IM PAIN LEVEL 4-6; Start at 20:00 Hydromorphone HCl 0.4 mg 0.4 mg Q10MIN PRN IV PAIN LEVEL 7-10 Last administered on 04/12/17 08:52; Admin Dose 0.4 MG; Start 04/11/17 at 20:00 Magnesium Sulfate (Magnesium Sulfate 2 Gm/50 ml) 50 ml @ 25 mls/hr IV PRN IVPB NOTE; Start 04/11/17 at 20:00 Ondansetron HCl (Zofran Inj) 4 mg Q6H PRN IV NAUSEA AND/OR VOMITING; Start at 20:00 Oxycodone/ Acetaminophen (Percocet (5/ 325)) 1 tab Q3H PRN PO PAIN LEVEL 1-5; Start 04/11/17 at 20:30 Oxycodone/ Acetaminophen 2 tab 2 tab Q3H PRN PO PAIN LEVEL 6-10; Start at 20:30 Milrinone Lactate (Primacor) 100 ml @ 9.079 mls/ hr TITRATE IV Last administered on 04/11/17 20:00; Admin Dose 4.842 MLS/HR; Start 04/12/17 at 06 :00 Famotidine (Pepcid Iv) 20 mg BID IV ; Start 04/13/17 at 09:00 Miscellaneous Information (*Rx Drug Level Order Reminder*) VANCO TROUGH @ 1, 600 ON ... ONCE ONCE XX ; Start 04/13/17 at 16:00; Stop 04/13/17 at 16:01 Ghanshyam Lin DO Apr 12, 2017 16:28
--- NOTE | 2017-04-12 16:47 | PN ---
Date/Time of Note Date/Time of Note DATE: 04/12/17 TIME: 16:45 Assessment/Plan Lines/Catheters IV Catheter Type (from Nrsg): [place] in Place (from Nrsg): Yes Assessment/Plan Chief Complaint/Hosp Course IMPRESSION: 1. Coronary artery disease. 2. Non-ST elevation myocardial infarction. 3. Seizure disorder. 4. Diabetes with diabetic ketoacidosis. 5. HX CVA 6. Respiratory failure. pt reintubated SP We will proceed with coronary artery bypass grafting Will DC PA Line OOB Ambulation Discussed with Dr Roa Problems: Subjective 24 Hr Interval Summary Constitutional: improved Pain Control: mild Exam/Review of Systems Vital Signs Vitals Vital Signs Date Time Temp Pulse Resp B/P Pulse Ox O2 Delivery O2 Flow Rate FiO2 04/12/17 16:00 111 23 121/80 100 3.0 04/12/17 15:00 100.5 04/12/17 15:00 Nasal Cannula 04/12/17 10:41 40 Intake and Output 04/11/17 04/11/17 04/12/17 15:00 23:00 07:00 Intake Total 544.636 ml 3097.021 ml 1315.747 ml Output Total 170 ml 1594 ml 677 ml Balance 374.636 ml 1503.021 ml 638.747 ml Exam ENMT: mucosa pink and moist, nl external ears & nose, nl lips & teeth, nl nasal mucosa & septum Neck: non-tender, supple Respiratory: clear to auscultation, normal air movement Cardiovascular: nl pulses, regular rate and rhythm Results Result Diagram: 04/12/17 0430 04/12/17429 NORIS HARRIS MD Apr 12, 2017 16:47
[2017-04-12] MEDS: ATORVASTATIN 80 MG TAB NGT SCH (20:21)
[2017-04-13] VITALS (24 sets, daily range): BP systolic 105–134; BP diastolic 75–93; PULSE 96–115; RESP 17–32
[2017-04-13] MEDS: HYDROmorphONE 0.5 MG/0.5 ML SYG IV PRN (01:46)
[2017-04-13] MEDS: VANCOMYCIN 1.25 GM in SOD CHLORIDE 0.9% 250 ML IVPB SCH ×2 (04:31→16:59)
[2017-04-13] MEDS: morphine 2 MG INJ IV PRN ×2 (04:32→23:52)
[2017-04-13] MEDS: FUROSEMIDE 20 MG INJ IV SCH ×2 (04:53→16:59)
[2017-04-13 05:19] LABS: BASOPHILS % 0.2 % (0.0-2.0); EOSINOPHILS % 0.3 % (0.0-7.0); HEMATOCRIT 25.5 % (42.0-52.0); LYMPHOCYTES # 0.9 10^3/ul (0.8-2.9); LYMPHOCYTES % 7.6 % (15.0-51.0); MEAN CORPUSCULAR HEMOGLOBIN 30.1 pg (29.0-33.0); MEAN CORPUSCULAR HGB CONC 31.4 g/dl (32.0-37.0); MEAN CORPUSCULAR VOLUME 95.9 fl (82.0-101.0); MEAN PLATELET VOLUME 11.3 fl (7.4-10.4); MONOCYTE # 1.2 10^3/ul (0.3-0.9); NEUTROPHIL # 9.9 10^3/ul (1.6-7.5); NEUTROPHILS % 81.3 % (39.0-77.0); PLATELET COUNT 251 10^3/UL (140-415); RED BLOOD COUNT 2.66 10^6/ul (4.70-6.10); RED CELL DISTRIBUTION WIDTH 12.8 % (11.5-14.5); WHITE BLOOD COUNT 12.2 10^3/ul (4.8-10.8)
[2017-04-13 05:44] LABS: CALCIUM 9.1 mg/dl (8.4-10.2); CREATININE 1.04 mg/dl (0.61-1.24); POTASSIUM 4.3 mmol/L (3.5-5.1)
[2017-04-13 05:58] LABS: MAGNESIUM 2.2 mg/dl (1.7-2.5); PHOSPHORUS 4.2 mg/dl (2.5-4.9)
[2017-04-13] MEDS: METOPROLOL 25 MG TAB GTB SCH ×2 (07:58→20:03)
[2017-04-13] MEDS: ASPIRIN 81 MG TAB NGT SCH (07:59)
[2017-04-13] MEDS: FAMOTIDINE 20 MG INJ IV SCH ×2 (08:47→20:03)
[2017-04-13] MEDS: LEVETIRACETAM 1000 MG (PMX) 100 ML IVPB SCH ×2 (08:47→20:03)
[2017-04-13] MEDS: CEFEPIME 1GM/50 ML (PMX) 50 ML IVPB SCH ×2 (08:48→20:03)
[2017-04-13] MEDS ORDERED: ACETAMINOPHEN 650 MG SUPP PR PRN (09:30)
--- NOTE | 2017-04-13 09:58 | PN ---
Date/Time of Note Date/Time of Note DATE: 04/13/17 TIME: 09:37 Assessment/Plan VTE Prophylaxis VTE Prophylaxis Intervention: SCD's Lines/Catheters IV [facility] Type [facility] PICC Line Central line still needed: Yes (IV access) Urinary Cath still in place: Yes Reason Cath still needed: other (indicate) (Bedridden for now) Assessment/Plan Assessment/Plan 52-year-old male with: 1. Status post CABG by Dr. Herron postoperative day #2. NSTEMI on admission with known coronary artery disease, status post stents 3 years ago Continue current cardiac medications. Continue current medications, cardiology and CTS following. Patient extubated, failed swallow study, NG tube to be replaced so that he can get most important disc his cardiac medication. 2. Seizures, unclear etiology but could be secondary to DKA versus intracranial pathology. 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 Neurology following patient. EEG with encephalopathy Continue Ford, ramiro Neurology recs. PT/OT/ST 3. Acute respiratory failure. Status post extubation yesterday, on 4 L nasal cannula and stable today. POD#2 s/p CABG. All cx sent, Blood cx positive with coag negative staph+alpha hemolytic strep, repeat blood cx negative. On Vanco and cefepime as of 04/07 Continue diuresis and vent management per pulmonary hopefully to be extubated today. 4. S/p Diabetic ketoacidosis, known diabetes mellitus with noncompliance with diet or medications. Patient has been off medication for at least 1-2 month, status post DKA protocol on admission. Patient on insulin drip currently post CABG. Will resume subacute insulin regimen once back on tube feedings Hemoglobin A1c out of range. Diabetic education once extubated and awake. Likely to need insulin therapy. Apparently he was on metformin and glipizide based on his medication reconciliation prior. 5. Diabetes mellitus, known noncompliance with medication, diet or follow-ups. Diabetic education after extubation, will require insulin therapy, see #4 6. Coronary artery disease, status post PCI and stent placed according to the sister, 3 years ago in [place]. Now status post CABG POD#2 CTS and cardiology following. See #1 7. Hyperlipidemia: Continue Lipitor 80 mg qhs. 8. Acute kidney injury, renal function much improved Replete electrolytes as needed. Prophylaxis: SCDs for DVT prophylaxis, Pepcid for GI prophylaxis Disposition: In ICU on Vent, s/p CABG , POD#2. Cardiology, cardiothoracic surgery, pulmonary and Neurology following. PT/OT/ST will be ordered. Prognosis is fair. Subjective 24 Hr Interval Summary Free Text/Dictation Patient on 4 L nasal cannula, fairly stable, low-grade temperatures with a T- max of 100.5. Sounds rhonchorous, failed swallow evaluation, NG tube will be placed since patient does need some p.o. medications. Speech evaluation to continue, PT eval will be ordered. Exam/Review of Systems Vital Signs Vitals Vital Signs Date Time Temp Pulse Resp B/P Pulse Ox O2 Delivery O2 Flow Rate FiO2 04/13/17 08:00 Nasal Cannula 04/13/17 08:00 115 04/13/17 08:00 100.2 30 133/87 95 4.0 04/12/17 10:41 40 Intake and Output 04/12/17 04/12/17 04/13/17 15:00 23:00 07:00 Intake Total 260.2 ml 158 ml 257 ml Output Total 462 ml 1129 ml 1269 ml Balance -201.8 ml -971 ml -1012 ml Exam Constitutional: alert, oriented (x3), other (With dysphagia and dysarthria.) Respiratory: diminished breath sounds (Bases bilaterally), normal air movement , other (Slightly rhonchorous especially at the base) Cardiovascular: nl pulses, regular rate and rhythm Gastrointestinal: non-tender, soft Musculoskeletal: nl extremities to inspection Extremities: normal pulses, other (No edema, clubbing or cyanosis) 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: 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5 L Mean Corpuscular Volume 95.9 Mean Corpuscular Hemoglobin 30.1 Mean Corpuscular Hemoglobin Concent 31.4 L Red Cell Distribution Width 12.8 Platelet Count 251 Mean Platelet Volume 11.3 H Neutrophils % 81.3 H Lymphocytes % 7.6 L Monocytes % 10.0 Eosinophils % 0.3 Basophils % 0.2 Nucleated Red Blood Cells % 0.0 Neutrophils # 9.9 H Lymphocytes # 0.9 Monocytes # 1.2 H Eosinophils # 0.0 Basophils # 0.0 Nucleated Red Blood Cells # 0.0 Sodium Level 147 H Potassium Level 4.3 Chloride Level 108 Carbon Dioxide Level 27 Anion Gap 16 Blood Urea Nitrogen 29 H Creatinine 1.04 Glucose Level 107 # Calcium Level 9.1 Phosphorus Level 4.2 Magnesium Level 2.2 Bedside Glucose 120 113 Medications Medications Current Medications Lorazepam (Ativan) 0.5 mg Q6H PRN IV ANXIETY Last administered on 04/06/17 23 :08; Admin Dose 0.5 MG; Start 04/04/17 at 03:30 Dextrose (D50w Syringe) 25 ml Q15M PRN IV Till BS 80 mg/dL or above x2; Start 04/04/17 at 09:30 Dextrose (D50w Syringe) 50 ml Q15M PRN IV Till BS 80 mg/dL or above x2; Start 04/04/17 at 09:30 Aspirin (Aspirin) 81 mg DAILY NGT Last administered on 04/12/17 14:52; Admin Dose 81 MG; Start 04/04/17 at 09:30 Atorvastatin Calcium 80 mg 80 mg HS NGT Last administered on 04/10/17 20:57; Admin Dose 80 MG; Start 04/04/17 at 21:00 Levetiracetam (Keppra 1,000mg/ 100ml (Pmx)) 100 ml @ 400 mls/hr Q12 IVPB Last administered on 04/13/17 08:47; Admin Dose 400 MLS/HR; Start 04/05/17 at 11: 00 Heparin Sodium (Porcine) (Heparin (5000 Units/0.5 ml)) 5,000 unit Q8 SC Last administered on 04/10/17 13:32; Admin Dose 5,000 UNIT; Start 04/06/17 at 14: 00; Status Future Hold Acetaminophen 650 mg 650 mg Q4H PRN NGT PAIN AND OR ELEVATED TEMP Last administered on 04/12/17 16:06; Admin Dose 650 MG; Start 04/07/17 at 09:30 Cefepime HCl 50 ml @ 100 mls/hr Q12 IVPB Last administered on 04/13/17 08:48 ; Admin Dose 100 MLS/HR; Start 04/07/17 at 13:00 Norepinephrine/ Dextrose (Levophed/D5W) 500 ml @ 1.87 mls/hr TITRATE IV Last administered on 04/10/17 04:41; Admin Dose 3.75 MLS/HR; Start 04/08/17 at 22: 30 Metoprolol Tartrate 12.5 mg 12.5 mg BID GTB Last administered on 04/10/17 08: 10; Admin Dose 12.5 MG; Start 04/09/17 at 21:00 Vancomycin HCl/ Sodium Chloride (Vancocin/NS) 250 ml @ 83.333 mls/ hr Q12H IVPB Last administered on 04/13/17 04:31; Admin Dose 83.333 MLS/HR; Start at 17:00 Morphine Sulfate (morphine) 2 mg Q2H PRN IV PAIN LEVEL 4-7 Last administered on 04/13/17 04:32; Admin Dose 2 MG; Start 04/11/17 at 20:00 Hydromorphone HCl (Dilaudid) 0.2 mg Q10MIN PRN IM PAIN LEVEL 4-6; Start at 20:00 Hydromorphone HCl 0.4 mg 0.4 mg Q10MIN PRN IV PAIN LEVEL 7-10 Last administered on 04/13/17 01:46; Admin Dose 0.4 MG; Start 04/11/17 at 20:00 Magnesium Sulfate (Magnesium Sulfate 2 Gm/50 ml) 50 ml @ 25 mls/hr IV PRN IVPB NOTE; Start 04/11/17 at 20:00 Ondansetron HCl (Zofran Inj) 4 mg Q6H PRN IV NAUSEA AND/OR VOMITING; Start at 20:00 Oxycodone/ Acetaminophen (Percocet (5/ 325)) 1 tab Q3H PRN PO PAIN LEVEL 1-5; Start 04/11/17 at 20:30 Oxycodone/ Acetaminophen 2 tab 2 tab Q3H PRN PO PAIN LEVEL 6-10; Start at 20:30 Milrinone Lactate (Primacor) 100 ml @ 9.079 mls/ hr TITRATE IV Last administered on 04/11/17 20:00; Admin Dose 4.842 MLS/HR; Start 04/12/17 at 06 :00 Famotidine (Pepcid Iv) 20 mg BID IV Last administered on 04/13/17 08:47; Admin Dose 20 MG; Start 04/13/17 at 09:00 Miscellaneous Information (*Rx Drug Level Order Reminder*) VANCO TROUGH @ 1, 600 ON ... ONCE ONCE XX ; Start 04/13/17 at 16:00; Stop 04/13/17 at 16:01 Acetaminophen (Tylenol Supp) 650 mg Q6H PRN [place] FEVER; Start 04/13/17 at 09:30 DOUGLAS FERRER Apr 13, 2017 09:47
--- NOTE | 2017-04-13 11:43 | CONS ---
Date/Time of Note Date/Time of Note DATE: 04/13/17 TIME: 11:41 Assessment/Plan Assessment/Plan Additional Assessment/Plan Assessment and recommendations; 1. Patient admitted with DKA with severe metabolic acidosis with respiratory failure. 2. Development of acute VT during current admission requiring CABG surgery. Patient extubated yesterday with excellent overall clinical status. 3. Chronic stable seizure disorder. 4. Bilateral pneumonia with interval improvement. Possibly aspiration. 5. Chronic ischemic changes seen on MRI of the brain. Patient however not exhibiting any neurological deficit. 6. Acute renal injury with normalization of renal function. Continue current treatment. Patient responding very well to current treatment regimen. Consultation Date/Type/Reason Admit Date/Time Apr 04, 2017 at 03:21 Initial Consult Date 04/04/17 Type of Consultation: Pulmonary/critical care Referring Provider: DOUGLAS FERRER 24 HR Interval Summary Free Text/Dictation Patient condition is stable. Remains completely awake alert. However still having difficulty talking and swallowing. Denies any shortness of breath. Complains of mild chest pain at sternal incision. General exam; middle-aged male, awake alert, currently in no distress. Exam/Review of Systems Vital Signs Vitals Vital Signs Date Time Temp Pulse Resp B/P Pulse Ox O2 Delivery O2 Flow Rate FiO2 04/13/17 10:00 111 32 131/84 93 Nasal Cannula 4.0 04/13/17 08:00 100.2 04/12/17 10:41 40 Intake and Output 04/12/17 04/12/17 04/13/17 15:00 23:00 07:00 Intake Total 260.2 ml 158 ml 257 ml Output Total 462 ml 1129 ml 1269 ml Balance -201.8 ml -971 ml -1012 ml Exam HEENT exam; supple neck, no JVD. No lymphadenopathy. Midline trachea. No thyromegaly. Patient has fair dentition. Pupils are small bilaterally. No neck masses. Chest exam; clear to auscultation. S1-S2 audible, no murmurs. Regular rhythm. There is a well-healing sternal scar. Abdomen exam; soft, no organomegaly. Bowel sounds audible. Nontender. Extremity exam; no peripheral edema. Pulses 1+ bilaterally. 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 Results Result Diagram: 04/13/1739904/13/17399 Results 24 hrs Laboratory Tests Test 04/12/17 11:47 04/12/17 13:18 04/12/17 14:47 04/12/17 15:47 Bedside Glucose 100 116 126 102 Test 04/12/17 16:59 04/12/17 18:45 04/12/17 20:00 04/12/17 21:07 Bedside Glucose 107 135 101 Hematocrit 25.6 L Test 04/12/17 23:43 04/13/17 02:16 04/13/17 03:51 04/13/17 04:00 Bedside Glucose 104 118 116 White Blood Count 12.2 #H Red Blood Count 2.66 L Hemoglobin 8.0 L Hematocrit 25.5 L Mean Corpuscular Volume 95.9 Mean Corpuscular Hemoglobin 30.1 Mean Corpuscular Hemoglobin Concent 31.4 L Red Cell Distribution Width 12.8 Platelet Count 251 Mean Platelet Volume 11.3 H Neutrophils % 81.3 H Lymphocytes % 7.6 L Monocytes % 10.0 Eosinophils % 0.3 Basophils % 0.2 Nucleated Red Blood Cells % 0.0 Neutrophils # 9.9 H Lymphocytes # 0.9 Monocytes # 1.2 H Eosinophils # 0.0 Basophils # 0.0 Nucleated Red Blood Cells # 0.0 Sodium Level 147 H Potassium Level 4.3 Chloride Level 108 Carbon Dioxide Level 27 Anion Gap 16 Blood Urea Nitrogen 29 H Creatinine 1.04 Glucose Level 107 # Calcium Level 9.1 Phosphorus Level 4.2 Magnesium Level 2.2 Test 04/13/17 07:04 04/13/17 08:52 Bedside Glucose 120 113 Medications Medications Current Medications Lorazepam (Ativan) 0.5 mg Q6H PRN IV ANXIETY Last administered on 04/06/17 23 :08; Admin Dose 0.5 MG; Start 04/04/17 at 03:30 Dextrose (D50w Syringe) 25 ml Q15M PRN IV Till BS 80 mg/dL or above x2; Start 04/04/17 at 09:30 Dextrose (D50w Syringe) 50 ml Q15M PRN IV Till BS 80 mg/dL or above x2; Start 04/04/17 at 09:30 Aspirin (Aspirin) 81 mg DAILY NGT Last administered on 04/12/17 14:52; Admin Dose 81 MG; Start 04/04/17 at 09:30 Atorvastatin Calcium 80 mg 80 mg HS NGT Last administered on 04/10/17 20:57; Admin Dose 80 MG; Start 04/04/17 at 21:00 Levetiracetam (Keppra 1,000mg/ 100ml (Pmx)) 100 ml @ 400 mls/hr Q12 IVPB Last administered on 04/13/17 08:47; Admin Dose 400 MLS/HR; Start 04/05/17 at 11: 00 Heparin Sodium (Porcine) (Heparin (5000 Units/0.5 ml)) 5,000 unit Q8 SC Last administered on 04/10/17 13:32; Admin Dose 5,000 UNIT; Start 04/06/17 at 14: 00; Status Future Hold Acetaminophen 650 mg 650 mg Q4H PRN NGT PAIN AND OR ELEVATED TEMP Last administered on 04/12/17 16:06; Admin Dose 650 MG; Start 04/07/17 at 09:30 Cefepime HCl 50 ml @ 100 mls/hr Q12 IVPB Last administered on 04/13/17 08:48 ; Admin Dose 100 MLS/HR; Start 04/07/17 at 13:00 Norepinephrine/ Dextrose (Levophed/D5W) 500 ml @ 1.87 mls/hr TITRATE IV Last administered on 04/10/17 04:41; Admin Dose 3.75 MLS/HR; Start 04/08/17 at 22: 30 Metoprolol Tartrate 12.5 mg 12.5 mg BID GTB Last administered on 04/10/17 08: 10; Admin Dose 12.5 MG; Start 04/09/17 at 21:00 Vancomycin HCl/ Sodium Chloride (Vancocin/NS) 250 ml @ 83.333 mls/ hr Q12H IVPB Last administered on 04/13/17 04:31; Admin Dose 83.333 MLS/HR; Start at 17:00 Morphine Sulfate (morphine) 2 mg Q2H PRN IV PAIN LEVEL 4-7 Last administered on 04/13/17 04:32; Admin Dose 2 MG; Start 04/11/17 at 20:00 Hydromorphone HCl (Dilaudid) 0.2 mg Q10MIN PRN IM PAIN LEVEL 4-6; Start at 20:00 Hydromorphone HCl 0.4 mg 0.4 mg Q10MIN PRN IV PAIN LEVEL 7-10 Last administered on 04/13/17 01:46; Admin Dose 0.4 MG; Start 04/11/17 at 20:00 Magnesium Sulfate (Magnesium Sulfate 2 Gm/50 ml) 50 ml @ 25 mls/hr IV PRN IVPB NOTE; Start 04/11/17 at 20:00 Ondansetron HCl (Zofran Inj) 4 mg Q6H PRN IV NAUSEA AND/OR VOMITING; Start at 20:00 Oxycodone/ Acetaminophen (Percocet (5/ 325)) 1 tab Q3H PRN PO PAIN LEVEL 1-5; Start 04/11/17 at 20:30 Oxycodone/ Acetaminophen 2 tab 2 tab Q3H PRN PO PAIN LEVEL 6-10; Start at 20:30 Milrinone Lactate (Primacor) 100 ml @ 9.079 mls/ hr TITRATE IV Last administered on 04/11/17 20:00; Admin Dose 4.842 MLS/HR; Start 04/12/17 at 06 :00 Famotidine (Pepcid Iv) 20 mg BID IV Last administered on 04/13/17 08:47; Admin Dose 20 MG; Start 04/13/17 at 09:00 Miscellaneous Information (*Rx Drug Level Order Reminder*) VANCO TROUGH @ 1, 600 ON ... ONCE ONCE XX ; Start 04/13/17 at 16:00; Stop 04/13/17 at 16:01 Acetaminophen (Tylenol Supp) 650 mg Q6H PRN [place] FEVER; Start 04/13/17 at 09:30 NUBIA NAVARRO Apr 13, 2017 11:43
--- NOTE | 2017-04-13 12:39 | RADRPT ---
PROCEDURE: XR Abdomen. CLINICAL INDICATION: NG tube placement TECHNIQUE: AP abdomen x-ray. COMPARISON: None. FINDINGS: The bowel gas pattern is normal. There is no evidence of free air or obstruction. There are no abnor mal calcifications overlying the urinary tracts. The osseus structures are unremarkable. NG tube tip overlying the antrum of the stomach. To some dru es overlying the anterior abdomen. IMPRESSION: 1. No free air or obstruction. NG tube in satisfactory position RPTAT:AAJJ Physician Verena Date Time Electronically viewed and signed by Physician Verena on 04/13/2017 12:38 LOUISE/
--- NOTE | 2017-04-13 13:12 | PN ---
Date/Time of Note Date/Time of Note DATE: 04/13/17 TIME: 13:10 Assessment/Plan Lines/Catheters IV Catheter Type (from Nrsg): PICC Line [place] in Place (from Nrsg): Yes Assessment/Plan Chief Complaint/Hosp Course IMPRESSION: 1. Coronary artery disease. 2. Non-ST elevation myocardial infarction. 3. Seizure disorder. 4. Diabetes with diabetic ketoacidosis. 5. HX CVA 6. Respiratory failure. pt reintubated SP CABG OOB Ambulation Discussed with Dr Roa continue CT sxn Problems: Subjective 24 Hr Interval Summary Constitutional: improved Pain Control: mild Exam/Review of Systems Vital Signs Vitals Vital Signs Date Time Temp Pulse Resp B/P Pulse Ox O2 Delivery O2 Flow Rate FiO2 04/13/17 13:00 108 24 133/91 100 Nasal Cannula 4.0 04/13/17 12:00 102.0 04/12/17 10:41 40 Intake and Output 04/12/17 04/12/17 04/13/17 15:00 23:00 07:00 Intake Total 260.2 ml 158 ml 257 ml Output Total 462 ml 1129 ml 1269 ml Balance -201.8 ml -971 ml -1012 ml Exam Neck: non-tender, supple Respiratory: clear to auscultation, normal air movement Cardiovascular: nl pulses, regular rate and rhythm Gastrointestinal: nl liver, spleen, non-tender, soft Results Result Diagram: 04/13/17 0400 04/13/17399 NORIS HARRIS MD Apr 13, 2017 13:12
--- NOTE | 2017-04-13 14:28 | CONS ---
Date/Time of Note Date/Time of Note DATE: 04/13/17 TIME: 14:07 Assessment/Plan Assessment/Plan Additional Assessment/Plan Non-ST elevation [place] Coronary artery disease status post CABG 04/11/2017 Acute decompensated systolic congestive heart failure Ischemic cardiomyopathy Respiratory failure, status post extubation 04/12/2017 -Blood pressure trend remains stable, patient did not pass speech and swallow evaluation and not getting p.o. medications. Would switch aspirin to per rectum until able to take p.o., start statin therapy and beta-kayy when able to take p.o. Continue IV diuretics as renal function and blood pressure tolerates. Maintain potassium above 4.0 and magnesium above 2.0. Encourage incentive spirometry. Consultation Date/Type/Reason Admit Date/Time Apr 04, 2017 at 03:21 Initial Consult Date 04/05/17 Type of Consultation: cv Referring Provider: DOUGLAS FERRER 24 HR Interval Summary Free Text/Dictation Denies shortness of breath, chest wall pain improving, as per nursing staff, did not pass speech and swallow and pulled out NG tube Exam/Review of Systems Vital Signs Vitals Vital Signs Date Time Temp Pulse Resp B/P Pulse Ox O2 Delivery O2 Flow Rate FiO2 04/13/17 13:00 108 24 133/91 100 Nasal Cannula 4.0 04/13/17 12:00 102.0 04/12/17 10:41 40 Intake and Output 04/12/17 04/12/17 04/13/17 15:00 23:00 07:00 Intake Total 260.2 ml 158 ml 257 ml Output Total 462 ml 1129 ml 1269 ml Balance -201.8 ml -971 ml -1012 ml Exam No apparent distress, following commands Constitutional: alert Head: normocephalic Respiratory: other (Coarse breath sounds bilaterally, no wheezing) Cardiovascular: other (S1-S2 heard), regular rate and rhythm Gastrointestinal: bowel sounds, non-tender, soft Extremities: edema Results Result Diagram: 04/13/17 0400 04/13/17 0400 Results 24 hrs Laboratory Tests Test 04/12/17 14:47 04/12/17 15:47 04/12/17 16:59 04/12/17 18:45 Bedside Glucose 126 102 107 135 Test 04/12/17 20:00 04/12/17 21:07 04/12/17 23:43 04/13/17 02:16 Hematocrit 25.6 L Bedside Glucose 101 104 118 Test 04/13/17 03:51 04/13/17 04:00 04/13/17 07:04 04/13/17 08:52 Bedside Glucose 116 120 113 White Blood Count 12.2 #H Red Blood Count 2.66 L Hemoglobin 8.0 L Hematocrit 25.5 L Mean Corpuscular Volume 95.9 Mean Corpuscular Hemoglobin 30.1 Mean Corpuscular Hemoglobin Concent 31.4 L Red Cell Distribution Width 12.8 Platelet Count 251 Mean Platelet Volume 11.3 H Neutrophils % 81.3 H Lymphocytes % 7.6 L Monocytes % 10.0 Eosinophils % 0.3 Basophils % 0.2 Nucleated Red Blood Cells % 0.0 Neutrophils # 9.9 H Lymphocytes # 0.9 Monocytes # 1.2 H Eosinophils # 0.0 Basophils # 0.0 Nucleated Red Blood Cells # 0.0 Sodium Level 147 H Potassium Level 4.3 Chloride Level 108 Carbon Dioxide Level 27 Anion Gap 16 Blood Urea Nitrogen 29 H Creatinine 1.04 Glucose Level 107 # Calcium Level 9.1 Phosphorus Level 4.2 Magnesium Level 2.2 Test 04/13/17 11:44 04/13/17 13:28 Bedside Glucose 110 103 Medications Medications Current Medications Lorazepam (Ativan) 0.5 mg Q6H PRN IV ANXIETY Last administered on 04/06/17 23 :08; Admin Dose 0.5 MG; Start 04/04/17 at 03:30 Dextrose (D50w Syringe) 25 ml Q15M PRN IV Till BS 80 mg/dL or above x2; Start 04/04/17 at 09:30 Dextrose (D50w Syringe) 50 ml Q15M PRN IV Till BS 80 mg/dL or above x2; Start 04/04/17 at 09:30 Aspirin (Aspirin) 81 mg DAILY NGT Last administered on 04/12/17 14:52; Admin Dose 81 MG; Start 04/04/17 at 09:30 Atorvastatin Calcium 80 mg 80 mg HS NGT Last administered on 04/10/17 20:57; Admin Dose 80 MG; Start 04/04/17 at 21:00 Levetiracetam (Keppra 1,000mg/ 100ml (Pmx)) 100 ml @ 400 mls/hr Q12 IVPB Last administered on 04/13/17 08:47; Admin Dose 400 MLS/HR; Start 04/05/17 at 11: 00 Heparin Sodium (Porcine) (Heparin (5000 Units/0.5 ml)) 5,000 unit Q8 SC Last administered on 04/10/17 13:32; Admin Dose 5,000 UNIT; Start 04/06/17 at 14: 00; Status Future Hold Acetaminophen 650 mg 650 mg Q4H PRN NGT PAIN AND OR ELEVATED TEMP Last administered on 04/12/17 16:06; Admin Dose 650 MG; Start 04/07/17 at 09:30 Cefepime HCl 50 ml @ 100 mls/hr Q12 IVPB Last administered on 04/13/17 08:48 ; Admin Dose 100 MLS/HR; Start 04/07/17 at 13:00 Norepinephrine/ Dextrose (Levophed/D5W) 500 ml @ 1.87 mls/hr TITRATE IV Last administered on 04/10/17 04:41; Admin Dose 3.75 MLS/HR; Start 04/08/17 at 22: 30 Metoprolol Tartrate 12.5 mg 12.5 mg BID GTB Last administered on 04/10/17 08: 10; Admin Dose 12.5 MG; Start 04/09/17 at 21:00 Vancomycin HCl/ Sodium Chloride (Vancocin/NS) 250 ml @ 83.333 mls/ hr Q12H IVPB Last administered on 04/13/17 04:31; Admin Dose 83.333 MLS/HR; Start at 17:00 Morphine Sulfate (morphine) 2 mg Q2H PRN IV PAIN LEVEL 4-7 Last administered on 04/13/17 04:32; Admin Dose 2 MG; Start 04/11/17 at 20:00 Hydromorphone HCl (Dilaudid) 0.2 mg Q10MIN PRN IM PAIN LEVEL 4-6; Start at 20:00 Hydromorphone HCl 0.4 mg 0.4 mg Q10MIN PRN IV PAIN LEVEL 7-10 Last administered on 04/13/17 01:46; Admin Dose 0.4 MG; Start 04/11/17 at 20:00 Magnesium Sulfate (Magnesium Sulfate 2 Gm/50 ml) 50 ml @ 25 mls/hr IV PRN IVPB NOTE; Start 04/11/17 at 20:00 Ondansetron HCl (Zofran Inj) 4 mg Q6H PRN IV NAUSEA AND/OR VOMITING; Start at 20:00 Oxycodone/ Acetaminophen (Percocet (5/ 325)) 1 tab Q3H PRN PO PAIN LEVEL 1-5; Start 04/11/17 at 20:30 Oxycodone/ Acetaminophen 2 tab 2 tab Q3H PRN PO PAIN LEVEL 6-10; Start at 20:30 Milrinone Lactate (Primacor) 100 ml @ 9.079 mls/ hr TITRATE IV Last administered on 04/11/17 20:00; Admin Dose 4.842 MLS/HR; Start 04/12/17 at 06 :00 Famotidine (Pepcid Iv) 20 mg BID IV Last administered on 04/13/17 08:47; Admin Dose 20 MG; Start 04/13/17 at 09:00 Miscellaneous Information (*Rx Drug Level Order Reminder*) VANCO TROUGH @ 1, 600 ON ... ONCE ONCE XX ; Start 04/13/17 at 16:00; Stop 04/13/17 at 16:01 Acetaminophen (Tylenol Supp) 650 mg Q6H PRN [place] FEVER Last administered on 04/13 12:44; Admin Dose 650 MG; Start 04/13/17 at 09:30 Ghanshyam Lin DO Apr 13, 2017 14:09
[2017-04-13] MEDS: ASPIRIN 300 MG SUPP PR SCH (14:30)
[2017-04-13] MEDS: ATORVASTATIN 80 MG TAB NGT SCH (20:03)
[2017-04-14] VITALS (24 sets, daily range): BP systolic 105–131; BP diastolic 75–103; PULSE 94–112; RESP 16–30
[2017-04-14] MEDS: VANCOMYCIN 1.25 GM in SOD CHLORIDE 0.9% 250 ML IVPB SCH ×2 (05:23→17:44)
[2017-04-14] MEDS: FUROSEMIDE 20 MG INJ IV SCH ×2 (06:12→17:44)
[2017-04-14 06:13] LABS: BASOPHILS % 0.2 % (0.0-2.0); RED CELL DISTRIBUTION WIDTH 12.4 % (11.5-14.5)
[2017-04-14 06:20] LABS: EOSINOPHILS # 0.2 10^3/ul (0.0-0.5); EOSINOPHILS % 1.6 % (0.0-7.0); HEMATOCRIT 26.2 % (42.0-52.0); HEMOGLOBIN 8.2 g/dl (14.0-18.0); LYMPHOCYTES # 1.4 10^3/ul (0.8-2.9); LYMPHOCYTES % 10.9 % (15.0-51.0); MEAN CORPUSCULAR HEMOGLOBIN 29.7 pg (29.0-33.0); MEAN CORPUSCULAR HGB CONC 31.3 g/dl (32.0-37.0); MEAN CORPUSCULAR VOLUME 94.9 fl (82.0-101.0); MEAN PLATELET VOLUME 10.8 fl (7.4-10.4); MONOCYTE # 1.3 10^3/ul (0.3-0.9); MONOCYTES % 10.2 % (0.0-11.0); NEUTROPHIL # 9.8 10^3/ul (1.6-7.5); NEUTROPHILS % 76.1 % (39.0-77.0); NUCLEATED RED BLOOD CELLS% 0.2 /100WBC (0.0-0.0); PLATELET COUNT 323 10^3/UL (140-415); RED BLOOD COUNT 2.76 10^6/ul (4.70-6.10); WHITE BLOOD COUNT 12.9 10^3/ul (4.8-10.8)
[2017-04-14 06:59] LABS: ALBUMIN 3.3 g/dl (3.3-4.9); ALBUMIN/GLOBULIN RATIO 0.94; BILIRUBIN,INDIRECT 0.8 mg/dl (0-1.1); BILIRUBIN,TOTAL 0.8 mg/dl (0.2-1.3); CALCIUM 8.9 mg/dl (8.4-10.2); CREATININE 1.08 mg/dl (0.61-1.24); POTASSIUM 3.4 mmol/L (3.5-5.1); TOTAL PROTEIN 6.8 g/dl (6.1-8.1)
[2017-04-14 07:06] LABS: MAGNESIUM 2.2 mg/dl (1.7-2.5); PHOSPHORUS 4.1 mg/dl (2.5-4.9)
[2017-04-14] MEDS: CEFEPIME 1GM/50 ML (PMX) 50 ML IVPB SCH ×2 (08:30→21:00)
[2017-04-14] MEDS: FAMOTIDINE 20 MG INJ IV SCH ×2 (08:30→21:00)
[2017-04-14] MEDS: LEVETIRACETAM 1000 MG (PMX) 100 ML IVPB SCH ×2 (08:30→21:00)
[2017-04-14] MEDS: ASPIRIN 300 MG SUPP PR SCH (10:50)
[2017-04-14] MEDS: METOPROLOL 25 MG TAB GTB SCH ×2 (10:53→21:00)
[2017-04-14] MEDS: ASPIRIN 81 MG TAB NGT SCH (10:53)
--- NOTE | 2017-04-14 10:54 | PN ---
Date/Time of Note Date/Time of Note DATE: 04/14/17 TIME: 10:37 Assessment/Plan VTE Prophylaxis VTE Prophylaxis Intervention: SCD's Lines/Catheters IV Catheter Type (from [facility]): PICC Line Central line still needed: Yes (For IV access) Urinary Cath still in place: Yes Reason Cath still needed: other (indicate) (Postoperatively, will plan to discontinue.) Assessment/Plan Assessment/Plan 52-year-old male with: 1. Status post CABG by Dr. Herron postoperative day#3. NSTEMI on admission with known coronary artery disease, status post stents 3 years ago Continue current cardiac medications, patient likely to be able to take some p.o. today. However per speech therapy will need video swallow. Continue current medications, cardiology and CTS following. 2. Seizures, unclear etiology but could be secondary to DKA versus intracranial pathology. 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 Neurology following patient. EEG with encephalopathy Continue Ford, ramiro Neurology recs. No recurrent seizures since admission. PT/OT/ST 3. Acute respiratory failure. Status post extubation 2 days ago, on 4 L nasal cannula and planning to titrate down. Stable and afebrile today. POD#3 s/p CABG. All cx sent, Blood cx positive with coag negative staph+alpha hemolytic strep, repeat blood cx negative. Blood culture repeated again yesterday 04/13 On Vanco and cefepime as of 04/07 Continue diuresis and pulmonary following. 4. S/p Diabetic ketoacidosis, known diabetes mellitus with noncompliance with diet or medications. Patient has been off medication for at least 1-2 month, status post DKA protocol on admission. Patient on insulin drip currently post CABG. Will resume subacute insulin regimen today. Patient seems to be tolerating some p.o. Hemoglobin A1c out of range. Diabetic education once extubated and awake. Likely to need insulin therapy. Apparently he was on metformin and glipizide based on his medication reconciliation prior. 5. Diabetes mellitus, known noncompliance with medication, diet or follow-ups. Diabetic education will be ordered. Will require insulin therapy, see #4 6. Coronary artery disease, status post PCI and stent placed according to the sister, 3 years ago in [place]. Now status post CABG POD#3 CTS and cardiology following. See #1 7. Hyperlipidemia: Continue Lipitor 80 mg qhs. 8. Acute kidney injury, renal function much improved Replete electrolytes as needed. Prophylaxis: SCDs for DVT prophylaxis, Pepcid for GI prophylaxis Disposition: In ICU, extubated x 2 days ago now, s/p CABG , POD#3. Cardiology, cardiothoracic surgery, pulmonary and Neurology following. PT/OT/ST following. Prognosis is fair but better. Subjective 24 Hr Interval Summary Free Text/Dictation Patient awake, alert, on supplemental oxygen but respiratory status stable. Improving swallow and speech very slowly. Still on insulin drip but to be transitioned to subcu insulin today. Chest tube still in place. Cardiothoracic surgery and cardiology following. Afebrile this morning. He did have a T-max of 102, and fever noted yesterday. Blood cultures were obtained. He still on IV antibiotics. Exam/Review of Systems Vital Signs Vitals Vital Signs Date Time Temp Pulse Resp B/P Pulse Ox O2 Delivery O2 Flow Rate FiO2 04/14/17 10:19 99 3.0 04/14/17 10:00 99.6 102 23 124/83 04/13/17 20:00 Nasal Cannula 04/12/17 10:41 40 Intake and Output 04/13/17 04/13/17 04/14/17 15:00 23:00 07:00 Intake Total 247 ml 409.5 ml 15.5 ml Output Total 796 ml 1737 ml 1205 ml Balance -549 ml -1327.5 ml -1189.5 ml Exam Constitutional: alert, oriented, well developed Head: normocephalic Eyes: EOMI, nl conjunctiva ENMT: nl external ears & nose, nl lips & teeth, nl nasal mucosa & septum, other (Patient was soft voice and some difficulty swallowing, likely related to vocal cord weakness post prolonged intubation.) Respiratory: diminished breath sounds (Bases bilaterally improving), normal air movement Cardiovascular: nl pulses, regular rate and rhythm Gastrointestinal: non-tender, soft Musculoskeletal: nl extremities to inspection Extremities: normal pulses, other (No edema, clubbing or cyanosis) 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, nl mental status, nl speech, other ( Generalized weakness improving.) Results Result Diagram: 04/14/1754404/14/17544 Results 24 hrs Laboratory Tests Test 04/13/17 11:44 04/13/17 13:28 04/13/17 15:51 04/13/17 17:00 Bedside Glucose 110 103 134 Vancomycin Level Trough 15.6 Test 04/13/17 19:04 04/13/17 20:25 04/13/17 23:06 04/14/17 01:53 Bedside Glucose 98 99 114 126 Test 04/14/17 04:49 04/14/17 05:08 04/14/17 05:45 04/14/17 05:49 Bedside Glucose 102 91 White Blood Count 12.9 H Red Blood Count 2.76 L Hemoglobin 8.2 L Hematocrit 26.2 L Mean Corpuscular Volume 94.9 Mean Corpuscular Hemoglobin 29.7 Mean Corpuscular Hemoglobin Concent 31.3 L Red Cell Distribution Width 12.4 Platelet Count 323 # Mean Platelet Volume 10.8 H Neutrophils % 76.1 Lymphocytes % 10.9 L Monocytes % 10.2 Eosinophils % 1.6 Basophils % 0.2 Nucleated Red Blood Cells % 0.2 H Neutrophils # 9.8 H Lymphocytes # 1.4 Monocytes # 1.3 H Eosinophils # 0.2 Basophils # 0.0 Nucleated Red Blood Cells # 0.0 Sodium Level 145 H Potassium Level 3.4 L Chloride Level 104 Carbon Dioxide Level 30 Anion Gap 14 Blood Urea Nitrogen 35 H Creatinine 1.08 Glucose Level 94 Calcium Level 8.9 Phosphorus Level 4.1 Magnesium Level 2.2 Total Bilirubin 0.8 Direct Bilirubin 0.00 Indirect Bilirubin 0.8 Aspartate Amino Transf (AST/SGOT) 48 H Alanine Aminotransferase (ALT/SGPT) 40 Alkaline Phosphatase 103 Total Protein 6.8 Albumin 3.3 Globulin 3.50 H Albumin/Globulin Ratio 0.94 Lab Scanned Report BLOOD TRANSFUSION Test 04/14/17 07:57 04/14/17 09:53 Bedside Glucose 111 123 Medications Medications Current Medications Lorazepam (Ativan) 0.5 mg Q6H PRN IV ANXIETY Last administered on 04/06/17t 23 :08; Admin Dose 0.5 MG; Start 04/04/17 at 03:30 Dextrose (D50w Syringe) 25 ml Q15M PRN IV Till BS 80 mg/dL or above x2; Start 04/04/17 at 09:30 Dextrose (D50w Syringe) 50 ml Q15M PRN IV Till BS 80 mg/dL or above x2; Start 04/04/17 at 09:30 Aspirin (Aspirin) 81 mg DAILY NGT Last administered on 04/12/17 14:52; Admin Dose 81 MG; Start 04/04/17 at 09:30 Atorvastatin Calcium 80 mg 80 mg HS NGT Last administered on 04/10/17 20:57; Admin Dose 80 MG; Start 04/04/17 at 21:00 Levetiracetam (Keppra 1,000mg/ 100ml (Pmx)) 100 ml @ 400 mls/hr Q12 IVPB Last administered on 04/14/17 08:30; Admin Dose 400 MLS/HR; Start 04/05/17 at 11: 00 Heparin Sodium (Porcine) (Heparin (5000 Units/0.5 ml)) 5,000 unit Q8 SC Last administered on 04/10/17 13:32; Admin Dose 5,000 UNIT; Start 04/06/17 at 14: 00; Status Future Hold Acetaminophen 650 mg 650 mg Q4H PRN NGT PAIN AND OR ELEVATED TEMP Last administered on 04/12/17 16:06; Admin Dose 650 MG; Start 04/07/17 at 09:30 Cefepime HCl 50 ml @ 100 mls/hr Q12 IVPB Last administered on 04/14/17 08:30 ; Admin Dose 100 MLS/HR; Start 04/07/17 at 13:00 Norepinephrine 16 mg/Dextrose 500 ml @ 1.87 mls/hr TITRATE IV Last administered on 04/10/17 04:41; Admin Dose 3.75 MLS/HR; Start 04/08/17 at 22: 30 Vancomycin HCl/ Sodium Chloride (Vancocin/NS) 250 ml @ 83.333 mls/ hr Q12H IVPB Last administered on 04/14/17 05:23; Admin Dose 83.333 MLS/HR; Start at 17:00 Morphine Sulfate (morphine) 2 mg Q2H PRN IV PAIN LEVEL 4-7 Last administered on 04/13/17 23:52; Admin Dose 2 MG; Start 04/11/17 at 20:00 Hydromorphone HCl (Dilaudid) 0.2 mg Q10MIN PRN IM PAIN LEVEL 4-6; Start at 20:00 Hydromorphone HCl 0.4 mg 0.4 mg Q10MIN PRN IV PAIN LEVEL 7-10 Last administered on 04/13/17 01:46; Admin Dose 0.4 MG; Start 04/11/17 at 20:00 Magnesium Sulfate (Magnesium Sulfate 2 Gm/50 ml) 50 ml @ 25 mls/hr IV PRN IVPB NOTE; Start 04/11/17 at 20:00 Ondansetron HCl (Zofran Inj) 4 mg Q6H PRN IV NAUSEA AND/OR VOMITING; Start at 20:00 Oxycodone/ Acetaminophen (Percocet (5/ 325)) 1 tab Q3H PRN PO PAIN LEVEL 1-5; Start 04/11/17 at 20:30 Oxycodone/ Acetaminophen 2 tab 2 tab Q3H PRN PO PAIN LEVEL 6-10; Start at 20:30 Milrinone Lactate (Primacor) 100 ml @ 9.079 mls/ hr TITRATE IV Last administered on 04/11/17 20:00; Admin Dose 4.842 MLS/HR; Start 04/12/17 at 06 :00 Famotidine (Pepcid Iv) 20 mg BID IV Last administered on 04/14/17 08:30; Admin Dose 20 MG; Start 04/13/17 at 09:00 Acetaminophen (Tylenol Supp) 650 mg Q6H PRN [place] FEVER Last administered on 04/13 12:44; Admin Dose 650 MG; Start 04/13/17 at 09:30 Metoprolol Tartrate (Lopressor) 25 mg BID GTB ; Start 04/13/17 at 21:00 Aspirin (Aspirin) 300 mg DAILY [place] Last administered on 04/13/17 14:30; Admin Dose 300 MG; Start 04/13/17 at 14:30 DOUGLAS FERRER Apr 14, 2017 10:47
--- NOTE | 2017-04-14 11:15 | CONS ---
Date/Time of Note Date/Time of Note DATE: 04/14/17 TIME: 11:13 Consult Date/Type/Reason Admit Date/Time Apr 04, 2017 at 03:21 Initial Consult Date 04/05/17 Type of Consultation: Pulmonary Ordering Provider: DOUGLAS FERRER Subjective Patient comfortable this morning. No new events. Objective Vital Signs Date Time Temp Pulse Resp B/P Pulse Ox O2 Delivery O2 Flow Rate FiO2 04/14/17 10:19 99 3.0 04/14/17 10:00 99.6 102 23 124/83 04/13/17 20:00 Nasal Cannula 04/12/17 10:41 40 Intake and Output 04/13/17 04/13/17 04/14/17 15:00 23:00 07:00 Intake Total 247 ml 409.5 ml 15.5 ml Output Total 796 ml 1737 ml 1205 ml Balance -549 ml -1327.5 ml -1189.5 ml Exam GENERAL: Elderly appearing gentleman comfortable at rest. VITAL SIGNS: per chart NECK: Supple. No JVD or lymphadenopathy. CARDIAC EXAM: S1, S2. No added sounds or murmurs. CHEST: clear bilaterally, No added sounds, rales or wheezes ABDOMEN: Soft, nontender. No guarding or rebound. EXTREMITIES: No cyanosis, clubbing or edema. NEUROLOGIC: Generalized weakness. No focal deficits. Results/Medications Result Diagram: 04/14/17 0545 04/14/17 0545 Results 24 hrs Laboratory Tests Test 04/13/17 11:44 04/13/17 13:28 04/13/17 15:51 04/13/17 17:00 Bedside Glucose 110 103 134 Vancomycin Level Trough 15.6 Test 04/13/17 19:04 04/13/17 20:25 04/13/17 23:06 04/14/17 01:53 Bedside Glucose 98 99 114 126 Test 04/14/17 04:49 04/14/17 05:08 04/14/17 05:45 04/14/17 05:49 Bedside Glucose 102 91 White Blood Count 12.9 H Red Blood Count 2.76 L Hemoglobin 8.2 L Hematocrit 26.2 L Mean Corpuscular Volume 94.9 Mean Corpuscular Hemoglobin 29.7 Mean Corpuscular Hemoglobin Concent 31.3 L Red Cell Distribution Width 12.4 Platelet Count 323 # Mean Platelet Volume 10.8 H Neutrophils % 76.1 Lymphocytes % 10.9 L Monocytes % 10.2 Eosinophils % 1.6 Basophils % 0.2 Nucleated Red Blood Cells % 0.2 H Neutrophils # 9.8 H Lymphocytes # 1.4 Monocytes # 1.3 H Eosinophils # 0.2 Basophils # 0.0 Nucleated Red Blood Cells # 0.0 Sodium Level 145 H Potassium Level 3.4 L Chloride Level 104 Carbon Dioxide Level 30 Anion Gap 14 Blood Urea Nitrogen 35 H Creatinine 1.08 Glucose Level 94 Calcium Level 8.9 Phosphorus Level 4.1 Magnesium Level 2.2 Total Bilirubin 0.8 Direct Bilirubin 0.00 Indirect Bilirubin 0.8 Aspartate Amino Transf (AST/SGOT) 48 H Alanine Aminotransferase (ALT/SGPT) 40 Alkaline Phosphatase 103 Total Protein 6.8 Albumin 3.3 Globulin 3.50 H Albumin/Globulin Ratio 0.94 Lab Scanned Report BLOOD TRANSFUSION Test 04/14/17 07:57 04/14/17 09:53 Bedside Glucose 111 123 Medications Current Medications Lorazepam (Ativan) 0.5 mg Q6H PRN IV ANXIETY Last administered on 04/06/17 23 :08; Admin Dose 0.5 MG; Start 04/04/17 at 03:30 Dextrose (D50w Syringe) 25 ml Q15M PRN IV Till BS 80 mg/dL or above x2; Start 04/04/17 at 09:30 Dextrose (D50w Syringe) 50 ml Q15M PRN IV Till BS 80 mg/dL or above x2; Start 04/04/17 at 09:30 Aspirin (Aspirin) 81 mg DAILY NGT Last administered on 04/14/17 10:53; Admin Dose 81 MG; Start 04/04/17 at 09:30 Atorvastatin Calcium 80 mg 80 mg HS NGT Last administered on 04/10/17 20:57; Admin Dose 80 MG; Start 04/04/17 at 21:00 Levetiracetam (Keppra 1,000mg/ 100ml (Pmx)) 100 ml @ 400 mls/hr Q12 IVPB Last administered on 04/14/17 08:30; Admin Dose 400 MLS/HR; Start 04/05/17 at 11: 00 Heparin Sodium (Porcine) (Heparin (5000 Units/0.5 ml)) 5,000 unit Q8 SC Last administered on 04/10/17 13:32; Admin Dose 5,000 UNIT; Start 04/06/17 at 14: 00; Status Future Hold Acetaminophen 650 mg 650 mg Q4H PRN NGT PAIN AND OR ELEVATED TEMP Last administered on 04/12/17 16:06; Admin Dose 650 MG; Start 04/07/17 at 09:30 Cefepime HCl 50 ml @ 100 mls/hr Q12 IVPB Last administered on 04/14/17 08:30 ; Admin Dose 100 MLS/HR; Start 04/07/17 at 13:00 Norepinephrine 16 mg/Dextrose 500 ml @ 1.87 mls/hr TITRATE IV Last administered on 04/10/17 04:41; Admin Dose 3.75 MLS/HR; Start 04/08/17 at 22: 30 Vancomycin HCl/ Sodium Chloride (Vancocin/NS) 250 ml @ 83.333 mls/ hr Q12H IVPB Last administered on 04/14/17 05:23; Admin Dose 83.333 MLS/HR; Start at 17:00 Morphine Sulfate (morphine) 2 mg Q2H PRN IV PAIN LEVEL 4-7 Last administered on 04/13/17 23:52; Admin Dose 2 MG; Start 04/11/17 at 20:00 Hydromorphone HCl (Dilaudid) 0.2 mg Q10MIN PRN IM PAIN LEVEL 4-6; Start at 20:00 Hydromorphone HCl 0.4 mg 0.4 mg Q10MIN PRN IV PAIN LEVEL 7-10 Last administered on 04/13/17 01:46; Admin Dose 0.4 MG; Start 04/11/17 at 20:00 Magnesium Sulfate (Magnesium Sulfate 2 Gm/50 ml) 50 ml @ 25 mls/hr IV PRN IVPB NOTE; Start 04/11/17 at 20:00 Ondansetron HCl (Zofran Inj) 4 mg Q6H PRN IV NAUSEA AND/OR VOMITING; Start at 20:00 Oxycodone/ Acetaminophen (Percocet (5/ 325)) 1 tab Q3H PRN PO PAIN LEVEL 1-5; Start 04/11/17 at 20:30 Oxycodone/ Acetaminophen 2 tab 2 tab Q3H PRN PO PAIN LEVEL 6-10; Start at 20:30 Milrinone Lactate (Primacor) 100 ml @ 9.079 mls/ hr TITRATE IV Last administered on 04/11/17 20:00; Admin Dose 4.842 MLS/HR; Start 04/12/17 at 06 :00 Famotidine (Pepcid Iv) 20 mg BID IV Last administered on 04/14/17 08:30; Admin Dose 20 MG; Start 04/13/17 at 09:00 Acetaminophen (Tylenol Supp) 650 mg Q6H PRN [place] FEVER Last administered on 04/13 12:44; Admin Dose 650 MG; Start 04/13/17 at 09:30 Metoprolol Tartrate (Lopressor) 25 mg BID GTB Last administered on 04/14/17 10:53; Admin Dose 25 MG; Start 04/13/17 at 21:00 Aspirin (Aspirin) 300 mg DAILY [place] Last administered on 04/14/17 10:50; Admin Dose 300 MG; Start 04/13/17 at 14:30 Miscellaneous Information (* Miscellaneous Pharmacy Order) Discontinue current oral sulfonylur... ONCE ONCE XX ; Start 04/14/17 at 11:00; Stop 04/14/17 at 11:01; Status UNV Diagnostic Test (Pha) (Accu-Chek) 1 ea 02 XX ; Start 04/15/17 at 02:00; Status UNV Insulin Glargine (Lantus) 20 unit DAILY@08 SC ; Start 04/14/17 at 11:00; Status UNV Miscellaneous Information (* Miscellaneous Pharmacy Order) HYPOGLYCEMIA PROTOCOL w... ONCE ONCE XX ; Start 04/14/17 at 11:00; Stop 04/14/17 at 11:01 ; Status UNV Miscellaneous Information (* Miscellaneous Pharmacy Order) Discontinue all previ... ONCE ONCE XX ; Start 04/14/17 at 11:00; Stop 04/14/17 at 11:01; Status UNV Diagnostic Test (Pha) (Accu-Chek) 1 ea 02 XX ; Start 04/15/17 at 02:00; Status UNV Assessment/Plan Chief Complaint/Hosp Course Assessment 1. Patient admitted with DKA with severe metabolic acidosis with respiratory failure. 2. Development of acute AL during current admission requiring CABG surgery. Patient extubated yesterday with excellent overall clinical status. Improving hypoxemia 3. Chronic stable seizure disorder. 4. Bilateral pneumonia with interval improvement. Possibly aspiration. 5. Chronic ischemic changes seen on MRI of the brain. Patient however not exhibiting any neurological deficit. 6. Acute renal injury with normalization of renal function. Plan. Switch to subcutaneous insulin 2. Incentive spirometry 3. Chest tubes per thoracic surgery 4. Encourage out of bed if tolerated Problems: LYRIC ALEX MD, [facility] Apr 14, 2017 11:15
--- NOTE | 2017-04-14 11:35 | CONS ---
Date/Time of Note Date/Time of Note DATE: 04/14/17 TIME: 11:34 Assessment/Plan Assessment/Plan Additional Assessment/Plan Non-ST elevation [place] Coronary artery disease status post CABG 04/11/2017 Acute decompensated systolic congestive heart failure Ischemic cardiomyopathy Respiratory failure, status post extubation 04/12/2017 -Blood pressure trend remains stable, patient undergoing speech and swallow evaluation. Start statin therapy, aspirin and beta-kayy when able to take p.o. Continue IV diuretics as renal function and blood pressure tolerates. Maintain potassium above 4.0 and magnesium above 2.0. Encourage incentive spirometry. Consultation Date/Type/Reason Admit Date/Time Apr 04, 2017 at 03:21 Initial Consult Date 04/05/17 Type of Consultation: cv Referring Provider: DOUGLAS FERRER 24 HR Interval Summary Free Text/Dictation Patient feeling better today, denies chest pain, shortness of breath. Undergoing speech and swallow evaluation Exam/Review of Systems Vital Signs Vitals Vital Signs Date Time Temp Pulse Resp B/P Pulse Ox O2 Delivery O2 Flow Rate FiO2 04/14/17 10:19 99 3.0 04/14/17 10:00 99.6 102 23 124/83 04/13/17 20:00 Nasal Cannula 04/12/17 10:41 40 Intake and Output 04/13/17 04/13/17 04/14/17 15:00 23:00 07:00 Intake Total 247 ml 409.5 ml 15.5 ml Output Total 796 ml 1737 ml 1205 ml Balance -549 ml -1327.5 ml -1189.5 ml Exam No apparent distress, undergoing speech and swallow evaluation Constitutional: alert, oriented Head: normocephalic Respiratory: other (Coarse breath sounds bilaterally, no wheezing) Cardiovascular: other (S1-S2 heard), regular rate and rhythm Gastrointestinal: bowel sounds, non-tender, soft Extremities: edema (Trace) Results Result Diagram: 04/14/17 0545 04/14/17 0545 Results 24 hrs Laboratory Tests Test 04/13/17 11:44 04/13/17 13:28 04/13/17 15:51 04/13/17 17:00 Bedside Glucose 110 103 134 Vancomycin Level Trough 15.6 Test 04/13/17 19:04 04/13/17 20:25 04/13/17 23:06 04/14/17 01:53 Bedside Glucose 98 99 114 126 Test 04/14/17 04:49 04/14/17 05:08 04/14/17 05:45 04/14/17 05:49 Bedside Glucose 102 91 White Blood Count 12.9 H Red Blood Count 2.76 L Hemoglobin 8.2 L Hematocrit 26.2 L Mean Corpuscular Volume 94.9 Mean Corpuscular Hemoglobin 29.7 Mean Corpuscular Hemoglobin Concent 31.3 L Red Cell Distribution Width 12.4 Platelet Count 323 # Mean Platelet Volume 10.8 H Neutrophils % 76.1 Lymphocytes % 10.9 L Monocytes % 10.2 Eosinophils % 1.6 Basophils % 0.2 Nucleated Red Blood Cells % 0.2 H Neutrophils # 9.8 H Lymphocytes # 1.4 Monocytes # 1.3 H Eosinophils # 0.2 Basophils # 0.0 Nucleated Red Blood Cells # 0.0 Sodium Level 145 H Potassium Level 3.4 L Chloride Level 104 Carbon Dioxide Level 30 Anion Gap 14 Blood Urea Nitrogen 35 H Creatinine 1.08 Glucose Level 94 Calcium Level 8.9 Phosphorus Level 4.1 Magnesium Level 2.2 Total Bilirubin 0.8 Direct Bilirubin 0.00 Indirect Bilirubin 0.8 Aspartate Amino Transf (AST/SGOT) 48 H Alanine Aminotransferase (ALT/SGPT) 40 Alkaline Phosphatase 103 Total Protein 6.8 Albumin 3.3 Globulin 3.50 H Albumin/Globulin Ratio 0.94 Lab Scanned Report BLOOD TRANSFUSION Test 04/14/17 07:57 04/14/17 09:53 Bedside Glucose 111 123 Medications Medications Current Medications Lorazepam (Ativan) 0.5 mg Q6H PRN IV ANXIETY Last administered on 04/06/17 23 :08; Admin Dose 0.5 MG; Start 04/04/17 at 03:30 Dextrose (D50w Syringe) 25 ml Q15M PRN IV Till BS 80 mg/dL or above x2; Start 04/04/17 at 09:30 Dextrose (D50w Syringe) 50 ml Q15M PRN IV Till BS 80 mg/dL or above x2; Start 04/04/17 at 09:30 Aspirin (Aspirin) 81 mg DAILY NGT Last administered on 04/14/17 10:53; Admin Dose 81 MG; Start 04/04/17 at 09:30 Atorvastatin Calcium 80 mg 80 mg HS NGT Last administered on 04/10/17 20:57; Admin Dose 80 MG; Start 04/04/17 at 21:00 Levetiracetam (Keppra 1,000mg/ 100ml (Pmx)) 100 ml @ 400 mls/hr Q12 IVPB Last administered on 04/14/17 08:30; Admin Dose 400 MLS/HR; Start 04/05/17 at 11: 00 Heparin Sodium (Porcine) (Heparin (5000 Units/0.5 ml)) 5,000 unit Q8 SC Last administered on 04/10/17 13:32; Admin Dose 5,000 UNIT; Start 04/06/17 at 14: 00; Status Future Hold Acetaminophen 650 mg 650 mg Q4H PRN NGT PAIN AND OR ELEVATED TEMP Last administered on 04/12/17 16:06; Admin Dose 650 MG; Start 04/07/17 at 09:30 Cefepime HCl 50 ml @ 100 mls/hr Q12 IVPB Last administered on 04/14/17 08:30 ; Admin Dose 100 MLS/HR; Start 04/07/17 at 13:00 Norepinephrine 16 mg/Dextrose 500 ml @ 1.87 mls/hr TITRATE IV Last administered on 04/10/17 04:41; Admin Dose 3.75 MLS/HR; Start 04/08/17 at 22: 30 Vancomycin HCl/ Sodium Chloride (Vancocin/NS) 250 ml @ 83.333 mls/ hr Q12H IVPB Last administered on 04/14/17 05:23; Admin Dose 83.333 MLS/HR; Start at 17:00 Morphine Sulfate (morphine) 2 mg Q2H PRN IV PAIN LEVEL 4-7 Last administered on 04/13/17 23:52; Admin Dose 2 MG; Start 04/11/17 at 20:00 Hydromorphone HCl (Dilaudid) 0.2 mg Q10MIN PRN IM PAIN LEVEL 4-6; Start at 20:00 Hydromorphone HCl 0.4 mg 0.4 mg Q10MIN PRN IV PAIN LEVEL 7-10 Last administered on 04/13/17 01:46; Admin Dose 0.4 MG; Start 04/11/17 at 20:00 Magnesium Sulfate (Magnesium Sulfate 2 Gm/50 ml) 50 ml @ 25 mls/hr IV PRN IVPB NOTE; Start 04/11/17 at 20:00 Ondansetron HCl (Zofran Inj) 4 mg Q6H PRN IV NAUSEA AND/OR VOMITING; Start at 20:00 Oxycodone/ Acetaminophen (Percocet (5/ 325)) 1 tab Q3H PRN PO PAIN LEVEL 1-5; Start 04/11/17 at 20:30 Oxycodone/ Acetaminophen 2 tab 2 tab Q3H PRN PO PAIN LEVEL 6-10; Start at 20:30 Milrinone Lactate (Primacor) 100 ml @ 9.079 mls/ hr TITRATE IV Last administered on 04/11/17 20:00; Admin Dose 4.842 MLS/HR; Start 04/12/17 at 06 :00 Famotidine (Pepcid Iv) 20 mg BID IV Last administered on 04/14/17 08:30; Admin Dose 20 MG; Start 04/13/17 at 09:00 Acetaminophen (Tylenol Supp) 650 mg Q6H PRN [place] FEVER Last administered on 04/13 12:44; Admin Dose 650 MG; Start 04/13/17 at 09:30 Metoprolol Tartrate (Lopressor) 25 mg BID GTB Last administered on 04/14/17 10:53; Admin Dose 25 MG; Start 04/13/17 at 21:00 Aspirin (Aspirin) 300 mg DAILY [place] Last administered on 04/14/17 10:50; Admin Dose 300 MG; Start 04/13/17 at 14:30 Miscellaneous Information (* Miscellaneous Pharmacy Order) Discontinue current oral sulfonylur... ONCE ONCE XX ; Start 04/14/17 at 11:00; Stop 04/14/17 at 11:01; Status UNV Diagnostic Test (Pha) (Accu-Chek) 1 XX ; Start 04/15/17 at 02:00; Status UNV Insulin Glargine (Lantus) 20 unit DAILY@08 SC ; Start 04/14/17 at 11:00; Status UNV Miscellaneous Information (* Miscellaneous Pharmacy Order) HYPOGLYCEMIA PROTOCOL w... ONCE ONCE XX ; Start 04/14/17 at 11:00; Stop 04/14/17 at 11:01 ; Status UNV Miscellaneous Information (* Miscellaneous Pharmacy Order) Discontinue all previ... ONCE ONCE XX ; Start 04/14/17 at 11:00; Stop 04/14/17 at 11:01; Status ERICKAV Diagnostic Test (Pha) (Accu-Chek) XX ; Start 04/15/17 at 02:00; Status Ghanshyam Schultz DO Apr 14, 2017 11:35
[2017-04-14] MEDS: POTASSIUM CHLORIDE 50 ML IVPB PRN (12:38)
[2017-04-14] MEDS: INSULIN GLARGINE [LANtus] 3 ML PEN SC SCH (12:54)
[2017-04-14] MEDS: INSULIN ASPART [NOVOLOG] 3 ML PEN SC SCH ×5 (12:55→21:00)
[2017-04-14] MEDS: morphine 2 MG INJ IV PRN (18:38)
--- NOTE | 2017-04-14 19:23 | PN ---
Date/Time of Note Date/Time of Note DATE: 04/14/17 TIME: 19:23 Assessment/Plan Lines/Catheters IV Catheter Type (from Nrsg): PICC Line [place] in Place (from Nrsg): Yes Assessment/Plan Chief Complaint/Hosp Course IMPRESSION: 1. Coronary artery disease. 2. Non-ST elevation myocardial infarction. 3. Seizure disorder. 4. Diabetes with diabetic ketoacidosis. 5. HX CVA 6. Respiratory failure. pt reintubated SP CABG OOB Ambulation Discussed with Dr Roa to Tele in am continue CT sxn Problems: Subjective 24 Hr Interval Summary Constitutional: improved Pain Control: mild Exam/Review of Systems Vital Signs Vitals Vital Signs Date Time Temp Pulse Resp B/P Pulse Ox O2 Delivery O2 Flow Rate FiO2 04/14/17 19:00 101 28 106/80 100 04/14/17 17:00 100.6 04/14/17 10:19 3.0 04/14/17 08:00 Nasal Cannula 04/12/17 10:41 40 Intake and Output 04/13/17 04/13/17 04/14/17 15:00 23:00 07:00 Intake Total 247 ml 409.5 ml 15.5 ml Output Total 796 ml 1737 ml 1205 ml Balance -549 ml -1327.5 ml -1189.5 ml Exam ENMT: mucosa pink and moist, nl external ears & nose, nl lips & teeth, nl nasal mucosa & septum Neck: non-tender, supple Respiratory: clear to auscultation, normal air movement Cardiovascular: nl pulses, regular rate and rhythm Results Result Diagram: 04/14/17 0545 04/14/17 0545 NORIS HARRIS MD Apr 14, 2017 19:23
[2017-04-14] MEDS: ATORVASTATIN 80 MG TAB NGT SCH (21:00)
[2017-04-15] VITALS (19 sets, daily range): BP systolic 89–116; BP diastolic 60–78; PULSE 89–100; RESP 14–26
[2017-04-15] MEDS ORDERED: ACCU-CHEK XX SCH ×2 (02:00)
[2017-04-15] MEDS: morphine 2 MG INJ IV PRN (04:50)
[2017-04-15] MEDS: VANCOMYCIN 1.25 GM in SOD CHLORIDE 0.9% 250 ML IVPB SCH (05:00)
[2017-04-15] MEDS: FUROSEMIDE 20 MG INJ IV SCH (05:01)
[2017-04-15 05:58] LABS: BASOPHILS % 0.2 % (0.0-2.0); EOSINOPHILS # 0.2 10^3/ul (0.0-0.5); HEMATOCRIT 27.5 % (42.0-52.0); HEMOGLOBIN 8.6 g/dl (14.0-18.0); LYMPHOCYTES # 1.1 10^3/ul (0.8-2.9); LYMPHOCYTES % 9.5 % (15.0-51.0); MEAN CORPUSCULAR HEMOGLOBIN 29.2 pg (29.0-33.0); MEAN CORPUSCULAR HGB CONC 31.3 g/dl (32.0-37.0); MEAN CORPUSCULAR VOLUME 93.2 fl (82.0-101.0); MEAN PLATELET VOLUME 10.5 fl (7.4-10.4); MONOCYTE # 0.9 10^3/ul (0.3-0.9); MONOCYTES % 7.5 % (0.0-11.0); NEUTROPHIL # 9.3 10^3/ul (1.6-7.5); NEUTROPHILS % 79.6 % (39.0-77.0); PLATELET COUNT 398 10^3/UL (140-415); RED BLOOD COUNT 2.95 10^6/ul (4.70-6.10); RED CELL DISTRIBUTION WIDTH 12.3 % (11.5-14.5); WHITE BLOOD COUNT 11.7 10^3/ul (4.8-10.8)
[2017-04-15 06:44] LABS: MAGNESIUM 2.1 mg/dl (1.7-2.5); PHOSPHORUS 3.8 mg/dl (2.5-4.9)
[2017-04-15 06:51] LABS: ALBUMIN 3.2 g/dl (3.3-4.9); ALBUMIN/GLOBULIN RATIO 0.94; BILIRUBIN,INDIRECT 0.9 mg/dl (0-1.1); BILIRUBIN,TOTAL 0.9 mg/dl (0.2-1.3); CALCIUM 8.7 mg/dl (8.4-10.2); CREATININE 1.09 mg/dl (0.61-1.24); POTASSIUM 3.2 mmol/L (3.5-5.1); TOTAL PROTEIN 6.6 g/dl (6.1-8.1)
[2017-04-15] MEDS ORDERED: NALOXONE (0.4 MG/ML) INJ ONE (07:29)
[2017-04-15] MEDS: INSULIN ASPART [NOVOLOG] 3 ML PEN SC SCH ×2 (07:35→08:04)
--- NOTE | 2017-04-15 07:58 | RADRPT ---
PROCEDURE: Noncontrast CT Head. CLINICAL INDICATION: Code stroke. Acute neurologic deficit. TECHNIQUE: Noncontrast CT of the head was obtained. The administered radiation dose was CTDI vol = 44.84, 45.01 mGy, DLP = 720.33, 90.03 mGy-cm. One or more of the following dose reduction techniques were used: Automated exposure control, Adjustment of the mA and/or kV according to patient size, or Use of iterative reconstruction technique. COMPARISON: There are no similar studies submitted for comparison. FINDINGS: Evaluation is mildly limited due to motion degradation. The ventricles and sulci are within normal limits. There is loss of galloway-white differentiation within the right parietal lobe suggesting acute / recent infarction. This region measures approximate 2 cm. There is a chronic left inferior cerebellar infarction. There is a small chronic right centrum semio juju/kolb radiata lacunar infarction. There is a chronic right caudate head lacunar infarction. There is no acute intracranial hemorrhage. No midline shift is identified. The orbits are within normal limits. The paranasal sinuses are well aerated. No destructive osseous lesion is identified. Is mild left parietal scalp subcutaneous scarring. IMPRESSION: Evaluation is mildly limited due to motion degradation. 1. Focal area of loss of galloway-white differentiation within the right lateral lobe measuring 2 cm sug gesting acute / recent infarction. Consider CTA of the head/neck or noncontrast MRI of the brain as clinically warranted. No acute intracranial hemorrhage. 2. Chronic left inferior cerebellar infarction. 3. Small chronic right centrum semiovale/kolb radiata lacunar infarction. 4. Chronic right caudate head lacunar infarction. Further findings as detailed above. These findings were discussed with nurse Bea Oglesby on 04/15/2017 at 7:55 AM. RPTAT: PP .Dwain Worthy MD, Date Time Electronically viewed and signed by .Dwain Worthy MD, on 04/15/2017 07:58 .F/
[2017-04-15] MEDS ORDERED: NALOXONE (0.4 MG/ML) INJ IV ONE (08:00)
[2017-04-15] MEDS: ASPIRIN 81 MG TAB NGT SCH (08:16)
[2017-04-15] MEDS: METOPROLOL 25 MG TAB GTB SCH (08:16)
--- NOTE | 2017-04-15 08:41 | STROKE ---
Date/Time of Note Date/Time of Note DATE: 04/15/17 TIME: 10:38 Patient Information General Patient location: inpatient Arrival Date Age 52 Gender male Weight 80.7 kg POC Glucose Glucose Result Bedside Glucose - 72 Hours Test 04/12/17 09:44 04/12/17 11:47 04/12/17 13:18 04/12/17 14:47 Bedside Glucose 123mg/dL (70-220) 100mg/dL (70-220) 116mg/dL (70-220) 126mg/dL (70-220) Test 04/12/17 15:47 04/12/17 16:59 04/12/17 18:45 04/12/17 21:07 Bedside Glucose 102mg/dL (70-220) 107mg/dL (70-220) 135mg/dL (70-220) 101mg/dL (70-220) Test 04/12/17 23:43 04/13/17 02:16 04/13/17 03:51 04/13/17 07:04 Bedside Glucose 104mg/dL (70-220) 118mg/dL (70-220) 116mg/dL (70-220) 120mg/dL (70-220) Test 04/13/17 08:52 04/13/17 11:44 04/13/17 13:28 04/13/17 17:00 Bedside Glucose 113mg/dL (70-220) 110mg/dL (70-220) 103mg/dL (70-220) 134mg/dL (70-220) Test 04/13/17 19:04 04/13/17 20:25 04/13/17 23:06 04/14/17 01:53 Bedside Glucose 98mg/dL (70-220) 99mg/dL (70-220) 114mg/dL (70-220) 126mg/dL (70-220) Test 04/14/17 04:49 04/14/17 05:08 04/14/17 07:57 04/14/17 09:53 Bedside Glucose 102mg/dL (70-220) 91mg/dL (70-220) 111mg/dL (70-220) 123mg/dL (70-220) Test 04/14/17 12:00 04/14/17 16:31 04/14/17 22:07 04/15/17 07:25 Bedside Glucose 212mg/dL (70-220) 222mg/dL (70-220) H 100mg/dL (70-220) 221mg/dL (70-220) H Vital Signs Vital Signs Vital Signs Date Time Temp Pulse Resp B/P Pulse Ox O2 Delivery O2 Flow Rate FiO2 04/15/17 08:00 98.2 100 26 102/68 89 Nasal Cannula 4.0 04/15/17 06:00 30 Patient History Current Medications Allergies: Coded Allergies: No Known Allergy (Unverified , 04/07/17) Labs Hematology Labs Hematology Test 04/15/17 05:20 White Blood Count 11.710^3/ul (4.8-10.8) Red Blood Count 2.9510^6/ul (4.70-6.10) Hemoglobin 8.6g/dl (14.0-18.0) Hematocrit 27.5% (42.0-52.0) Mean Corpuscular Volume 93.2fl (82.0-101.0) Mean Corpuscular Hemoglobin 29.2pg (29.0-33.0) Mean Corpuscular Hemoglobin Concent 31.3g/dl (32.0-37.0) Red Cell Distribution Width 12.3% (11.5-14.5) Platelet Count 97118^3/UL (140-415) Mean Platelet Volume 10.5fl (7.4-10.4) Neutrophils % 79.6% (39.0-77.0) Lymphocytes % 9.5% (15.0-51.0) Monocytes % 7.5% (0.0-11.0) Eosinophils % 2.0% (0.0-7.0) Basophils % 0.2% (0.0-2.0) Nucleated Red Blood Cells % 0.0/100WBC (0.0-0.0) Neutrophils # 9.310^3/ul (1.6-7.5) Lymphocytes # 1.110^3/ul (0.8-2.9) Monocytes # 0.910^3/ul (0.3-0.9) Eosinophils # 0.210^3/ul (0.0-0.5) Basophils # 0.010^3/ul (0.0-0.1) Nucleated Red Blood Cells # 0.010^3/ul (0.0-0.0) Chemistry Labs Chemistry Test 04/04/17 05:34 04/04/17 10:21 04/05/17 04:53 04/07/17 05:29 Fasting Glucose 209mg/dl (70-110) Hemoglobin A1c % (0-5.9) Lactic Acid Level 1.5mmol/L (0.5-2.0) Triglycerides Level 180mg/dl (0-149) Cholesterol Level 211mg/dl (100-200) LDL Cholesterol, Calculated 145mg/dl HDL Cholesterol 30mg/dl (28-71) Cholesterol/HDL Ratio 7.0RATIO Thyroid Stimulating Hormone (TSH) 2.500MIU/L (0.465-4.680) Free Thyroxine 1.06ng/dl (0.64-1.79) Creatine Kinase 490IU/L (23-200) Creatine Kinase Index 4.3 Creatinine Kinase MB (Mass) 21.00ng/ml (0.0-2.4) Troponin I 5.430ng/ml (0.00-0.12) Test 04/15/17 05:20 04/15/17 07:25 Sodium Level 141mmol/L (135-144) Potassium Level 3.2mmol/L (3.5-5.1) Chloride Level 98mmol/L (97-110) Carbon Dioxide Level 34mmol/L (21-31) Anion Gap 12 (8-16) Blood Urea Nitrogen 29mg/dl (7-20) Creatinine 1.09mg/dl (0.61-1.24) Glucose Level 191mg/dl (70-220) Calcium Level 8.7mg/dl (8.4-10.2) Phosphorus Level 3.8mg/dl (2.5-4.9) Magnesium Level 2.1mg/dl (1.7-2.5) Total Bilirubin 0.9mg/dl (0.2-1.3) Direct Bilirubin 0.00mg/dl (0.00-0.20) Indirect Bilirubin 0.9mg/dl (0-1.1) Aspartate Amino Transf (AST/SGOT) 59IU/L (15-46) Alanine Aminotransferase (ALT/SGPT) 54IU/L (13-69) Alkaline Phosphatase 111IU/L (42-121) Total Protein 6.6g/dl (6.1-8.1) Albumin 3.2g/dl (3.3-4.9) Globulin 3.40g/dl (1.3-3.2) Albumin/Globulin Ratio 0.94 Bedside Glucose 221mg/dL (70-220) History & Physical History of Present Illness 52 YO M with CABG 3 days ago, at 0700 this morning "not responsive" and only moving his "L face", with Head CT showing completed infarction on Head CT in the right lateral lobe measuring 2 cm. LKW was at 0400 on 04/15/17. NIH Stroke Scale NIH Stroke Scale Total Score: 15 Date/Time Recorded DATE: 04/15/17 TIME: 10:38 Submitted By Miguel A Waterman t-PA Imaging Review Date/Time Imaging Reviewed DATE: 04/15/17 TIME: 10:38 t-PA Administration Recommendation: No Weight 80.7 kg Recommedation submitted by Miguel A Waterman Reason t-PA not Recommended Recent major surgery (CABG 3 days ago) Recommendations Impression Diagnosis 52 YO M with CABG 3 days ago and new R hemiparesis, global aphasia, as well as field cut on exam, also with non-focal mild encephalopathy. NIHSS is 15. Head CT showing completed stroke on the right lateral lobe that does not explain the patient's R hemiparesis and field cut. There is concern for LVO in the L MCA. Patient with possible nultifocal embolic strokes. Patient not an IV tPA candidate due to major recent surgery (CABG days ago). He is a candidate for mechanical thrombectomy. Recommendation - Emergent transfer for CTA/CTP and mechanical intervention evaluation by Neuro IR - Attempting to reach primary team taking care of this patient I, Dr. Miguel A Waterman, spent more than 30 minutes in the care of this patient today. MIGUEL A WATERMAN MD Apr 15, 2017 08:41
[2017-04-15] MEDS: FAMOTIDINE 20 MG INJ IV SCH (08:49)
[2017-04-15] MEDS: LEVETIRACETAM 1000 MG (PMX) 100 ML IVPB SCH (08:50)
[2017-04-15] MEDS: CEFEPIME 1GM/50 ML (PMX) 50 ML IVPB SCH (08:51)
[2017-04-15] MEDS: INSULIN GLARGINE [LANtus] 3 ML PEN SC SCH (08:52)
[2017-04-15] MEDS ORDERED: IODIXANOL LOCM 100 ML BTL ONE (09:20)
[2017-04-15] MEDS ORDERED: SOD CHLORIDE 0.9% 100 ML ONE (09:20)
--- NOTE | 2017-04-15 09:52 | PN ---
Date/Time of Note Date/Time of Note DATE: 04/15/17 TIME: 09:50 Assessment/Plan VTE Prophylaxis VTE Prophylaxis Intervention: SCD's Lines/Catheters IV [facility] Type (from [facility] PICC Line Central line still needed: Yes (For IV access) Urinary Cath still in place: Yes Reason Cath still needed: other (indicate) (Post operatively) Assessment/Plan Assessment/Plan 52-year-old male with: 1. Acute CVA with acute onset of aphasia and right Hemiparesis and suspected Left MCA clot: [place] code protocol ongoing currently, patient already had a CT head noncontrast, no acute bleeding seen, however there is an area of acute to subacute right lateral possible CVA, this does not correspond to the current symptoms, there is a concern regarding the left MCA stroke, per stroke protocol [facility] stroke team has been contacted, I have discussed the case with the neurologist, he is arranging currently transport to [facility] from interventional procedure, CTA head and neck has been done and results pending, awaiting for transport. In the meantime we will maintain systolic blood pressures up, patient has no drips, he does have chest tube in place, along with Macias catheter. No other drips. NIH score is being done per stroke protocol. 2. Status post CABG by Dr. Herron postoperative day#4. NSTEMI on admission with known coronary artery disease, status post stents 3 years ago Continue current cardiac medications, patient likely to be able to take some p.o. today. However per speech therapy will need video swallow. Continue current medications, cardiology and CTS following. Now postop course complicated with acute CVA. 3. Seizures, unclear etiology but could be secondary to DKA versus intracranial pathology. 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 Neurology following patient. EEG with encephalopathy Continue Keppra, appreciate Neurology recs. Given acute CVA, patient in the process of being transferred to a higher level of care, neurology Dr. Gracia covering for Dr. Weber has been notified. PT/OT/ST 4. Acute respiratory failure. Status post extubation 2 days ago, on 4 L nasal cannula and planning to titrate down. Stable and afebrile today. POD#4 s/p CABG. All cx sent, Blood cx positive with coag negative staph+alpha hemolytic strep, repeat blood cx negative. Blood culture repeated again 04/13, NGTD On Vanco and cefepime as of 04/07 Continue diuresis prn and pulmonary following. 5. S/p Diabetic ketoacidosis, known diabetes mellitus with noncompliance with diet or medications. Patient has been off medication for at least 1-2 month, status post DKA protocol on admission. Patient on insulin drip currently post CABG. Back to n.p.o. status, insulin regimen on board. Hemoglobin A1c out of range. Diabetic education in the near future, once more stable. Likely to need insulin therapy. Apparently he was on metformin and glipizide based on his medication reconciliation prior. 6. Diabetes mellitus, known noncompliance with medication, diet or follow-ups. Diabetic education will be ordered. Will require insulin therapy, see #4 7. Coronary artery disease, status post PCI and stent placed according to the sister, 3 years ago in [place]. Now status post CABG POD#3 See #1 8. Hyperlipidemia: Continue Lipitor 80 mg qhs. 9. Acute kidney injury, renal function much improved and back to normal, continue monitoring. Replete electrolytes as needed. Prophylaxis: SCDs for DVT prophylaxis, Pepcid for GI prophylaxis Disposition: POD#4 s/p CABG, in ICU for monitoring, has been on nasal cannula, unfortunately now with acute CVA this AM, CTA reading pending while patient awaiting transport to high level of care for possible interventional procedure. [facility] stroke team on board, transport scheduled for 11 AM, will notify cardiothoracic surgery and cardiology. Neurology and pulmonary already aware. Prognosis is fair. Subjective 24 Hr Interval Summary Free Text/Dictation Code stroke was called at 7:25 AM with per nurses report patient was last seen at baseline around 5 AM when he was given pain medication. Patient was found to have acute onset of right hemiparesis, aphasia, stroke code was called, to the neurology is recommending transfer to higher level of care, per [facility] stroke protocol [facility] stroke team was contacted (Dr Francisco Farrell), they reviewed the CAT scan along with the reports, given the patient recent coronary artery bypass surgery he may be a candidate for mechanical thrombectomy. While awaiting CTA results, [facility] stroke team also is arranging for transport and patient to be picked up at 11 AM Exam/Review of Systems Vital Signs Vitals Vital Signs Date Time Temp Pulse Resp B/P Pulse Ox O2 Delivery O2 Flow Rate FiO2 04/15/17 08:00 Nasal Cannula 4.0 04/15/17 08:00 98.2 100 26 102/68 89 04/15/17 06:00 30 Intake and Output 04/14/17 04/14/17 04/15/17 15:00 23:00 07:00 Intake Total 1243.5 ml 620 ml 150 ml Output Total 877 ml 1435 ml 356 ml Balance 366.5 ml -815 ml -206 ml Exam Constitutional: other Respiratory: clear to auscultation, normal air movement Cardiovascular: nl pulses, regular rate and rhythm Gastrointestinal: non-tender, soft Musculoskeletal: nl extremities to inspection, other (No edema, clubbing or cyanosis) Extremities: normal pulses 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: focal weakness (Right hemiparesis), lethargic, other (Aphasic) Results Result Diagram: 04/15/1751904/15/17519 Results 24 hrs Laboratory Tests Test 04/14/17 09:53 04/14/17 12:00 04/14/17 16:31 04/14/17 22:07 Bedside Glucose 123 212 222 H 100 Test 04/15/17 05:20 04/15/17 07:25 White Blood Count 11.7 H Red Blood Count 2.95 L Hemoglobin 8.6 L Hematocrit 27.5 L Mean Corpuscular Volume 93.2 Mean Corpuscular Hemoglobin 29.2 Mean Corpuscular Hemoglobin Concent 31.3 L Red Cell Distribution Width 12.3 Platelet Count 398 # Mean Platelet Volume 10.5 H Neutrophils % 79.6 H Lymphocytes % 9.5 L Monocytes % 7.5 Eosinophils % 2.0 Basophils % 0.2 Nucleated Red Blood Cells % 0.0 Neutrophils # 9.3 H Lymphocytes # 1.1 Monocytes # 0.9 Eosinophils # 0.2 Basophils # 0.0 Nucleated Red Blood Cells # 0.0 Sodium Level 141 Potassium Level 3.2 L Chloride Level 98 Carbon Dioxide Level 34 H Anion Gap 12 Blood Urea Nitrogen 29 H Creatinine 1.09 Glucose Level 191 Calcium Level 8.7 Phosphorus Level 3.8 Magnesium Level 2.1 Total Bilirubin 0.9 Direct Bilirubin 0.00 Indirect Bilirubin 0.9 Aspartate Amino Transf (AST/SGOT) 59 H Alanine Aminotransferase (ALT/SGPT) 54 Alkaline Phosphatase 111 Total Protein 6.6 Albumin 3.2 L Globulin 3.40 H Albumin/Globulin Ratio 0.94 Bedside Glucose 221 H Imaging Free Text/Dictation PROCEDURE: Noncontrast CT Head. CLINICAL INDICATION: Code stroke. Acute neurologic deficit. TECHNIQUE: Noncontrast CT of the head was obtained. The administered radiation dose was CTDI vol = 44.84, 45.01 mGy, DLP = 720.33, 90.03 mGy-cm. One or more of the following dose reduction techniques were used: Automated exposure control , Adjustment of the mA and/or kV according to patient size, or Use of iterative reconstruction technique. COMPARISON: There are no similar studies submitted for comparison. FINDINGS: Evaluation is mildly limited due to motion degradation. The ventricles and sulci are within normal limits. There is loss of galloway-white differentiation within the right parietal lobe suggesting acute / recent infarction. This region measures approximate 2 cm. There is a chronic left inferior cerebellar infarction. There is a small chronic right centrum semiovale/kolb radiata lacunar infarction. There is a chronic right caudate head lacunar infarction. There is no acute intracranial hemorrhage. No midline shift is identified. The orbits are within normal limits. The paranasal sinuses are well aerated. No destructive osseous lesion is identified. Is mild left parietal scalp subcutaneous scarring. IMPRESSION: Evaluation is mildly limited due to motion degradation. 1. Focal area of loss of galloway-white differentiation within the right lateral lobe measuring 2 cm suggesting acute / recent infarction. Consider CTA of the head/neck or noncontrast MRI of the brain as clinically warranted. No acute intracranial hemorrhage. 2. Chronic left inferior cerebellar infarction. 3. Small chronic right centrum semiovale/kolb radiata lacunar infarction. 4. Chronic right caudate head lacunar infarction. Further findings as detailed above. These findings were discussed with nurse Bea Oglesby on 04/15/2017 at 7:55 AM. RPTAT: PP Medications Medications Current Medications Lorazepam (Ativan) 0.5 mg Q6H PRN IV ANXIETY Last administered on 04/06/17t 23 :08; Admin Dose 0.5 MG; Start 04/04/17 at 03:30 Dextrose (D50w Syringe) 25 ml Q15M PRN IV Till BS 80 mg/dL or above x2; Start 04/04/17 at 09:30 Dextrose (D50w Syringe) 50 ml Q15M PRN IV Till BS 80 mg/dL or above x2; Start 04/04/17 at 09:30 Aspirin (Aspirin) 81 mg DAILY NGT Last administered on 04/14/17 10:53; Admin Dose 81 MG; Start 04/04/17 at 09:30 Atorvastatin Calcium 80 mg 80 mg HS NGT Last administered on 04/14/17 21:00; Admin Dose 80 MG; Start 04/04/17 at 21:00 Levetiracetam (Keppra 1,000mg/ 100ml (Pmx)) 100 ml @ 400 mls/hr Q12 IVPB Last administered on 04/15/17 08:50; Admin Dose 400 MLS/HR; Start 04/05/17 at 11: 00 Heparin Sodium (Porcine) (Heparin (5000 Units/0.5 ml)) 5,000 unit Q8 SC Last administered on 04/10/17 13:32; Admin Dose 5,000 UNIT; Start 04/06/17 at 14: 00; Status Future Hold Acetaminophen 650 mg 650 mg Q4H PRN NGT PAIN AND OR ELEVATED TEMP Last administered on 04/12/17 16:06; Admin Dose 650 MG; Start 04/07/17 at 09:30 Cefepime HCl 50 ml @ 100 mls/hr Q12 IVPB Last administered on 04/15/17 08:51 ; Admin Dose 100 MLS/HR; Start 04/07/17 at 13:00 Vancomycin HCl/ Sodium Chloride (Vancocin/NS) 250 ml @ 83.333 mls/ hr Q12H IVPB Last administered on 04/15/17 05:00; Admin Dose 83.333 MLS/HR; Start at 17:00 Morphine Sulfate (morphine) 2 mg Q2H PRN IV PAIN LEVEL 4-7 Last administered on 04/15/17 04:50; Admin Dose 2 MG; Start 04/11/17 at 20:00 Hydromorphone HCl (Dilaudid) 0.2 mg Q10MIN PRN IM PAIN LEVEL 4-6; Start at 20:00 Hydromorphone HCl 0.4 mg 0.4 mg Q10MIN PRN IV PAIN LEVEL 7-10 Last administered on 04/13/17 01:46; Admin Dose 0.4 MG; Start 04/11/17 at 20:00 Magnesium Sulfate (Magnesium Sulfate 2 Gm/50 ml) 50 ml @ 25 mls/hr IV PRN IVPB NOTE; Start 04/11/17 at 20:00 Ondansetron HCl (Zofran Inj) 4 mg Q6H PRN IV NAUSEA AND/OR VOMITING; Start at 20:00 Oxycodone/ Acetaminophen (Percocet (5/ 325)) 1 tab Q3H PRN PO PAIN LEVEL 1-5; Start 04/11/17 at 20:30 Oxycodone/ Acetaminophen (Percocet (5/ 325)) 2 tab Q3H PRN PO PAIN LEVEL 6-10; Start 04/11/17 at 20:30 Famotidine (Pepcid Iv) 20 mg BID IV Last administered on 04/15/17 08:49; Admin Dose 20 MG; Start 04/13/17 at 09:00 Acetaminophen (Tylenol Supp) 650 mg Q6H PRN AR FEVER Last administered on 04/13 12:44; Admin Dose 650 MG; Start 04/13/17 at 09:30 Metoprolol Tartrate (Lopressor) 25 mg BID GTB Last administered on 04/14/17 21:00; Admin Dose 25 MG; Start 04/13/17 at 21:00 Diagnostic Test (Pha) (Accu-Chek) 1 ea 02 XX ; Start 04/15/17 at 02:00 Insulin Glargine (Lantus) 20 unit DAILY@08 SC Last administered on 04/15/17 08:52; Admin Dose 20 UNIT; Start 04/14/17 at 13:00 Diagnostic Test (Pha) (Accu-Chek) 1 ea 02 XX ; Start 04/15/17 at 02:00 DOUGLAS FERRER Apr 15, 2017 09:52
--- NOTE | 2017-04-15 10:22 | CONS ---
Date/Time of Note Date/Time of Note DATE: 04/15/17 TIME: : Assessment/Plan Assessment/Plan Additional Assessment/Plan Assessment and recommendations; 1. Patient admitted with acute DKA given her respiratory failure. Also developed acute KS requiring CABG surgery. 2. Interval development of acute CVA. Next 3. History of chronic seizure disorder. 4. History of diabetes and hypertension. 5. Some element of aspiration pneumonia. Radiologically improving. 6. Acute on chronic CVA now. Continue current supportive care. Further recommendations per neurology team. Consultation Date/Type/Reason Admit Date/Time Apr 04, 2017 at 03:21 Initial Consult Date 04/04/17 Type of Consultation: Pulmonary/critical care Referring Provider: DOUGLAS FERRER 24 HR Interval Summary Free Text/Dictation Patient's condition has taken a turn for the worse with development of acute CVA. Patient has become aphasic. General exam; middle-aged male, awake, not much responsive to any commands. Currently in no distress. Exam/Review of Systems Vital Signs Vitals Vital Signs Date Time Temp Pulse Resp B/P Pulse Ox O2 Delivery O2 Flow Rate FiO2 04/15/17 09:15 91 17 96/68 95 Nasal Cannula 04/15/17 08:00 4.0 04/15/17 08:00 98.2 04/15/17 06:00 30 Intake and Output 04/14/17 04/14/17 04/15/17 15:00 23:00 07:00 Intake Total 1243.5 ml 620 ml 150 ml Output Total 877 ml 1435 ml 356 ml Balance 366.5 ml -815 ml -206 ml Exam HEENT exam; supple neck, no JVD. No lymphadenopathy. Midline trachea. No thyromegaly. Pupils are midsize and reactive to light. Patient has fair dentition. Chest exam; clear to auscultation. S1-S2 audible, no murmurs. Regular rhythm. Chest tube in place. Abdomen exam; soft, no organomegaly. Known distended. Bowel sounds audible. Extremity exam; no peripheral edema. No clubbing. Pulses 1+ bilaterally. FACILITY ENGINEER exam; patient awake but does not follow any commands. Results Result Diagram: 04/15/17 0520 04/15/17 0520 Results 24 hrs Laboratory Tests Test 04/14/17 12:00 04/14/17 16:31 04/14/17 22:07 04/15/17 05:20 Bedside Glucose 212 222 H 100 White Blood Count 11.7 H Red Blood Count 2.95 L Hemoglobin 8.6 L Hematocrit 27.5 L Mean Corpuscular Volume 93.2 Mean Corpuscular Hemoglobin 29.2 Mean Corpuscular Hemoglobin Concent 31.3 L Red Cell Distribution Width 12.3 Platelet Count 398 # Mean Platelet Volume 10.5 H Neutrophils % 79.6 H Lymphocytes % 9.5 L Monocytes % 7.5 Eosinophils % 2.0 Basophils % 0.2 Nucleated Red Blood Cells % 0.0 Neutrophils # 9.3 H Lymphocytes # 1.1 Monocytes # 0.9 Eosinophils # 0.2 Basophils # 0.0 Nucleated Red Blood Cells # 0.0 Sodium Level 141 Potassium Level 3.2 L Chloride Level 98 Carbon Dioxide Level 34 H Anion Gap 12 Blood Urea Nitrogen 29 H Creatinine 1.09 Glucose Level 191 Calcium Level 8.7 Phosphorus Level 3.8 Magnesium Level 2.1 Total Bilirubin 0.9 Direct Bilirubin 0.00 Indirect Bilirubin 0.9 Aspartate Amino Transf (AST/SGOT) 59 H Alanine Aminotransferase (ALT/SGPT) 54 Alkaline Phosphatase 111 Total Protein 6.6 Albumin 3.2 L Globulin 3.40 H Albumin/Globulin Ratio 0.94 Test 04/15/17 07:25 Bedside Glucose 221 H Medications Medications Current Medications Lorazepam (Ativan) 0.5 mg Q6H PRN IV ANXIETY Last administered on 04/06/17 23 :08; Admin Dose 0.5 MG; Start 04/04/17 at 03:30 Dextrose (D50w Syringe) 25 ml Q15M PRN IV Till BS 80 mg/dL or above x2; Start 04/04/17 at 09:30 Dextrose (D50w Syringe) 50 ml Q15M PRN IV Till BS 80 mg/dL or above x2; Start 04/04/17 at 09:30 Aspirin (Aspirin) 81 mg DAILY NGT Last administered on 04/14/17 10:53; Admin Dose 81 MG; Start 04/04/17 at 09:30 Atorvastatin Calcium 80 mg 80 mg HS NGT Last administered on 04/14/17 21:00; Admin Dose 80 MG; Start 04/04/17 at 21:00 Levetiracetam (Keppra 1,000mg/ 100ml (Pmx)) 100 ml @ 400 mls/hr Q12 IVPB Last administered on 04/15/17 08:50; Admin Dose 400 MLS/HR; Start 04/05/17 at 11: 00 Heparin Sodium (Porcine) (Heparin (5000 Units/0.5 ml)) 5,000 unit Q8 SC Last administered on 04/10/17 13:32; Admin Dose 5,000 UNIT; Start 04/06/17 at 14: 00; Status Future Hold Acetaminophen 650 mg 650 mg Q4H PRN NGT PAIN AND OR ELEVATED TEMP Last administered on 04/12/17 16:06; Admin Dose 650 MG; Start 04/07/17 at 09:30 Cefepime HCl 50 ml @ 100 mls/hr Q12 IVPB Last administered on 04/15/17 08:51 ; Admin Dose 100 MLS/HR; Start 04/07/17 at 13:00 Vancomycin HCl/ Sodium Chloride (Vancocin/NS) 250 ml @ 83.333 mls/ hr Q12H IVPB Last administered on 04/15/17 05:00; Admin Dose 83.333 MLS/HR; Start at 17:00 Morphine Sulfate (morphine) 2 mg Q2H PRN IV PAIN LEVEL 4-7 Last administered on 04/15/17 04:50; Admin Dose 2 MG; Start 04/11/17 at 20:00 Hydromorphone HCl (Dilaudid) 0.2 mg Q10MIN PRN IM PAIN LEVEL 4-6; Start at 20:00 Hydromorphone HCl 0.4 mg 0.4 mg Q10MIN PRN IV PAIN LEVEL 7-10 Last administered on 04/13/17 01:46; Admin Dose 0.4 MG; Start 04/11/17 at 20:00 Magnesium Sulfate (Magnesium Sulfate 2 Gm/50 ml) 50 ml @ 25 mls/hr IV PRN IVPB NOTE; Start 04/11/17 at 20:00 Ondansetron HCl (Zofran Inj) 4 mg Q6H PRN IV NAUSEA AND/OR VOMITING; Start at 20:00 Oxycodone/ Acetaminophen (Percocet (5/ 325)) 1 tab Q3H PRN PO PAIN LEVEL 1-5; Start 04/11/17 at 20:30 Oxycodone/ Acetaminophen (Percocet (5/ 325)) 2 tab Q3H PRN PO PAIN LEVEL 6-10; Start 04/11/17 at 20:30 Famotidine (Pepcid Iv) 20 mg BID IV Last administered on 04/15/17 08:49; Admin Dose 20 MG; Start 04/13/17 at 09:00 Acetaminophen (Tylenol Supp) 650 mg Q6H PRN MD FEVER Last administered on 04/13 12:44; Admin Dose 650 MG; Start 04/13/17 at 09:30 Metoprolol Tartrate (Lopressor) 25 mg BID GTB Last administered on 04/14/17 21:00; Admin Dose 25 MG; Start 04/13/17 at 21:00 Diagnostic Test (Pha) (Accu-Chek) 1 ea 02 XX ; Start 04/15/17 at 02:00 Insulin Glargine (Lantus) 20 unit DAILY@08 SC Last administered on 04/15/17 08:52; Admin Dose 20 UNIT; Start 04/14/17 at 13:00 Diagnostic Test (Pha) (Accu-Chek) 1 ea 02 XX ; Start 04/15/17 at 02:00 NUBIA NAVARRO Apr 15, 2017 10:22
--- NOTE | 2017-04-15 10:33 | RADRPT ---
PROCEDURE: CT angiogram brain and neck CLINICAL INDICATION: Code stroke, acute CVA, status post open heart surgery 3 days ago TECHNIQUE: CT angiogram of the brain, and neck was performed on a multidetector CT scanner. The amanda dy was reviewed on a [employer] PACS/3D workstation with 3D-MIP reformations. 100 cc Visipaque 320 intravenous contrast were administered. One or more of the following dose reduction techniques were used: Automated exposure control, adjustment in mA and / or kV according to patient size, use of it erative reconstructive technique. CTDIvol = 18 mGy and DLP = 797 mGy-cm. COMPARISON: CT brain 04/15/2017, MRA brain and neck 04/04/2017, chest radiograph 04/12/2017 FINDINGS: CT ANGIOGRAM NECK: The origin of the great vessels arising off of the aortic arch are patent. Bilat eral common carotid arteries are patent with mild calcified plaque on the right and mild noncalcifi ed plaque on the left, bilateral carotid bulbs are patent. There are mild plaques of the bilateral proximal internal carotid arteries with minimal calcification on the right, with approximately 20% s tenosis on the right and 10% stenosis on the left using NASCET criteria. The bilateral vertebral ar teries are patent with dominant right vertebral artery. No dissection is identified. Small linear filling defect along the medial wall of the right internal jugular artery may reflect thrombus relat ed to recent central venous line. Postoperative CABG changes with mediastinal drain, pleural effusio ns, left atelectasis, as well as right PICC line are noted. Spondylosis is noted. CT ANGIOGRAM BRAIN: The bilateral internal carotid arteries are patent with minimal - mild calcifie d plaque seen at the bilateral cavernous internal carotid arteries. There is mild focal stenosis at the M1 segment of the left middle cerebral artery. There is focal occlusion of the proximal anterio r left middle cerebral artery M2 branch. The rest of the left middle cerebral artery branches are gr ossly patent. The right middle cerebral artery appears patent. The bilateral anterior cerebral arter ies appear patent. The bilateral vertebral arteries, basilar artery and bilateral posterior cerebra l arteries are patent. origin of the right posterior cerebral artery is noted. No aneurysm or vascular malformation is identified. Relative area of hypodensity and indistinct galloway-white juncti ons seen on the CT source images and left MCA territory, involving the frontal and insular regions. IMPRESSION: 1. Focal occlusion of proximal anterior left MCA M2 branch suspicious for thromboembolus; no additi onal major intracranial arterial occlusion or significant stenosis identified. 2. Area of relative hypodensity and indistinct galloway-white junctions in the left MCA territory at th e frontal - insular region seen on the source images which may reflect area of relative decreased pe rfusion versus early infarct. 3. No cervical arterial occlusion or significant stenosis identified. 4. Approximately 20% stenosis of the proximal right cervical ICA, and 10% stenosis of the proximal left cervical ICA by NASCET criteria. 5. Mild left MCA M1 segment stenosis. 6. Small nonocclusive linear defect in the right internal jugular vein which may reflect thrombus r elated to recent central line. Critical results called to Dr. Roa at 10:25 a.m., 04/15/2017. RPTAT: VV .Eusebio Wilkerson MD, Date Time Electronically viewed and signed by .Eusebio Wilkerson MD, on 04/15/2017 10:33 .O/
--- NOTE | 2017-04-15 10:42 | RADRPT ---
PROCEDURE: CT angiogram brain and neck CLINICAL INDICATION: Code stroke, acute CVA, status post open heart surgery 3 days ago TECHNIQUE: CT angiogram of the brain, and neck was performed on a multidetector CT scanner. The stud y was reviewed on a [employer] PACS/3D workstation with 3D-MIP reformations. 100 cc Visipaque 320 in travenous contrast were administered. One or more of the following dose reduction techniques were us ed: Automated exposure control, adjustment in mA and / or kV according to patient size, use of itera tive reconstructive technique. CTDIvol = 18 mGy and DLP = 797 mGy-cm. COMPARISON: CT brain 04/15/2017, MRA brain and neck 04/04/2017, chest radiograph 04/12/2017 FINDINGS: CT ANGIOGRAM NECK: The origin of the great vessels arising off of the aortic arch are patent. Bilate ral common carotid arteries are patent with mild calcified plaque on the right and mild noncalcified plaque on the left, bilateral carotid bulbs are patent. There are mild plaques of the bilateral pro ximal internal carotid arteries with minimal calcification on the right, with approximately 20% sten osis on the right and 10% stenosis on the left using NASCET criteria. The bilateral vertebral arteri es are patent with dominant right vertebral artery. No dissection is identified. Small linear fillin g defect along the medial wall of the right internal jugular artery may reflect thrombus related to recent central venous line. Postoperative CABG changes with mediastinal drain, pleural effusions, le ft atelectasis, as well as right PICC line are noted. Spondylosis is noted. CT ANGIOGRAM BRAIN: The bilateral internal carotid arteries are patent with minimal - mild calcified plaque seen at the bilateral cavernous internal carotid arteries. There is mild focal stenosis at t he M1 segment of the left middle cerebral artery. There is focal occlusion of the proximal anterior left middle cerebral artery M2 branch. The rest of the left middle cerebral artery branches are arcenio sly patent. The right middle cerebral artery appears patent. The bilateral anterior cerebral arterie s appear patent. The bilateral vertebral arteries, basilar artery and bilateral posterior cerebral a rteries are patent. origin of the right posterior cerebral artery is noted. No aneurysm or vas cular malformation is identified. Relative area of hypodensity and indistinct galloway-white junctions s een on the CT source images and left MCA territory, involving the frontal and insular regions. IMPRESSION: 1. Focal occlusion of proximal anterior left MCA M2 branch suspicious for thromboembolus; no additio nal major intracranial arterial occlusion or significant stenosis identified. 2. Area of relative hypodensity and indistinct galloway-white junctions in the left MCA territory at the frontal - insular region seen on the source images which may reflect area of relative decreased per fusion versus early infarct. 3. No cervical arterial occlusion or significant stenosis identified. 4. Approximately 20% stenosis of the proximal right cervical ICA, and 10% stenosis of the proximal l eft cervical ICA by NASCET criteria. 5. Mild left MCA M1 segment stenosis. 6. Small nonocclusive linear defect in the right internal jugular vein which may reflect thrombus re lated to recent central line. Critical results called to Dr. Roa at 10:25 a.m., 04/15/2017. RPTAT: VV .Eusebio Wilkerson MD, MD Date Time Electronically viewed and signed by .Eusebio Wilkerson MD, MD on 04/15/2017 10:41 .O/
--- NOTE | 2017-04-15 11:07 | PDOCDIS ---
Discharge Instructions CONDITION Patient Condition: Fair HOME CARE INSTRUCTIONS: Special Diet: NPO ACTIVITY: Activity Restrictions Comment: bed rest FOLLOW UP/APPOINTMENTS Follow-up Plan Patient being transferred emergently to stroke center per [facility] stroke team, or arrangement made through [facility] stroke team, DOUGLAS Marquis Apr 15, 2017 11:07
== END 2017-04-15 11:00 | disposition short-term general hospital (02) | DRG 228 ==
LOC: E/R 23:50 → ICU 04-04 03:21
PROVIDERS: ADMIT Internal Medicine; ATTEND Internal Medicine
PROC: 5A1935Z Respiratory Ventilation, Less than 24 Consecutive Hours (ICD-10-PCS; 2017-04-04)
PROC: 0BH18EZ Insertion of Endotracheal Airway into Trachea, Via Natural or Artificial Opening Endoscopic (ICD-10-PCS; 2017-04-04)
PROC: B2151ZZ Fluoroscopy of Left Heart using Low Osmolar Contrast (ICD-10-PCS; 2017-04-05)
PROC: 4A023N7 Measurement of Cardiac Sampling and Pressure, Left Heart, Percutaneous Approach (ICD-10-PCS; 2017-04-05)
PROC: 02HV33Z Insertion of Infusion Device into Superior Vena Cava, Percutaneous Approach (ICD-10-PCS; 2017-04-07)
PROC: 5A1955Z Respiratory Ventilation, Greater than 96 Consecutive Hours (ICD-10-PCS; 2017-04-07)
PROC: 02100A9 Bypass Coronary Artery, One Artery from Left Internal Mammary with Autologous Arterial Tissue, Open Approach (ICD-10-PCS; 2017-04-11)
PROC: 021209W Bypass Coronary Artery, Three Arteries from Aorta with Autologous Venous Tissue, Open Approach (ICD-10-PCS; 2017-04-11)
PROC: 06BQ4ZZ Excision of Left Saphenous Vein, Percutaneous Endoscopic Approach (ICD-10-PCS; 2017-04-11)
PROC: 3E080GC Introduction of Other Therapeutic Substance into Heart, Open Approach (ICD-10-PCS; 2017-04-11)
PROC: 5A1221Z Performance of Cardiac Output, Continuous (ICD-10-PCS; 2017-04-11)
PROC: 02C10ZZ Extirpation of Matter from Coronary Artery, Two Arteries, Open Approach (ICD-10-PCS; principal; 2017-04-11 13:30)
DX: I21.4 Non-ST elevation (NSTEMI) myocardial infarction (principal); J96.01 Acute respiratory failure with hypoxia; J69.0 Pneumonitis due to inhalation of food and vomit; J96.02 Acute respiratory failure with hypercapnia; I50.43 Acute on chronic combined systolic (congestive) and diastolic (congestive) heart failure; E11.10 Type 2 diabetes mellitus with ketoacidosis without coma; N17.9 Acute kidney failure, unspecified; E87.2 Acidosis; R47.01 Aphasia; I69.351 Hemiplegia and hemiparesis following cerebral infarction affecting right dominant side; N39.0 Urinary tract infection, site not specified; E11.65 Type 2 diabetes mellitus with hyperglycemia; I11.0 Hypertensive heart disease with heart failure; I25.119 Atherosclerotic heart disease of native coronary artery with unspecified angina pectoris; Z79.82 Long term (current) use of aspirin; G40.909 Epilepsy, unspecified, not intractable, without status epilepticus; I25.10 Atherosclerotic heart disease of native coronary artery without angina pectoris; E78.5 Hyperlipidemia, unspecified; F17.200 Nicotine dependence, unspecified, uncomplicated; B95.2 Enterococcus as the cause of diseases classified elsewhere; I25.5 Ischemic cardiomyopathy; Z79.84 Long term (current) use of oral hypoglycemic drugs; Z95.5 Presence of coronary angioplasty implant and graft; Z79.4 Long term (current) use of insulin
CPT/HCPCS: 31500; 36415; 36430; 36569; 36592; 36600; 70450; 70496; 70498; 70544; 70549; 70551; 71010; 74000; 76937; 80048; 80053; 80061; 80202; 81001; 82043; 82550; 82553; 82803; 82947; 82962; 83036; 83605; 83735; 84100; 84132; 84439; 84443; 84484; 85014; 85025; 85610; 85730; 86644; 86850; 86900; 86901; 86920; 87040; 87070; 87081; 87086; 92526; 92610; 93005; 93306; 93312; 93325; 93458; 93880; 94002; 94003; 94770; 95819; 96365; 96375; 96376; 97110; 97116; 97162; 97530; J1940; C1760; C1887; C1894; C9113; J0171; J0690; J0692; J1644; J1815; J1953; J2001; J2060; J2150; J2250; J2270; J2310; J2370; J2440; J2720; J3010; J3370; J3475; J3480; J7030; J7042; J7050; J7060; J7070; P9035; P9045; P9047; P9059; Q9967

== ENCOUNTER 2017-04-15 15:36 | Inpatient (IN) | payer OTHER ==
[~2017-04-15] VITALS: Ht 177.8 cm; Wt 76.5 kg
[~2017-04-15 15:36] MED LIST: ASPI-535 PO; ATOR10TA65 PO; CARV6.2579 PO; GLIM2TAB47 PO; [UNRECOGNIZED DRUG - CODE] PO
[2017-04-15 20:00] VITALS: BP 131/102; PULSE 101; PULSE 98; RESP 24
[2017-04-15 21:00] VITALS: BP 127/83; PULSE 97; RESP 21
[2017-04-15 22:00] VITALS: BP 123/88; PULSE 109; RESP 25
[2017-04-15 23:00] VITALS: BP 143/87; PULSE 116; RESP 26
[2017-04-15] MEDS ORDERED: ATORVASTATIN 10 MG TAB PO SCH (23:00)
[2017-04-16] VITALS (24 sets, daily range): BP systolic 95–125; BP diastolic 63–91; PULSE 94–111; RESP 12–33
[2017-04-16] MEDS ORDERED: ONDANSETRON 4 MG INJ IV PRN (01:00)
[2017-04-16] MEDS ORDERED: POTASSIUM CHLORIDE 50 ML IVPB PRN (01:00)
[2017-04-16] MEDS: D5W-0.45 NACL + KCL 20 MEQ 1,000 ML IV SCH ×3 (01:49→14:20)
[2017-04-16] MEDS: HEPARIN 5,000 UNIT/0.5 ML VIAL SC SCH ×4 (01:55→22:22)
[2017-04-16] MEDS: INSULIN GLARGINE [LANtus] 3 ML PEN SC SCH ×2 (01:56→20:11)
[2017-04-16] MEDS: POTASSIUM CHLORIDE 250 ML IVPB SCH ×2 (02:24→06:15)
[2017-04-16] MEDS: ASPIRIN (EC) 81 MG TAB PO SCH (08:05)
[2017-04-16] MEDS ORDERED: DEXTROSE 50% 50 ML SYRINGE IV PRN ×2 (09:00)
[2017-04-16] MEDS ORDERED: GLUCOSE GEL 15 GRAM TUBE BUCCAL PRN (09:00)
[2017-04-16] MEDS: INSULIN ASPART [NOVOLOG] 3 ML PEN SC SCH ×4 (09:00→20:12)
[2017-04-16] MEDS ORDERED: GLUCAGON 1 MG INJ IM PRN (09:00)
[2017-04-16] MEDS ORDERED: GLUCOSE GEL 15 GRAM TUBE PO PRN ×2 (09:00)
--- NOTE | 2017-04-16 11:31 | HP ---
Date/Time of Note Date/Time of Note DATE: 04/16/17 TIME: 11:23 Assessment/Plan VTE Prophylaxis VTE Prophylaxis Intervention: SCD's Lines/Catheters IV Catheter Type (from Nrs): PICC Line Central line still needed: Yes (critically ill) Urinary Cath still in place: Yes Reason Cath still needed: other (indicate) (critically ill) Assessment/Plan Assessment/Plan [facility] 1. 52-year-old patient of Dr. Helms who presented two weeks ago with diabetic ketoacidosis. He had known diabetes mellitus with noncompliance with diet, and off medications for at least 1-2 months. His HgbA1c was above the assayable range. * Continue current insulin regimen * Accuchecks qh6 2. S/p acute CVA, transferred to [facility] for interventional treatment. Seizures, with CT brain scan showing old ischemic CVA. MRI/MRA. EEG. * Continue Keppra * Maintain systolic blood pressures in the current range ~150 * Continue chest tubes to gravity drainage * Macias catheter. * Per recommendations of the Speech Therapist he will need video swallow. * Continue on Vanco and cefepime (as of 04/07/17) 3. Probable aspiration pneumonia, now extubated. He had acute respiratory failure in the setting of seizures 4. NSTEMI known coronary artery disease, now day 5 s/p CABG. * Continue Lovenox for anticoagulation in setting of AMI and for DVT prophylaxis. * Continue Lipitor at 80 mg nightly. * ICU level care for now. Christian Harden MD PhD [phone] HPI/ROS Admit Date/Time Admit Date/Time Apr 15, 2017 at 19:19 Hx of Present Illness 52yo man re-admitted last night following intervention at [facility] following acute CVA yesterday morning with onset of aphasia and right hemiparesis. Code stroke was called at 7:25 AM yesterday morning, last seen at baseline around 5 AM when he was given pain medication. Patient was found to have acute onset of right hemiparesis, aphasia, with Code Stroke called. He was treated for possible left middle cerebral artery thrombosis with Code Stoke protocol after non-contrast CT of the head showed no acute bleeding. He is also postoperative day#5 status post CABG by Dr. Herron. He had an NSTEMI on admission with known coronary artery disease, status post stents 3 years ago. He has a history of previous seizures, possibly secondary to diabetes. CT scan of the brain showed an old ischemic CVA, and MRI/MRA of the brain and neck only showing bilateral chronic infarcts. EEG consistent with encephalopathy. During his hospitalization he had blood cultures positive for coag negative staph and alpha hemolytic strep, though repeat blood cultures negative. He also has a history of coronary artery disease, status post cardiac arrest 3 years ago. He had PCI with stent placement 2, diabetes mellitus, hyperlipidemia , apparently stopped all his medication at least 3 months ago, noncompliant with diet, presented the emergency department seizures, could not protect his airway therefore had to be intubated. Patient was also found to be in DKA with bicarb of 9, pH of 7.2 and blood sugars in the 500s. He was started on an insulin drip/DKA protocol, intubated for airway protection, given a dose of Keppra and admitted to the intensive care unit. Patient is currently on propofol, Levophed had to be started for hypotension, he is also on IV fluids. His gap is closed, he will be transitioned to subcutaneous insulin. He is down to 30% FiO2 with weaning protocol started. He has been put on Keppra for seizure. CT scan of the head showing old ischemic stroke, neurological workup has been started, MRIs are pending, EEG will also be ordered once patient of sedation and more awake. The patient himself has not been able to give any history, the sister at the bedside was able to provide most of the history, I also talked to his primary care physician who gave additional history. According to the sister patient has been complaining of severe headaches and losing his vision over the past 5 days or to admission, he went to his primary care physician to whom he apparently complains of vision loss, she is primary care physician was concerned about glaucoma, he sent him to the agribusiness professor , according to the sister they did a dilated eye exam, apparently the pressures were okay, they give him a prescription for eyeglasses. Since the dilated exam , the patient pupils level went back to normal according to the sister and the patient never regained the vision he has prior to the exam. The patient is notoriously noncompliant with medication and also diet, apparently he has been eating additional sugar due to labile blood sugars according to the sister, his blood sugars will run high but also running low at times, they do not have any measurements, the patient is measuring himself. His A1c is out of range here which supports baseline elevated blood sugar. He has been having polyuria and polydipsia according to the sister. He also lost significant weight over the past 6 months. PMH/Family/Social Past Medical History Coronary artery disease, status post cardiac arrest 3 years ago, status post PCI with the 2 stents placed in [place] 2 years ago. According to the sister he was critically ill and remaining, for 2 month. 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 However his memory has been unreliable at time along with his behavior. Diabetes mellitus Hypertension Hyperlipidemia Visual disturbances/loss Possible major depressive disorder according to sister Noncompliance with medications or diet or follow-ups Past Surgical History Status post PCI with stent placement 3 years ago in [place] in setting of cardiac arrest Family History Significant Family History: no pertinent family hx Social History Alcohol Use: none Smoking Status: Never smoker Drug Use: none ROS Patient is non-verbal. No family/visitors at bedside. Exam/Review of Systems Vital Signs Vitals Vital Signs Date Time Temp Pulse Resp B/P Pulse Ox O2 Delivery O2 Flow Rate FiO2 04/16/17 10:00 105 20 98/63 100 Nasal Cannula 3.0 04/16/17 07:00 98.5 Intake and Output 04/15/17 04/15/17 04/16/17 15:00 23:00 07:00 Intake Total 640.0 ml Output Total 120 ml 315 ml Balance -120 ml 325.0 ml Exam Exam Constitutional: non-verbal, lethargic but able to open his eyes to voice HEENT: PERRL, EOMI, moist oral mucosa, good dentition, no scleral icterus or conjunctivitis. Respiratory: clear to auscultation, with good air movement, on 2L/min nasal cannula Cardiovascular: Symmetric pulses, regular rhythm, normal rate, no rub or murmur. Sternotomy scar bandaged. Two mid-chest drains with serosanguinous drainage. Gastrointestinal: non-tender, soft, bowel sounds positive. Musculoskeletal: No edema, clubbing or cyanosis. Joints moving normally, with no swelling. 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: Non-verbal, fleeting eye contact, no ankle clonus, mild hyperreflexia at the left patellar reflex. Toes downgoing. Labs Result Diagram: 04/15/17205704/15/172057 Medications Medications Current Medications Aspirin (Halfprin) 81 mg DAILY PO ; Start 04/16/17 at 09:00 Atorvastatin Calcium (Lipitor) 10 mg QHS PO ; Start 04/15/17 at 23:00 Carvedilol 6.25 mg 6.25 mg BID PO ; Start 04/15/17 at 23:00 Potassium Chloride/Dextrose/ Sod Cl (D5-1/2ns + KCl 20 Meq) 1,000 ml @ 75 mls/ hr [id number] IV Last administered on 04/16/17 01:49; Admin Dose 75 MLS/HR; Start 04/16/17 at 01:00 Insulin Glargine (Lantus) 12 unit DAILY@20 SC Last administered on 04/16/17 01:56; Admin Dose 12 UNIT; Start 04/16/17 at 01:00 Heparin Sodium (Porcine) (Heparin (5000 Units/0.5 ml)) 5,000 unit Q8 SC Last administered on 04/16/17 06:19; Admin Dose 5,000 UNIT; Start 04/16/17 at 01: 00 Ondansetron HCl (Zofran Inj) 4 mg Q4H PRN IV NAUSEA AND/OR VOMITING; Start at 01:00 Diagnostic Test (Pha) (Accu-Chek) 1 ea 02 XX ; Start 04/17/17 at 02:00 Insulin Aspart (Novolog Insulin Pen) NOVOLOG *MODERATE* ALGORI... Q4 SC ; Start 04/16/17 at 09:00 Miscellaneous Information 1 ea NOTE XX ; Start 04/16/17 at 09:00 Glucose (Glutose) 15 gm Q15M PRN PO DECREASED GLUCOSE; Start 04/16/17 at 09:00 Glucose (Glutose) 22.5 gm Q15M PRN PO DECREASED GLUCOSE; Start 04/16/17 at 09: 00 Dextrose (D50w Syringe) 25 ml Q15M PRN IV DECREASED GLUCOSE; Start 04/16/17 at 09:00 Dextrose (D50w Syringe) 50 ml Q15M PRN IV DECREASED GLUCOSE; Start 04/16/17 at 09:00 Glucagon (Glucagen) 1 mg Q15M PRN IM DECREASED GLUCOSE; Start 04/16/17 at 09: 00 Glucose (Glutose) 15 gm Q15M PRN BUCCAL DECREASED GLUCOSE; Start 04/16/17 at 09:00 JO-ANN HARDEN M.D. Apr 16, 2017 11:31 Glucose (Glutose) 15 gm Q15M PRN BUCCAL DECREASED GLUCOSE; Start 04/16/17 at 09:00 JO-ANN HARDEN M.D. Apr 16, 2017 11:31
--- NOTE | 2017-04-16 12:30 | CONS ---
Date/Time of Note Date/Time of Note DATE: 04/16/17 TIME: 12:26 Assessment/Plan Assessment/Plan Additional Assessment/Plan Non-ST elevation VT Coronary artery disease status post CABG 04/11/2017 Acute decompensated systolic congestive heart failure Ischemic cardiomyopathy Respiratory failure, status post extubation 04/12/2017 s/p CVA - unable to do mechanical thrombectomy @ [facility] -Blood pressure trend remains stable, patient undergoing speech and swallow evaluation. Start statin therapy, aspirin and beta-kayy when able to take p.o. Continue IV diuretics as renal function and blood pressure tolerates. Maintain potassium above 4.0 and magnesium above 2.0. Encourage incentive spirometry -asa/statin/coreg -rx aeci when bp improves due to recent cva Consultation Date/Type/Reason Admit Date/Time Apr 15, 2017 at 19:19 Hx of Present Illness 52yo man re-admitted last night following intervention at [facility] following acute CVA yesterday morning with onset of aphasia and right hemiparesis. Code stroke was called at 7:25 AM yesterday morning, last seen at baseline around 5 AM when he was given pain medication. Patient was found to have acute onset of right hemiparesis, aphasia, with Code Stroke called. He was treated for possible left middle cerebral artery thrombosis with Code Stoke protocol after non-contrast CT of the head showed no acute bleeding. He is also postoperative day#5 status post CABG by Dr. Herron. He had an NSTEMI on admission with known coronary artery disease, status post stents 3 years ago. Given recent surgry, no thrommbolysis was givena dnwas transferrred to [facility] for mehcancial thrombectomy, but without success Exam/Review of Systems Vital Signs Vitals Vital Signs Date Time Temp Pulse Resp B/P Pulse Ox O2 Delivery O2 Flow Rate FiO2 04/16/17 12:00 98.3 97 19 104/68 100 Nasal Cannula 3.0 Intake and Output 04/15/17 04/15/17 04/16/17 15:00 23:00 07:00 Intake Total 640.0 ml Output Total 120 ml 315 ml Balance -120 ml 325.0 ml Results Result Diagram: 04/15/17205704/15/172057 Results 24 hrs Laboratory Tests Test 04/15/17 20:58 04/15/17 21:17 04/16/17 01:52 04/16/17 07:45 White Blood Count 9.9 Red Blood Count 2.74 L Hemoglobin 8.3 L Hematocrit 25.5 L Mean Corpuscular Volume 93.1 Mean Corpuscular Hemoglobin 30.3 Mean Corpuscular Hemoglobin Concent 32.5 Red Cell Distribution Width 12.0 Platelet Count 415 Mean Platelet Volume 10.1 Neutrophils % 79.6 H Lymphocytes % 8.2 L Monocytes % 9.4 Eosinophils % 1.7 Basophils % 0.3 Nucleated Red Blood Cells % 0.0 Neutrophils # 7.9 H Lymphocytes # 0.8 Monocytes # 0.9 Eosinophils # 0.2 Basophils # 0.0 Nucleated Red Blood Cells # 0.0 Sodium Level 141 Potassium Level 2.7 *L Chloride Level 101 Carbon Dioxide Level 33 H Anion Gap 10 Blood Urea Nitrogen 23 H Creatinine 0.85 Glucose Level 133 # Calcium Level 8.6 Bedside Glucose 138 137 158 Medications Medications Current Medications Aspirin (Halfprin) 81 mg DAILY PO ; Start 04/16/17 at 09:00 Atorvastatin Calcium (Lipitor) 10 mg QHS PO ; Start 04/15/17 at 23:00 Carvedilol 6.25 mg 6.25 mg BID PO ; Start 04/15/17 at 23:00 Potassium Chloride/Dextrose/ Sod Cl (D5-1/2ns + KCl 20 Meq) 1,000 ml @ 75 mls/ hr [id number] IV Last administered on 04/16/17 01:49; Admin Dose 75 MLS/HR; Start 04/16/17 at 01:00 Insulin Glargine (Lantus) 12 unit DAILY@20 SC Last administered on 04/16/17 01:56; Admin Dose 12 UNIT; Start 04/16/17 at 01:00 Heparin Sodium (Porcine) (Heparin (5000 Units/0.5 ml)) 5,000 unit Q8 SC Last administered on 04/16/17 06:19; Admin Dose 5,000 UNIT; Start 04/16/17 at 01: 00 Ondansetron HCl (Zofran Inj) 4 mg Q4H PRN IV NAUSEA AND/OR VOMITING; Start at 01:00 Diagnostic Test (Pha) (Accu-Chek) 1 ea 02 XX ; Start 04/17/17 at 02:00 Insulin Aspart (Novolog Insulin Pen) NOVOLOG *MODERATE* ALGORI... Q4 SC ; Start 04/16/17 at 09:00 Miscellaneous Information 1 ea NOTE XX ; Start 04/16/17 at 09:00 Glucose (Glutose) 15 gm Q15M PRN PO DECREASED GLUCOSE; Start 04/16/17 at 09:00 Glucose (Glutose) 22.5 gm Q15M PRN PO DECREASED GLUCOSE; Start 04/16/17 at 09: 00 Dextrose (D50w Syringe) 25 ml Q15M PRN IV DECREASED GLUCOSE; Start 04/16/17 at 09:00 Dextrose (D50w Syringe) 50 ml Q15M PRN IV DECREASED GLUCOSE; Start 04/16/17 at 09:00 Glucagon (Glucagen) 1 mg Q15M PRN IM DECREASED GLUCOSE; Start 04/16/17 at 09: 00 Glucose (Glutose) 15 gm Q15M PRN BUCCAL DECREASED GLUCOSE; Start 04/16/17 at 09:00 GERARDO BROWNE MD Apr 16, 2017 12:30
--- NOTE | 2017-04-16 18:09 | PN ---
Date/Time of Note Date/Time of Note DATE: 04/16/17 TIME: 18:07 Assessment/Plan Lines/Catheters IV Catheter Type (from Nrsg): PICC Line Macias in Place (from Nrsg): Yes Assessment/Plan Chief Complaint/Hosp Course SP CABG Chronic and acute CVA CT : 1. Focal area of loss of galloway-white differentiation within the right lateral lobe measuring 2 cm suggesting acute / recent infarction. Consider CTA of the head/neck or noncontrast MRI of the brain as clinically warranted. No acute intracranial hemorrhage. 2. Chronic left inferior cerebellar infarction. 3. Small chronic right centrum semiovale/kolb radiata lacunar infarction. 4. Chronic right caudate head lacunar infarction. will DC CT and pacing wires supp care Problems: Subjective 24 Hr Interval Summary Pain Control: mild Exam/Review of Systems Vital Signs Vitals Vital Signs Date Time Temp Pulse Resp B/P Pulse Ox O2 Delivery O2 Flow Rate FiO2 04/16/17 17:00 110 24 110/82 93 Nasal Cannula 3.0 04/16/17 16:00 98.5 Intake and Output 04/15/17 04/15/17 04/16/17 15:00 23:00 07:00 Intake Total 640.0 ml Output Total 120 ml 315 ml Balance -120 ml 325.0 ml Exam ENMT: mucosa pink and moist, nl external ears & nose, nl lips & teeth, nl nasal mucosa & septum Neck: non-tender, supple Respiratory: clear to auscultation, normal air movement Cardiovascular: nl pulses, regular rate and rhythm Gastrointestinal: nl liver, spleen, non-tender, soft Results Result Diagram: 04/15/17205704/16/17 1424 NORIS HARRIS MD Apr 16, 2017 18:09
--- NOTE | 2017-04-16 19:50 | RADRPT ---
PROCEDURE: Portable chest x-ray. CLINICAL INDICATION: Status post chest tube removal. TECHNIQUE: Portable AP view of the chest. COMPARISON: 04/12/2017. FINDINGS: An endotracheal tube, nasogastric tube, left chest tube, mediastinal drains, and right [place]-Mahogany cat heter have been removed. A right upper extremity PICC terminates at the superior cavoatrial junctio n. There is a small to moderate left pleural effusion and hazy opacification of the left lung field. Th e patient is status post median sternotomy and CABG. The cardiac silhouette is enlarged. There is no pneumothorax. IMPRESSION: 1. Lines and tubes as described in the findings. 2. No pneumothorax. 3. Small to moderate left pleural effusion. 4. Hazy opacification of the left lung field, possibly reflecting layering pleural fluid, postopera tive parenchymal changes, pneumonia, or asymmetric edema. 5. Enlarged cardiac silhouette. 6. Status post CABG. RPTAT: HTAR .Gerry Le MD, MD Date Time Electronically viewed and signed by .Gerry Le MD, on 04/16/2017 19:50 .R/
--- NOTE | 2017-04-16 19:50 | RADRPT ---
PROCEDURE: Portable chest x-ray. CLINICAL INDICATION: Status post chest tube removal. TECHNIQUE: Portable AP view of the chest. COMPARISON: 04/12/2017. FINDINGS: An endotracheal tube, nasogastric tube, left chest tube, mediastinal drains, and right [place]-Mahogany cat heter have been removed. A right upper extremity PICC terminates at the superior cavoatrial junctio n. There is a small to moderate left pleural effusion and hazy opacification of the left lung field. Th e patient is status post median sternotomy and CABG. The cardiac silhouette is enlarged. There is no pneumothorax. IMPRESSION: 1. Lines and tubes as described in the findings. 2. No pneumothorax. 3. Small to moderate left pleural effusion. 4. Hazy opacification of the left lung field, possibly reflecting layering pleural fluid, postopera tive parenchymal changes, pneumonia, or asymmetric edema. 5. Enlarged cardiac silhouette. 6. Status post CABG. RPTAT: HTAR .Gerry Le MD, MD Date Time Electronically viewed and signed by .Gerry Le MD, on 04/16/2017 19:50 .R/
--- NOTE | 2017-04-16 19:50 | RADRPT ---
PROCEDURE: Portable chest x-ray. CLINICAL INDICATION: Status post chest tube removal. TECHNIQUE: Portable AP view of the chest. COMPARISON: 04/12/2017. FINDINGS: An endotracheal tube, nasogastric tube, left chest tube, mediastinal drains, and right [place]-Mahogany cat heter have been removed. A right upper extremity PICC terminates at the superior cavoatrial junctio n. There is a small to moderate left pleural effusion and hazy opacification of the left lung field. Th e patient is status post median sternotomy and CABG. The cardiac silhouette is enlarged. There is no pneumothorax. IMPRESSION: 1. Lines and tubes as described in the findings. 2. No pneumothorax. 3. Small to moderate left pleural effusion. 4. Hazy opacification of the left lung field, possibly reflecting layering pleural fluid, postopera tive parenchymal changes, pneumonia, or asymmetric edema. 5. Enlarged cardiac silhouette. 6. Status post CABG. RPTAT: HTAR .Gerry Le MD, MD Date Time Electronically viewed and signed by .Gerry Le MD, on 04/16/2017 19:50 .R/
[2017-04-16] MEDS: ATORVASTATIN 80 MG TAB PO SCH (21:00)
[2017-04-17] VITALS (26 sets, daily range): BP systolic 89–142; BP diastolic 55–81; PULSE 84–110; RESP 15–42
[2017-04-17] MEDS: INSULIN ASPART [NOVOLOG] 3 ML PEN SC SCH ×6 (01:35→22:04)
[2017-04-17] MEDS: ACCU-CHEK XX SCH (01:36)
[2017-04-17] MEDS: D5W-0.45 NACL + KCL 20 MEQ 1,000 ML IV SCH ×2 (02:37→15:17)
--- NOTE | 2017-04-17 04:31 | CONS ---
DATE OF ADMISSION: 04/15/2017 DATE OF CONSULTATION: 04/16/2017 NEUROLOGICAL CONSULTATION Thank you, Dr. Ferrer, for your kind referral for evaluation of acute stroke. HISTORY OF PRESENT ILLNESS: The patient is a 52-year-old gentleman with past medical history of ehsan betes, diabetic ketoacidosis, acute respiratory failure, history of seizures, as well as status post CABG, postoperative day 4, who yesterday developed acute onset of aphasia and right-sided hemipares is. He had CAT scan of the head, as well as CT angiogram of the head. CT angiogram showed focal oc clusion of the proximal anterior left MCA M2 segment. The CAT scan shows right lateral lobe acute i nfarction. He was moved for possible intervention to the [facility], but no interventi on was done and he had CT angiogram there again, with occlusion of the M2 branch, so he was moved ba to [facility]. He continues to have right-sided hemiplegia and global aphasia. No new problems. PAST MEDICAL HISTORY: As above. According to the chart, the patient has previous history of seizur es. Other problems, hypertension, dyslipidemia, major depressive disorder, noncompliance with medic ations prior to admission. SOCIAL HISTORY: No alcohol, tobacco, drug use. FAMILY HISTORY: Noncontributory. PHYSICAL EXAMINATION: VITAL SIGNS: Temperature 98.3, 104 pulse, 20 respirations, 100/60 blood pressure. GENERAL: He is not in acute distress, lying in bed. HEENT: Normocephalic, atraumatic head. NECK: No carotid bruits, lymphadenopathy, thyromegaly. LUNGS: Clear to auscultation bilaterally. CARDIAC: Normal cardiac rhythm and sounds. There is a sternotomy scar. ABDOMEN: Soft. EXTREMITIES: No cyanosis, clubbing or edema. NEUROLOGIC: He is awake, not verbal, follows commands with visual prompting, does not follow comple x commands. No response to visual threat from the right, reflecting right-sided hemianopia. Pupils reactive from 3 to 2 mm bilaterally. Extraocular movements intact without nystagmus. Asymmetrical face with mild right nasolabial fold flattening. Corneal reflexes present bilaterally, but weaker on the right. Gag is present. Motor strength examination preserved on the left and flaccid, no mov ements to pain on the right. Deep tendon reflexes 2+ upper extremities and knees, absent ankle jerk s. Equivocal response to plantar stimulation on the left and upgoing on the right. CURRENT MEDICATIONS: 1. Aspirin 81 mg. 2. Insulin. 3. Heparin for DVT prevention. 4. Atorvastatin 10. 5. Coreg 6.25. LABORATORY DATA: Patient's labs show hemoglobin 8, hematocrit 25, 79 neutrophils, rest of CBC withi n normal limits. Potassium 2.7 from last night, bicarbonate 33, BUN 23, creatinine 0.85. PT 15, PT T 33. IMPRESSION: Acute ischemic left MCA territory stroke 3 days after CABG in patient with poorly contr olled diabetes, hypertension and dyslipidemia. I would continue current treatment with aspirin, inc rease dose of statin, Lipitor 80 mg. Continue frequent neuro checks. I forgot to mention that CT a ngiogram of the neck did not show any hemodynamically significant cervical internal carotid artery d isease. Continue current treatment, otherwise. Speech and swallow evaluation. If changes in neuro logical status, repeat CAT scan should be warranted to exclude presence of edema and mass effect jigar ginating from MCA stroke. Dictated By: HAO MACEDO/ELIO Conf#: [id number] DID#: [id number] CC: DOUGLAS FERRER MD;*End*
[2017-04-17] MEDS: HEPARIN 5,000 UNIT/0.5 ML VIAL SC SCH ×3 (05:48→22:04)
[2017-04-17] MEDS: ASPIRIN (EC) 81 MG TAB PO SCH (09:37)
--- NOTE | 2017-04-17 11:56 | CONS ---
Date/Time of Note Date/Time of Note DATE: 04/17/17 TIME: 11:53 Consult Date/Type/Reason Admit Date/Time Apr 15, 2017 at 19:19 Initial Consult Date Type of Consultation: neurology Subjective no acute events Objective Vital Signs Date Time Temp Pulse Resp B/P Pulse Ox O2 Delivery O2 Flow Rate FiO2 04/17/17 11:00 99 42 89/55 97 Nasal Cannula 04/17/17 08:00 2.0 04/17/17 07:30 100.0 Intake and Output 04/16/17 04/16/17 04/17/17 15:00 23:00 07:00 Intake Total 525 ml 600 ml 525 ml Output Total 230 ml 215 ml 245 ml Balance 295 ml 385 ml 280 ml Results/Medications Result Diagram: 04/17/1783204/17/17832 Results 24 hrs Laboratory Tests Test 04/16/17 12:54 04/16/17 14:24 04/16/17 16:51 04/16/17 20:08 Bedside Glucose 166 167 179 Potassium Level 3.9 Test 04/17/17 01:03 04/17/17 05:41 04/17/17 08:33 04/17/17 09:23 Bedside Glucose 151 169 135 White Blood Count 12.1 #H Red Blood Count 2.72 L Hemoglobin 8.2 L Hematocrit 25.7 L Mean Corpuscular Volume 94.5 Mean Corpuscular Hemoglobin 30.1 Mean Corpuscular Hemoglobin Concent 31.9 L Red Cell Distribution Width 12.3 Platelet Count 467 H Mean Platelet Volume 10.0 Neutrophils % 77.3 H Lymphocytes % 10.5 L Monocytes % 10.9 Eosinophils % 0.3 Basophils % 0.2 Nucleated Red Blood Cells % 0.2 H Neutrophils # 9.3 H Lymphocytes # 1.3 Monocytes # 1.3 H Eosinophils # 0.0 Basophils # 0.0 Nucleated Red Blood Cells # 0.0 Sodium Level 144 Potassium Level 3.3 L Chloride Level 106 Carbon Dioxide Level 30 Anion Gap 11 Blood Urea Nitrogen 15 Creatinine 0.92 Glucose Level 128 Calcium Level 8.2 L Medications Current Medications Aspirin (Halfprin) 81 mg DAILY PO Last administered on 04/17/17 09:37; Admin Dose 81 MG; Start 04/16/17 at 09:00 Carvedilol 6.25 mg 6.25 mg BID PO Last administered on 04/17/17 09:38; Admin Dose 6.25 MG; Start 04/15/17 at 23:00 Potassium Chloride/Dextrose/ Sod Cl (D5-1/2ns + KCl 20 Meq) 1,000 ml @ 75 mls/ hr [id number] IV Last administered on 04/17/17 02:37; Admin Dose 75 MLS/HR; Start 04/16/17 at 01:00 Insulin Glargine (Lantus) 12 unit DAILY@20 SC Last administered on 04/16/17 20:11; Admin Dose 12 UNIT; Start 04/16/17 at 01:00 Heparin Sodium (Porcine) (Heparin (5000 Units/0.5 ml)) 5,000 unit Q8 SC Last administered on 04/17/17 05:48; Admin Dose 5,000 UNIT; Start 04/16/17 at 01: 00 Ondansetron HCl (Zofran Inj) 4 mg Q4H PRN IV NAUSEA AND/OR VOMITING; Start at 01:00 Diagnostic Test (Pha) (Accu-Chek) 1 ea 02 XX Last administered on 04/17/17 01 :36; Admin Dose 1 EA; Start 04/17/17 at 02:00 Insulin Aspart (Novolog Insulin Pen) NOVOLOG *MODERATE* ALGORI... Q4 SC Last administered on 04/17/17 05:44; Admin Dose 2 UNIT; Start 04/16/17 at 09:00 Miscellaneous Information 1 ea NOTE XX ; Start 04/16/17 at 09:00 Glucose (Glutose) 15 gm Q15M PRN PO DECREASED GLUCOSE; Start 04/16/17 at 09:00 Glucose (Glutose) 22.5 gm Q15M PRN PO DECREASED GLUCOSE; Start 04/16/17 at 09: 00 Dextrose (D50w Syringe) 25 ml Q15M PRN IV DECREASED GLUCOSE; Start 04/16/17 at 09:00 Dextrose (D50w Syringe) 50 ml Q15M PRN IV DECREASED GLUCOSE; Start 04/16/17 at 09:00 Glucagon (Glucagen) 1 mg Q15M PRN IM DECREASED GLUCOSE; Start 04/16/17 at 09: 00 Glucose (Glutose) 15 gm Q15M PRN BUCCAL DECREASED GLUCOSE; Start 04/16/17 at 09:00 Atorvastatin Calcium (Lipitor) 80 mg QHS PO ; Start 04/16/17 at 21:00 Assessment/Plan Chief Complaint/Hosp Course NEUROLOGIC EXAM: He is awake, not verbal, follows commands with visual prompting, does not follow complex commands. No response to visual threat from the right, reflecting right-sided hemianopia. Pupils reactive from 3 to 2 mm bilaterally. Extraocular movements intact without nystagmus. Asymmetrical face with mild right nasolabial fold flattening. Corneal reflexes present bilaterally, but weaker on the right. Gag is present. Motor strength examination preserved on the left and flaccid, no movements, to pain on the right. Deep tendon reflexes 2+ upper extremities and knees, absent ankle jerks. Equivocal response to plantar stimulation on the left and upgoing on the right. IMPRESSION: Acute ischemic left MCA territory stroke, 3 days after CABG in patient with poorly controlled diabetes, hypertension and dyslipidemia. I would continue current treatment with aspirin, Lipitor 80 mg. Continue frequent neuro checks. Speech therapy, PT. If changes in neurological status, repeat CAT scan should be warranted to exclude presence of edema and mass effect originating from MCA stroke. Problems: HAO RAYGOZA MD Apr 17, 2017 11:56
[2017-04-17] MEDS ORDERED: INFLUENZA VIRUS VACCINE 0.5 ML (DISPENSING) IM* ONE (12:30)
--- NOTE | 2017-04-17 13:38 | PN ---
Date/Time of Note Date/Time of Note DATE: 04/17/17 TIME: 13:37 Assessment/Plan Lines/Catheters IV Catheter Type (from Nrsg): PICC Line Macias in Place (from Nrsg): Yes Assessment/Plan Chief Complaint/Hosp Course SP CABG Chronic and acute CVA CT : 1. Focal area of loss of galloway-white differentiation within the right lateral lobe measuring 2 cm suggesting acute / recent infarction. Consider CTA of the head/neck or noncontrast MRI of the brain as clinically warranted. No acute intracranial hemorrhage. 2. Chronic left inferior cerebellar infarction. 3. Small chronic right centrum semiovale/kolb radiata lacunar infarction. 4. Chronic right caudate head lacunar infarction. CT DCed pain management supp care Problems: Subjective 24 Hr Interval Summary Constitutional: improved Pain Control: mild Exam/Review of Systems Vital Signs Vitals Vital Signs Date Time Temp Pulse Resp B/P Pulse Ox O2 Delivery O2 Flow Rate FiO2 04/17/17 12:00 84 04/17/17 11:00 42 89/55 97 Nasal Cannula 04/17/17 08:00 2.0 04/17/17 07:30 100.0 Intake and Output 04/16/17 04/16/17 04/17/17 15:00 23:00 07:00 Intake Total 525 ml 600 ml 525 ml Output Total 230 ml 215 ml 245 ml Balance 295 ml 385 ml 280 ml Exam Neck: non-tender, supple Respiratory: clear to auscultation, normal air movement Cardiovascular: nl pulses, regular rate and rhythm Gastrointestinal: nl liver, spleen, non-tender, soft Results Result Diagram: 04/17/17 0833 04/17/17 0833 NORIS HARRIS MD Apr 17, 2017 13:38
--- NOTE | 2017-04-17 14:48 | PN ---
DATE: 04/17/2017 SUBJECTIVE: The patient is alert but appears confused and aphasic. PHYSICAL EXAMINATION: GENERAL: He is in no distress. VITAL SIGNS: Temperature 100, pulse 99, blood pressure 109/67. He is extubated. LUNGS: Clear. CARDIAC: Regular rate and rhythm. ABDOMEN: Soft, nontender. EXTREMITIES: Reveal no edema. CURRENT MEDICATIONS: 1. Atorvastatin. 2. Aspirin. 3. Insulin. 4. Potassium chloride. 5. Carvedilol 6.25. ASSESSMENT: Non-ST elevation myocardial, status post CABG 04/11/2017, complicated by acute cerebrov ascular accident on successful mechanical thrombectomy at [facility]. Continue current cardiac care. 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 input appreciated. Dictated By: OLMAN DAY/ELIO Conf#: [id number] DID#: [id number]
--- NOTE | 2017-04-17 14:48 | PN ---
DATE: 04/17/2017 SUBJECTIVE: The patient is alert but appears confused and aphasic. PHYSICAL EXAMINATION: GENERAL: He is in no distress. VITAL SIGNS: Temperature 100, pulse 99, blood pressure 109/67. He is extubated. LUNGS: Clear. CARDIAC: Regular rate and rhythm. ABDOMEN: Soft, nontender. EXTREMITIES: Reveal no edema. CURRENT MEDICATIONS: 1. Atorvastatin. 2. Aspirin. 3. Insulin. 4. Potassium chloride. 5. Carvedilol 6.25. ASSESSMENT: Non-ST elevation myocardial, status post CABG 04/11/2017, complicated by acute cerebrov ascular accident on successful mechanical thrombectomy at [facility]. Continue current cardiac care. 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 input appreciated. Dictated By: OLMAN DAY/ELIO Conf#: [id number] DID#: [id number]
--- NOTE | 2017-04-17 14:52 | RADRPT ---
PROCEDURE: CT Brain without contrast. CLINICAL INDICATION: Cerebrovascular accident TECHNIQUE: A CT of the brain without contrast was performed utilizing axial sections from the skul l base through the vertex. The patient was scanned without intravenous contrast enhancement. [place] l and coronal reformatted images were obtained using the data from the axial images. Total exam DLP is 720.23 mGy-cm. CTDIvol is 45.01 mGy. One or more of the following dose reduction techniques we re used: Automated exposure control, adjustment of the mA and/or kV according to patient size, use o f iterative reconstruction technique. COMPARISON: 04/15/2017. FINDINGS: There is a new region of loss of galloway and white matter differentiation in the left frontal parietal region measuring 7.5 x 4.3 cm in AP and transverse dimensions consistent with an acute infarct. Ther e is mild mass effect with shift of midline structures to the right measuring 0.3 cm. There is mild impingement upon the left suprasellar cistern. The basal cisterns are otherwise intact. The ventricles are not dilated. There is no intracranial hemorrhage or space-occupying lesion. There is no skull fracture or lytic lesion. IMPRESSION: 1. New large acute infarct in the left frontal parietal region. 2. Mild mass effect at this site. 3. No intracranial hemorrhage. RPTAT: QQ .Kenneth Hernandez MD, Date Time Electronically viewed and signed by .Kenneth Hernandez MD, on 04/17/2017 14:51 .R/
[2017-04-17] MEDS: INSULIN GLARGINE [LANtus] 3 ML PEN SC SCH (21:59)
[2017-04-17] MEDS ORDERED: CYCLOBENZAPRINE 10 MG TAB PO ONE (22:00)
[2017-04-17] MEDS: ATORVASTATIN 80 MG TAB PO SCH (22:05)
--- NOTE | 2017-04-17 23:36 | PN ---
Date/Time of Note Date/Time of Note DATE: 04/17/17 TIME: 23:34 Assessment/Plan VTE Prophylaxis VTE Prophylaxis Intervention: heparin Lines/Catheters IV [facility]from [facility] P[facility] Line Central line still needed: Yes (Critically ill) Urinary Cath still in place: Yes Reason Cath still needed: other (indicate) (Critically ill) Assessment/Plan Assessment/Plan [facility] 1. 52-year-old patient of Dr. Helms who presented two weeks ago with diabetic ketoacidosis and seizure thought to be related. Sugars better- controlled now (His HgbA1c was above the assayable range). No recurrent seizure since re-admission 36hours ago. * Continue current insulin regimen * Accuchecks qh6 * Stable for transfer this afternoon to telemetry 2. S/p acute CVA, transferred to [facility] for thrombectomy two days ago, and returned for ongoing care. CT brain scan last night showed a new region of loss of galloway and white matter differentiation in the left frontal parietal region (measuring 7.5 x 4.3 cm in AP and transverse dimensions) consistent with an acute infarct. There was a mild mass effect with shift of midline structures to the right measuring 0.3 cm. There is mild impingement upon the left suprasellar cistern. The basal cisterns are otherwise intact. * Continue Keppra * Maintain systolic blood pressures in the current range ~150 * Per Dr. Tamayo, current treatment with aspirin, Lipitor 80 mg. * Continue frequent neuro checks. * Per recommendations of the Speech Therapist he will need video swallow. 3. Probable aspiration pneumonia. Breathing comfortably off the ventilator. * Continue on Vanco and cefepime (as of 04/07/17) * Probiotics 4. NSTEMI known coronary artery disease, now day six s/p CABG with healthy healing of sternotomy incision * Continue heparin q8h for anticoagulation in setting of AMI and for DVT prophylaxis. * Continue Lipitor at 80 mg nightly. * Continue chest tubes to gravity drainage * Macias catheter. 5. Normochromic, normocytic anemia. Hct 25.7% today. Stable, with no source of blood loss. * Monitor labs tomorrow AM 6. Hypokalemia today (3.3) * Replace 7. Disposition * Social work * Research family situation Christian Harden MD PhD [phone] Subjective 24 Hr Interval Summary Free Text/Dictation Patient with fleeting eye contact, but no ability to respond to questions or acknowledge understanding. No family members or visitors present. Exam/Review of Systems Vital Signs Vitals Vital Signs Date Time Temp Pulse Resp B/P Pulse Ox O2 Delivery O2 Flow Rate FiO2 04/17/17 20:17 95 04/17/17 20:00 100.1 18 142/76 100 04/17/17 18:00 Nasal Cannula 04/17/17 08:00 2.0 Intake and Output 04/16/17 04/16/17 04/17/17 15:00 23:00 07:00 Intake Total 525 ml 600 ml 525 ml Output Total 230 ml 215 ml 245 ml Balance 295 ml 385 ml 280 ml Exam Constitutional: Eyes open, but non-verbal, moving in bed, no clear discomfort. HEENT: PERRL, EOMI, moist oral mucosa, no scleral icterus or conjunctivitis. Respiratory: clear to auscultation, with good air movement, on 2L/min nasal cannula Cardiovascular: Symmetric pulses, regular rhythm, normal rate, no rub or murmur. Sternotomy scar bandaged. Two mid-chest drains with serosanguinous drainage. Gastrointestinal: non-tender, soft, bowel sounds positive. Musculoskeletal: No edema, clubbing or cyanosis. Joints moving normally, with no swelling. 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: Non-verbal, fleeting eye contact, no ankle clonus, mild hyperreflexia at the left patellar reflex. Toes downgoing. Results Result Diagram: 04/17/1783204/17/17832 Results 24 hrs Laboratory Tests Test 04/17/17 01:03 04/17/17 05:41 04/17/17 08:33 04/17/17 09:23 Bedside Glucose 151 169 135 White Blood Count 12.1 #H Red Blood Count 2.72 L Hemoglobin 8.2 L Hematocrit 25.7 L Mean Corpuscular Volume 94.5 Mean Corpuscular Hemoglobin 30.1 Mean Corpuscular Hemoglobin Concent 31.9 L Red Cell Distribution Width 12.3 Platelet Count 467 H Mean Platelet Volume 10.0 Neutrophils % 77.3 H Lymphocytes % 10.5 L Monocytes % 10.9 Eosinophils % 0.3 Basophils % 0.2 Nucleated Red Blood Cells % 0.2 H Neutrophils # 9.3 H Lymphocytes # 1.3 Monocytes # 1.3 H Eosinophils # 0.0 Basophils # 0.0 Nucleated Red Blood Cells # 0.0 Sodium Level 144 Potassium Level 3.3 L Chloride Level 106 Carbon Dioxide Level 30 Anion Gap 11 Blood Urea Nitrogen 15 Creatinine 0.92 Glucose Level 128 Calcium Level 8.2 L Test 04/17/17 12:30 04/17/17 17:28 04/17/17 21:53 Bedside Glucose 173 131 152 Medications Medications Current Medications Aspirin (Halfprin) 81 mg DAILY PO Last administered on 04/17/17 09:37; Admin Dose 81 MG; Start 04/16/17 at 09:00 Carvedilol 6.25 mg 6.25 mg BID PO Last administered on 04/17/17 22:06; Admin Dose 6.25 MG; Start 04/15/17 at 23:00 Potassium Chloride/Dextrose/ Sod Cl (D5-1/2ns + KCl 20 Meq) 1,000 ml @ 75 mls/ hr [id number] IV Last administered on 04/17/17 15:17; Admin Dose 75 MLS/HR; Start 04/16/17 at 01:00 Insulin Glargine (Lantus) 12 unit DAILY@20 SC Last administered on 04/17/17 21:59; Admin Dose 12 UNIT; Start 04/16/17 at 01:00 Heparin Sodium (Porcine) (Heparin (5000 Units/0.5 ml)) 5,000 unit Q8 SC Last administered on 04/17/17 22:04; Admin Dose 5,000 UNIT; Start 04/16/17 at 01: 00 Ondansetron HCl (Zofran Inj) 4 mg Q4H PRN IV NAUSEA AND/OR VOMITING; Start at 01:00 Diagnostic Test (Pha) (Accu-Chek) 1 ea 02 XX Last administered on 04/17/17 01 :36; Admin Dose 1 EA; Start 04/17/17 at 02:00 Insulin Aspart (Novolog Insulin Pen) NOVOLOG *MODERATE* ALGORI... Q4 SC Last administered on 04/17/17 22:04; Admin Dose 2 UNIT; Start 04/16/17 at 09:00 Miscellaneous Information 1 ea NOTE XX ; Start 04/16/17 at 09:00 Glucose (Glutose) 15 gm Q15M PRN PO DECREASED GLUCOSE; Start 04/16/17 at 09:00 Glucose (Glutose) 22.5 gm Q15M PRN PO DECREASED GLUCOSE; Start 04/16/17 at 09: 00 Dextrose (D50w Syringe) 25 ml Q15M PRN IV DECREASED GLUCOSE; Start 04/16/17 at 09:00 Dextrose (D50w Syringe) 50 ml Q15M PRN IV DECREASED GLUCOSE; Start 04/16/17 at 09:00 Glucagon (Glucagen) 1 mg Q15M PRN IM DECREASED GLUCOSE; Start 04/16/17 at 09: 00 Glucose (Glutose) 15 gm Q15M PRN BUCCAL DECREASED GLUCOSE; Start 04/16/17 at 09:00 Atorvastatin Calcium (Lipitor) 80 mg QHS PO Last administered on 04/17/17t 22: 05; Admin Dose 80 MG; Start 04/16/17 at 21:00 Influenza Virus Vaccine (Fluzone) 0.5 ml ONCE ONCE IM* ; Start 04/19/17 at 09: 00; Stop 04/19/17 at 09:01 JO-ANN HARDEN M.D. Apr 17, 2017 23:36
[2017-04-18] VITALS (12 sets, daily range): BP systolic 119–154; BP diastolic 73–93; PULSE 65–100; RESP 16–23
[2017-04-18] MEDS: INSULIN ASPART [NOVOLOG] 3 ML PEN SC SCH ×6 (01:28→20:31)
[2017-04-18] MEDS: ACCU-CHEK XX SCH (01:38)
[2017-04-18] MEDS: D5W-0.45 NACL + KCL 20 MEQ 1,000 ML IV SCH ×2 (06:05→19:40)
[2017-04-18] MEDS: HEPARIN 5,000 UNIT/0.5 ML VIAL SC SCH ×3 (06:10→21:57)
[2017-04-18] MEDS: ASPIRIN (EC) 81 MG TAB PO SCH (09:53)
--- NOTE | 2017-04-18 13:04 | CONS ---
Date/Time of Note Date/Time of Note DATE: 04/18/17 TIME: 13:00 Consult Date/Type/Reason Admit Date/Time Apr 15, 2017 at 19:19 Initial Consult Date 04/17/17 Type of Consultation: neurology Reason for Consultation CVA Ordering Provider: DOUGLAS FERRER Subjective remains aphasic unable to follow commands NGT in with persistent hiccups requiring suction Objective Vital Signs Date Time Temp Pulse Resp B/P Pulse Ox O2 Delivery O2 Flow Rate FiO2 04/18/17 11:40 98.8 75 18 125/75 92 04/18/17 06:02 2.0 04/17/17 18:00 Nasal Cannula Intake and Output 04/17/17 04/17/17 04/18/17 15:00 23:00 07:00 Intake Total 600 ml 200 ml Output Total 250 ml 100 ml Balance 350 ml 100 ml Exam awake and alert tracks examiner when prompted non verbal globally aphasic unable to follow commands reliably CN: TATYANA, right NLF flattening Motor: flaccid on right, left arm and leg intact strength Tone reduced on right Results/Medications Result Diagram: 04/17/1733 04/17/17 0833 Results 24 hrs Laboratory Tests Test 04/17/17 17:28 04/17/17 21:53 04/18/17 01:24 04/18/17 06:02 Bedside Glucose 131 152 161 107 Test 04/18/17 09:56 Bedside Glucose 118 Medications Current Medications Aspirin (Halfprin) 81 mg DAILY PO Last administered on 04/18/17 09:53; Admin Dose 81 MG; Start 04/16/17 at 09:00 Carvedilol 6.25 mg 6.25 mg BID PO Last administered on 04/18/17 09:54; Admin Dose 6.25 MG; Start 04/15/17 at 23:00 Potassium Chloride/Dextrose/ Sod Cl (D5-1/2ns + KCl 20 Meq) 1,000 ml @ 75 mls/ hr [id number] IV Last administered on 04/18/17 06:05; Admin Dose 75 MLS/HR; Start 04/16/17 at 01:00 Insulin Glargine (Lantus) 12 unit DAILY@20 SC Last administered on 04/17/17 21:59; Admin Dose 12 UNIT; Start 04/16/17 at 01:00 Heparin Sodium (Porcine) (Heparin (5000 Units/0.5 ml)) 5,000 unit Q8 SC Last administered on 04/18/17 06:10; Admin Dose 5,000 UNIT; Start 04/16/17 at 01: 00 Ondansetron HCl (Zofran Inj) 4 mg Q4H PRN IV NAUSEA AND/OR VOMITING; Start at 01:00 Diagnostic Test (Pha) (Accu-Chek) 1 ea 02 XX Last administered on 04/18/17 01 :38; Admin Dose 1 EA; Start 04/17/17 at 02:00 Insulin Aspart (Novolog Insulin Pen) NOVOLOG *MODERATE* ALGORI... Q4 SC Last administered on 04/18/17 01:28; Admin Dose 2 UNIT; Start 04/16/17 at 09:00 Miscellaneous Information 1 ea NOTE XX ; Start 04/16/17 at 09:00 Glucose (Glutose) 15 gm Q15M PRN PO DECREASED GLUCOSE; Start 04/16/17 at 09:00 Glucose (Glutose) 22.5 gm Q15M PRN PO DECREASED GLUCOSE; Start 04/16/17 at 09: 00 Dextrose (D50w Syringe) 25 ml Q15M PRN IV DECREASED GLUCOSE; Start 04/16/17 at 09:00 Dextrose (D50w Syringe) 50 ml Q15M PRN IV DECREASED GLUCOSE; Start 04/16/17 at 09:00 Glucagon (Glucagen) 1 mg Q15M PRN IM DECREASED GLUCOSE; Start 04/16/17 at 09: 00 Glucose (Glutose) 15 gm Q15M PRN BUCCAL DECREASED GLUCOSE; Start 04/16/17 at 09:00 Atorvastatin Calcium (Lipitor) 80 mg QHS PO Last administered on 04/17/17 22: 05; Admin Dose 80 MG; Start 04/16/17 at 21:00 Influenza Virus Vaccine (Fluzone) 0.5 ml ONCE ONCE IM* ; Start 04/19/17 at 09: 00; Stop 04/19/17 at 09:01 Assessment/Plan Chief Complaint/Hosp Course 52 yo male with recent admission for DKA poorly controlled DM, HTN, HLD, CAD s/ p recent CABG with Left MCA syndrome. Left M2 branch occlusion not amenable for intervention, was tx back for further care. Recommend: repeat Head CT to eval for edema continue isotonic fluids, avoid D5W for risk of increasing edema repeat ECHO c/w aspirin high intensity statin maintain afebrile and euglycemic PT/OT/Speech daily Problems: EDILIA ADAMS MD Apr 18, 2017 13:04
--- NOTE | 2017-04-18 13:10 | PN ---
Date/Time of Note Date/Time of Note DATE: 04/18/17 TIME: 12:45 Assessment/Plan VTE Prophylaxis VTE Prophylaxis Intervention: SCD's Lines/Catheters IV Catheter Type (from Nrs): PICC Line Central line still needed: Yes (For IV access) Urinary Cath still in place: Yes Reason Cath still needed: other (indicate) (Status post CVA, hemiparesis) Assessment/Plan Assessment/Plan 52-year-old male with: 1. Acute CVA with acute onset of aphasia and right Hemiparesis 04/15 and confirmed left MCA stroke, unfortunately interventional neuroradiology was unable to assist patient at [facility], patient was sent back to [facility] for medical management. Appreciate recommendations from neurology today, will continue current medications. PT/OT evaluation pending Patient failed speech eval multiple times, at this time given his history and his recent stroke likely will need G-tube placement. NG tube in place already, will start tube feeding. Needs frequent suctioning, aspiration precaution. 2. Status post CABG by Dr. Herron postoperative day#6. NSTEMI on admission with known coronary artery disease, status post stents 3 years ago Continue current cardiac medications, per NG tube. Continue current medications, cardiology and CTS following. Now postop course complicated with acute left MCA CVA with unfortunately significant neurological deficit including right hemiparesis, aphasia and severe dysphagia that will require G-tube placement 3. Seizures, unclear etiology but could be secondary to DKA versus intracranial pathology. 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 Now with acute left MCA CVA also. Neurology following patient. Continue Ford, appreciate Neurology recs. PT/OT/ST 4. s/p acute respiratory failure. Patient was successfully extubated post coronary artery bypass surgery last week, he remains able to protect his airway despite this acute left MCA CVA with significant new neurological deficit POD#6 s/p CABG. All cultures since 04/13 remain negative Off antibiotics, continue aspiration precaution and pulmonary toilet, patient requiring on and off deep suctioning by RT. 5. Diabetes mellitus with noncompliance with diet or medications. Patient has been off medication for at least 1-2 month. Back to n.p.o. status, insulin regimen on board, will start tube feeding. Further adjustment of his insulin requirement may be needed.. Hemoglobin A1c out of range. Diabetic education in the near future, once more stable. Likely to need insulin therapy. Apparently he was on metformin and glipizide based on his medication reconciliation prior. 6. Hyperlipidemia: Continue Lipitor 80 mg qhs. Prophylaxis: SCDs for DVT prophylaxis, Pepcid for GI prophylaxis Disposition: Unfortunately now with acute left MCA CVA with new deep right hemiparesis, aphasia, dysphagia, continue supportive care, resume tube feeding, plan for G-tube placement soon. Needs aspiration precaution, pulmonary toilet. Prognosis fair Subjective 24 Hr Interval Summary Free Text/Dictation Patient was readmitted from a [facility] when unfortunately they were unable to do any intervention, he was sent back to [facility] for continuity of care. Patient does have a deep right hemiparesis along with a aphasia and dysphagia, he will need G-tube placement. Will start tube feeding. When okay from a cardiology and cardiothoracic standpoint a G-tube will be placed. He is having difficulty clearing his secretions needing assistance of respiratory. Aspiration precaution ongoing Exam/Review of Systems Vital Signs Vitals Vital Signs Date Time Temp Pulse Resp B/P Pulse Ox O2 Delivery O2 Flow Rate FiO2 04/18/17 11:40 98.8 75 18 125/75 92 04/18/17 06:02 2.0 04/17/17 18:00 Nasal Cannula Intake and Output 04/17/17 04/17/17 04/18/17 15:00 23:00 07:00 Intake Total 600 ml 200 ml Output Total 250 ml 100 ml Balance 350 ml 100 ml Exam Constitutional: alert, oriented, other (Right hemiparesis, aphasia, dysphagia.) Respiratory: diminished breath sounds (Lots of secretions patient trying to cough out), normal air movement (On 2 L nasal cannula) Cardiovascular: nl pulses, regular rate and rhythm Gastrointestinal: non-tender, soft Musculoskeletal: other (No edema, clubbing or cyanosis) Extremities: normal pulses 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: 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 CLINICAL INDICATION: Cerebrovascular accident TECHNIQUE: A CT of the brain without contrast was performed utilizing axial sections from the skull base through the vertex. The patient was scanned without intravenous contrast enhancement. Sagittal and coronal reformatted images were obtained using the data from the axial images. Total exam DLP is 720.23 mGy-cm. CTDIvol is 45.01 mGy. One or more of the following dose reduction techniques were used: Automated exposure control, adjustment of the mA and/or kV according to patient size, use of iterative reconstruction technique. COMPARISON: 04/15/2017. FINDINGS: There is a new region of loss of galloway and white matter differentiation in the left frontal parietal region measuring 7.5 x 4.3 cm in AP and transverse dimensions consistent with an acute infarct. There is mild mass effect with shift of midline structures to the right measuring 0.3 cm. There is mild impingement upon the left suprasellar cistern. The basal cisterns are otherwise intact. The ventricles are not dilated. There is no intracranial hemorrhage or space-occupying lesion. There is no skull fracture or lytic lesion. IMPRESSION: 1. New large acute infarct in the left frontal parietal region. 2. Mild mass effect at this site. 3. No intracranial hemorrhage. RPTAT: QQ .Kenneth Hernandez MD, MD Date Time Electronically viewed and signed by .Kenneth Hernandez MD, MD on 04/17/2017 14:51 Medications Medications Current Medications Aspirin (Halfprin) 81 mg DAILY PO Last administered on 04/18/17 09:53; Admin Dose 81 MG; Start 04/16/17 at 09:00 Carvedilol 6.25 mg 6.25 mg BID PO Last administered on 04/18/17 09:54; Admin Dose 6.25 MG; Start 04/15/17 at 23:00 Potassium Chloride/Dextrose/ Sod Cl (D5-1/2ns + KCl 20 Meq) 1,000 ml @ 75 mls/ hr [id number] IV Last administered on 04/18/17 06:05; Admin Dose 75 MLS/HR; Start 04/16/17 at 01:00 Insulin Glargine (Lantus) 12 unit DAILY@20 SC Last administered on 04/17/17 21:59; Admin Dose 12 UNIT; Start 04/16/17 at 01:00 Heparin Sodium (Porcine) (Heparin (5000 Units/0.5 ml)) 5,000 unit Q8 SC Last administered on 04/18/17 06:10; Admin Dose 5,000 UNIT; Start 04/16/17 at 01: 00 Ondansetron HCl (Zofran Inj) 4 mg Q4H PRN IV NAUSEA AND/OR VOMITING; Start at 01:00 Diagnostic Test (Pha) (Accu-Chek) 1 ea 02 XX Last administered on 04/18/17 01 :38; Admin Dose 1 EA; Start 04/17/17 at 02:00 Insulin Aspart (Novolog Insulin Pen) NOVOLOG *MODERATE* ALGORI... Q4 SC Last administered on 04/18/17 01:28; Admin Dose 2 UNIT; Start 04/16/17 at 09:00 Miscellaneous Information 1 ea NOTE XX ; Start 04/16/17 at 09:00 Glucose (Glutose) 15 gm Q15M PRN PO DECREASED GLUCOSE; Start 04/16/17 at 09:00 Glucose (Glutose) 22.5 gm Q15M PRN PO DECREASED GLUCOSE; Start 04/16/17 at 09: 00 Dextrose (D50w Syringe) 25 ml Q15M PRN IV DECREASED GLUCOSE; Start 04/16/17 at 09:00 Dextrose (D50w Syringe) 50 ml Q15M PRN IV DECREASED GLUCOSE; Start 04/16/17 at 09:00 Glucagon (Glucagen) 1 mg Q15M PRN IM DECREASED GLUCOSE; Start 04/16/17 at 09: 00 Glucose (Glutose) 15 gm Q15M PRN BUCCAL DECREASED GLUCOSE; Start 04/16/17 at 09:00 Atorvastatin Calcium (Lipitor) 80 mg QHS PO Last administered on 04/17/17 22: 05; Admin Dose 80 MG; Start 04/16/17 at 21:00 Influenza Virus Vaccine (Fluzone) 0.5 ml ONCE ONCE IM* ; Start 04/19/17 at 09: 00; Stop 04/19/17 at 09:01 DOUGLAS FERRER Apr 18, 2017 12:55 00; Stop 04/19/17 at 09:01 DOUGLAS FERRER Apr 18, 2017 12:55
[2017-04-18] MEDS: ACETYLCYSTEINE 20% 4 ML VIAL NEB SCH ×2 (14:00→19:10)
[2017-04-18] MEDS ORDERED: CHLORPROMAZINE 25 MG INJ IM ONE (14:00)
[2017-04-18] MEDS: LEVALBUTEROL (NEB) 0.63 MG/3 ML AMP HHN SCH ×2 (14:00→19:10)
[2017-04-18] MEDS ORDERED: POTASSIUM CHLORIDE 20 MEQ POWDER FOR ORAL SOLN NGT ONE (14:30)
--- NOTE | 2017-04-18 15:32 | PN ---
Date/Time of Note Date/Time of Note DATE: 04/18/17 TIME: 15:32 Assessment/Plan Lines/Catheters IV Catheter Type (from Nrsg): PICC Line Macias in Place (from Nrsg): Yes Assessment/Plan Chief Complaint/Hosp Course SP CABG Chronic and acute CVA CT : 1. Focal area of loss of galloway-white differentiation within the right lateral lobe measuring 2 cm suggesting acute / recent infarction. Consider CTA of the head/neck or noncontrast MRI of the brain as clinically warranted. No acute intracranial hemorrhage. 2. Chronic left inferior cerebellar infarction. 3. Small chronic right centrum semiovale/kolb radiata lacunar infarction. 4. Chronic right caudate head lacunar infarction. CT DCed pain management supp care Problems: Subjective 24 Hr Interval Summary Constitutional: improved Pain Control: mild Exam/Review of Systems Vital Signs Vitals Vital Signs Date Time Temp Pulse Resp B/P Pulse Ox O2 Delivery O2 Flow Rate FiO2 04/18/17 14:12 2.0 04/18/17 13:05 89 04/18/17 11:40 98.8 18 125/75 92 04/18/17 08:00 Nasal Cannula Intake and Output 04/17/17 04/17/17 04/18/17 15:00 23:00 07:00 Intake Total 600 ml 200 ml Output Total 250 ml 100 ml Balance 350 ml 100 ml Exam ENMT: mucosa pink and moist, nl external ears & nose, nl lips & teeth, nl nasal mucosa & septum Neck: non-tender, supple Respiratory: clear to auscultation, normal air movement Cardiovascular: nl pulses, regular rate and rhythm Gastrointestinal: nl liver, spleen, non-tender, soft Results Result Diagram: 04/17/17 0833 04/17/17 0833 NORIS HARRIS MD Apr 18, 2017 15:32
--- NOTE | 2017-04-18 16:15 | RADRPT ---
PROCEDURE: Noncontrast CT Head. CLINICAL INDICATION: Left middle cerebral artery infarction. TECHNIQUE: Noncontrast CT of the head was obtained. The administered radiation dose was CTDI vol = 44.58 mGy, DLP = 720.23 mGy-cm. One or more of the following dose reduction techniques were used: Au tomated exposure control, Adjustment of the mA and/or kV according to patient size, or Use of iterat jasmyn reconstruction technique. COMPARISON: Noncontrast CT of the head from April 17, 2017. FINDINGS: There is expected evolution of left frontal middle cerebral artery infarction. This measures approxi mately 7 cm anteroposteriorly. There is associated mass effect with cytotoxic edema. This causes sta ble 5 mm of rightward midline shift. There is mild left hemispheric sulcal effacement due to mass ef fect. There are minimal vascular calcifications within the intracranial carotid arteries. There is no acute intracranial hemorrhage. There are chronic bilateral centrum semiovale lacunar inf arctions. There is a small chronic right parietal infarction. The orbits are within normal limits. The paranasal sinuses are well aerated. No destructive osseous lesion is identified. IMPRESSION: 1. Continued expected evolution of the left middle cerebral artery infarction with mass effect causi ng stable 5 mm of rightward midline shift. 2. No CT evidence of hemorrhagic transformation. 3. Small chronic right parietal infarction. 4. Chronic bilateral centrum semiovale lacunar infarctions. Further findings as detailed above. RPTAT: PP .Dwain Worthy MD, Date Time Electronically viewed and signed by .Dwain Worthy MD, on 04/18/2017 16:15 .F/
--- NOTE | 2017-04-18 16:43 | CONS ---
Date/Time of Note Date/Time of Note DATE: 04/18/17 TIME: 16:41 Assessment/Plan Assessment/Plan Additional Assessment/Plan Non-ST elevation LA Coronary artery disease status post CABG 04/11/2017 Acute decompensated systolic congestive heart failure Acute ischemic CVA Ischemic cardiomyopathy Respiratory failure, status post extubation 04/12/2017 -Continue antiplatelet therapy, statin therapy, beta-blockers heart rate and blood pressure permits. Consultation Date/Type/Reason Admit Date/Time Apr 15, 2017 at 19:19 Initial Consult Date Type of Consultation: cv Referring Provider: DOUGLAS FERRER 24 HR Interval Summary Free Text/Dictation Patient seen and examined Exam/Review of Systems Vital Signs Vitals Vital Signs Date Time Temp Pulse Resp B/P Pulse Ox O2 Delivery O2 Flow Rate FiO2 04/18/17 16:12 96.3 90 18 139/88 99 04/18/17 14:12 2.0 04/18/17 08:00 Nasal Cannula Intake and Output 04/17/17 04/17/17 04/18/17 15:00 23:00 07:00 Intake Total 600 ml 200 ml Output Total 250 ml 100 ml Balance 350 ml 100 ml Exam Sleeping, no response to verbal stimuli Head: normocephalic Respiratory: other (Coarse breath sounds bilaterally, no wheezing) Cardiovascular: other (S1-S2 heard), regular rate and rhythm Gastrointestinal: bowel sounds, non-tender, soft Extremities: edema (Trace) Results Result Diagram: 04/18/17 1433 04/18/17 1433 Results 24 hrs Laboratory Tests Test 04/17/17 17:28 04/17/17 21:53 04/18/17 01:24 04/18/17 06:02 Bedside Glucose 131 152 161 107 Test 04/18/17 09:56 04/18/17 14:21 04/18/17 14:33 04/18/17 16:24 Bedside Glucose 118 125 124 White Blood Count 12.6 H Red Blood Count 2.51 L Hemoglobin 7.6 L Hematocrit 24.1 L Mean Corpuscular Volume 96.0 Mean Corpuscular Hemoglobin 30.3 Mean Corpuscular Hemoglobin Concent 31.5 L Red Cell Distribution Width 12.7 Platelet Count 495 H Mean Platelet Volume 10.3 Neutrophils % 82.0 H Lymphocytes % 9.6 L Monocytes % 6.9 Eosinophils % 0.6 Basophils % 0.2 Nucleated Red Blood Cells % 0.2 H Neutrophils # 10.3 H Lymphocytes # 1.2 Monocytes # 0.9 Eosinophils # 0.1 Basophils # 0.0 Nucleated Red Blood Cells # 0.0 Sodium Level 141 Potassium Level 4.5 Chloride Level 109 Carbon Dioxide Level 27 Anion Gap 10 Blood Urea Nitrogen 22 H Creatinine 0.87 Glucose Level 306 #H Calcium Level 8.0 L Magnesium Level 2.0 Medications Medications Current Medications Aspirin (Halfprin) 81 mg DAILY PO Last administered on 04/18/17 09:53; Admin Dose 81 MG; Start 04/16/17 at 09:00 Carvedilol 6.25 mg 6.25 mg BID PO Last administered on 04/18/17 09:54; Admin Dose 6.25 MG; Start 04/15/17 at 23:00 Potassium Chloride/Dextrose/ Sod Cl (D5-1/2ns + KCl 20 Meq) 1,000 ml @ 75 mls/ hr [id number] IV Last administered on 04/18/17 06:05; Admin Dose 75 MLS/HR; Start 04/16/17 at 01:00 Insulin Glargine (Lantus) 12 unit DAILY@20 SC Last administered on 04/17/17 21:59; Admin Dose 12 UNIT; Start 04/16/17 at 01:00 Heparin Sodium (Porcine) (Heparin (5000 Units/0.5 ml)) 5,000 unit Q8 SC Last administered on 04/18/17 14:36; Admin Dose 5,000 UNIT; Start 04/16/17 at 01: 00 Ondansetron HCl (Zofran Inj) 4 mg Q4H PRN IV NAUSEA AND/OR VOMITING; Start at 01:00 Diagnostic Test (Pha) (Accu-Chek) 1 ea 02 XX Last administered on 04/18/17 01 :38; Admin Dose 1 EA; Start 04/17/17 at 02:00 Insulin Aspart (Novolog Insulin Pen) NOVOLOG *MODERATE* ALGORI... Q4 SC Last administered on 04/18/17 01:28; Admin Dose 2 UNIT; Start 04/16/17 at 09:00 Miscellaneous Information 1 ea NOTE XX ; Start 04/16/17 at 09:00 Glucose (Glutose) 15 gm Q15M PRN PO DECREASED GLUCOSE; Start 04/16/17 at 09:00 Glucose (Glutose) 22.5 gm Q15M PRN PO DECREASED GLUCOSE; Start 04/16/17 at 09: 00 Dextrose (D50w Syringe) 25 ml Q15M PRN IV DECREASED GLUCOSE; Start 04/16/17 at 09:00 Dextrose (D50w Syringe) 50 ml Q15M PRN IV DECREASED GLUCOSE; Start 04/16/17 at 09:00 Glucagon (Glucagen) 1 mg Q15M PRN IM DECREASED GLUCOSE; Start 04/16/17 at 09: 00 Glucose (Glutose) 15 gm Q15M PRN BUCCAL DECREASED GLUCOSE; Start 04/16/17 at 09:00 Atorvastatin Calcium (Lipitor) 80 mg QHS PO Last administered on 04/17/17t 22: 05; Admin Dose 80 MG; Start 04/16/17 at 21:00 Influenza Virus Vaccine (Fluzone) 0.5 ml ONCE ONCE IM* ; Start 04/19/17 at 09: 00; Stop 04/19/17 at 09:01 Ghanshyam Lin DO Apr 18, 2017 16:43
[2017-04-18] MEDS: INSULIN GLARGINE [LANtus] 3 ML PEN SC SCH (20:31)
[2017-04-18] MEDS: ATORVASTATIN 80 MG TAB PO SCH (20:34)
[2017-04-19] VITALS (11 sets, daily range): BP systolic 105–128; BP diastolic 60–85; PULSE 89–101; RESP 16–20
[2017-04-19] MEDS: INSULIN ASPART [NOVOLOG] 3 ML PEN SC SCH ×6 (00:58→20:37)
[2017-04-19] MEDS: ACCU-CHEK XX SCH (01:05)
[2017-04-19] MEDS: LEVALBUTEROL (NEB) 0.63 MG/3 ML AMP HHN SCH ×4 (02:19→20:52)
[2017-04-19] MEDS: ACETYLCYSTEINE 20% 4 ML VIAL NEB SCH ×4 (02:19→20:52)
[2017-04-19] MEDS: D5W-0.45 NACL + KCL 20 MEQ 1,000 ML IV SCH ×2 (03:48→09:00)
[2017-04-19] MEDS: HEPARIN 5,000 UNIT/0.5 ML VIAL SC SCH ×2 (05:07→14:00)
[2017-04-19] MEDS ORDERED: INFLUENZA VIRUS VACCINE 0.5 ML (DISPENSING) IM* ONE (09:00)
[2017-04-19] MEDS: ASPIRIN (EC) 81 MG TAB PO SCH (10:08)
--- NOTE | 2017-04-19 10:48 | RADRPT ---
PROCEDURE: XR Chest 1 view. CLINICAL INDICATION: Shortness of breath. Drainage of chest incision. TECHNIQUE: AP views of the chest were obtained. COMPARISON: April 16, 2017 FINDINGS: The heart is large. Calcified atherosclerosis is noted in the aorta. Mediasternotomy wires and surg ical clips overlie the heart. Nasogastric tube has its distal end in the expected location of the st omach. Right-sided PICC line is stable. Central pulmonary vascular congestion and interstitial promi nence is seen in both lungs. Retrocardiac opacity is identified. Vmcolqyw-[id number]-[id number] left pleural effu dianne is noted. Scattered atelectasis is noted in the right lower lung. Blunting right costophrenic a ngle is seen. Osseous structures are intact. IMPRESSION: Cardiomegaly with calcified atherosclerosis in the aorta. Nasogastric tube with its distal end in the expected location of the stomach. Central pulmonary vascular congestion and interstitial prominence in both lungs. Stable retrocardiac opacity that may reflect left lower lobe atelectasis or infiltrate combined with [id number] pleural effusion. Scattered atelectasis in the right lower lung and small right pleural effusion. RPTAT: AA .Marin Wright MD, Date Time Electronically viewed and signed by .Marin Wright MD, on 04/19/2017 10:48 .P/
--- NOTE | 2017-04-19 11:32 | PN ---
Date/Time of Note Date/Time of Note DATE: 04/19/17 TIME: 11:24 Assessment/Plan VTE Prophylaxis VTE Prophylaxis Intervention: SCD's Lines/Catheters IV Catheter Type (from Nrsg): PICC Line Central line still needed: Yes (For IV access) Urinary Cath still in place: Yes Reason Cath still needed: other (indicate) (Mostly bedbound.) Assessment/Plan Assessment/Plan 52-year-old male with: 1. Acute CVA with acute onset of aphasia and right Hemiparesis 04/15 and confirmed left MCA stroke, unfortunately interventional neuroradiology was unable to assist patient at [facility], patient was sent back to [facility] for medical management. Appreciate recommendations from neurology, will continue current medications. PT/OT evaluation pending Patient failed speech eval multiple times, at this time given his history and his recent stroke likely will need G-tube placement, will make sure patient protecting his airway well and stable from the respiratory standpoint for G- tube placement. Will discuss with pulmonary. NG tube in place already, started on tube feeding. D5 fluids contraindicated for patient due to risk of cerebral edema and herniation. Needs frequent suctioning, aspiration precaution. 2. Status post CABG by Dr. Herron postoperative day#7. NSTEMI on admission with known coronary artery disease, status post stents 3 years ago Continue current cardiac medications, per NG tube. Continue current medications, cardiology and CTS following. Now postop course complicated with acute left MCA CVA with unfortunately significant neurological deficit including right hemiparesis, aphasia and severe dysphagia that will require G-tube placement Some oozing noted around the midsternal incision area, CT surgery to evaluate 3. Seizures, unclear etiology but could be secondary to DKA versus intracranial pathology. 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 Now with acute left MCA CVA also. Neurology following patient. Continue Keppra, appreciate Neurology recs. PT/OT/ST as tolerated 4. s/p acute respiratory failure. Patient was successfully extubated post coronary artery bypass surgery last week, he remains able to protect his airway despite this acute left MCA CVA with significant new neurological deficit POD#7 s/p CABG. All cultures since 04/13 remain negative Off antibiotics, continue aspiration precaution and pulmonary toilet, patient requiring on and off deep suctioning by RT. 5. Diabetes mellitus with noncompliance with diet or medications. Patient has been off medication for at least 1-2 month. Back to n.p.o. status, insulin regimen on board, will start tube feeding. Further adjustment of his insulin requirement may be needed.. Hemoglobin A1c out of range. Diabetic education in the near future, once more stable. Likely to need insulin therapy. Apparently he was on metformin and glipizide based on his medication reconciliation prior. 6. Hyperlipidemia: Continue Lipitor 80 mg qhs. 7. Anemia: Patient with hemoglobin of 7.6, he has been hovering around 8.5-7.6 , he will be transfused 1 unit of packed red blood cells today, Lasix to be given posttransfusion. Prophylaxis: SCDs for DVT prophylaxis, Pepcid for GI prophylaxis Disposition: Unfortunately now with acute left MCA CVA with new deep right hemiparesis, aphasia, dysphagia, continue supportive care, continue tube feeding as long as tolerated, plan for G-tube placement soon when stable per pulmonary. Needs aspiration precaution, aggressive pulmonary toilet. Prognosis fair Subjective 24 Hr Interval Summary Free Text/Dictation Patient had episode of slight respiratory distress earlier this morning, likely related to secretions, has been deep suctioned, respiratory status much improved currently. Chest x-ray done. He is on 2 L nasal cannula, good air exchange. It is noted also that an area of the midsternal incision post CABG has been losing, CT surgery is notified. Chest tube has been removed. Exam/Review of Systems Vital Signs Vitals Vital Signs Date Time Temp Pulse Resp B/P Pulse Ox O2 Delivery O2 Flow Rate FiO2 04/19/17 11:12 98.3 90 18 126/85 98 04/19/17 08:15 Nasal Cannula 2.0 Intake and Output 04/18/17 04/18/17 04/19/17 15:00 23:00 07:00 Intake Total 400 ml Output Total 100 ml 250 ml 400 ml Balance -100 ml -250 ml 0 ml Exam Constitutional: alert, oriented, other (Aphasic) Respiratory: diminished breath sounds (Lower lobes), normal air movement, other (Midsternal incision post CABG with area of oozing. ABD pad in place.) Cardiovascular: nl pulses, regular rate and rhythm Gastrointestinal: non-tender, soft Musculoskeletal: nl extremities to inspection Extremities: normal pulses, other (No edema, clubbing or cyanosis) 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: focal weakness (Right hemiparesis, aphasia, dysphagia), lethargic Results Result Diagram: 04/19/17 0640 04/19/17 0640 Results 24 hrs Laboratory Tests Test 04/18/17 14:21 04/18/17 14:33 04/18/17 16:24 04/18/17 17:29 Bedside Glucose 125 124 White Blood Count 12.6 H 12.9 H Red Blood Count 2.51 L 2.82 L Hemoglobin 7.6 L 8.1 L Hematocrit 24.1 L 26.8 L Mean Corpuscular Volume 96.0 95.0 Mean Corpuscular Hemoglobin 30.3 28.7 L Mean Corpuscular Hemoglobin Concent 31.5 L 30.2 L Red Cell Distribution Width 12.7 12.7 Platelet Count 495 H 496 H Mean Platelet Volume 10.3 10.4 Neutrophils % 82.0 H 79.6 H Lymphocytes % 9.6 L 11.4 L Monocytes % 6.9 7.5 Eosinophils % 0.6 0.7 Basophils % 0.2 0.2 Nucleated Red Blood Cells % 0.2 H 0.0 Neutrophils # 10.3 H 10.3 H Lymphocytes # 1.2 1.5 Monocytes # 0.9 1.0 H Eosinophils # 0.1 0.1 Basophils # 0.0 0.0 Nucleated Red Blood Cells # 0.0 0.0 Sodium Level 141 144 Potassium Level 4.5 3.6 Chloride Level 109 108 Carbon Dioxide Level 27 26 Anion Gap 10 14 Blood Urea Nitrogen 22 H 23 H Creatinine 0.87 0.91 Glucose Level 306 #H 112 # Calcium Level 8.0 L 8.3 L Magnesium Level 2.0 Test 04/18/17 20:21 04/19/17 00:54 04/19/17 04:14 04/19/17 06:40 Bedside Glucose 137 167 173 White Blood Count 11.1 H Red Blood Count 2.61 L Hemoglobin 7.6 L Hematocrit 24.7 L Mean Corpuscular Volume 94.6 Mean Corpuscular Hemoglobin 29.1 Mean Corpuscular Hemoglobin Concent 30.8 L Red Cell Distribution Width 13.1 Platelet Count 481 H Mean Platelet Volume 10.0 Neutrophils % 79.8 H Lymphocytes % 10.9 L Monocytes % 6.3 Eosinophils % 2.2 Basophils % 0.2 Nucleated Red Blood Cells % 0.2 H Neutrophils # 8.9 H Lymphocytes # 1.2 Monocytes # 0.7 Eosinophils # 0.2 Basophils # 0.0 Nucleated Red Blood Cells # 0.0 Sodium Level 143 Potassium Level 4.3 Chloride Level 110 Carbon Dioxide Level 28 Anion Gap 9 # Blood Urea Nitrogen 23 H Creatinine 0.85 Glucose Level 169 Calcium Level 8.1 L Phosphorus Level 3.6 Magnesium Level 2.1 Total Bilirubin 0.8 Direct Bilirubin 0.00 Indirect Bilirubin 0.8 Aspartate Amino Transf (AST/SGOT) 35 Alanine Aminotransferase (ALT/SGPT) 48 Alkaline Phosphatase 121 Total Protein 5.4 L Albumin 2.5 L Globulin 2.90 Albumin/Globulin Ratio 0.86 Test 04/19/17 11:08 Bedside Glucose 276 H Imaging Free Text/Dictation PROCEDURE: XR Chest 1 view. CLINICAL INDICATION: Shortness of breath. Drainage of chest incision. TECHNIQUE: AP views of the chest were obtained. COMPARISON: April 16, 2017 FINDINGS: The heart is large. Calcified atherosclerosis is noted in the aorta. Mediasternotomy wires and surgical clips overlie the heart. Nasogastric tube has its distal end in the expected location of the stomach. Right-sided PICC line is stable. Central pulmonary vascular congestion and interstitial prominence is seen in both lungs. Retrocardiac opacity is identified. Moderate- to-large left pleural effusion is noted. Scattered atelectasis is noted in the right lower lung. Blunting right costophrenic angle is seen. Osseous structures are intact. IMPRESSION: Cardiomegaly with calcified atherosclerosis in the aorta. Nasogastric tube with its distal end in the expected location of the stomach. Central pulmonary vascular congestion and interstitial prominence in both lungs. Stable retrocardiac opacity that may reflect left lower lobe atelectasis or infiltrate combined with [id number] pleural effusion. Scattered atelectasis in the right lower lung and small right pleural effusion. RPTAT: AA .Marin Wright MD, Date Time Electronically viewed and signed by .Marin Wright MD, on 04/19/2017 10:48 Medications Medications Current Medications Aspirin (Halfprin) 81 mg DAILY PO Last administered on 04/19/17 10:08; Admin Dose 81 MG; Start 04/16/17 at 09:00 Carvedilol 6.25 mg 6.25 mg BID PO Last administered on 04/19/17 10:09; Admin Dose 6.25 MG; Start 04/15/17 at 23:00 Potassium Chloride/Dextrose/ Sod Cl (D5-1/2ns + KCl 20 Meq) 1,000 ml @ 75 mls/ hr [id number] IV Last administered on 04/19/17 03:48; Admin Dose 75 MLS/HR; Start 04/16/17 at 01:00 Insulin Glargine (Lantus) 12 unit DAILY@20 SC Last administered on 04/18/17 20:31; Admin Dose 12 UNIT; Start 04/16/17 at 01:00 Heparin Sodium (Porcine) (Heparin (5000 Units/0.5 ml)) 5,000 unit Q8 SC Last administered on 04/19/17 05:07; Admin Dose 5,000 UNIT; Start 04/16/17 at 01: 00 Ondansetron HCl (Zofran Inj) 4 mg Q4H PRN IV NAUSEA AND/OR VOMITING; Start at 01:00 Diagnostic Test (Pha) (Accu-Chek) 1 ea 02 XX Last administered on 04/18/17 01 :38; Admin Dose 1 EA; Start 04/17/17 at 02:00 Insulin Aspart (Novolog Insulin Pen) NOVOLOG *MODERATE* ALGORI... Q4 SC Last administered on 04/19/17 11:13; Admin Dose 8 UNIT; Start 04/16/17 at 09:00 Miscellaneous Information 1 ea NOTE XX ; Start 04/16/17 at 09:00 Glucose (Glutose) 15 gm Q15M PRN PO DECREASED GLUCOSE; Start 04/16/17 at 09:00 Glucose (Glutose) 22.5 gm Q15M PRN PO DECREASED GLUCOSE; Start 04/16/17 at 09: 00 Dextrose (D50w Syringe) 25 ml Q15M PRN IV DECREASED GLUCOSE; Start 04/16/17 at 09:00 Dextrose (D50w Syringe) 50 ml Q15M PRN IV DECREASED GLUCOSE; Start 04/16/17 at 09:00 Glucagon (Glucagen) 1 mg Q15M PRN IM DECREASED GLUCOSE; Start 04/16/17 at 09: 00 Glucose (Glutose) 15 gm Q15M PRN BUCCAL DECREASED GLUCOSE; Start 04/16/17 at 09:00 Atorvastatin Calcium (Lipitor) 80 mg QHS PO Last administered on 04/18/17t 20: 34; Admin Dose 80 MG; Start 04/16/17 at 21:00 DOUGLAS FERRER Apr 19, 2017 11:32
--- NOTE | 2017-04-19 11:47 | CONS ---
Date/Time of Note Date/Time of Note DATE: 04/19/17 TIME: 11:46 Consult Date/Type/Reason Admit Date/Time Apr 15, 2017 at 19:19 Initial Consult Date 04/17/17 Type of Consultation: Neurology Reason for Consultation CVA Ordering Provider: DOUGLAS FERRER Subjective hiccups receiving NGT feeds no change in status Objective Vital Signs Date Time Temp Pulse Resp B/P Pulse Ox O2 Delivery O2 Flow Rate FiO2 04/19/17 11:12 98.3 90 18 126/85 98 04/19/17 08:15 Nasal Cannula 2.0 Intake and Output 04/18/17 04/18/17 04/19/17 15:00 23:00 07:00 Intake Total 400 ml Output Total 100 ml 250 ml 400 ml Balance -100 ml -250 ml 0 ml Exam awake and alert tracks examiner when prompted non verbal globally aphasic unable to follow commands reliably CN: TATYANA, right NLF flattening Motor: flaccid on right, left arm and leg intact strength Tone reduced on right Results/Medications Result Diagram: 04/19/17 0640 04/19/17 0640 Results 24 hrs Laboratory Tests Test 04/18/17 14:21 04/18/17 14:33 04/18/17 16:24 04/18/17 17:29 Bedside Glucose 125 124 White Blood Count 12.6 H 12.9 H Red Blood Count 2.51 L 2.82 L Hemoglobin 7.6 L 8.1 L Hematocrit 24.1 L 26.8 L Mean Corpuscular Volume 96.0 95.0 Mean Corpuscular Hemoglobin 30.3 28.7 L Mean Corpuscular Hemoglobin Concent 31.5 L 30.2 L Red Cell Distribution Width 12.7 12.7 Platelet Count 495 H 496 H Mean Platelet Volume 10.3 10.4 Neutrophils % 82.0 H 79.6 H Lymphocytes % 9.6 L 11.4 L Monocytes % 6.9 7.5 Eosinophils % 0.6 0.7 Basophils % 0.2 0.2 Nucleated Red Blood Cells % 0.2 H 0.0 Neutrophils # 10.3 H 10.3 H Lymphocytes # 1.2 1.5 Monocytes # 0.9 1.0 H Eosinophils # 0.1 0.1 Basophils # 0.0 0.0 Nucleated Red Blood Cells # 0.0 0.0 Sodium Level 141 144 Potassium Level 4.5 3.6 Chloride Level 109 108 Carbon Dioxide Level 27 26 Anion Gap 10 14 Blood Urea Nitrogen 22 H 23 H Creatinine 0.87 0.91 Glucose Level 306 #H 112 # Calcium Level 8.0 L 8.3 L Magnesium Level 2.0 Test 04/18/17 20:21 04/19/17 00:54 04/19/17 04:14 04/19/17 06:40 Bedside Glucose 137 167 173 White Blood Count 11.1 H Red Blood Count 2.61 L Hemoglobin 7.6 L Hematocrit 24.7 L Mean Corpuscular Volume 94.6 Mean Corpuscular Hemoglobin 29.1 Mean Corpuscular Hemoglobin Concent 30.8 L Red Cell Distribution Width 13.1 Platelet Count 481 H Mean Platelet Volume 10.0 Neutrophils % 79.8 H Lymphocytes % 10.9 L Monocytes % 6.3 Eosinophils % 2.2 Basophils % 0.2 Nucleated Red Blood Cells % 0.2 H Neutrophils # 8.9 H Lymphocytes # 1.2 Monocytes # 0.7 Eosinophils # 0.2 Basophils # 0.0 Nucleated Red Blood Cells # 0.0 Sodium Level 143 Potassium Level 4.3 Chloride Level 110 Carbon Dioxide Level 28 Anion Gap 9 # Blood Urea Nitrogen 23 H Creatinine 0.85 Glucose Level 169 Calcium Level 8.1 L Phosphorus Level 3.6 Magnesium Level 2.1 Total Bilirubin 0.8 Direct Bilirubin 0.00 Indirect Bilirubin 0.8 Aspartate Amino Transf (AST/SGOT) 35 Alanine Aminotransferase (ALT/SGPT) 48 Alkaline Phosphatase 121 Total Protein 5.4 L Albumin 2.5 L Globulin 2.90 Albumin/Globulin Ratio 0.86 Test 04/19/17 11:08 Bedside Glucose 276 H Medications Current Medications Aspirin (Halfprin) 81 mg DAILY PO Last administered on 04/19/17 10:08; Admin Dose 81 MG; Start 04/16/17 at 09:00 Carvedilol 6.25 mg 6.25 mg BID PO Last administered on 04/19/17 10:09; Admin Dose 6.25 MG; Start 04/15/17 at 23:00 Potassium Chloride/Dextrose/ Sod Cl (D5-1/2ns + KCl 20 Meq) 1,000 ml @ 75 mls/ hr [id number] IV Last administered on 04/19/17 03:48; Admin Dose 75 MLS/HR; Start 04/16/17 at 01:00 Insulin Glargine (Lantus) 12 unit DAILY@20 SC Last administered on 04/18/17 20:31; Admin Dose 12 UNIT; Start 04/16/17 at 01:00 Heparin Sodium (Porcine) (Heparin (5000 Units/0.5 ml)) 5,000 unit Q8 SC Last administered on 04/19/17 05:07; Admin Dose 5,000 UNIT; Start 04/16/17 at 01: 00 Ondansetron HCl (Zofran Inj) 4 mg Q4H PRN IV NAUSEA AND/OR VOMITING; Start at 01:00 Diagnostic Test (Pha) (Accu-Chek) 1 ea 02 XX Last administered on 04/18/17 01 :38; Admin Dose 1 EA; Start 04/17/17 at 02:00 Insulin Aspart (Novolog Insulin Pen) NOVOLOG *MODERATE* ALGORI... Q4 SC Last administered on 04/19/17 11:13; Admin Dose 8 UNIT; Start 04/16/17 at 09:00 Miscellaneous Information 1 ea NOTE XX ; Start 04/16/17 at 09:00 Glucose (Glutose) 15 gm Q15M PRN PO DECREASED GLUCOSE; Start 04/16/17 at 09:00 Glucose (Glutose) 22.5 gm Q15M PRN PO DECREASED GLUCOSE; Start 04/16/17 at 09: 00 Dextrose (D50w Syringe) 25 ml Q15M PRN IV DECREASED GLUCOSE; Start 04/16/17 at 09:00 Dextrose (D50w Syringe) 50 ml Q15M PRN IV DECREASED GLUCOSE; Start 04/16/17 at 09:00 Glucagon (Glucagen) 1 mg Q15M PRN IM DECREASED GLUCOSE; Start 04/16/17 at 09: 00 Glucose (Glutose) 15 gm Q15M PRN BUCCAL DECREASED GLUCOSE; Start 04/16/17 at 09:00 Atorvastatin Calcium (Lipitor) 80 mg QHS PO Last administered on 04/18/17 20: 34; Admin Dose 80 MG; Start 04/16/17 at 21:00 Assessment/Plan Chief Complaint/Hosp Course 52 yo male with recent admission for DKA poorly controlled DM, HTN, HLD, CAD s/ p recent CABG with Left MCA syndrome. Left M2 branch occlusion not amenable for intervention, was tx back for further care. Recommend: Repeat Head CT continued Left MCA evolution with stable 5 mm midline shift continue frequent neuro checks continue isotonic fluids, avoid D5W for risk of increasing edema c/w aspirin high intensity statin maintain afebrile and euglycemic DVT ppx PT/OT/Speech daily may require PEG if no improvement in s/s Problems: EDILIA ADAMS MD Apr 19, 2017 11:47
[2017-04-19] MEDS ORDERED: SOD CHLORIDE 0.9% 250 ML IV* ONE (12:10)
[2017-04-19] MEDS ORDERED: FUROSEMIDE 40 MG INJ IV ONE (13:00)
--- NOTE | 2017-04-19 15:29 | CONS ---
Date/Time of Note Date/Time of Note DATE: 04/19/17 TIME: 15:27 Assessment/Plan Assessment/Plan Additional Assessment/Plan Non-ST elevation [place] Coronary artery disease status post CABG 04/11/2017 Acute decompensated systolic congestive heart failure Acute ischemic CVA Ischemic cardiomyopathy Respiratory failure, status post extubation 04/12/2017 -Continue antiplatelet therapy, statin therapy, beta-kayy as heart rate and blood pressure permits. Consultation Date/Type/Reason Admit Date/Time Apr 15, 2017 at 19:19 Type of Consultation: cv Referring Provider: DOUGLAS FERRER 24 HR Interval Summary Free Text/Dictation Patient seen and examined Exam/Review of Systems Vital Signs Vitals Vital Signs Date Time Temp Pulse Resp B/P Pulse Ox O2 Delivery O2 Flow Rate FiO2 04/19/17 12:43 92 04/19/17 11:12 98.3 18 126/85 98 04/19/17 08:30 Nasal Cannula 2.0 Intake and Output 04/18/17 04/18/17 04/19/17 15:00 23:00 07:00 Intake Total 400 ml Output Total 100 ml 250 ml 400 ml Balance -100 ml -250 ml 0 ml Exam Sleeping but arousable, follows basic commands, nonverbal, no apparent distress Head: normocephalic Respiratory: other (Coarse breath sounds bilaterally, no wheezing) Cardiovascular: other (S1-S2 heard), regular rate and rhythm Gastrointestinal: bowel sounds, non-tender, soft Extremities: edema Results Result Diagram: 04/19/17 0640 04/19/17 0640 Results 24 hrs Laboratory Tests Test 04/18/17 16:24 04/18/17 17:29 04/18/17 20:21 04/19/17 00:54 Bedside Glucose 124 137 167 White Blood Count 12.9 H Red Blood Count 2.82 L Hemoglobin 8.1 L Hematocrit 26.8 L Mean Corpuscular Volume 95.0 Mean Corpuscular Hemoglobin 28.7 L Mean Corpuscular Hemoglobin Concent 30.2 L Red Cell Distribution Width 12.7 Platelet Count 496 H Mean Platelet Volume 10.4 Neutrophils % 79.6 H Lymphocytes % 11.4 L Monocytes % 7.5 Eosinophils % 0.7 Basophils % 0.2 Nucleated Red Blood Cells % 0.0 Neutrophils # 10.3 H Lymphocytes # 1.5 Monocytes # 1.0 H Eosinophils # 0.1 Basophils # 0.0 Nucleated Red Blood Cells # 0.0 Sodium Level 144 Potassium Level 3.6 Chloride Level 108 Carbon Dioxide Level 26 Anion Gap 14 Blood Urea Nitrogen 23 H Creatinine 0.91 Glucose Level 112 # Calcium Level 8.3 L Test 04/19/17 04:14 04/19/17 06:40 04/19/17 11:08 04/19/17 13:16 Bedside Glucose 173 276 H 209 White Blood Count 11.1 H Red Blood Count 2.61 L Hemoglobin 7.6 L Hematocrit 24.7 L Mean Corpuscular Volume 94.6 Mean Corpuscular Hemoglobin 29.1 Mean Corpuscular Hemoglobin Concent 30.8 L Red Cell Distribution Width 13.1 Platelet Count 481 H Mean Platelet Volume 10.0 Neutrophils % 79.8 H Lymphocytes % 10.9 L Monocytes % 6.3 Eosinophils % 2.2 Basophils % 0.2 Nucleated Red Blood Cells % 0.2 H Neutrophils # 8.9 H Lymphocytes # 1.2 Monocytes # 0.7 Eosinophils # 0.2 Basophils # 0.0 Nucleated Red Blood Cells # 0.0 Sodium Level 143 Potassium Level 4.3 Chloride Level 110 Carbon Dioxide Level 28 Anion Gap 9 # Blood Urea Nitrogen 23 H Creatinine 0.85 Glucose Level 169 Calcium Level 8.1 L Phosphorus Level 3.6 Magnesium Level 2.1 Total Bilirubin 0.8 Direct Bilirubin 0.00 Indirect Bilirubin 0.8 Aspartate Amino Transf (AST/SGOT) 35 Alanine Aminotransferase (ALT/SGPT) 48 Alkaline Phosphatase 121 Total Protein 5.4 L Albumin 2.5 L Globulin 2.90 Albumin/Globulin Ratio 0.86 Medications Medications Current Medications Aspirin (Halfprin) 81 mg DAILY PO Last administered on 04/19/17 10:08; Admin Dose 81 MG; Start 04/16/17 at 09:00 Carvedilol (Coreg) 6.25 mg BID PO Last administered on 04/19/17 10:09; Admin Dose 6.25 MG; Start 04/15/17 at 23:00 Insulin Glargine (Lantus) 12 unit DAILY@20 SC Last administered on 04/18/17 20:31; Admin Dose 12 UNIT; Start 04/16/17 at 01:00 Heparin Sodium (Porcine) (Heparin (5000 Units/0.5 ml)) 5,000 unit Q8 SC Last administered on 04/19/17 05:07; Admin Dose 5,000 UNIT; Start 04/16/17 at 01: 00 Ondansetron HCl (Zofran Inj) 4 mg Q4H PRN IV NAUSEA AND/OR VOMITING; Start at 01:00 Diagnostic Test (Pha) (Accu-Chek) 1 ea 02 XX Last administered on 04/18/17 01 :38; Admin Dose 1 EA; Start 04/17/17 at 02:00 Insulin Aspart (Novolog Insulin Pen) NOVOLOG *MODERATE* ALGORI... Q4 SC Last administered on 04/19/17 13:22; Admin Dose 4 UNIT; Start 04/16/17 at 09:00 Miscellaneous Information 1 ea NOTE XX ; Start 04/16/17 at 09:00 Glucose (Glutose) 15 gm Q15M PRN PO DECREASED GLUCOSE; Start 04/16/17 at 09:00 Glucose (Glutose) 22.5 gm Q15M PRN PO DECREASED GLUCOSE; Start 04/16/17 at 09: 00 Dextrose (D50w Syringe) 25 ml Q15M PRN IV DECREASED GLUCOSE; Start 04/16/17 at 09:00 Dextrose (D50w Syringe) 50 ml Q15M PRN IV DECREASED GLUCOSE; Start 04/16/17 at 09:00 Glucagon (Glucagen) 1 mg Q15M PRN IM DECREASED GLUCOSE; Start 04/16/17 at 09: 00 Glucose (Glutose) 15 gm Q15M PRN BUCCAL DECREASED GLUCOSE; Start 04/16/17 at 09:00 Atorvastatin Calcium (Lipitor) 80 mg QHS PO Last administered on 04/18/17 20: 34; Admin Dose 80 MG; Start 04/16/17 at 21:00 Ghanshyam Lin DO Apr 19, 2017 15:29
[2017-04-19] MEDS: ATORVASTATIN 80 MG TAB PO SCH (20:35)
[2017-04-19] MEDS: INSULIN GLARGINE [LANtus] 3 ML PEN SC SCH (21:04)
[2017-04-20] VITALS (17 sets, daily range): BP systolic 88–145; BP diastolic 64–94; PULSE 88–112; RESP 15–25
[2017-04-20] MEDS: LEVALBUTEROL (NEB) 0.63 MG/3 ML AMP HHN SCH ×4 (01:40→19:49)
[2017-04-20] MEDS: ACETYLCYSTEINE 20% 4 ML VIAL NEB SCH ×4 (01:40→19:49)
[2017-04-20] MEDS: INSULIN ASPART [NOVOLOG] 3 ML PEN SC SCH ×6 (01:53→20:28)
[2017-04-20] MEDS: ACCU-CHEK XX SCH (01:59)
[2017-04-20] MEDS ORDERED: PROPOFOL 200 MG INJ ONE (07:00)
[2017-04-20] MEDS: ASPIRIN (EC) 81 MG TAB PO SCH (08:36)
--- NOTE | 2017-04-20 13:09 | CONS ---
Date/Time of Note Date/Time of Note DATE: 04/20/17 TIME: 13:08 Assessment/Plan Assessment/Plan Additional Assessment/Plan Non-ST elevation [place] Coronary artery disease status post CABG 04/11/2017 Acute decompensated systolic congestive heart failure Acute ischemic CVA Ischemic cardiomyopathy Respiratory failure, status post extubation 04/12/2017 -Continue antiplatelet therapy, statin therapy, beta-kayy as heart rate and blood pressure permits. Consultation Date/Type/Reason Admit Date/Time Apr 15, 2017 at 19:19 Type of Consultation: cv Referring Provider: DOUGLAS FERRER 24 HR Interval Summary Free Text/Dictation Patient seen and examined, more awake today, family bedside Exam/Review of Systems Vital Signs Vitals Vital Signs Date Time Temp Pulse Resp B/P Pulse Ox O2 Delivery O2 Flow Rate FiO2 04/20/17 12:02 88 04/20/17 11:27 98.2 18 133/79 96 04/20/17 07:40 2.0 04/20/17 07:40 Nasal Cannula Intake and Output 04/19/17 04/19/17 04/20/17 15:00 23:00 07:00 Intake Total 400 ml 400 ml Output Total 750 ml 2600 ml Balance -350 ml -2200 ml Exam Alert, following basic commands, nonverbal, no apparent distress, family bedside Head: normocephalic Respiratory: other (Coarse breath sounds bilaterally, no wheezing) Cardiovascular: other (S1-S2 heard), regular rate and rhythm Gastrointestinal: bowel sounds, non-tender, soft Extremities: edema Results Result Diagram: 04/20/17 0716 04/20/17 0716 Results 24 hrs Laboratory Tests Test 04/19/17 13:16 04/19/17 17:56 04/19/17 20:25 04/20/17 01:49 Bedside Glucose 209 167 184 201 Test 04/20/17 05:04 04/20/17 05:56 04/20/17 07:16 04/20/17 08:34 Bedside Glucose 231 H 84 Lab Scanned Report BLOOD TRANSFUSION White Blood Count 12.4 H Red Blood Count 3.70 #L Hemoglobin 10.6 #L Hematocrit 34.1 #L Mean Corpuscular Volume 92.2 Mean Corpuscular Hemoglobin 28.6 L Mean Corpuscular Hemoglobin Concent 31.1 L Red Cell Distribution Width 13.9 Platelet Count 380 # Mean Platelet Volume 10.8 H Neutrophils % 81.0 H Lymphocytes % 8.3 L Monocytes % 7.2 Eosinophils % 2.5 Basophils % 0.2 Nucleated Red Blood Cells % 0.0 Neutrophils # 10.0 H Lymphocytes # 1.0 Monocytes # 0.9 Eosinophils # 0.3 Basophils # 0.0 Nucleated Red Blood Cells # 0.0 Sodium Level 144 Potassium Level 3.5 Chloride Level 106 Carbon Dioxide Level 30 Anion Gap 12 Blood Urea Nitrogen 20 Creatinine 0.83 Glucose Level 100 # Calcium Level 8.8 Phosphorus Level 4.5 Magnesium Level 2.1 Medications Medications Current Medications Aspirin (Halfprin) 81 mg DAILY PO Last administered on 04/20/17 08:36; Admin Dose 81 MG; Start 04/16/17 at 09:00 Carvedilol (Coreg) 6.25 mg BID PO Last administered on 04/20/17 08:36; Admin Dose 6.25 MG; Start 04/15/17 at 23:00 Insulin Glargine (Lantus) 12 unit DAILY@20 SC Last administered on 04/19/17 21:04; Admin Dose 12 UNIT; Start 04/16/17 at 01:00 Ondansetron HCl (Zofran Inj) 4 mg Q4H PRN IV NAUSEA AND/OR VOMITING; Start at 01:00 Diagnostic Test (Pha) (Accu-Chek) 1 ea 02 XX Last administered on 04/20/17 01 :59; Admin Dose 1 EA; Start 04/17/17 at 02:00 Insulin Aspart (Novolog Insulin Pen) NOVOLOG *MODERATE* ALGORI... Q4 SC Last administered on 04/20/17 05:07; Admin Dose 6 UNIT; Start 04/16/17 at 09:00 Miscellaneous Information 1 ea NOTE XX ; Start 04/16/17 at 09:00 Glucose (Glutose) 15 gm Q15M PRN PO DECREASED GLUCOSE; Start 04/16/17 at 09:00 Glucose (Glutose) 22.5 gm Q15M PRN PO DECREASED GLUCOSE; Start 04/16/17 at 09: 00 Dextrose (D50w Syringe) 25 ml Q15M PRN IV DECREASED GLUCOSE; Start 04/16/17 at 09:00 Dextrose (D50w Syringe) 50 ml Q15M PRN IV DECREASED GLUCOSE; Start 04/16/17 at 09:00 Glucagon (Glucagen) 1 mg Q15M PRN IM DECREASED GLUCOSE; Start 04/16/17 at 09: 00 Glucose (Glutose) 15 gm Q15M PRN BUCCAL DECREASED GLUCOSE; Start 04/16/17 at 09:00 Atorvastatin Calcium (Lipitor) 80 mg QHS PO Last administered on 04/19/17t 20: 35; Admin Dose 80 MG; Start 04/16/17 at 21:00 Ghanshyam Lin DO Apr 20, 2017 13:09
--- NOTE | 2017-04-20 14:09 | PN ---
Date/Time of Note Date/Time of Note DATE: 04/20/17 TIME: 14:09 Assessment/Plan VTE Prophylaxis VTE Prophylaxis Intervention: SCD's Lines/Catheters IV Catheter Type (from Nrsg): PICC Line Central line still needed: Yes (For IV access) Urinary Cath still in place: Yes Reason Cath still needed: other (indicate) (To be discontinued in the next 48 hours) Assessment/Plan Assessment/Plan 52-year-old male with: 1. Acute CVA with acute onset of aphasia and right Hemiparesis 04/15 and confirmed left MCA stroke, unfortunately interventional neuroradiology was unable to assist patient at [facility], patient was sent back to [facility] for medical management. Appreciate recommendations from neurology, will continue current medications. PT/OT evaluation ongoing. Patient failed speech eval multiple times, at this time given his history and his recent stroke likely will need G-tube placement, will make sure patient protecting his airway well and stable from the respiratory standpoint for G- tube placement. Will discuss with pulmonary. NG tube in place already, started on tube feeding. D5 fluids contraindicated for patient due to risk of cerebral edema and herniation. Needs frequent suctioning, aspiration precaution. 2. Status post CABG by Dr. Herron postoperative day#8. NSTEMI on admission with known coronary artery disease, status post stents 3 years ago Continue current cardiac medications, per NG tube. Continue current medications, cardiology and CTS following. Now postop course complicated with acute left MCA CVA with unfortunately significant neurological deficit including right hemiparesis, aphasia and severe dysphagia that will require G-tube placement Some oozing noted around the midsternal incision area which has improved greatly today, CT surgery following. 3. Seizures, unclear etiology but could be secondary to DKA versus intracranial pathology. 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 Now with acute left MCA CVA also. Neurology following patient. Continue Kestalin, appreciate Neurology recs. PT/OT/ST as tolerated 4. s/p acute respiratory failure. Patient was successfully extubated post coronary artery bypass surgery last week, he remains able to protect his airway despite this acute left MCA CVA with significant new neurological deficit POD#8 s/p CABG. All cultures since 04/13 remain negative Off antibiotics, continue aspiration precaution and pulmonary toilet, patient requiring on and off deep suctioning by RT. 5. Diabetes mellitus with noncompliance with diet or medications. Patient has been off medication for at least 1-2 month. Back to n.p.o. status, insulin regimen on board, will start tube feeding. Further adjustment of his insulin requirement may be needed.. Hemoglobin A1c out of range. Diabetic education in the near future, once more stable. Likely to need insulin therapy. Apparently he was on metformin and glipizide based on his medication reconciliation prior. 6. Hyperlipidemia: Continue Lipitor 80 mg qhs. 7. Anemia: Status post 1 unit of p yesterday, hemoglobin up to 10.6 Prophylaxis: SCDs for DVT prophylaxis, Pepcid for GI prophylaxis. Disposition: Unfortunately now with acute left MCA CVA with new deep right hemiparesis, aphasia, dysphagia, continue supportive care, continue tube feeding as long as tolerated, plan for G-tube placement, both cardiology and cardiothoracic surgery okay with G-tube placement. Needs aspiration precaution, aggressive pulmonary toilet. Prognosis fair Subjective 24 Hr Interval Summary Free Text/Dictation Patient seems to be more awake today, speech therapy still working with him, severely dysphagia, NG tube apparently came out this morning, have to be replaced. I have consulted GI, we are in discussion regarding G-tube placement. Per cardiology and cardiothoracic surgery, okay for G-tube placement. Exam/Review of Systems Vital Signs Vitals Vital Signs Date Time Temp Pulse Resp B/P Pulse Ox O2 Delivery O2 Flow Rate FiO2 04/20/17 12:02 88 04/20/17 11:27 98.2 18 133/79 96 04/20/17 07:40 2.0 04/20/17 07:40 Nasal Cannula Intake and Output 04/19/17 04/19/17 04/20/17 15:00 23:00 07:00 Intake Total 400 ml 400 ml Output Total 750 ml 2600 ml Balance -350 ml -2200 ml Exam Constitutional: alert, other (Aphasic) Respiratory: diminished breath sounds (Bases bilaterally), normal air movement Cardiovascular: nl pulses, regular rate and rhythm Gastrointestinal: non-tender, soft Musculoskeletal: other (Right hemiparesis) Extremities: normal pulses, other (No edema, clubbing or cyanosis) 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: focal weakness (Right hemiparesis), other (Aphasia and dysphagia ) Results Result Diagram: 04/20/17 0716 04/20/17 0716 Results 24 hrs Laboratory Tests Test 04/19/17 17:56 04/19/17 20:25 04/20/17 01:49 04/20/17 05:04 Bedside Glucose 167 184 201 231 H Test 04/20/17 05:56 04/20/17 07:16 04/20/17 08:34 04/20/17 13:27 Lab Scanned Report BLOOD TRANSFUSION White Blood Count 12.4 H Red Blood Count 3.70 #L Hemoglobin 10.6 #L Hematocrit 34.1 #L Mean Corpuscular Volume 92.2 Mean Corpuscular Hemoglobin 28.6 L Mean Corpuscular Hemoglobin Concent 31.1 L Red Cell Distribution Width 13.9 Platelet Count 380 # Mean Platelet Volume 10.8 H Neutrophils % 81.0 H Lymphocytes % 8.3 L Monocytes % 7.2 Eosinophils % 2.5 Basophils % 0.2 Nucleated Red Blood Cells % 0.0 Neutrophils # 10.0 H Lymphocytes # 1.0 Monocytes # 0.9 Eosinophils # 0.3 Basophils # 0.0 Nucleated Red Blood Cells # 0.0 Sodium Level 144 Potassium Level 3.5 Chloride Level 106 Carbon Dioxide Level 30 Anion Gap 12 Blood Urea Nitrogen 20 Creatinine 0.83 Glucose Level 100 # Calcium Level 8.8 Phosphorus Level 4.5 Magnesium Level 2.1 Bedside Glucose 84 174 Medications Medications Current Medications Aspirin (Halfprin) 81 mg DAILY PO Last administered on 04/20/17 08:36; Admin Dose 81 MG; Start 04/16/17 at 09:00 Carvedilol (Coreg) 6.25 mg BID PO Last administered on 04/20/17 08:36; Admin Dose 6.25 MG; Start 04/15/17 at 23:00 Insulin Glargine (Lantus) 12 unit DAILY@20 SC Last administered on 04/19/17 21:04; Admin Dose 12 UNIT; Start 04/16/17 at 01:00 Ondansetron HCl (Zofran Inj) 4 mg Q4H PRN IV NAUSEA AND/OR VOMITING; Start at 01:00 Diagnostic Test (Pha) (Accu-Chek) 1 ea 02 XX Last administered on 04/20/17 01 :59; Admin Dose 1 EA; Start 04/17/17 at 02:00 Insulin Aspart (Novolog Insulin Pen) NOVOLOG *MODERATE* ALGORI... Q4 SC Last administered on 04/20/17 13:00; Admin Dose 2 UNIT; Start 04/16/17 at 09:00 Miscellaneous Information 1 ea NOTE XX ; Start 04/16/17 at 09:00 Glucose (Glutose) 15 gm Q15M PRN PO DECREASED GLUCOSE; Start 04/16/17 at 09:00 Glucose (Glutose) 22.5 gm Q15M PRN PO DECREASED GLUCOSE; Start 04/16/17 at 09: 00 Dextrose (D50w Syringe) 25 ml Q15M PRN IV DECREASED GLUCOSE; Start 04/16/17 at 09:00 Dextrose (D50w Syringe) 50 ml Q15M PRN IV DECREASED GLUCOSE; Start 04/16/17 at 09:00 Glucagon (Glucagen) 1 mg Q15M PRN IM DECREASED GLUCOSE; Start 04/16/17 at 09: 00 Glucose (Glutose) 15 gm Q15M PRN BUCCAL DECREASED GLUCOSE; Start 04/16/17 at 09:00 Atorvastatin Calcium (Lipitor) 80 mg QHS PO Last administered on 04/19/17 20: 35; Admin Dose 80 MG; Start 04/16/17 at 21:00 DOUGLAS FERRER Apr 20, 2017 14:09
--- NOTE | 2017-04-20 14:33 | CONS ---
Date/Time of Note Date/Time of Note DATE: 04/20/17 TIME: 13:41 Assessment/Plan Assessment/Plan Chief Complaint/Hosp Course Summary Assessment and Plan: Assessment: Acute CVA with acute onset of aphasia 04/15 Anemia/ currently stable DM noncompliant with recent DKA Recent CABG about 1 week ago, hx of stent placement Seizures, unclear etiology Hyperlipidemia Plan: Peg placement today- Will need cardiac clearance Keep NPO PEG - risks/benefits/alternatives/indications of procedure and sedation/ anesthesia discussed with patient who states understading and gives informed consent to proceed. PARQ held and questions were answered. Seen in collaboration with Dr. Hankins Chief Complaint/Reason for Visit: Dysphagia History of Present Illness: This is a 52-year-old male with multiple comorbidities. Patient is being evaluated for possible peg placement status post acute CVA with new onset aphasia and dysphasia. He has been evaluated by speech therapy and agrees with moving forward with PEG placement. He currently has an NG tube which was pulled up this morning and replaced. Discussed plan for PEG placement risks and benefits patient seemed to understand, sister is signing consents for patient, attempted to call, no answer. Son in agreement with moving forward with procedure.Patient with recent CABG, and has been cleared by both cardiology and CT surgery. Will plan for PEG today pending consent from sister. Medical history obtained from son and medical records. Past Medical History: Acute CVA with acute onset of aphasia 04/15 Anemia/ currently stable DM noncompliant, recent DKA Coronary artery disease status post CABG 04/11/2017 Seizures, unclear etiology Hyperlipidemia Allergies: No known allergies Family History: No pertinent family history PHYSICAL EXAMINATION: GENERAL: Well developed, well nourished, alert nonverbal SKIN: Surgical scars s/p CABG, no stigmata chronic liver disease, no evidence of bleeding diathesis LYMPHATIC: No palpable lymphadenopathy. HEAD: Normocephalic, atraumatic, no tenderness. EYES: Pupils equal reactive to light and accommodation, full extraocular movements, sclera clear, non-icteric, no discharge. EARS/NOSE AND THROAT: Ears normal, nose normal, oropharynx normal, oral membranes well hydrated without lesions, NG tube NECK: Supple, no masses, thyroid normal, JVP within normal limits, carotids normal without bruits. CHEST: Inspection within normal limits. CARDIOVASCULAR: Heart: Regular rate and rhythm, no murmurs, gallops or rubs. Peripheral pulses present within normal limits, no cyanosis, clubbing or edemas. No pulsatile abdominal mass RESPIRATORY:Rales Bilateral lower lobs GASTROINTESTINAL AND LIVER: Abdomen: Soft, non tenderness, non-distended, no hernias, no masses, no organomegaly, no ascites, no guarding, no rebound tenderness, normoactive bowel sounds. Rectal: Deferred. GENITOURINARY: Male genitalia within normal limits. EXTREMITIES: No cyanosis, clubbing or edema. Problems: Consultation Date/Type/Reason Admit Date/Time Apr 15, 2017 at 19:19 Date of Consultation: Apr 20, 2017 Type of Consultation: GI Reason for Consultation possible Peg placement Subjective hx not possible: pt non-verbal Past Surgical History Past Surgical Hx: coronary bypass surgery Family History Significant Family History: no pertinent family hx Social History Alcohol Use: none Drug Use: none Exam/Review of Systems Vital Signs Vitals Vital Signs Date Time Temp Pulse Resp B/P Pulse Ox O2 Delivery O2 Flow Rate FiO2 04/20/17 12:02 88 04/20/17 11:27 98.2 18 133/79 96 04/20/17 07:40 2.0 04/20/17 07:40 Nasal Cannula Intake and Output 04/19/17 04/19/17 04/20/17 15:00 23:00 07:00 Intake Total 400 ml 400 ml Output Total 750 ml 2600 ml Balance -350 ml -2200 ml Results Result Diagram: 04/20/17 0716 04/20/17 0716 Results 24 hrs Laboratory Tests Test 04/19/17 17:56 04/19/17 20:25 04/20/17 01:49 04/20/17 05:04 Bedside Glucose 167 184 201 231 H Test 04/20/17 05:56 04/20/17 07:16 04/20/17 08:34 04/20/17 13:27 Lab Scanned Report BLOOD TRANSFUSION White Blood Count 12.4 H Red Blood Count 3.70 #L Hemoglobin 10.6 #L Hematocrit 34.1 #L Mean Corpuscular Volume 92.2 Mean Corpuscular Hemoglobin 28.6 L Mean Corpuscular Hemoglobin Concent 31.1 L Red Cell Distribution Width 13.9 Platelet Count 380 # Mean Platelet Volume 10.8 H Neutrophils % 81.0 H Lymphocytes % 8.3 L Monocytes % 7.2 Eosinophils % 2.5 Basophils % 0.2 Nucleated Red Blood Cells % 0.0 Neutrophils # 10.0 H Lymphocytes # 1.0 Monocytes # 0.9 Eosinophils # 0.3 Basophils # 0.0 Nucleated Red Blood Cells # 0.0 Sodium Level 144 Potassium Level 3.5 Chloride Level 106 Carbon Dioxide Level 30 Anion Gap 12 Blood Urea Nitrogen 20 Creatinine 0.83 Glucose Level 100 # Calcium Level 8.8 Phosphorus Level 4.5 Magnesium Level 2.1 Bedside Glucose 84 174 Medications Medications Current Medications Aspirin (Halfprin) 81 mg DAILY PO Last administered on 04/20/17 08:36; Admin Dose 81 MG; Start 04/16/17 at 09:00 Carvedilol (Coreg) 6.25 mg BID PO Last administered on 04/20/17 08:36; Admin Dose 6.25 MG; Start 04/15/17 at 23:00 Insulin Glargine (Lantus) 12 unit DAILY@20 SC Last administered on 04/19/17 21:04; Admin Dose 12 UNIT; Start 04/16/17 at 01:00 Ondansetron HCl (Zofran Inj) 4 mg Q4H PRN IV NAUSEA AND/OR VOMITING; Start at 01:00 Diagnostic Test (Pha) (Accu-Chek) 1 ea 02 XX Last administered on 04/20/17 01 :59; Admin Dose 1 EA; Start 04/17/17 at 02:00 Insulin Aspart (Novolog Insulin Pen) NOVOLOG *MODERATE* ALGORI... Q4 SC Last administered on 04/20/17 05:07; Admin Dose 6 UNIT; Start 04/16/17 at 09:00 Miscellaneous Information 1 ea NOTE XX ; Start 04/16/17 at 09:00 Glucose (Glutose) 15 gm Q15M PRN PO DECREASED GLUCOSE; Start 04/16/17 at 09:00 Glucose (Glutose) 22.5 gm Q15M PRN PO DECREASED GLUCOSE; Start 04/16/17 at 09: 00 Dextrose (D50w Syringe) 25 ml Q15M PRN IV DECREASED GLUCOSE; Start 04/16/17 at 09:00 Dextrose (D50w Syringe) 50 ml Q15M PRN IV DECREASED GLUCOSE; Start 04/16/17 at 09:00 Glucagon (Glucagen) 1 mg Q15M PRN IM DECREASED GLUCOSE; Start 04/16/17 at 09: 00 Glucose (Glutose) 15 gm Q15M PRN BUCCAL DECREASED GLUCOSE; Start 04/16/17 at 09:00 Atorvastatin Calcium (Lipitor) 80 mg QHS PO Last administered on 04/19/17t 20: 35; Admin Dose 80 MG; Start 04/16/17 at 21:00 Copies To: CC: DALE HANKINS MD, VICTORIA Apr 20, 2017 13:51
[2017-04-20] MEDS ORDERED: CEFAZOLIN 2 GM in SOD CHLORIDE 0.9% 50 ML IVPB ONE (15:00)
[2017-04-20] MEDS ORDERED: CEFAZOLIN 2 GM/50 ML (PMX) 50 ML IVPB SCH (15:30)
--- NOTE | 2017-04-20 15:52 | RADRPT ---
PROCEDURE: XR ABDOMEN. CLINICAL INDICATION: NG tube placement TECHNIQUE: 2 views of the abdomen were obtained. COMPARISON: April 13, 2017 FINDINGS: There is nonspecific bowel gas pattern without evidence of obstruction. Stool and air is noted withi n large bowel. There is an NG tube with distal tip in the distal stomach. No gross subdiaphragmatic free air. The visualized osseous structures are unremarkable. IMPRESSION: 1. Nonspecific bowel gas pattern without evidence of obstruction. Constipation. 2. NG tube in satisfactory position. RPTAT: AAPP Physician Donald Date Time Electronically viewed and signed by Physician Donald on 04/20/2017 15:52 SANDHYA/
[2017-04-20] MEDS ORDERED: INSULIN ASPART [NOVOLOG] 3 ML PEN SC ONE (17:30)
--- NOTE | 2017-04-20 17:46 | HPN ---
Date/Time of Note Date/Time of Note DATE: 04/20/17 TIME: 17:37 Interval H&P Admission Note Pt. seen H&P reviewed: No system changes DALE CHAVARRIA MD Apr 20, 2017 17:45
--- NOTE | 2017-04-20 17:54 | OPPN ---
Date/Time of Note Date/Time of Note DATE: 04/20/17 TIME: 17:52 Proc Note GI Procedure Date 04/20/17 Indication: other (Enteral feeding requirements/dysphagia) Pre-procedure Diagnosis Dysphagia/enteral feeding requirements/post CVA Post-procedure Diagnosis Impression: Uneventful percutaneous endoscopic gastrostomy tube placement Placement of Bruneian 20 gastrostomy tube Plan Start feedings tomorrow morning . Procedure Performed: Other (EGD plus PEG) Surgeon DALE CHAVARRIA MD See signature line Transplant Registered Nurse none Anesthesia Type: MAC Anesthesiologist: MAIA BROWN MD Tourniquet Time none EBL none Transfusion required none Biopsy 1: None Grafts/Implants none Tubes/Drains none Complication(s) none Disposition: PACU Procedure Description After informed consent, with the patient/relatives understanding the procedure, its indications, potential risks and complications, including but not limited to : Allergic reaction, bleeding, perforation or infection, and all after all pertinent questions were answered to the patient's satisfaction, patient/ relative signed witnessed informed consent. Following this, premedication was administered slowly IV push under care of cardiovascular respiratory monitoring with pulse oximetry, and automatic blood pressure, and clinical research monitor. Once to sedative effect was achieved the patient was placed in the left lateral decubitus, the panendoscope was introduced and advanced under visual control. Careful examination of the upper gastrointestinal tract, both on insertion as well as withdrawal of the instrument disclosed following findings: ESOPHAGUS: The mucosa of the entire esophagus was carefully examined and showed the following findings: [The mucosa appears within normal limits. There is no evidence of esophagitis, varices, neoplasm or stricture. No hiatal hernia identified.] Stomach: Upon entrance to the stomach air was insufflated, the gastric araujo distended normally. The mucosa of the fundus, body and antrum of the stomach was carefully examined both head-on and on retroflexion, and showed the following findings: [The mucosa appears within normal limits with no abnormalities. There is no evidence of gastritis, ulcers or neoplasm.] Pylorus: The pylorus was carefully examined and showed the following findings: [The pylorus appears patent and within normal limits, with no evidence of gastric outlet obstruction.] Duodenum: The duodenal mucosa was carefully examined in the duodenal bulb as well as the second portion of the duodenum and showed the following findings: [The mucosa appears unremarkable with no evidence of duodenitis, ulcer or neoplasm.] The instrument was then brought back to the stomach and the anterior wall mid- body was identified by transillumination and "finger indentation", this area was then marked in the anterior wall of the abdomen, it was cleansed with Betadine and infiltrated with Xylocaine 1%. Following this a trocar needle was introduced into the gastric lumen under visual control with the endoscope, once in the gastric lumen a guide wire was advanced and secured with a polypectomy snare, at this point the endoscope was withdrawn bringing the guidewire out through the patient's mouth. Following this a Bruneian #20 gastrostomy tube was introduced over the guidewire, with the Sacmiley-Merry technique without difficulty , a small incision was performed in the skin to allow easy passage of the G-tube , once the position of the gastrostomy was confirmed, the external stopper and connectors were installed, and a clean dressing applied. The patient tolerated the procedure well and was transferred out of the endoscopy suite awake, and in good condition to continue recovery under observation, feedings will start in the next 12-24 hours and the discharge in the care will be instituted. Copies To: CC: DALE CHAVARRIA MD, MORDO MD Apr 20, 2017 17:54
[2017-04-20] MEDS: INSULIN GLARGINE [LANtus] 3 ML PEN SC SCH (20:00)
[2017-04-20] MEDS: ATORVASTATIN 80 MG TAB PO SCH (20:17)
[2017-04-21] VITALS (11 sets, daily range): BP systolic 104–134; BP diastolic 64–83; PULSE 86–102; RESP 16–20
[2017-04-21] MEDS: ACETYLCYSTEINE 20% 4 ML VIAL NEB SCH ×4 (02:07→19:20)
[2017-04-21] MEDS: LEVALBUTEROL (NEB) 0.63 MG/3 ML AMP HHN SCH ×4 (02:07→19:20)
[2017-04-21] MEDS: INSULIN ASPART [NOVOLOG] 3 ML PEN SC SCH ×3 (05:25→18:07)
[2017-04-21] MEDS: ASPIRIN (EC) 81 MG TAB PO SCH (09:46)
--- NOTE | 2017-04-21 10:53 | PN ---
Date/Time of Note Date/Time of Note DATE: 04/21/17 TIME: 10:42 Assessment/Plan VTE Prophylaxis VTE Prophylaxis Intervention: SCD's Lines/Catheters [facility] Saline Lock Urinary Cath still in place: Yes Reason Cath still needed: other (indicate) (Monitor urine output, will plan on discontinuing in the next 24 hours) Assessment/Plan Assessment/Plan 52-year-old male with: 1. Acute CVA with acute onset of aphasia and right Hemiparesis 04/15 and confirmed left MCA stroke, unfortunately interventional neuroradiology was unable to assist patient at [facility], patient was sent back to [facility] for medical management. Appreciate recommendations from neurology, will continue current medications. Continue ST/PT/OT, patient will need placement to detention facility soon. If okay with cardiology and cardiothoracic surgery in the next 24-48 hours. Status post G-tube placement last night, tolerating tube feedings so far. D5 fluids contraindicated for patient due to risk of cerebral edema and herniation. Needs frequent suctioning, aspiration precaution. 2. Status post CABG by Dr. Herron postoperative day#8. NSTEMI on admission with known coronary artery disease, status post stents 3 years ago Continue current cardiac medications, per G-tube Continue current medications, cardiology and CTS following. Now postop course complicated with acute left MCA CVA with unfortunately significant neurological deficit including right hemiparesis, aphasia and severe dysphagia that will require G-tube placement Some oozing noted around the midsternal incision area which has stopped so far, CT surgery following. 3. Seizures, unclear etiology but could be secondary to DKA versus intracranial pathology. 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 Now with acute left MCA CVA also. Neurology following patient. Continue Keppra, appreciate Neurology recs. Continue PT/OT/ST as tolerated 4. s/p acute respiratory failure. Patient was successfully extubated post coronary artery bypass surgery last week, he remains able to protect his airway despite this acute left MCA CVA with significant new neurological deficit POD#9 s/p CABG. All cultures since 04/13 remain negative Off antibiotics, continue aspiration precaution and pulmonary toilet, patient requiring on and off deep suctioning by RT. 5. Diabetes mellitus with noncompliance with diet or medications. Patient has been off medication for at least 1-2 month. Back to n.p.o. status, insulin regimen on board, will start tube feeding. Further adjustment of his insulin requirement may be needed.. Hemoglobin A1c out of range. Diabetic education in the near future, once more stable. Likely to need insulin therapy. Apparently he was on metformin and glipizide based on his medication reconciliation prior. 6. Hyperlipidemia: Continue Lipitor 80 mg qhs. 7. Anemia: Status post 1 unit of p yesterday, hemoglobin up to 10.6 and stable for the past 2 days Prophylaxis: SCDs for DVT prophylaxis, Pepcid for GI prophylaxis. Disposition: Unfortunately now with acute left MCA CVA with new deep right hemiparesis, aphasia, dysphagia, continue supportive care, continue tube feeding status post G-tube placement, if okay per cardiology and cardiothoracic surgery will plan for detention facility placement in the next 24-48 hours. Needs aspiration precaution, aggressive pulmonary toilet. Prognosis fair Subjective 24 Hr Interval Summary Free Text/Dictation Patient is status post G-tube placement yesterday, he remains hemodynamically stable, respiratory status is stable this morning. Tube feeding has been started, as well tolerated. Laboratory data stable. PT/OT/ST ongoing. Will start discussing discharge planning to detention facility within the next 24-48 hours if okay per cardiothoracic surgery, if patient is a candidate for ARU which is doubtful currently we will also address. Exam/Review of Systems Vital Signs Vitals Vital Signs Date Time Temp Pulse Resp B/P Pulse Ox O2 Delivery O2 Flow Rate FiO2 04/21/17 08:08 92 04/21/17 07:55 2.0 28 04/21/17 07:55 18 Nasal Cannula 04/21/17 07:25 97.6 123/82 97 Intake and Output 04/20/17 04/20/17 04/21/17 15:00 23:00 07:00 Intake Total 600 ml Output Total 1100 ml Balance -500 ml Exam Constitutional: alert, oriented, other (aphasic ) Respiratory: clear to auscultation, normal air movement Cardiovascular: nl pulses, regular rate and rhythm Gastrointestinal: non-tender, other (G-tube in place.), soft Musculoskeletal: nl extremities to inspection, other (Right hemiparesis) Extremities: normal pulses, other 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: 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 intact, focal weakness (Right hemiparesis), other ( Aphasia, dysphagia, status post G-tube placement) Results Result Diagram: 04/21/17 0606 04/21/17 0606 Results 24 hrs Laboratory Tests Test 04/20/17 13:27 04/20/17 17:03 04/20/17 18:04 04/20/17 20:27 Bedside Glucose 174 222 H 197 88 Test 04/21/17 00:13 04/21/17 05:18 04/21/17 06:06 Bedside Glucose 131 195 White Blood Count 11.6 H Red Blood Count 3.56 L Hemoglobin 10.6 L Hematocrit 32.8 L Mean Corpuscular Volume 92.1 Mean Corpuscular Hemoglobin 29.8 Mean Corpuscular Hemoglobin Concent 32.3 Red Cell Distribution Width 13.4 Platelet Count 451 H Mean Platelet Volume 10.0 Neutrophils % 84.0 H Lymphocytes % 6.6 L Monocytes % 7.5 Eosinophils % 1.1 Basophils % 0.2 Nucleated Red Blood Cells % 0.0 Neutrophils # 9.7 H Lymphocytes # 0.8 Monocytes # 0.9 Eosinophils # 0.1 Basophils # 0.0 Nucleated Red Blood Cells # 0.0 Sodium Level 143 Potassium Level 3.7 Chloride Level 102 Carbon Dioxide Level 31 Anion Gap 14 Blood Urea Nitrogen 22 H Creatinine 0.90 Glucose Level 192 Calcium Level 8.5 Phosphorus Level 3.9 Magnesium Level 2.0 Medications Medications Current Medications Aspirin (Halfprin) 81 mg DAILY PO Last administered on 04/21/17 09:46; Admin Dose 81 MG; Start 04/16/17 at 09:00 Carvedilol (Coreg) 6.25 mg BID PO Last administered on 04/21/17 09:46; Admin Dose 6.25 MG; Start 04/15/17 at 23:00 Insulin Glargine (Lantus) 12 unit DAILY@20 SC Last administered on 04/19/17 21:04; Admin Dose 12 UNIT; Start 04/16/17 at 01:00 Ondansetron HCl (Zofran Inj) 4 mg Q4H PRN IV NAUSEA AND/OR VOMITING; Start at 01:00 Miscellaneous Information 1 ea NOTE XX ; Start 04/16/17 at 09:00 Glucose (Glutose) 15 gm Q15M PRN PO DECREASED GLUCOSE; Start 04/16/17 at 09:00 Glucose (Glutose) 22.5 gm Q15M PRN PO DECREASED GLUCOSE; Start 04/16/17 at 09: 00 Dextrose (D50w Syringe) 25 ml Q15M PRN IV DECREASED GLUCOSE; Start 04/16/17 at 09:00 Dextrose (D50w Syringe) 50 ml Q15M PRN IV DECREASED GLUCOSE; Start 04/16/17 at 09:00 Glucagon (Glucagen) 1 mg Q15M PRN IM DECREASED GLUCOSE; Start 04/16/17 at 09: 00 Glucose (Glutose) 15 gm Q15M PRN BUCCAL DECREASED GLUCOSE; Start 04/16/17 at 09:00 Atorvastatin Calcium (Lipitor) 80 mg QHS PO Last administered on 04/20/17 20: 17; Admin Dose 80 MG; Start 04/16/17 at 21:00 Insulin Aspart (Novolog Insulin Pen) NOVOLOG *MODERATE* ALGORI... Q6 SC Last administered on 04/21/17 05:25; Admin Dose 4 UNIT; Start 04/21/17 at 06:00 DOUGLAS FERRER Apr 21, 2017 10:53
--- NOTE | 2017-04-21 11:27 | CONS ---
Date/Time of Note Date/Time of Note DATE: 04/21/17 TIME: 11:26 Consult Date/Type/Reason Admit Date/Time Apr 15, 2017 at 19:19 Initial Consult Date 04/17/17 Type of Consultation: Neurology Reason for Consultation Left MCA CVA Ordering Provider: DOUGLAS FERRER Subjective s/p PEG Objective Vital Signs Date Time Temp Pulse Resp B/P Pulse Ox O2 Delivery O2 Flow Rate FiO2 04/21/17 08:08 92 04/21/17 07:55 2.0 28 04/21/17 07:55 18 Nasal Cannula 04/21/17 07:25 97.6 123/82 97 Intake and Output 04/20/17 04/20/17 04/21/17 15:00 23:00 07:00 Intake Total 600 ml Output Total 1100 ml Balance -500 ml Exam awake and alert attentive to examiner and tracks globally aphasic CN: TATYANA, decr blink to threat, right facial Motor right flaccid, left spontaneous movement and w/d to stimuli Results/Medications Result Diagram: 04/21/17 0606 04/21/17 0606 Results 24 hrs Laboratory Tests Test 04/20/17 13:27 04/20/17 17:03 04/20/17 18:04 04/20/17 20:27 Bedside Glucose 174 222 H 197 88 Test 04/21/17 00:13 04/21/17 05:18 04/21/17 06:06 Bedside Glucose 131 195 White Blood Count 11.6 H Red Blood Count 3.56 L Hemoglobin 10.6 L Hematocrit 32.8 L Mean Corpuscular Volume 92.1 Mean Corpuscular Hemoglobin 29.8 Mean Corpuscular Hemoglobin Concent 32.3 Red Cell Distribution Width 13.4 Platelet Count 451 H Mean Platelet Volume 10.0 Neutrophils % 84.0 H Lymphocytes % 6.6 L Monocytes % 7.5 Eosinophils % 1.1 Basophils % 0.2 Nucleated Red Blood Cells % 0.0 Neutrophils # 9.7 H Lymphocytes # 0.8 Monocytes # 0.9 Eosinophils # 0.1 Basophils # 0.0 Nucleated Red Blood Cells # 0.0 Sodium Level 143 Potassium Level 3.7 Chloride Level 102 Carbon Dioxide Level 31 Anion Gap 14 Blood Urea Nitrogen 22 H Creatinine 0.90 Glucose Level 192 Calcium Level 8.5 Phosphorus Level 3.9 Magnesium Level 2.0 Medications Current Medications Aspirin (Halfprin) 81 mg DAILY PO Last administered on 04/21/17 09:46; Admin Dose 81 MG; Start 04/16/17 at 09:00 Carvedilol (Coreg) 6.25 mg BID PO Last administered on 04/21/17 09:46; Admin Dose 6.25 MG; Start 04/15/17 at 23:00 Insulin Glargine (Lantus) 12 unit DAILY@20 SC Last administered on 04/19/17 21:04; Admin Dose 12 UNIT; Start 04/16/17 at 01:00 Ondansetron HCl (Zofran Inj) 4 mg Q4H PRN IV NAUSEA AND/OR VOMITING; Start at 01:00 Miscellaneous Information 1 ea NOTE XX ; Start 04/16/17 at 09:00 Glucose (Glutose) 15 gm Q15M PRN PO DECREASED GLUCOSE; Start 04/16/17 at 09:00 Glucose (Glutose) 22.5 gm Q15M PRN PO DECREASED GLUCOSE; Start 04/16/17 at 09: 00 Dextrose (D50w Syringe) 25 ml Q15M PRN IV DECREASED GLUCOSE; Start 04/16/17 at 09:00 Dextrose (D50w Syringe) 50 ml Q15M PRN IV DECREASED GLUCOSE; Start 04/16/17 at 09:00 Glucagon (Glucagen) 1 mg Q15M PRN IM DECREASED GLUCOSE; Start 04/16/17 at 09: 00 Glucose (Glutose) 15 gm Q15M PRN BUCCAL DECREASED GLUCOSE; Start 04/16/17 at 09:00 Atorvastatin Calcium (Lipitor) 80 mg QHS PO Last administered on 04/20/17 20: 17; Admin Dose 80 MG; Start 04/16/17 at 21:00 Insulin Aspart (Novolog Insulin Pen) NOVOLOG *MODERATE* ALGORI... Q6 SC Last administered on 04/21/17 05:25; Admin Dose 4 UNIT; Start 04/21/17 at 06:00 Assessment/Plan Chief Complaint/Hosp Course 52 yo male with recent admission for DKA poorly controlled DM, HTN, HLD, CAD s/ p recent CABG with Left MCA syndrome. Left M2 branch occlusion not amenable for intervention, was tx back for further care. Recommend: c/w aspirin high intensity statin maintain afebrile and euglycemic PEG placed DVT ppx SNF planning stable for dc, outpatient neurology fu Problems: EDILIA ADAMS MD Apr 21, 2017 11:27
--- NOTE | 2017-04-21 12:37 | CONS ---
Date/Time of Note Date/Time of Note DATE: 04/21/17 TIME: 12:36 Assessment/Plan Assessment/Plan Additional Assessment/Plan Non-ST elevation TN Coronary artery disease status post CABG 04/11/2017 Acute decompensated systolic congestive heart failure Acute ischemic CVA Ischemic cardiomyopathy Respiratory failure, status post extubation 04/12/2017 -Continue antiplatelet therapy, statin therapy, beta-kayy as heart rate and blood pressure permits, start low-dose ERICH inhibitor and up titrate as renal function and blood pressure permits. Consultation Date/Type/Reason Admit Date/Time Apr 15, 2017 at 19:19 Type of Consultation: cv Referring Provider: DOUGLAS FERRER 24 HR Interval Summary Free Text/Dictation Patient seen and examined, denies shortness of breath or chest pain Exam/Review of Systems Vital Signs Vitals Vital Signs Date Time Temp Pulse Resp B/P Pulse Ox O2 Delivery O2 Flow Rate FiO2 04/21/17 12:03 86 04/21/17 11:32 98.1 18 104/68 95 04/21/17 07:55 2.0 28 04/21/17 07:55 Nasal Cannula Intake and Output 04/20/17 04/20/17 04/21/17 15:00 23:00 07:00 Intake Total 600 ml Output Total 1100 ml Balance -500 ml Exam Alert, no apparent distress, able to answer yes and no questions Head: normocephalic Respiratory: other (Coarse breath sounds bilaterally, no wheezing) Cardiovascular: other (S1-S2 heard), regular rate and rhythm Gastrointestinal: bowel sounds, non-tender, soft Extremities: edema Results Result Diagram: 04/21/17 0606 04/21/17 0606 Results 24 hrs Laboratory Tests Test 04/20/17 13:27 04/20/17 17:03 04/20/17 18:04 04/20/17 20:27 Bedside Glucose 174 222 H 197 88 Test 04/21/17 00:13 04/21/17 05:18 04/21/17 06:06 Bedside Glucose 131 195 White Blood Count 11.6 H Red Blood Count 3.56 L Hemoglobin 10.6 L Hematocrit 32.8 L Mean Corpuscular Volume 92.1 Mean Corpuscular Hemoglobin 29.8 Mean Corpuscular Hemoglobin Concent 32.3 Red Cell Distribution Width 13.4 Platelet Count 451 H Mean Platelet Volume 10.0 Neutrophils % 84.0 H Lymphocytes % 6.6 L Monocytes % 7.5 Eosinophils % 1.1 Basophils % 0.2 Nucleated Red Blood Cells % 0.0 Neutrophils # 9.7 H Lymphocytes # 0.8 Monocytes # 0.9 Eosinophils # 0.1 Basophils # 0.0 Nucleated Red Blood Cells # 0.0 Sodium Level 143 Potassium Level 3.7 Chloride Level 102 Carbon Dioxide Level 31 Anion Gap 14 Blood Urea Nitrogen 22 H Creatinine 0.90 Glucose Level 192 Calcium Level 8.5 Phosphorus Level 3.9 Magnesium Level 2.0 Medications Medications Current Medications Aspirin (Halfprin) 81 mg DAILY PO Last administered on 04/21/17 09:46; Admin Dose 81 MG; Start 04/16/17 at 09:00 Carvedilol (Coreg) 6.25 mg BID PO Last administered on 04/21/17 09:46; Admin Dose 6.25 MG; Start 04/15/17 at 23:00 Insulin Glargine (Lantus) 12 unit DAILY@20 SC Last administered on 04/19/17 21:04; Admin Dose 12 UNIT; Start 04/16/17 at 01:00 Ondansetron HCl (Zofran Inj) 4 mg Q4H PRN IV NAUSEA AND/OR VOMITING; Start at 01:00 Miscellaneous Information 1 ea NOTE XX ; Start 04/16/17 at 09:00 Glucose (Glutose) 15 gm Q15M PRN PO DECREASED GLUCOSE; Start 04/16/17 at 09:00 Glucose (Glutose) 22.5 gm Q15M PRN PO DECREASED GLUCOSE; Start 04/16/17 at 09: 00 Dextrose (D50w Syringe) 25 ml Q15M PRN IV DECREASED GLUCOSE; Start 04/16/17 at 09:00 Dextrose (D50w Syringe) 50 ml Q15M PRN IV DECREASED GLUCOSE; Start 04/16/17 at 09:00 Glucagon (Glucagen) 1 mg Q15M PRN IM DECREASED GLUCOSE; Start 04/16/17 at 09: 00 Glucose (Glutose) 15 gm Q15M PRN BUCCAL DECREASED GLUCOSE; Start 04/16/17 at 09:00 Atorvastatin Calcium (Lipitor) 80 mg QHS PO Last administered on 04/20/17 20: 17; Admin Dose 80 MG; Start 04/16/17 at 21:00 Insulin Aspart (Novolog Insulin Pen) NOVOLOG *MODERATE* ALGORI... Q6 SC Last administered on 04/21/17t 05:25; Admin Dose 4 UNIT; Start 04/21/17 at 06:00 Ghanshyam Lin DO Apr 21, 2017 12:37
--- NOTE | 2017-04-21 13:18 | PN ---
Date/Time of Note Date/Time of Note DATE: 04/21/17 TIME: 13:16 Assessment/Plan VTE Prophylaxis VTE Prophylaxis Intervention: SCD's Lines/Catheters IV Catheter Type (from Nrs): Saline Lock Urinary Cath still in place: Yes Reason Cath still needed: other (indicate) (monitor output) Assessment/Plan Chief Complaint/Hosp Course Summary Assessment and Plan: Assessment: Acute CVA with acute onset of aphasia 04/15 Anemia/ currently stable DM noncompliant with recent DKA Recent CABG about 1 week ago, hx of stent placement Seizures, unclear etiology Hyperlipidemia Plan: Peg care Continue TF feeding to goal if vanessa well. Seen in collaboration with Dr. Hankins Subjective: Course reviewed with nursing staff Patient interviewed and examined All labs, imaging and other results reviewed The patient currently receiving a breathing treatment appears stable, spoke with RN, states no residuals Tolerating TF well PHYSICAL EXAMINATION: GENERAL: Well developed, well nourished, alert nonverbal SKIN: Surgical scars s/p CABG, no stigmata chronic liver disease, no evidence of bleeding diathesis LYMPHATIC: No palpable lymphadenopathy. HEAD: Normocephalic, atraumatic, no tenderness. EYES: Pupils equal reactive to light and accommodation, full extraocular movements, sclera clear, non-icteric, no discharge. EARS/NOSE AND THROAT: Ears normal, nose normal, oropharynx normal, oral membranes well hydrated without lesions, NG tube NECK: Supple, no masses, thyroid normal, JVP within normal limits, carotids normal without bruits. CHEST: Inspection within normal limits. CARDIOVASCULAR: Heart: Regular rate and rhythm, no murmurs, gallops or rubs. Peripheral pulses present within normal limits, no cyanosis, clubbing or edemas. No pulsatile abdominal mass RESPIRATORY:Rales Bilateral lower lobs GASTROINTESTINAL AND LIVER: Abdomen: Soft, non tenderness, non-distended, no hernias, no masses, no organomegaly, no ascites, no guarding, no rebound tenderness, normoactive bowel sounds. Rectal: Deferred. GENITOURINARY: Male genitalia within normal limits. EXTREMITIES: No cyanosis, clubbing or edema. Problems: Exam/Review of Systems Vital Signs Vitals Vital Signs Date Time Temp Pulse Resp B/P Pulse Ox O2 Delivery O2 Flow Rate FiO2 04/21/17 12:52 2.0 28 04/21/17 12:52 87 18 98 Nasal Cannula 04/21/17 11:32 98.1 104/68 Intake and Output 04/20/17 04/20/17 04/21/17 14:59 22:59 06:59 Intake Total 600 ml Output Total 1100 ml Balance -500 ml Results Result Diagram: 04/21/17 0606 04/21/17 0606 Results 24 hrs Laboratory Tests Test 04/20/17 13:27 04/20/17 17:03 04/20/17 18:04 04/20/17 20:27 Bedside Glucose 174 222 H 197 88 Test 04/21/17 00:13 04/21/17 05:18 04/21/17 06:06 04/21/17 12:41 Bedside Glucose 131 195 184 White Blood Count 11.6 H Red Blood Count 3.56 L Hemoglobin 10.6 L Hematocrit 32.8 L Mean Corpuscular Volume 92.1 Mean Corpuscular Hemoglobin 29.8 Mean Corpuscular Hemoglobin Concent 32.3 Red Cell Distribution Width 13.4 Platelet Count 451 H Mean Platelet Volume 10.0 Neutrophils % 84.0 H Lymphocytes % 6.6 L Monocytes % 7.5 Eosinophils % 1.1 Basophils % 0.2 Nucleated Red Blood Cells % 0.0 Neutrophils # 9.7 H Lymphocytes # 0.8 Monocytes # 0.9 Eosinophils # 0.1 Basophils # 0.0 Nucleated Red Blood Cells # 0.0 Sodium Level 143 Potassium Level 3.7 Chloride Level 102 Carbon Dioxide Level 31 Anion Gap 14 Blood Urea Nitrogen 22 H Creatinine 0.90 Glucose Level 192 Calcium Level 8.5 Phosphorus Level 3.9 Magnesium Level 2.0 Medications Medications Current Medications Aspirin (Halfprin) 81 mg DAILY PO Last administered on 04/21/17 09:46; Admin Dose 81 MG; Start 04/16/17 at 09:00 Carvedilol (Coreg) 6.25 mg BID PO Last administered on 04/21/17 09:46; Admin Dose 6.25 MG; Start 04/15/17 at 23:00 Insulin Glargine (Lantus) 12 unit DAILY@20 SC Last administered on 04/19/17 21:04; Admin Dose 12 UNIT; Start 04/16/17 at 01:00 Ondansetron HCl (Zofran Inj) 4 mg Q4H PRN IV NAUSEA AND/OR VOMITING; Start at 01:00 Miscellaneous Information 1 ea NOTE XX ; Start 04/16/17 at 09:00 Glucose (Glutose) 15 gm Q15M PRN PO DECREASED GLUCOSE; Start 04/16/17 at 09:00 Glucose (Glutose) 22.5 gm Q15M PRN PO DECREASED GLUCOSE; Start 04/16/17 at 09: 00 Dextrose (D50w Syringe) 25 ml Q15M PRN IV DECREASED GLUCOSE; Start 04/16/17 at 09:00 Dextrose (D50w Syringe) 50 ml Q15M PRN IV DECREASED GLUCOSE; Start 04/16/17 at 09:00 Glucagon (Glucagen) 1 mg Q15M PRN IM DECREASED GLUCOSE; Start 04/16/17 at 09: 00 Glucose (Glutose) 15 gm Q15M PRN BUCCAL DECREASED GLUCOSE; Start 04/16/17 at 09:00 Atorvastatin Calcium (Lipitor) 80 mg QHS PO Last administered on 04/20/17 20: 17; Admin Dose 80 MG; Start 04/16/17 at 21:00 Insulin Aspart (Novolog Insulin Pen) NOVOLOG *MODERATE* ALGORI... Q6 SC Last administered on 04/21/17 12:45; Admin Dose 4 UNIT; Start 04/21/17 at 06:00 Lisinopril (Zestril) 2.5 mg DAILY NGT ; Start 04/21/17 at 13:00 NAVEED THAYER Apr 21, 2017 13:18
[2017-04-21] MEDS: LISINOPRIL 5 MG TAB NGT SCH (13:58)
[2017-04-21] MEDS: ATORVASTATIN 80 MG TAB PO SCH (21:29)
[2017-04-21] MEDS: morphine 2 MG INJ IV PRN (22:00)
[2017-04-21] MEDS: INSULIN GLARGINE [LANtus] 3 ML PEN SC SCH (22:09)
[2017-04-21] MEDS: CHLORPROMAZINE 10 MG TAB PO SCH (23:09)
[2017-04-22] VITALS (11 sets, daily range): BP systolic 85–119; BP diastolic 55–73; PULSE 76–86; RESP 15–20
[2017-04-22] MEDS: LEVALBUTEROL (NEB) 0.63 MG/3 ML AMP HHN SCH ×3 (01:38→13:17)
[2017-04-22] MEDS: ACETYLCYSTEINE 20% 4 ML VIAL NEB SCH ×3 (01:38→13:17)
[2017-04-22] MEDS: INSULIN ASPART [NOVOLOG] 3 ML PEN SC SCH ×4 (01:40→18:00)
[2017-04-22] MEDS: morphine 2 MG INJ IV PRN (03:13)
[2017-04-22] MEDS: LISINOPRIL 5 MG TAB NGT SCH (09:00)
[2017-04-22] MEDS: CHLORPROMAZINE 10 MG TAB PO SCH ×2 (09:05→12:26)
[2017-04-22] MEDS: ASPIRIN (EC) 81 MG TAB PO SCH (09:05)
[2017-04-22] MEDS ORDERED: LEVETIRACETAM (100 MG/ML) 5ML CUP GTB SCH (11:00)
--- NOTE | 2017-04-22 11:02 | PN ---
Date/Time of Note Date/Time of Note DATE: 04/22/17 TIME: 10:39 Assessment/Plan VTE Prophylaxis VTE Prophylaxis Intervention: SCD's Lines/Catheters IV Catheter Type (from [facility]): Saline Lock Urinary Cath still in place: Yes Reason Cath still needed: other (indicate) (Will discontinue today) Assessment/Plan Assessment/Plan 52-year-old male with: 1. Acute CVA with acute onset of aphasia and right Hemiparesis 04/15 and confirmed left MCA stroke, unfortunately interventional neuroradiology was unable to assist patient at [facility], patient was sent back to [facility] for medical management. Appreciate recommendations from neurology, will continue current medications. Continue ST/PT/OT, discharge planning to long-term facility today, okay per cardiology and cardiothoracic surgery. Status post G-tube placement, tolerating tube feedings for the past 24 hours at least. D5 fluids contraindicated for patient due to risk of cerebral edema and herniation. Needs frequent suctioning, aspiration precaution. 2. Status post CABG by Dr. Herron postoperative day#8. NSTEMI on admission with known coronary artery disease, status post stents 3 years ago Continue current cardiac medications, per G-tube Continue current medications, cardiology and CTS following. Now postop course complicated with acute left MCA CVA with unfortunately significant neurological deficit including right hemiparesis, aphasia and severe dysphagia, s/p G-tube placement Some oozing noted around the midsternal incision area which has stopped so far, CT surgery following. 3. Seizures, unclear etiology but could be secondary to DKA versus intracranial pathology. 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 Now with acute left MCA CVA also. Neurology following patient and recommending Keppra 250 mg p.o. twice daily to be tapered over the next few weeks Outpatient neurology follow-up as needed. Continue PT/OT/ST as tolerated 4. s/p acute respiratory failure. Patient was successfully extubated post coronary artery bypass surgery last week, he remains able to protect his airway despite this acute left MCA CVA with significant new neurological deficit POD#10 s/p CABG. All cultures since 04/13 remain negative Off antibiotics, continue aspiration precaution and pulmonary toilet, patient requiring on and off deep suctioning by RT. 5. Diabetes mellitus with noncompliance with diet or medications. Patient has been off medication for at least 1-2 month. Tolerating tube feedings, insulin regimen on board. Blood sugars well tolerated. Hemoglobin A1c out of range. Diabetic education in the near future, once more stable. Likely to need insulin therapy. Apparently he was on metformin and glipizide based on his medication reconciliation prior. 6. Hyperlipidemia: Continue Lipitor 80 mg qhs. 7. Anemia: Status post 1 unit of p yesterday, hemoglobin up to 10.6 and stable for the past 3 days Prophylaxis: SCDs for DVT prophylaxis, Pepcid for GI prophylaxis. Disposition: Unfortunately now with acute left MCA CVA with new deep right hemiparesis, aphasia, dysphagia, continue supportive care, continue tube feeding status post G-tube placement, long-term facility today if bed available and family agreeable. Aspiration precaution, pulmonary toilet. D/c PICC line and Macias today Prognosis fair Subjective 24 Hr Interval Summary Free Text/Dictation Patient mental status much improved, protecting airway well, on room air. G- tube in place, tolerating tube feeding. Will D/C Macias catheter today. Discharge planning to long-term facility as of today okay per cardiothoracic surgery and also per cardiology. Currently on Thorazine for hiccups Exam/Review of Systems Vital Signs Vitals Vital Signs Date Time Temp Pulse Resp B/P Pulse Ox O2 Delivery O2 Flow Rate FiO2 04/22/17 08:47 90 18 21 04/22/17 07:55 97.8 100/65 96 04/21/17 19:20 Nasal Cannula 2.0 Intake and Output 04/21/17 04/21/17 04/22/17 15:00 23:00 07:00 Intake Total 780 ml Output Total 700 ml Balance 80 ml Exam Constitutional: alert, oriented, other (aphasic ) Respiratory: clear to auscultation, normal air movement Cardiovascular: nl pulses, regular rate and rhythm Gastrointestinal: other (G-tube in place and tolerating TF ), soft Musculoskeletal: other (Right hemiparesis) Extremities: normal pulses, other (No edema clubbing or cyanosis) 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: CYCLE COUNTER II-XII intact, focal weakness (Right hemiparesis), nl mental status (At baseline) Results Result Diagram: 04/22/17 0650 04/22/17 0650 Results 24 hrs Laboratory Tests Test 04/21/17 12:41 04/21/17 18:00 04/21/17 21:20 04/22/17 01:31 Bedside Glucose 184 165 189 263 H Test 04/22/17 05:48 04/22/17 06:50 Bedside Glucose 129 White Blood Count 12.6 H Red Blood Count 3.57 L Hemoglobin 10.5 L Hematocrit 33.7 L Mean Corpuscular Volume 94.4 Mean Corpuscular Hemoglobin 29.4 Mean Corpuscular Hemoglobin Concent 31.2 L Red Cell Distribution Width 13.2 Platelet Count 442 H Mean Platelet Volume 10.0 Neutrophils % 81.0 H Lymphocytes % 8.4 L Monocytes % 7.9 Eosinophils % 2.0 Basophils % 0.2 Nucleated Red Blood Cells % 0.0 Neutrophils # 10.2 H Lymphocytes # 1.1 Monocytes # 1.0 H Eosinophils # 0.3 Basophils # 0.0 Nucleated Red Blood Cells # 0.0 Sodium Level 144 Potassium Level 4.3 Chloride Level 105 Carbon Dioxide Level 36 H Anion Gap 7 L Blood Urea Nitrogen 22 H Creatinine 0.74 Glucose Level 149 # Calcium Level 8.7 Phosphorus Level 3.7 Magnesium Level 2.1 Medications Medications Current Medications Aspirin (Halfprin) 81 mg DAILY PO Last administered on 04/22/17 09:05; Admin Dose 81 MG; Start 04/16/17 at 09:00 Carvedilol (Coreg) 6.25 mg BID PO Last administered on 04/22/17 09:06; Admin Dose 6.25 MG; Start 04/15/17 at 23:00 Insulin Glargine (Lantus) 12 unit DAILY@20 SC Last administered on 04/21/17 22:09; Admin Dose 12 UNIT; Start 04/16/17 at 01:00 Ondansetron HCl (Zofran Inj) 4 mg Q4H PRN IV NAUSEA AND/OR VOMITING Last administered on 04/22/17 09:10; Admin Dose 4 MG; Start 04/16/17 at 01:00 Miscellaneous Information 1 ea NOTE XX ; Start 04/16/17 at 09:00 Glucose (Glutose) 15 gm Q15M PRN PO DECREASED GLUCOSE; Start 04/16/17 at 09:00 Glucose (Glutose) 22.5 gm Q15M PRN PO DECREASED GLUCOSE; Start 04/16/17 at 09: 00 Dextrose (D50w Syringe) 25 ml Q15M PRN IV DECREASED GLUCOSE; Start 04/16/17 at 09:00 Dextrose (D50w Syringe) 50 ml Q15M PRN IV DECREASED GLUCOSE; Start 04/16/17 at 09:00 Glucagon (Glucagen) 1 mg Q15M PRN IM DECREASED GLUCOSE; Start 04/16/17 at 09: 00 Glucose (Glutose) 15 gm Q15M PRN BUCCAL DECREASED GLUCOSE; Start 04/16/17 at 09:00 Atorvastatin Calcium (Lipitor) 80 mg QHS PO Last administered on 04/21/17 21: 29; Admin Dose 80 MG; Start 04/16/17 at 21:00 Insulin Aspart (Novolog Insulin Pen) NOVOLOG *MODERATE* ALGORI... Q6 SC Last administered on 04/22/17 01:40; Admin Dose 8 UNIT; Start 04/21/17 at 06:00 Lisinopril (Zestril) 2.5 mg DAILY NGT Last administered on 04/21/17 13:58; Admin Dose 2.5 MG; Start 04/21/17 at 13:00 Morphine Sulfate (morphine) 2 mg Q4H PRN IV pain from surgical incision Last administered on 04/22/17 03:13; Admin Dose 2 MG; Start 04/21/17 at 21:30 Chlorpromazine (Thorazine) 10 mg TID PO Last administered on 04/22/17 09:05; Admin Dose 10 MG; Start 04/21/17 at 21:30 DOUGLAS FERRER Apr 22, 2017 11:01
--- NOTE | 2017-04-22 11:03 | PDOCDIS ---
Discharge Instructions CONDITION Patient Condition: Stable HOME CARE INSTRUCTIONS: Special Diet: G-tube feeding ACTIVITY: Activity Restrictions: Slowly Increase Activity FOLLOW UP/APPOINTMENTS Follow-up Plan Follow-up with Dr. Moeller, cardiothoracic surgery within 1-2 weeks weeks Follow-up with cardiology, within 1-2 weeks Follow-up with neurology, as needed within 2-4 weeks Continue PT/OT/ST Continue tube feedings DOUGLAS FERRER Apr 22, 2017 11:03
--- NOTE | 2017-04-22 11:21 | PN ---
Date/Time of Note Date/Time of Note DATE: 04/22/17 TIME: 11:20 Assessment/Plan VTE Prophylaxis VTE Prophylaxis Intervention: SCD's Lines/Catheters [facility] Saline Lock Urinary Cath still in place: Yes Reason Cath still needed: other (indicate) (monitor output) Assessment/Plan Chief Complaint/Hosp Course Summary Assessment and Plan: Assessment: Acute CVA with acute onset of aphasia 04/15 Dysphagia- s/p peg placement Anemia/ currently stable DM noncompliant with recent DKA Recent CABG about 1 week ago, hx of stent placement Seizures, unclear etiology Hyperlipidemia Plan: Peg care Continue TF feeding- vanessa well Seen in collaboration with Dr. Hankins Subjective: Course reviewed with nursing staff Patient interviewed and examined All labs, imaging and other results reviewed The patient is stable Tolerating TF well, no significant residuals noted PHYSICAL EXAMINATION: GENERAL: Well developed, well nourished, alert nonverbal SKIN: Surgical scars s/p CABG, no stigmata chronic liver disease, no evidence of bleeding diathesis LYMPHATIC: No palpable lymphadenopathy. HEAD: Normocephalic, atraumatic, no tenderness. EYES: Pupils equal reactive to light and accommodation, full extraocular movements, sclera clear, non-icteric, no discharge. EARS/NOSE AND THROAT: Ears normal, nose normal, oropharynx normal, oral membranes well hydrated without lesions, NG tube NECK: Supple, no masses, thyroid normal, JVP within normal limits, carotids normal without bruits. CHEST: Inspection within normal limits. CARDIOVASCULAR: Heart: Regular rate and rhythm, no murmurs, gallops or rubs. Peripheral pulses present within normal limits, no cyanosis, clubbing or edemas. No pulsatile abdominal mass RESPIRATORY:Rales Bilateral lower lobs GASTROINTESTINAL AND LIVER: Abdomen: Soft, non tenderness, non-distended, no hernias, no masses, no organomegaly, no ascites, no guarding, no rebound tenderness, normoactive bowel sounds. Rectal: Deferred. GENITOURINARY: Male genitalia within normal limits. EXTREMITIES: No cyanosis, clubbing or edema. Problems: Exam/Review of Systems Vital Signs Vitals Vital Signs Date Time Temp Pulse Resp B/P Pulse Ox O2 Delivery O2 Flow Rate FiO2 04/22/17 11:04 97.5 78 20 85/55 98 04/22/17 08:47 21 04/21/17 19:20 Nasal Cannula 2.0 Intake and Output 04/21/17 04/21/17 04/22/17 15:00 23:00 07:00 Intake Total 780 ml Output Total 700 ml Balance 80 ml Results Result Diagram: 04/22/17 0650 04/22/17 0650 Results 24 hrs Laboratory Tests Test 04/21/17 12:41 04/21/17 18:00 04/21/17 21:20 04/22/17 01:31 Bedside Glucose 184 165 189 263 H Test 04/22/17 05:48 04/22/17 06:50 Bedside Glucose 129 White Blood Count 12.6 H Red Blood Count 3.57 L Hemoglobin 10.5 L Hematocrit 33.7 L Mean Corpuscular Volume 94.4 Mean Corpuscular Hemoglobin 29.4 Mean Corpuscular Hemoglobin Concent 31.2 L Red Cell Distribution Width 13.2 Platelet Count 442 H Mean Platelet Volume 10.0 Neutrophils % 81.0 H Lymphocytes % 8.4 L Monocytes % 7.9 Eosinophils % 2.0 Basophils % 0.2 Nucleated Red Blood Cells % 0.0 Neutrophils # 10.2 H Lymphocytes # 1.1 Monocytes # 1.0 H Eosinophils # 0.3 Basophils # 0.0 Nucleated Red Blood Cells # 0.0 Sodium Level 144 Potassium Level 4.3 Chloride Level 105 Carbon Dioxide Level 36 H Anion Gap 7 L Blood Urea Nitrogen 22 H Creatinine 0.74 Glucose Level 149 # Calcium Level 8.7 Phosphorus Level 3.7 Magnesium Level 2.1 Medications Medications Current Medications Aspirin (Halfprin) 81 mg DAILY PO Last administered on 04/22/17 09:05; Admin Dose 81 MG; Start 04/16/17 at 09:00 Carvedilol (Coreg) 6.25 mg BID PO Last administered on 04/22/17 09:06; Admin Dose 6.25 MG; Start 04/15/17 at 23:00 Insulin Glargine (Lantus) 12 unit DAILY@20 SC Last administered on 04/21/17 22:09; Admin Dose 12 UNIT; Start 04/16/17 at 01:00 Ondansetron HCl (Zofran Inj) 4 mg Q4H PRN IV NAUSEA AND/OR VOMITING Last administered on 04/22/17 09:10; Admin Dose 4 MG; Start 04/16/17 at 01:00 Miscellaneous Information 1 ea NOTE XX ; Start 04/16/17 at 09:00 Glucose (Glutose) 15 gm Q15M PRN PO DECREASED GLUCOSE; Start 04/16/17 at 09:00 Glucose (Glutose) 22.5 gm Q15M PRN PO DECREASED GLUCOSE; Start 04/16/17 at 09: 00 Dextrose (D50w Syringe) 25 ml Q15M PRN IV DECREASED GLUCOSE; Start 04/16/17 at 09:00 Dextrose (D50w Syringe) 50 ml Q15M PRN IV DECREASED GLUCOSE; Start 04/16/17 at 09:00 Glucagon (Glucagen) 1 mg Q15M PRN IM DECREASED GLUCOSE; Start 04/16/17 at 09: 00 Glucose (Glutose) 15 gm Q15M PRN BUCCAL DECREASED GLUCOSE; Start 04/16/17 at 09:00 Atorvastatin Calcium (Lipitor) 80 mg QHS PO Last administered on 04/21/17 21: 29; Admin Dose 80 MG; Start 04/16/17 at 21:00 Insulin Aspart (Novolog Insulin Pen) NOVOLOG *MODERATE* ALGORI... Q6 SC Last administered on 04/22/17 01:40; Admin Dose 8 UNIT; Start 04/21/17 at 06:00 Lisinopril (Zestril) 2.5 mg DAILY NGT Last administered on 04/21/17 13:58; Admin Dose 2.5 MG; Start 04/21/17 at 13:00 Morphine Sulfate (morphine) 2 mg Q4H PRN IV pain from surgical incision Last administered on 04/22/17 03:13; Admin Dose 2 MG; Start 04/21/17 at 21:30 Chlorpromazine (Thorazine) 10 mg TID PO Last administered on 04/22/17 09:05; Admin Dose 10 MG; Start 04/21/17 at 21:30 Levetiracetam (Keppra Liquid) 250 mg BID GTB ; Start 04/22/17 at 11:00 NAVEED THAYER Apr 22, 2017 11:21
--- NOTE | 2017-04-22 13:07 | CONS ---
Date/Time of Note Date/Time of Note DATE: 04/22/17 TIME: 13:05 Assessment/Plan Assessment/Plan Additional Assessment/Plan Non-ST elevation [place] Coronary artery disease status post CABG 04/11/2017 Acute decompensated systolic congestive heart failure Acute ischemic CVA Ischemic cardiomyopathy Respiratory failure, status post extubation 04/12/2017 -Continue antiplatelet therapy, statin therapy, beta-kayy as heart rate and blood pressure permits, ERICH inhibitor as renal function and blood pressure permits. Consultation Date/Type/Reason Admit Date/Time Apr 15, 2017 at 19:19 Type of Consultation: cv Referring Provider: DOUGLAS FERRER 24 HR Interval Summary Free Text/Dictation Patient seen and examined, denies shortness of breath, dizziness or palpitations Exam/Review of Systems Vital Signs Vitals Vital Signs Date Time Temp Pulse Resp B/P Pulse Ox O2 Delivery O2 Flow Rate FiO2 04/22/17 12:07 76 04/22/17 11:04 97.5 20 85/55 98 04/22/17 08:47 21 04/21/17 19:20 Nasal Cannula 2.0 Intake and Output 04/21/17 04/21/17 04/22/17 15:00 23:00 07:00 Intake Total 780 ml Output Total 700 ml Balance 80 ml Exam Following commands, able to answer yes or no questions with head movements, no apparent distress Constitutional: alert, oriented Head: normocephalic Respiratory: other (Coarse breath sounds bilaterally, no wheezing) Cardiovascular: other (S1-S2 heard), regular rate and rhythm Gastrointestinal: bowel sounds, non-tender, soft Extremities: edema Results Result Diagram: 04/22/17 0650 04/22/17 0650 Results 24 hrs Laboratory Tests Test 04/21/17 18:00 04/21/17 21:20 04/22/17 01:31 04/22/17 05:48 Bedside Glucose 165 189 263 H 129 Test 04/22/17 06:50 04/22/17 12:25 White Blood Count 12.6 H Red Blood Count 3.57 L Hemoglobin 10.5 L Hematocrit 33.7 L Mean Corpuscular Volume 94.4 Mean Corpuscular Hemoglobin 29.4 Mean Corpuscular Hemoglobin Concent 31.2 L Red Cell Distribution Width 13.2 Platelet Count 442 H Mean Platelet Volume 10.0 Neutrophils % 81.0 H Lymphocytes % 8.4 L Monocytes % 7.9 Eosinophils % 2.0 Basophils % 0.2 Nucleated Red Blood Cells % 0.0 Neutrophils # 10.2 H Lymphocytes # 1.1 Monocytes # 1.0 H Eosinophils # 0.3 Basophils # 0.0 Nucleated Red Blood Cells # 0.0 Sodium Level 144 Potassium Level 4.3 Chloride Level 105 Carbon Dioxide Level 36 H Anion Gap 7 L Blood Urea Nitrogen 22 H Creatinine 0.74 Glucose Level 149 # Calcium Level 8.7 Phosphorus Level 3.7 Magnesium Level 2.1 Bedside Glucose 196 Medications Medications Current Medications Aspirin (Halfprin) 81 mg DAILY PO Last administered on 04/22/17 09:05; Admin Dose 81 MG; Start 04/16/17 at 09:00 Carvedilol (Coreg) 6.25 mg BID PO Last administered on 04/22/17 09:06; Admin Dose 6.25 MG; Start 04/15/17 at 23:00 Insulin Glargine (Lantus) 12 unit DAILY@20 SC Last administered on 04/21/17 22:09; Admin Dose 12 UNIT; Start 04/16/17 at 01:00 Ondansetron HCl (Zofran Inj) 4 mg Q4H PRN IV NAUSEA AND/OR VOMITING Last administered on 04/22/17 09:10; Admin Dose 4 MG; Start 04/16/17 at 01:00 Miscellaneous Information 1 ea NOTE XX ; Start 04/16/17 at 09:00 Glucose (Glutose) 15 gm Q15M PRN PO DECREASED GLUCOSE; Start 04/16/17 at 09:00 Glucose (Glutose) 22.5 gm Q15M PRN PO DECREASED GLUCOSE; Start 04/16/17 at 09: 00 Dextrose (D50w Syringe) 25 ml Q15M PRN IV DECREASED GLUCOSE; Start 04/16/17 at 09:00 Dextrose (D50w Syringe) 50 ml Q15M PRN IV DECREASED GLUCOSE; Start 04/16/17 at 09:00 Glucagon (Glucagen) 1 mg Q15M PRN IM DECREASED GLUCOSE; Start 04/16/17 at 09: 00 Glucose (Glutose) 15 gm Q15M PRN BUCCAL DECREASED GLUCOSE; Start 04/16/17 at 09:00 Atorvastatin Calcium (Lipitor) 80 mg QHS PO Last administered on 04/21/17 21: 29; Admin Dose 80 MG; Start 04/16/17 at 21:00 Insulin Aspart (Novolog Insulin Pen) NOVOLOG *MODERATE* ALGORI... Q6 SC Last administered on 04/22/17 01:40; Admin Dose 8 UNIT; Start 04/21/17 at 06:00 Lisinopril (Zestril) 2.5 mg DAILY NGT Last administered on 04/21/17 13:58; Admin Dose 2.5 MG; Start 04/21/17 at 13:00 Morphine Sulfate (morphine) 2 mg Q4H PRN IV pain from surgical incision Last administered on 04/22/17 03:13; Admin Dose 2 MG; Start 04/21/17 at 21:30 Chlorpromazine (Thorazine) 10 mg TID PO Last administered on 04/22/17 09:05; Admin Dose 10 MG; Start 04/21/17 at 21:30 Levetiracetam (Keppra Liquid) 250 mg BID GTB ; Start 04/22/17 at 11:00 Ghanshyam Lin DO Apr 22, 2017 13:06
== END 2017-04-22 18:35 | DRG 64 ==
LOC: ICU 19:19 → TEL 04-17 18:47
PROVIDERS: ADMIT Internal Medicine; ATTEND Internal Medicine
PROC: 30233N1 Transfusion of Nonautologous Red Blood Cells into Peripheral Vein, Percutaneous Approach (ICD-10-PCS; 2017-04-19)
PROC: 0DH63UZ Insertion of Feeding Device into Stomach, Percutaneous Approach (ICD-10-PCS; principal; 2017-04-20 20:30)
DX: I63.542 Cerebral infarction due to unspecified occlusion or stenosis of left cerebellar artery (principal); J69.0 Pneumonitis due to inhalation of food and vomit; I50.23 Acute on chronic systolic (congestive) heart failure; G81.91 Hemiplegia, unspecified affecting right dominant side; R13.10 Dysphagia, unspecified; R47.01 Aphasia; H53.47 Heteronymous bilateral field defects; E11.65 Type 2 diabetes mellitus with hyperglycemia; Z95.1 Presence of aortocoronary bypass graft; D64.9 Anemia, unspecified; E78.5 Hyperlipidemia, unspecified; Z79.4 Long term (current) use of insulin; Z95.5 Presence of coronary angioplasty implant and graft; Z91.14 Patient's other noncompliance with medication regimen; I11.0 Hypertensive heart disease with heart failure; I25.5 Ischemic cardiomyopathy; E87.6 Hypokalemia; Z91.11 Patient's noncompliance with dietary regimen; R29.720 NIHSS score 20; R06.6 Hiccough; I69.991 Dysphagia following unspecified cerebrovascular disease
CPT/HCPCS: 36430; 70450; 71010; 74000; 80048; 80053; 82962; 83735; 84100; 84132; 85025; 86850; 86900; 86901; 86920; 90686; 92507; 92523; 92526; 92610; 94640; 94664; 97110; 97163; 97530; J0690; J1644; J1815; J1940; J2270; J2405; J3230; J3480; J7040; P9016

== ENCOUNTER 2017-04-23 12:35 | Emergency (ER) | payer OTHER ==
[~2017-04-23] VITALS: Wt 76.0 kg
--- NOTE | 2017-04-23 12:49 | ERD ---
ER Documentation Chief Complaint Chief Complaint GROUND LEVEL FALL WITH HEAD INJURY. NO NEURO CHANGE FROM BASELINE. HPI This is a 52-year-old male with a past medical history of coronary disease with recent FL status post CABG, recent CVA on April 15 with a confirmed left MCA stroke with aphasia and right-sided hemiplegia, previous seizure of unclear etiology, acute respiratory failure during his stroke and FL that required an intubation status post extubation, diabetes, hyperlipidemia, chronic anemia, m currently at a correction facility who is presenting with a ground-level fall. The history was provided by the patient's son as well as the nurse that took care of him at his facility. He is nonverbal at baseline now, but he is able to answer yes or no questions as well. The patient reportedly hit his head during this fall. He did not lose consciousness. He does not endorse a headache or neck pain at this time. He does not endorse any pain. He does not endorse trouble breathing. He does not endorse abdominal pain. He is able to move all extremities, but he is weaker on the right. He called his primary care physician who requested that he come to the emergency department for further evaluation and to obtain a CT of the head to check for a head bleed. The patient takes a baby aspirin daily. ROS All systems reviewed and are negative except as per history of present illness. Medications Home Meds Reported Medications Aspirin Ec (Aspir 81) 81 Mg Tablet.dr, 81 MG PO DAILY 04/04/17 Metformin HCl (Fortamet) 500 Mg Tab.er.24, 500 MG PO 04/04/17 Glimepiride* (Amaryl*) 2 Mg Tablet, 2 MG PO WITH BREAKFAST 04/04/17 Atorvastatin Calcium (Atorvastatin Calcium) 10 Mg Tablet, 10 MG PO QHS 04/04/17 Carvedilol* (Carvedilol*) 6.25 Mg Tablet, 6.25 MG PO BID 04/04/17 Allergies Allergies: Coded Allergies: No Known Allergy (Unverified , 04/07/17) PMhx/Soc History of Surgery: Yes (Cardiac Cath in [place]) Anesthesia Reaction: No Hx 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 Disorder: Yes (Witness Seizure) Hx Cardiac Disorders: Yes (FL Stent x 2) Hx Miscellaneous Medical Probl: Yes (SP CABG and CVA) Hx Alcohol Use: Yes (Socially) Hx Substance Use: No Hx Tobacco Use: No FmHx Family History: coronary disease, diabetes Physical Exam Vitals Vital Signs Date Time Temp Pulse Resp B/P Pulse Ox O2 Delivery O2 Flow Rate FiO2 04/23/17 12:42 97.5 98 20 108/84 97 Physical Exam Const: No apparent distress, well-developed, well-nourished Head: Atraumatic Eyes: Normal Conjunctiva. Extraocular movements intact. ENT: Normal External Ears, Nose and Mouth. Neck: Full range of motion. ~ No meningismus. Resp: Clear to auscultation bilaterally Cardio: Regular rate and rhythm, no murmurs, healing midline sternotomy scar Abd: Soft, non tender, non distended. Normal bowel sounds Skin: No petechiae or rashes Back: No midline or flank tenderness Ext: No cyanosis, or edema Neur: Awake and alert. Nonverbal. Cranial nerves intact. No facial droop. Decreased strength in right extremities. Result Diagram: 04/23/17 1325 04/23/17 1325 Results 24 hrs Laboratory Tests Test 04/23/17 13:25 04/23/17 14:51 White Blood Count 12.610^3/ul Red Blood Count 3.4410^6/ul Hemoglobin 9.8g/dl Hematocrit 31.6% Mean Corpuscular Volume 91.9fl Mean Corpuscular Hemoglobin 28.5pg Mean Corpuscular Hemoglobin Concent 31.0g/dl Red Cell Distribution Width 13.2% Platelet Count 81988^3/UL Mean Platelet Volume 10.1fl Neutrophils % 85.2% Lymphocytes % 6.4% Monocytes % 6.2% Eosinophils % 1.5% Basophils % 0.2% Nucleated Red Blood Cells % 0.0/100WBC Neutrophils # 10.810^3/ul Lymphocytes # 0.810^3/ul Monocytes # 0.810^3/ul Eosinophils # 0.210^3/ul Basophils # 0.010^3/ul Nucleated Red Blood Cells # 0.010^3/ul Prothrombin Time 14.2Sec Prothrombin Time Ratio 1.1 INR International Normalized Ratio 1.10 Activated Partial Thromboplast Time 36.9Sec Sodium Level 141mmol/L Potassium Level 3.5mmol/L Chloride Level 102mmol/L Carbon Dioxide Level 31mmol/L Anion Gap 12 Blood Urea Nitrogen 18mg/dl Creatinine 0.73mg/dl Glucose Level 172mg/dl Calcium Level 8.5mg/dl Total Bilirubin 0.7mg/dl Direct Bilirubin 0.00mg/dl Indirect Bilirubin 0.7mg/dl Aspartate Amino Transf (AST/SGOT) 35IU/L Alanine Aminotransferase (ALT/SGPT) 47IU/L Alkaline Phosphatase 112IU/L Total Protein 6.6g/dl Albumin 3.2g/dl Urine Color KOKI Urine Clarity CLOUDY Urine pH 7.0 Urine Specific [place] 1.032 Urine Ketones NEGATIVEmg/dL Urine Nitrite NEGATIVEmg/dL Urine Bilirubin 2+mg/dL Urine Urobilinogen 2+mg/dL Urine Leukocyte Esterase TRACELeu/ul Urine Microscopic RBC 4/HPF Urine Microscopic WBC 5/HPF Urine Amorphous Crystals FEW/HPF Urine Mucus FEW/HPF Urine Hemoglobin NEGATIVEmg/dL Urine Glucose NEGATIVEmg/dL Urine Total Protein 2+mg/dl Procedures/MDM MDM Patient's presentation warrants further investigation. The patient does not endorse any injury, but a trauma workup will be completed. LABS The patient's blood work was obtained and reviewed. The patient has a mild leukocytosis, unchanged from his recent admission. The patient is afebrile, and I do not suspect a systemic infection. The patient is mildly anemic, but is at his baseline. The patient's platelet count is unremarkable. The patient' s CMP shows no emergenct signs of metabolic or electrolyte abnormality. The patient has normal renal and hepatic function testing. Lipase is unremarkable. UA shows no signs of hematuria. It does have leuk esterase with a few wbcs, but no nitrites or bacteria. I do not suspect UTI at this time. IMAGING CXR FINDINGS: Sternotomy wires and CABG clips are present. Moderate left pleural effusion with left basilar atelectasis is present unchanged. . The right lung is clear.. Cardiomegaly with calcific atherosclerosis of the aorta is seen.. The osseous structures are intact. The nasogastric tube and right arm PICC line has been removed. IMPRESSION: Moderate left pleural effusion with left basilar atelectasis unchanged. Cardiomegaly status post CABG.. Electronically viewed and signed by .Jairo Wilson MD, MD on 04/23/2017 13:36 Pelvis XR FINDINGS: The osseous structures, articular spaces, and surrounding soft tissues of the pelvis are unremarkable. No acute fracture or dislocation is seen. No radiopaque foreign body is identified. The osseous mineralization is normal. The sacroiliac joints, as visualized, are grossly unremarkable. IMPRESSION: Unremarkable x-ray pelvis. Electronically viewed and signed by .Jairo Wilson MD, MD on 04/23/2017 13:41 CT Head IMPRESSION: No new acute intracranial abnormalities. Continued elevation of left frontal subacute infarction. Mild chronic-appearing microvascular ischemic changes of the supratentorial white matter and small chronic infarcts of the left cerebellar hemisphere are unchanged. Soft tissue swelling of the left occipital scalp is present without fractures. Electronically viewed and signed by .Mahesh Cooper MD, on 04/23/2017 14:35 TREATMENT/DISPOSITION The patient's did have mild soft tissue swelling in the occiput, that may be related to a fall, but otherwise his trauma evaluation was unremarkable. There is no external injury, and the patient did not indicate that there is any pain or acute abnormality. In speaking with the son, he reports that his father looks the same as it did yesterday. I did also speak with the nursing facility who was reassured by the workup we did and felt that it was appropriate for the patient to return. The patient need to be evaluated by his primary physician tomorrow to ensure that he continues to remain neurologically intact. He should also be closely monitored in the nursing facility. The patient will be given precautions with which to return to the emergency department. He is stable for discharge. Departure Diagnosis: Primary Impression: Head injury Encounter type: initial encounter Qualified Code: S09.90XA - Injury of head , initial encounter Additional Impression: Fall Encounter type: initial encounter Qualified Code: W19.XXXA - Fall, initial encounter Condition: Stable DUSTIN GALVAN MD Apr 23, 2017 12:49
--- NOTE | 2017-04-23 13:37 | RADRPT ---
PROCEDURE: XR Chest. CLINICAL INDICATION: Chest pain . Trauma TECHNIQUE: Single frontal chest x-ray. COMPARISON: 04/19/2017 FINDINGS: Sternotomy wires and CABG clips are present. Moderate left pleural effusion with left basilar atelec tasis is present unchanged. . The right lung is clear.. Cardiomegaly with calcific atherosclerosis of the aorta is seen.. The osseous structures are intact. The nasogastric tube and right arm PICC l ine has been removed. IMPRESSION: Moderate left pleural effusion with left basilar atelectasis unchanged. Cardiomegaly status post CABG.. RPTAT: AA .Jairo Wilson MD, MD Date Time Electronically viewed and signed by .Jairo Wilson MD, on 04/23/2017 13:36 .L/
--- NOTE | 2017-04-23 13:41 | RADRPT ---
PROCEDURE: XR Pelvis. CLINICAL INDICATION: Pain. Trauma. TECHNIQUE: Single AP view of the pelvis. COMPARISON: No prior studies are available for comparison. FINDINGS: The osseous structures, articular spaces, and surrounding soft tissues of the pelvis are unremarkabl e. No acute fracture or dislocation is seen. No radiopaque foreign body is identified. The osseous mineralization is normal. The sacroiliac joints, as visualized, are grossly unremarkable. IMPRESSION: 1. Unremarkable x-ray pelvis. RPTAT: AA .Jairo Wilson MD, MD Date Time Electronically viewed and signed by .Jairo Wilson MD, on 04/23/2017 13:41 .L/
[2017-04-23 13:50] LABS: BASOPHILS % 0.2 % (0.0-2.0); EOSINOPHILS # 0.2 10^3/ul (0.0-0.5); EOSINOPHILS % 1.5 % (0.0-7.0); HEMATOCRIT 31.6 % (42.0-52.0); HEMOGLOBIN 9.8 g/dl (14.0-18.0); LYMPHOCYTES # 0.8 10^3/ul (0.8-2.9); LYMPHOCYTES % 6.4 % (15.0-51.0); MEAN CORPUSCULAR HEMOGLOBIN 28.5 pg (29.0-33.0); MEAN CORPUSCULAR VOLUME 91.9 fl (82.0-101.0); MEAN PLATELET VOLUME 10.1 fl (7.4-10.4); MONOCYTE # 0.8 10^3/ul (0.3-0.9); MONOCYTES % 6.2 % (0.0-11.0); NEUTROPHIL # 10.8 10^3/ul (1.6-7.5); NEUTROPHILS % 85.2 % (39.0-77.0); PLATELET COUNT 398 10^3/UL (140-415); RED BLOOD COUNT 3.44 10^6/ul (4.70-6.10); RED CELL DISTRIBUTION WIDTH 13.2 % (11.5-14.5); WHITE BLOOD COUNT 12.6 10^3/ul (4.8-10.8)
[2017-04-23 14:05] LABS: INR 1.1; PROTIME 14.2 Sec (12.2-14.2); PT RATIO 1.1
[2017-04-23 14:06] LABS: PARTIAL THROMBOPLASTIN TIME 36.9 Sec (25.0-35.0)
[2017-04-23 14:10] LABS: ALBUMIN 3.2 g/dl (3.3-4.9); BILIRUBIN,INDIRECT 0.7 mg/dl (0-1.1); BILIRUBIN,TOTAL 0.7 mg/dl (0.2-1.3); CALCIUM 8.5 mg/dl (8.4-10.2); CREATININE 0.73 mg/dl (0.61-1.24); POTASSIUM 3.5 mmol/L (3.5-5.1); TOTAL PROTEIN 6.6 g/dl (6.1-8.1)
--- NOTE | 2017-04-23 14:35 | RADRPT ---
PROCEDURE: CT Brain without contrast. CLINICAL INDICATION: Pain, headache TECHNIQUE: Routine CT scan of the brain was performed on a high resolution multi detector scanner without intravenous contrast. One or more of the following dose reduction techniques were used: Auto mated exposure control; Adjustment of the mA and/or kV according to patient size; Use of iterative r econstruction technique. CTDI = 44 mGy. DLP = 728 mGy-cm. COMPARISON: CT brain 04/17/2017 FINDINGS: Hemorrhage: No evidence of intracranial hemorrhage. Acute ischemic changes: No evidence of acute ischemic changes. Continued evolution of previously see n now subacute appearing ischemic changes involving the left frontal lobe. Mass effect: None. Parenchymal volume: Within normal limits for age. Ventricular system: Concordant with parenchymal volume. Chronic changes: Small chronic infarcts of the left cerebellar hemisphere are unchanged. Mild chroni c-appearing microvascular ischemic changes of the supratentorial white matter. Atherosclerotic calci fications of the cavernous portions of both internal carotid arteries are present. Extracranial soft tissues: Soft tissue swelling left occipital scalp is new. Calvarium: No fractures. Paranasal sinuses: Visualized paranasal sinuses are clear. Mastoid air cells: Visualized mastoid air cells are clear. IMPRESSION: No new acute intracranial abnormalities. Continued elevation of left frontal subacute infarction. Mild chronic-appearing microvascular ischemic changes of the supratentorial white matter and small c hronic infarcts of the left cerebellar hemisphere are unchanged. Soft tissue swelling of the left occipital scalp is present without fractures. RPTAT: AADD .Mahesh Cooper MD, MD Date Time Electronically viewed and signed by .Mahesh Cooper MD, on 04/23/2017 14:35 .B/
[2017-04-23 15:18] LABS: ADD UMIC YES; UR AMORPHOUS CRYSTAL FEW /HPF (NONE SEEN); UR ASCORBIC ACID 40 mg/dL (NEGATIVE); UR BILIRUBIN (Dip) 2+ mg/dL (NEGATIVE); UR BLOOD (Dip) NEGATIVE (NEGATIVE); UR CLARITY CLOUDY (CLEAR); UR COLOR AMBER (YELLOW); UR GLUCOSE (Dip) NEGATIVE (NEGATIVE); UR KETONES (Dip) NEGATIVE (NEGATIVE); UR LEUKOCYTE ESTERASE (Dip) TRACE Leu/ul (NEGATIVE); UR MUCUS FEW /HPF (NONE SEEN); UR NITRITE (Dip) NEGATIVE (NEGATIVE); UR RBC 4 /HPF (0-5); UR SPECIFIC GRAVITY (Dip) 1.032 (1.003-1.030); UR TOTAL PROTEIN (Dip) 2+ mg/dl (NEGATIVE); UR UROBILINOGEN (Dip) 2+ mg/dL (NEGATIVE)
[2017-04-23 17:00] VITALS: BP 113/76; PULSE 86; RESP 20; TEMP 97.5
== END 2017-04-23 17:19 | disposition home or self-care (01) ==
LOC: E/R 12:35
DX: S09.90XA Unspecified injury of head, initial encounter (principal); R40.2122 Coma scale, eyes open, to pain, at arrival to emergency department; I25.10 Atherosclerotic heart disease of native coronary artery without angina pectoris; R40.2352 Coma scale, best motor response, localizes pain, at arrival to emergency department; R07.9 Chest pain, unspecified; W18.39XA Other fall on same level, initial encounter; Y92.9 Unspecified place or not applicable; Z98.61 Coronary angioplasty status; Z79.84 Long term (current) use of oral hypoglycemic drugs; Z79.82 Long term (current) use of aspirin
CPT/HCPCS: 70450; 71010; 72170; 80048; 80076; 81001; 85025; 85610; 85730; 86850; 86900; 86901

== ENCOUNTER 2018-05-06 18:27 | Emergency (ER) | END 2018-05-06 22:20 | disposition home or self-care (01) ==